=== PATIENT | female | born 1935 | race Caucasian/White ===

== ENCOUNTER 2018-12-02 13:21 | Emergency (ER) | payer MEDICARE ==
[2018-12-02] MEDS ORDERED: MECL1CHW2 PO (13:34)
--- NOTE | 2018-12-02 14:04 | REP ---
CT brain without contrast: History: Head injury. Findings: Preliminary parts driver images are unremarkable. Bone window settings demonstrate an intact bony calvarium. No skull fractures seen. There is left posterior parietal scalp hematoma and swelling. Vascular calcification is observed in the distal carotid arteries bilaterally. There is moderate diffuse cerebral atrophy. There is no evidence of intracranial hemorrhage. No extra-axial fluid collection, infarct, hemorrhage or mass lesion is seen. No midline shift is seen. Impression: Diffuse atrophy and vascular calcification. Left posterior parietal scalp hematoma and swelling. No skull fracture or intracranial injury. Electronically Signed by Isaias Viveros MD 12/02/2018 01:56 P
[2018-12-02 14:14] LABS: BASO % 0.1 % (0.0-1.0); EOS # 0.1 10^3/uL (0.0-0.50); EOS % 0.3 % (0.0-3.0); HEMATOCRIT 33.8 % (36.0-47.0); HEMOGLOBIN 10.4 g/dl (12.0-15.5); LYMPH # 0.9 10^3/uL (1.5-4.5); MEAN CORPUSCULAR HEMOGLOBIN 28.8 pg (27.0-33.0); MEAN CORPUSCULAR HGB CONC 30.8 g/dl (32.0-36.5); MEAN CORPUSCULAR VOLUME 93.6 fl (80.0-96.0); MONO % 16.9 % (0.0-5.0); NEUTROPHILS # 13.3 10^3/uL (1.8-7.7); NEUTROPHILS % 76.8 % (36.0-66.0); PLATELET COUNT, AUTOMATED 238 10^3/uL (150-450); RED BLOOD COUNT 3.61 10^6/uL (4.00-5.40); WHITE BLOOD COUNT 17.4 10^3/uL (4.0-10.0)
[2018-12-02] MEDS ORDERED: ADENOSINE 6MG/2ML INJECTION (J0153) As Ordered ONE (14:21)
[2018-12-02] MEDS ORDERED: ADENOSINE 6MG/2ML INJECTION (J0153) IV STA (14:23)
[2018-12-02] MEDS ORDERED: NS 500 ML IV ONE (14:30)
[2018-12-02 14:51] LABS: ALBUMIN 3.7 GM/DL (3.2-5.2); BILIRUBIN,TOTAL 1.1 MG/DL (0.2-1.0); CALCIUM LEVEL 7.8 MG/DL (8.8-10.2); CREATININE FOR GFR 1.09 MG/DL (0.55-1.30); FREE THYROXINE INDEX 1.9 % (1.3-4.8); GLOMERULAR FILTRATION RATE 50.8 (>32); THYROXINE (T4) 5.8 UG/DL (4.5-12.0); TOTAL PROTEIN 6.6 GM/DL (6.4-8.2); TROPONIN I 0.96 NG/ML (< 0.10)
--- NOTE | 2018-12-02 14:59 | REP ---
CT study of the cervical spine without contrast: History: Technique: Helical scanning is acquired and overlapping 2 mm high resolution axial images were generated and reviewed at bone and soft tissue window settings. Coronal and sagittal multiplanar re-formations images are generated. CT findings: There is a coronal plane complex C2-C3 fracture. This extends through both pedicles at C2 and across the posterior aspect of the body of C2 in the coronal plane. The C2 component of the fracture is somewhat diastatic. The fracture plane continues through the mid and anterior body of C3. The superior endplate of C3 is partially collapsed. The anterior body is displaced forward somewhat. There is no evidence of retropulsion. No loss of posterior vertebral body height is seen. There is discogenic spurring on the left posteriorly at C2-3 disc margin and this along with the fracture has produced of neural foraminal narrowing. The posterior elements at the C3 appear intact. There is osteoarthritic facet disease bilaterally but the facets are normally aligned. The left-sided C3-4 facet is ankylosed as is the left-sided C4-5 facet. There are degenerative disc changes at C4-5 and C5-6 and C6-7. At C5-6, there is significant posterior disc spurring producing severe central canal stenosis. Impression: Coronal plane bilateral pedicle and posterior body C2 fractures, slightly diastatic. This is associated with an anterior wedge compression fracture through the body of C3. Unstable injury. Degenerative spondylosis changes are noted with severe central canal stenosis at the C5-6 level. Ankylosed left-sided C3-4 and C4-5 facet joints are noted incidentally. Findings were telephoned at the time of the study to Dr. Medina in the emergency department. Electronically Signed by Isaias Viveros MD 12/02/2018 03:53 P
[2018-12-02 15:06] LABS: MONO # 2.9 10^3/uL (0.0-0.8)
[2018-12-02 15:14] LABS: MAGNESIUM LEVEL 1.7 MG/DL (1.8-2.4); MB/CK RELATIVE INDEX 1.36 (< OR =4); POTASSIUM SERUM 3.4 MEQ/L (3.5-5.1); THYROID STIMULATING HORMONE 2.97 uIU/ML (0.358-3.740)
[2018-12-02] MEDS ORDERED: NS 1,000 ML IV ONE (16:00)
[2018-12-02] MEDS ORDERED: METOPROLOL TART 25 MG TABLET PO ONE (16:15)
[2018-12-02 16:59] LABS: APPEARANCE, URINE CLEAR (CLEAR); BACTERIA, URINE AUTO NEGATIVE (NEGATIVE); BILIRUBIN, URINE AUTO NEGATIVE (NEGATIVE); BLOOD, URINE BLOOD 2+ (NEGATIVE); COLOR, URINE YELLOW (YELLOW); GLUCOSE, URINE (UA) AUTO NEGATIVE (NEGATIVE); KETONE, URINE AUTO 1+ mg/dL (NEGATIVE); LEUKOCYTE ESTERASE, URINE AUTO NEGATIVE (NEGATIVE); NITRITE, URINE AUTO NEGATIVE (NEGATIVE); PROTEIN, URINE AUTO 1+ mg/dL (NEGATIVE); RBC, URINE AUTO 24 /HPF (0-3); SPECIFIC GRAVITY URINE AUTO 1.016 (1.002-1.035); SQUAMOUS EPITHELIAL CELL UR AU 0 /HPF (0-6); UROBILINOGEN, URINE AUTO 0.2 mg/dL (0.0-2.0); WBC, URINE AUTO 1 /HPF (0-3)
[2018-12-02 17:18] VITALS: BP 143/66
--- NOTE | 2018-12-02 17:39 | ECGEPIP ---
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
--- NOTE | 2018-12-02 17:40 | ECGEPIP ---
Stationary ECG Study 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
== END 2018-12-02 17:21 | disposition short-term general hospital (02) ==
LOC: M ED 13:21 → EDBD 13:21 → M ED 17:21
DX: S12.190A Other displaced fracture of second cervical vertebra, initial encounter for closed fracture (principal); S12.290A Other displaced fracture of third cervical vertebra, initial encounter for closed fracture; W19.XXXA Unspecified fall, initial encounter; Y92.018 Other place in single-family (private) house as the place of occurrence of the external cause

== ENCOUNTER 2018-12-12 11:53 | Inpatient (IN) | payer MEDICARE ==
[~2018-12-12] VITALS: Ht 167.6 cm; Wt 67.1 kg
[~2018-12-12 11:53] MED LIST: MECL1CHW2 PO
[2018-12-14 15:20] VITALS: BP 147/70
[2018-12-14] MEDS ORDERED: ACET1TAB55 PO (15:45)
[2018-12-14] MEDS ORDERED: LEVO500T3 PO (15:45)
[2018-12-14] MEDS ORDERED: MOM 30ML SUSPENSION UDC PO PRN (17:15)
--- NOTE | 2018-12-14 18:11 | REP ---
Clinical: Chest pain. Pleural effusion. Comparison: 12/03/2009. Findings: Mediastinum and cardiac silhouette are within normal limits and stable. Lung burgos demonstrate diffuse chronic interstitial changes. No acute consolidation, effusion, or pneumothorax. Skeletal structures demonstrate osteopenia and degenerative change. Impression: Chronic stable changes. No acute cardiopulmonary process. Electronically Signed by Kermit Krishnamurthy MD 12/14/2018 06:03 P
[2018-12-14 18:43] LABS: APPEARANCE, URINE CLEAR (CLEAR); BACTERIA, URINE AUTO NEGATIVE (NEGATIVE); BILIRUBIN, URINE AUTO NEGATIVE (NEGATIVE); BLOOD, URINE BLOOD NEGATIVE (NEGATIVE); COLOR, URINE YELLOW (YELLOW); GLUCOSE, URINE (UA) AUTO NEGATIVE (NEGATIVE); KETONE, URINE AUTO NEGATIVE (NEGATIVE); LEUKOCYTE ESTERASE, URINE AUTO NEGATIVE (NEGATIVE); NITRITE, URINE AUTO NEGATIVE (NEGATIVE); PROTEIN, URINE AUTO NEGATIVE (NEGATIVE); RBC, URINE AUTO 1 /HPF (0-3); SPECIFIC GRAVITY URINE AUTO 1.038 (1.002-1.035); SQUAMOUS EPITHELIAL CELL UR AU 0 /HPF (0-6); UROBILINOGEN, URINE AUTO 0.2 mg/dL (0.0-2.0); WBC, URINE AUTO 1 /HPF (0-3)
[2018-12-14] MEDS: BOUDREAUX'S BUTT PASTE 4OZ TOP SCH (20:42)
[2018-12-14] MEDS: ACETAMINOPHEN TAB 650MG DOSE (2X325MG) PO PRN (20:42)
[2018-12-14] MEDS: LACTOBACILLUS ACIDOPHILUS CAP (BACID) PO SCH (20:42)
[2018-12-14 22:00] VITALS: BP 160/81
[2018-12-15 06:00] VITALS: BP 150/72
[2018-12-15] MEDS ORDERED: LevoFLOXacin 250 MG TABLET PO SCH (06:00)
[2018-12-15 07:48] LABS: HEMATOCRIT 25.4 % (36.0-47.0); HEMOGLOBIN 7.9 g/dl (12.0-15.5); MEAN CORPUSCULAR HEMOGLOBIN 28.8 pg (27.0-33.0); MEAN CORPUSCULAR HGB CONC 31.1 g/dl (32.0-36.5); MEAN CORPUSCULAR VOLUME 92.7 fl (80.0-96.0); PLATELET COUNT, AUTOMATED 357 10^3/uL (150-450); RED BLOOD COUNT 2.74 10^6/uL (4.00-5.40)
[2018-12-15 08:07] LABS: ALBUMIN 2.9 GM/DL (3.2-5.2); ALT/SGPT 14 U/L (12-78); BILIRUBIN,TOTAL 0.5 MG/DL (0.2-1.0); BLOOD UREA NITROGEN 17 MG/DL (7-18); CALCIUM LEVEL 8.1 MG/DL (8.8-10.2); CARBON DIOXIDE LEVEL 32 MEQ/L (21-32); CHLORIDE LEVEL 101 MEQ/L (98-107); CREATININE FOR GFR 0.65 MG/DL (0.55-1.30); GLOMERULAR FILTRATION RATE > 60.0 (>32); GLUCOSE, FASTING 94 MG/DL (70-100); SODIUM LEVEL 138 MEQ/L (136-145); TOTAL PROTEIN 6.1 GM/DL (6.4-8.2)
--- NOTE | 2018-12-15 08:21 | REP ---
Clinical: Immobilization with lower extremity pain . Technique: Escobar scale and color Doppler evaluation using linear high frequency transducer. Findings: Ultrasound examination of the right and left lower extremity deep venous structures from the common femoral vein to the popliteal vein demonstrates normal compressibility flow and wave patterns in response to respiration and augmentation. There is no evidence for deep venous thrombosis. Impression: No evidence for deep venous thrombosis bilateral lower extremities. Electronically Signed by Kermit Krishnamurthy MD 12/15/2018 08:12 A
[2018-12-15 08:32] LABS: ATYPICAL LYMPH 2 % (0-5); LYMPHOCYTES 24 % (16-52); MONOCYTES 22 % (0-8); MYELOCYTES 1 % (0-0); NEUTROPHILS 49 % (35-75)
[2018-12-15 08:33] LABS: ANISOCYTOSIS 1+; PLATELET ESTIMATE NORMAL (NORMAL)
[2018-12-15] MEDS: BOUDREAUX'S BUTT PASTE 4OZ TOP SCH ×3 (09:00→20:10)
[2018-12-15] MEDS: SANTYL OINT 30GM TOP SCH (09:03)
[2018-12-15] MEDS: PANTOPRAZOLE 40MG TAB (PROTONIX) PO SCH (09:04)
[2018-12-15] MEDS: LACTOBACILLUS ACIDOPHILUS CAP (BACID) PO SCH ×3 (09:04→20:10)
[2018-12-15] MEDS: ENOXAPARIN 40 MG/0.4 ML SYRINGE (J1650) SC SCH (09:04)
[2018-12-15] MEDS: ACETAMINOPHEN TAB 650MG DOSE (2X325MG) PO PRN ×2 (10:00→20:47)
[2018-12-15 14:00] VITALS: BP 137/76
--- NOTE | 2018-12-15 14:45 | HPEPDOC ---
Tester/Lift Trucker Note DATE OF ADMISSION: Dec 14, 2018 at 15:20 SOURCE OF ADMISSION INFORMATION: [facility] and [facility] records, patient CHIEF COMPLAINT: cervical neck fracture HISTORY OF PRESENT ILLNESS: 83F no pmh who presented to [facility] ED on 12-02-18 following a fall out of bed and found to have a cervical fracture. CT neck at the time revealed, "Coronal plane bilateral pedicle and posterior body C2 fractures, slightly diastatic...anterior wedge compression fracture through the body of C3. Unstable injury." She was transferred to [facility] for further evaluation where she was not deemed a surgical candidate and placed in a cervical collar to be worn at all times. She did have an elevated CK and troponins, but cardiac work-up was otherwise normal and she was treated with IVF. 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 Coli and so she was treated with IV antibiotics and transitioned to oral. On there was concern for PE as patient became tachycardic, however CTA showed "no pulmonary embolism...bilateral pleural effusions...opacities in bilateral lower lobes may represent atelectasis or pneumonia". She developed a left clavicle wound due to her C collar, found to have deficits in gait and ADLs, placed on a dysphagia diet, had mejia inserted for urinary retention, and deemed medically appropriate for discharge to ARU on 12-14-18. REVIEW OF SYSTEMS: The following is a completed review of systems and has been reviewed. Review of systems otherwise unremarkable. PAIN: Patient self reports no pain EYES: Negative for recent vision changes EARS, NOSE, & THROAT: +dysphagia, cervical collar CARDIOVASCULAR: no chest pain or palpitations PULMONARY: Negative. Denies shortness of breath GASTROINTESTINAL: Negative for diarrhea or constipation GENITOURINARY: +mejia, +retention MUSCULOSKELETAL: C2, C3 vertebral fracture NEUROLOGICAL: C2, C3 vertebral fracture, no focal deficit SKIN: left clavicle stage ulcer with slough, lower truncal abrasions, onychomycosis PSYCHIATRIC: confused All other review of systems found to be negative. PAST MEDICAL HISTORY: falls PAST SURGICAL HISTORY: unknown ALLERGIES: Please see below. MEDICATIONS: Please see below. FAMILY HISTORY: unknown SOCIAL HISTORY: , lives alone, no ETOH or smoking DIET: puree with nectar PHYSICAL EXAMINATION: VITAL SIGNS: Please see below. GENERAL: Pleasant and cooperative. No acute distress. HEENT: PERRL. Extraocular movements intact. Clear conjunctiva, C-collar in place CARDIOVASCULAR: Regular rate and rhythm. No murmurs, rubs, or gallops. LUNGS: Clear to auscultation bilaterally. No wheezes. No rhonchi ABDOMEN: Soft, nontender, nondistended. Positive bowel sounds. Normal active bow el sounds NEUROLOGICAL: Alert and oriented to self, not place or time Cranial nerves II through XII grossly intact. Sensation grossly intact all 4 extremities, no paresthesias EXTREMITIES: 5\\5 strength bilateral upper extremities. 5-\\5 strength right lower extremity. 5-/5 strength in left lower extremity. SKIN: left clavicle stage ulcer with slough, multiple ower truncal abrasions, toe onychomycosis, stage one sacral ulcer : +mejia IMAGING: Imaging documentation personally reviewed by record FUNCTIONAL STATUS: Premorbid: Independent with all activities of daily life as well as mobility On Admission: Total assist for ambulation, Mod-Max assist with grooming, dressing, bed mobility. GOALS: Modified Independent with ambulation using RW, Mod-I for dressing, toileting, Superivison for bathing, medical optimization, assess for DME needs, family training, Home evaluation, remove mejia. ASSESSMENT:83-year-old F with past medical history of falls who presents status postfall with C2-C3 vertebral fracture. PLAN: 1. rehab: PT, OT, [employer], assess for DME 2. Neuro: recent unstable C2-C3 fracture, monitor for motor weakness or paresthesias, at this time stable- -will check Tyroid function and B12 for organic casues of dementia and consider SSRI for possible pseudodementia 3. Ortho: s/p C2-C3 fracture, C-collar at all times, needs outpatient follow-up 4. Cardio: stable 5. Resp: recent CTA to rule out PE showed effusions and infiltrates, will order CXR and monitor for any signs of pneumonia, Incentive spirometry- will add Duonebs 6. : continue short course of Levaquin for E. coli UTI, will d/c if repeat Ucx negative, start trial voiding in a few days, continue mejia care at this time 7. DVT ppx: Lovenox and obtain admisison Dopplers 8. GI ppx : protonix 9. Pain: Tylenol prn 10. Skin: unstageable left clavicle ulcer- SAntyl daily and cover with mepilex, and stage one sacral ulcer Butt Paste, and truncal abrasions continue Mepilex 11. Dispo: TBD POST ADMISSION PHYSICIAN EVALUATION: Medical and functional status: Description of medical status, medical assessment: As above. Rehabilitation diagnosis and current and prior cold morbid medical conditions as above. Risk of complications and plans to mitigate them as above. Description of functional status current status is as above. Prior status as above. Status compared to preadmission: There are no clinically significant differences between the patient's current status and the information described on the preadmission screening document. Treatment plan anticipated: Treatment plan is as described above. Required disciplines including physical therapy, occupational therapy, others as noted above. Intensity of services: 3 hours a day, 6 days a week. Special considerations: There are no specific special or safety considerations that would likely preclude immediate implementation of an intensive rehabilitation program or subsequently influence the plan of care. ATTESTATION: Considering all the information above, it is my best judgment that this patient requires intensive rehabilitation therapy as described above and an inpatient hospital environment due to the complexity of nursing, medical, and rehabilitation needs required by the patient. Furthermore, this patient can reasonably be expected to participate in an benefit from an inpatient rehabilitation stay with an interdisciplinary team approach to the delivery of rehabilitation care under the direction and supervision of rehabilitation physician PROGNOSIS: Good. ESTIMATED LENGTH OF STAY:14-18 days. PROJECTED DISCHARGE DESTINATION: Home with family support and any durable medical equipment required to increase functional safety and mobility TIME SPENT COUNSELING AND COORDINATING INITIAL CARE: Greater than 70 minutes. Vital Signs Vital Sign - Last 24 Hours 12/14/18 12/14/18 12/15/18 15:20 22:00 06:00 Temp 98.1 97.7 97.2 Pulse 102 109 91 Resp 19 16 17 B/P (MAP) 147/70 (95) 160/81 (107) 150/72 (98) Pulse Ox 97 98 99 O2 Delivery Room Air Room Air Room Air Laboratory Data CBC/BMP Laboratory Tests 12/15/18 07:22 Red Blood Count 2.74 L, Mean Corpuscular Volume 92.7, Mean Corpuscular Hemoglobin 28.8, Mean Corpuscular Hemoglobin Concent 31.1 L, Red Cell Distribution Width 19.6 H, Monocytes # (Auto) , Calcium Level 8.1 L, Aspartate Amino Transf (AST/SGOT) 21, Alanine Aminotransferase (ALT/SGPT) 14, Alkaline Phosphatase 91, Total Bilirubin 0.5, Total Protein 6.1 L, Albumin 2.9 L Labs 24H Laboratory Tests 2 12/14/18 18:30: Urine Appearance CLEAR, Urine Color YELLOW, Urine pH 8.0, Urine Specific [place] 1.038, Urine Protein NEGATIVE, Urine Glucose (UA) NEGATIVE, Urine Ketones NEGATIVE, Urine Urobilinogen 0.2, Urine Bilirubin NEGATIVE, Urine Leukocyte Esterase NEGATIVE, Urine Blood NEGATIVE, Urine Nitrite NEGATIVE, Urine WBC (Auto) 1, Urine RBC (Auto) 1, Urine Hyaline Casts (Auto) 0, Urine Bacteria (Auto) NEGATIVE, Urine Squamous Epithelial Cells 0, Urine Sperm (Auto) 12/15/18 07:22: White Blood Count 9.0, Red Blood Count 2.74L, Hemoglobin 7.9L, Hematocrit 25.4L, Mean Corpuscular Volume 92.7, Mean Corpuscular Hemoglobin 28.8, Mean Corpuscular Hemoglobin Concent 31.1L, Red Cell Distribution Width 19.6H, Platelet Count 357, Monocytes # (Auto) , Nucleated Red Blood Cells % (auto) 0.0, Neutrophils 49, Band Neutrophils 2, Lymphocytes (Manual) 24, Monocytes (Manual) 22H, Myelocytes 1H, Atypical Lymphocytes 2, Platelet Estimate NORMAL, Anisocytosis 1+, Anion Gap 5L, Glomerular Filtration Rate > 60.0, Blood Urea Nitrogen 17, Creatinine 0.65, Sodium Level 138, Potassium Level 4.0, Chloride Level 101, Carbon Dioxide Level 32, Calcium Level 8.1L, Aspartate Amino Transf (AST/SGOT) 21, Alanine Aminotransferase (ALT/SGPT) 14, Alkaline Phosphatase 91, Total Bilirubin 0.5, Total Protein 6.1L, Albumin 2.9L, Albumin/Globulin Ratio 0.91L Microbiology Microbiology 12/14/18 Urine Culture - Final, Complete Home Medications Scheduled Levofloxacin Hemihydrate (Levofloxacin) 500 Mg Tab, 500 MG PO DAILY, (Reported) Scheduled PRN Acetaminophen (Acetaminophen) 325 Mg Tab, 325 MG PO Q4H PRN for PAIN, (Reported) Allergies Coded Allergies: No Known Allergies (Unverified , 12/02/18) ARTHUR ARROYO MD Dec 15, 2018 14:45
--- NOTE | 2018-12-15 14:59 | CR ---
DATE OF CONSULTATION: 12/14/2018 ATTENDING PHYSICIAN: Dr. Ibarra REASON FOR CONSULTATION: Medical management. HISTORY OF PRESENT ILLNESS: The patient is an 83-year-old white female without significant medical history admitted here for rehabilitation. History is provided by herself as well as by reviewing the chart. Per medical record, patient presents to the ER here back to December 02, 2018 due to fall at home. In the ER, she had extensive workups done which demonstrated she had a C2-C3 fracture. So she was transferred to [facility] in [place]. Since then, she had extensive workup done over there and she was also found to have urinary retention and E. coli urinary tract infection (UTI) which was treated with IV Zosyn. It seems like she did not go for any surgical treatment, instead she had a neck collar placed. She was discharged from [place] today and is admitted here for rehabilitation. Medicine service called for admission. REVIEW OF SYSTEMS: Denies fever, no chills, no headache, blurry vision. No shortness of breath. No chest pain. No nausea, no vomiting. No abdominal pain. No tingling, numbness, weakness in arms or lower extremities. All other systems reviewed but negative. PAST MEDICAL HISTORY: None. PAST SURGICAL HISTORY: None. ALLERGIES: No known drug allergies. MEDICATIONS: No routine medications. ALLERGIES: No known drug allergies. FAMILY HISTORY: Noncontributory. PHYSICAL EXAMINATION: VITAL SIGNS: Temperature 98.1, heart rate is 102, respiratory rate 19, blood pressure 140/70, oxygen saturation 97% on room air. GENERAL: She is awake, alert, oriented times three. She is not in acute distress. HEENT: Atraumatic. Pupils equal, round and reactive to light. No jaundice. Extraocular muscles intact. Ears, nose, throat: Normal. Mouth: Mucous not dry. Neck: No JVD. No bruits. She had a collar on her neck. LUNGS: Clear. No wheezing, no crackles. HEART: S1, S2, regular. No murmur. ABDOMEN: Soft, bowel sounds positive. Nontender. LOWER EXTREMITIES: No edema in bilateral lower extremities. NEUROLOGICAL: Nonfocal. SKIN: No rash. PSYCHOLOGICAL: No acute psychosis. LABS AND IMAGING STUDIES: Reviewed. IMPRESSION: 1. C2-C3 fracture due to a mechanical fall. 2. UTI caused by E. coli which was treated recently. 3. Urinary retention, on Melendrez catheter. RECOMMENDATION: Currently patient is medically stable and her UTI was treated with IV Zosyn. I recommend to discontinue Cipro. Will continue Melendrez catheter. Dr. Payton from medicine service will followup with you. Edited 12/15/2018 @ 1457 [facility] CenterRichelle
[2018-12-15] MEDS: IPRATROPIUM 0.02% SOLN 0.5MG/2.5 ML NEB INH SCH (20:00)
[2018-12-15 22:00] VITALS: BP 149/74
[2018-12-16 06:00] VITALS: BP 149/71
[2018-12-16 06:47] LABS: HEMATOCRIT 25.3 % (36.0-47.0); HEMOGLOBIN 7.9 g/dl (12.0-15.5); MEAN CORPUSCULAR HEMOGLOBIN 28.7 pg (27.0-33.0); MEAN CORPUSCULAR HGB CONC 31.2 g/dl (32.0-36.5); PLATELET COUNT, AUTOMATED 378 10^3/uL (150-450); RED BLOOD COUNT 2.75 10^6/uL (4.00-5.40); WHITE BLOOD COUNT 10.4 10^3/uL (4.0-10.0)
[2018-12-16 07:07] LABS: PERCENT SATURATION 19.5 % (13.2-45.0)
[2018-12-16 07:13] LABS: FREE T4 0.7 NG/DL (0.76-1.46); THYROID STIMULATING HORMONE 19.9 uIU/ML (0.358-3.740)
[2018-12-16 07:59] LABS: ANISOCYTOSIS 1+; ATYPICAL LYMPH 2 % (0-5); EOSINOPHILS 1 % (0-5); LYMPHOCYTES 14 % (16-52); MONOCYTES 23 % (0-8); MYELOCYTES 2 % (0-0); NEUTROPHILS 58 % (35-75); PLATELET ESTIMATE NORMAL (NORMAL)
[2018-12-16 08:00] LABS: HYPOCHROMASIA 1+
[2018-12-16] MEDS: IPRATROPIUM 0.02% SOLN 0.5MG/2.5 ML NEB INH SCH ×2 (08:10→20:00)
[2018-12-16] MEDS: ACETAMINOPHEN TAB 650MG DOSE (2X325MG) PO PRN ×3 (08:42→20:01)
[2018-12-16] MEDS: LACTOBACILLUS ACIDOPHILUS CAP (BACID) PO SCH ×3 (08:42→20:00)
[2018-12-16] MEDS: ENOXAPARIN 40 MG/0.4 ML SYRINGE (J1650) SC SCH (08:42)
[2018-12-16] MEDS: PANTOPRAZOLE 40MG TAB (PROTONIX) PO SCH (08:42)
[2018-12-16] MEDS: SANTYL OINT 30GM TOP SCH (08:42)
[2018-12-16] MEDS: BOUDREAUX'S BUTT PASTE 4OZ TOP SCH ×3 (08:43→20:00)
--- NOTE | 2018-12-16 13:02 | IPNPDOC ---
Subjective Date Seen The patient was seen on 12/16/18. Subjective Chief Complaint/HPI Patient seen and examined at the bedside. She is noted to be tearful/anxious at times when working with physical therapy this morning. When asked, the patient states that she is not in any pain. She relays that she, "does not know why I am crying/screaming." She is otherwise pleasant and does not endorse any other acute complaints. Objective Physical Examination General Exam: Positive: Cooperative, Mild Distress (2/2 anxiety, but is quickly calmed down when talked to) ENT Exam: Positive: Mucous membr. moist/pink Neck Exam: Positive: Other (collar noted to be stabilizing cervical spine) Chest Exam: Positive: Clear to auscultation, Normal air movement Heart Exam: Positive: Rate Normal, Normal S1, Normal S2 Abdomen Exam: Positive: Soft; Negative: Tenderness Extremity Exam: Negative: Tenderness, Swelling Neuro Exam: Positive: Normal Speech, Strength at 5/5 X4 ext, Sensation Intact Psych Exam: Positive: Other (Anxious appearing) Assessment /Plan Plan/VTE VTE Prophylaxis Ordered?: Yes Plan C2-C3 Fracture 2/2 Mechanical Fall The patient did not require surgical intervention Further mgmt and functional optimization as per Rehab/Physiatry Normocytic Anemia Hgb stable at 7.9 Iron studies notable for low serum iron, and low/normal transferrin saturation We will start the patient on iron supplementation No indication for transfusion at this time as the patient is asymptomatic We will cont to monitor H&H Leukocytosis likely 2/2 #1 s/p treatment for underlying UTI Patient with no other infectious signs or symptoms at this time We will cont to monitor WBC Urinary Retention s/p Melendrez Catheterization We may consider a voiding trial here in the next few days Abnormal TFTs Patient noted to have normal TFTs just 2 weeks ago Likely 2/2 underlying acute injury/stressor Repeat TFT's in 6-8 weeks Dementia Can consider Donepezil, Memantine GI Prophylaxis Cont PPI DVT Prophylaxis Lovenox SC VS, I&O, 24H, Fishbone Vital Signs/I&O Vital Signs Date Time Temp Pulse Resp B/P (MAP) Pulse Ox O2 Delivery O2 Flow Rate FiO2 12/16/18 06:00 97.4 97 18 149/71 (97) 99 Room Air I&O- Last 24 Hours up to 6 AM 12/16/18 06:00 Intake Total 230 ml Output Total 1500 ml Balance -1270 ml Laboratory Data 24H LABS Laboratory Tests 2 12/16/18 06:14: White Blood Count 10.4H, Red Blood Count 2.75L, Hemoglobin 7.9L, Hematocrit 25.3L, Mean Corpuscular Volume 92.0, Mean Corpuscular Hemoglobin 28.7, Mean Corpuscular Hemoglobin Concent 31.2L, Red Cell Distribution Width 19.6H, Platelet Count 378, Monocytes # (Auto) , Nucleated Red Blood Cells % (auto) 0.0, Neutrophils 58, Lymphocytes (Manual) 14L, Monocytes (Manual) 23H, Eosinophils (Manual) 1, Myelocytes 2H, Atypical Lymphocytes 2, Platelet Estimate NORMAL, Hypochromasia 1+, Anisocytosis 1+, Iron Level 39L, Total Iron Binding Capacity 200L, Transferrin % Saturation 19.5, Ferritin 313H, Thyroid Stimulating Hormone (TSH) 19.900H, Free Thyroxine 0.70L CBC/BMP Laboratory Tests 12/16/18 06:14 Red Blood Count 2.75 L, Mean Corpuscular Volume 92.0, Mean Corpuscular Hemoglobin 28.7, Mean Corpuscular Hemoglobin Concent 31.2 L, Red Cell Distribution Width 19.6 H, Monocytes # (Auto) Microbiology Microbiology 12/14/18 Urine Culture - Final, Complete NUBIA BOB MD Dec 16, 2018 13:02
[2018-12-16 14:00] VITALS: BP 130/69
[2018-12-16] MEDS: FERROUS SULFATE 300MG/5ML UDC LIQUID PO SCH (14:27)
[2018-12-16 20:00] VITALS: BP 136/70
[2018-12-17] MEDS: ACETAMINOPHEN TAB 650MG DOSE (2X325MG) PO PRN ×3 (05:22→20:22)
[2018-12-17 05:49] VITALS: BP 147/78
[2018-12-17] MEDS ORDERED: LEVOTHYROXINE 75MCG TABLET (0.075MG) PO SCH (06:00)
[2018-12-17] MEDS: PANTOPRAZOLE 40MG TAB (PROTONIX) PO SCH (08:22)
[2018-12-17] MEDS: ENOXAPARIN 40 MG/0.4 ML SYRINGE (J1650) SC SCH (08:22)
[2018-12-17] MEDS: LACTOBACILLUS ACIDOPHILUS CAP (BACID) PO SCH ×3 (08:22→20:21)
[2018-12-17] MEDS: SANTYL OINT 30GM TOP SCH (08:23)
[2018-12-17] MEDS: BOUDREAUX'S BUTT PASTE 4OZ TOP SCH ×3 (08:23→21:00)
[2018-12-17] MEDS: FERROUS SULFATE 300MG/5ML UDC LIQUID PO SCH ×2 (08:23→20:21)
[2018-12-17] MEDS: IPRATROPIUM 0.02% SOLN 0.5MG/2.5 ML NEB INH SCH ×2 (11:11→20:00)
[2018-12-17 14:00] VITALS: BP 133/70
--- NOTE | 2018-12-17 14:31 | IPNPDOC ---
Date Seen The patient was seen on 12/17/18. Progress Note HPI: The patient is an 83-year-old white female who presented to [facility] ED December 02, 2018 due to fall at home. In the ER, she had extensive workups done which demonstrated she had a C2-C3 fracture. She was transferred to [facility] in [place] with further workup indicating urinary retention and E. coli urinary tract infection (UTI) which was treated with IV Zosyn.No surgical intervention recommended, instead she had a neck collar placed. She was transferred to the care of ARU, Dr Ibarra 12/14/18 No acute medical complaints today. States she feels "fine". Cervical collar in place. Denies any fevers, chills, Headache, Chest Pain, Shortness of breath, cough, palpitations, abdominal pain, N/V/D or changes in bowel or bladder habits. PMHx: none known PSHX: none known PE: GEN: 83yoF, appears stated age. Thin appearing. Alert and oriented, becomes anxious/agitated with questions. HEENT: Normocephalic, atraumatic. Sclera are nonicteric. Conjunctiva without injection. No facial asymmetry. Moist mucous membranes. Cervical collar in place. CHEST: Regular rate and rhythm, +S1, +S2 LUNGS: Clear to auscultation bilaterally. No wheezes, rales, or rhonchi. ABD: Round, soft, non-tender, non-distended. +Bowel sounds throughout. No rebound or guarding. EXT: No lower extremity edema appreciated. SKIN: [place], dry, warm. No rashes. Neuro. Nml speech. Moving UE/LEs. Nml sensation UE/LEs. A&P:The patient is an 83-year-old white female who presented to [facility] ED December 02, 2018 due to fall at home. In the ER, she had extensive workups done which demonstrated she had a C2-C3 fracture. She was transferred to [facility] in [place] with further workup indicating urinary retention and E. coli urinary tract infection (UTI) which was treated with IV Zosyn.No surgical intervention recommended, instead she had a neck collar placed. She was transferred to the care of ARUDr Ibarra 12/14/18 C2-C3 Fracture 2/2 Mechanical Fall The patient did not require surgical intervention Mgmt as per ARU PT/OT/ST as per ARU Pain control as per ARU Bowel care as per ARU DVT px. Lovenox as per ARU Normocytic Anemia Hgb stable at 7.9 Iron studies notable for low serum iron, and low/normal transferrin saturation Cont iron supplementation No indication for transfusion at this time as the patient is asymptomatic We will cont to monitor H&H Leukocytosis likely 2/2 #1 s/p treatment for underlying UTI Patient with no other infectious signs or symptoms at this time cont to monitor WBC Urinary Retention s/p Melendrez Catheterization Voiding trial ordered Abnormal TFTs Patient noted to have normal TFTs just 2 weeks ago Likely 2/2 underlying acute injury/stressor Repeat TFT's in 6-8 weeks Dementia Consider Donepezil, Memantine GI Prophylaxis Cont PPI Cont Bacid. VS, I&O, 24H, Fishbone Vital Signs/I&O Vital Signs Date Time Temp Pulse Resp B/P (MAP) Pulse Ox O2 Delivery O2 Flow Rate FiO2 12/17/18 05:49 97.2 92 19 147/78 (101) 100 Room Air I&O- Last 24 Hours up to 6 AM 12/17/18 06:00 Intake Total 960 ml Output Total 1225 ml Balance -265 ml Laboratory Data Microbiology Microbiology 12/16/18 Stool Occult Blood ([facility]) - Final, Complete 12/14/18 Urine Culture - Final, Complete Madelaine Mei Dec 17, 2018 14:31
[2018-12-17] MEDS: DONEPEZIL 5 MG TAB PO SCH (14:32)
[2018-12-17] MEDS: DOCUSATE SODIUM 100 MG CAP PO SCH ×2 (14:33→21:00)
--- NOTE | 2018-12-17 16:03 | IPNPDOC ---
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 She would like to keep the mejia in for another day. REVIEW OF SYSTEMS: The following is a completed review of systems and has been reviewed. Review of systems otherwise unremarkable. PAIN: Patient self reports no pain EYES: Negative for recent vision changes EARS, NOSE, & THROAT: +dysphagia, cervical collar CARDIOVASCULAR: no chest pain or palpitations PULMONARY: Negative. Denies shortness of breath GASTROINTESTINAL: Negative for diarrhea or constipation GENITOURINARY: +mejia, +retention MUSCULOSKELETAL: C2, C3 vertebral fracture NEUROLOGICAL: C2, C3 vertebral fracture, no focal deficit SKIN: left clavicle stage ulcer with slough, lower truncal abrasions, juan chomycosis PSYCHIATRIC: confused All other review of systems found to be negative. PHYSICAL EXAMINATION: VITAL SIGNS: Please see below. GENERAL: Pleasant and cooperative. No acute distress. HEENT: PERRL. Extraocular movements intact. Clear conjunctiva, C-collar in place CARDIOVASCULAR: Regular rate and rhythm. No murmurs, rubs, or gallops. LUNGS: Clear to auscultation bilaterally. No wheezes. No rhonchi ABDOMEN: Soft, nontender, nondistended. Positive bowel sounds. Normal active bowel sounds NEUROLOGICAL: Alert and oriented to self, not place or time Cranial nerves II through XII grossly intact. Sensation grossly intact all 4 e xtremities, no paresthesias EXTREMITIES: 5\5 strength bilateral upper extremities. 5-\5 strength right lower extremity. 5-/5 strength in left lower extremity. SKIN: left clavicle stage ulcer with slough, multiple ower truncal abrasions, toe onychomycosis, stage one sacral ulcer : +mejia ASSESSMENT:83-year-old F with past medical history of falls who presents status postfall with C2-C3 vertebral fracture. PLAN: 1. 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 Ortho: s/p C2-C3 fracture, C-collar at all times, needs outpatient follow-up 4. Cardio: stable 5. Resp: recent CTA to rule out PE showed effusions and infiltrates, CXR 12/14/18 showed chronic changes, monitor for any signs of pneumonia, Incentive spirometry- continue Duonebs 6. : s/p treatment E. coli UTI, admission Ucx negatve, will defer trial voiding until tomorrow per patient's request - continue mejia care at this time 7. DVT ppx: Lovenox, admisison Dopplers negative 8. GI ppx : protonix 9. Pain: Tylenol prn 10. Anemia: FOBT negative for occult blood, loss, iron studies show iron deficiency anemia, will ad oral Iron supplements and consider Venofer or blood transfusion 10. Skin: unstageable left clavicle ulcer- SAntyl daily and cover with mepilex, and stage one sacral ulcer Butt Paste, and truncal abrasions continue Mepilex 11. Dispo: TBD Allergies Coded Allergies: No Known Allergies (Unverified , 12/02/18) Vital Signs Vital Signs Date Time Temp Pulse Resp B/P (MAP) Pulse Ox O2 Delivery O2 Flow Rate FiO2 12/17/18 05:49 97.2 92 19 147/78 (101) 100 Room Air Microbiology Microbiology 12/16/18 Stool Occult Blood ([facility]) - Final, Complete 12/14/18 Urine Culture - Final, Complete Current Medications Current Medications Current Medications Acetaminophen (Tylenol Tab) 650 mg Q4HP PRN PO fever/MILD PAIN (PS 1-4) Last administered on 12/17/18at 13:31; Start 12/14/18 at 17:15 Collagenase (Santyl) apply left clavical DAILY TOP Last administered on 12/17/18at 08:23; Start 12/15/18 at 09:00 Docusate Sodium (Colace) 100 mg BID PO Last administered on 12/17/18at 14:33; Start 12/17/18 at 09:00 Donepezil HCl (AriCEPT) 5 mg DAILY PO Last administered on 12/17/18at 14:32; Start 12/17/18 at 09:00 Enoxaparin Sodium (Lovenox) 40 mg DAILY SC Last administered on 12/17/18at 08:22; Start 12/15/18 at 09:00 Ferrous Sulfate (Ferrous Sulfate) 300 mg BID PO ; Start 12/17/18 at 21:00 Ferrous Sulfate (Ferrous Sulfate) 300 mg DAILY PO Last administered on 12/17/18at 08:23; Start 12/16/18 at 09:00; Stop 12/17/18 at 13:57; Status DC Fluoxetine HCl (PROzac) 20 mg QHS PO ; Start 12/17/18 at 21:00 Home Med (Med Rec Complete!) ASDIRECTED XX ; Start 12/14/18 at 16:00; Stop 12/14/18 at 16:00; Status DC Ipratropium [place] (Atrovent 0.02%) 0.25 mg RBID INH Last administered on 12/17/18at 11:11; Start 12/15/18 at 20:00 Lactobacillus Acidophilus (Bacid) 1 ea TID PO Last administered on 12/17/18at 14:32; Start 12/14/18 at 21:00 Levofloxacin (Levaquin) 250 mg DAILY@06 PO Last administered on 12/15/18at 05: 03; Start 12/15/18 at 06:00; Stop 12/15/18 at 14:47; Status DC Levothyroxine Sodium (Synthroid) 75 mcg DAILY@06 PO ; Start 12/17/18 at 06:00; Stop 12/17/18 at 14:23; Status DC Levothyroxine Sodium (Synthroid) 75 mcg DAILY@06 PO ; Start 12/18/18 at 06:00 Magnesium Hydroxide (Milk Of Magnesia) 30 ml DAILYPRN PRN PO CONSTIPATION; Start 12/14/18 at 17:15 Pantoprazole Sodium (Protonix) 40 mg DAILY PO Last administered on 12/17/18at 08:22; Start 12/15/18 at 09:00 Zinc Oxide (Boudreauxs Butt Paste) sacrum TID TOP Last administered on 12/17/18at 08:23; Start 12/14/18 at 21:00 ARTHUR ARROYO MD Dec 17, 2018 16:03
[2018-12-17 20:00] VITALS: BP 149/69
[2018-12-17] MEDS: FLUoxetine 20 MG CAP PO SCH (20:22)
[2018-12-18] MEDS: ACETAMINOPHEN TAB 650MG DOSE (2X325MG) PO PRN ×3 (04:20→15:32)
[2018-12-18 06:00] VITALS: BP 170/82
[2018-12-18] MEDS: LEVOTHYROXINE 75MCG TABLET (0.075MG) PO SCH (06:21)
[2018-12-18 06:25] LABS: BASO % 0.1 % (0.0-1.0); EOS # 0.1 10^3/uL (0.0-0.50); EOS % 0.6 % (0.0-3.0); HEMATOCRIT 25.9 % (36.0-47.0); HEMOGLOBIN 7.9 g/dl (12.0-15.5); LYMPH # 1.7 10^3/uL (1.5-4.5); LYMPH % 17.1 % (24.0-44.0); MEAN CORPUSCULAR HEMOGLOBIN 28.6 pg (27.0-33.0); MEAN CORPUSCULAR HGB CONC 30.5 g/dl (32.0-36.5); MEAN CORPUSCULAR VOLUME 93.8 fl (80.0-96.0); MONO % 33.5 % (0.0-5.0); NEUTROPHILS # 4.8 10^3/uL (1.8-7.7); NEUTROPHILS % 47.2 % (36.0-66.0); PLATELET COUNT, AUTOMATED 338 10^3/uL (150-450); RED BLOOD COUNT 2.76 10^6/uL (4.00-5.40); WHITE BLOOD COUNT 10.1 10^3/uL (4.0-10.0)
[2018-12-18 06:30] LABS: MONO # 3.4 10^3/uL (0.0-0.8)
[2018-12-18 06:47] LABS: BLOOD UREA NITROGEN 16 MG/DL (7-18); CALCIUM LEVEL 8.1 MG/DL (8.8-10.2); CARBON DIOXIDE LEVEL 30 MEQ/L (21-32); CHLORIDE LEVEL 102 MEQ/L (98-107); CREATININE FOR GFR 0.81 MG/DL (0.55-1.30); GLOMERULAR FILTRATION RATE > 60.0 (>32); GLUCOSE, FASTING 96 MG/DL (70-100); SODIUM LEVEL 138 MEQ/L (136-145)
[2018-12-18] MEDS: IPRATROPIUM 0.02% SOLN 0.5MG/2.5 ML NEB INH SCH ×2 (08:45→23:22)
[2018-12-18] MEDS: ENOXAPARIN 40 MG/0.4 ML SYRINGE (J1650) SC SCH (09:20)
[2018-12-18] MEDS: FERROUS SULFATE 300MG/5ML UDC LIQUID PO SCH ×2 (09:20→20:30)
[2018-12-18] MEDS: PANTOPRAZOLE 40MG TAB (PROTONIX) PO SCH (09:20)
[2018-12-18] MEDS: SANTYL OINT 30GM TOP SCH (09:21)
[2018-12-18] MEDS: DONEPEZIL 5 MG TAB PO SCH (09:21)
[2018-12-18] MEDS: BOUDREAUX'S BUTT PASTE 4OZ TOP SCH ×3 (09:21→20:31)
[2018-12-18] MEDS: LACTOBACILLUS ACIDOPHILUS CAP (BACID) PO SCH ×3 (09:21→23:25)
[2018-12-18] MEDS: DOCUSATE SODIUM 100 MG CAP PO SCH ×2 (09:21→20:30)
--- NOTE | 2018-12-18 13:59 | IPNPDOC ---
Date Seen The patient was seen on 12/18/18. Progress Note HPI: The patient is an 83-year-old white female who presented to [facility] ED December 02, 2018 due to fall at home. In the ER, she had extensive workups done which demonstrated she had a C2-C3 fracture. She was transferred to [facility] in [place] with further workup indicating urinary retention and E. coli urinary tract infection (UTI) which was treated with IV Zosyn.No surgical intervention recommended, instead she had a neck collar placed. She was transferred to the care of ARU, Dr Ibarra 12/14/18 No acute medical complaints today. States she feels "fine". Cervical collar in place. Denies any fevers, chills, Headache, Chest Pain, Shortness of breath, cough, palpitations, abdominal pain, N/V/D or changes in bowel or bladder habits. PMHx: none known PSHX: none known PE: GEN: 83yoF, appears stated age. Thin appearing. Alert and oriented, becomes anxious/agitated with questions. HEENT: Normocephalic, atraumatic. Sclera are nonicteric. Conjunctiva without injection. No facial asymmetry. Moist mucous membranes. Cervical collar in place. CHEST: Regular rate and rhythm, +S1, +S2 LUNGS: Clear to auscultation bilaterally. No wheezes, rales, or rhonchi. ABD: Round, soft, non-tender, non-distended. +Bowel sounds throughout. No rebound or guarding. EXT: No lower extremity edema appreciated. SKIN: [place], dry, warm. No rashes. Neuro. Nml speech. Moving UE/LEs. Nml sensation UE/LEs. A&P:The patient is an 83-year-old white female who presented to [facility] ED December 02, 2018 due to fall at home. In the ER, she had extensive workups done which demonstrated she had a C2-C3 fracture. She was transferred to [facility] in [place] with further workup indicating urinary retention and E. coli urinary tract infection (UTI) which was treated with IV Zosyn.No surgical intervention recommended, instead she had a neck collar placed. She was t ransferred to the care of Dr Fred GONZALEZ 12/14/18 C2-C3 Fracture 2/2 Mechanical Fall The patient did not require surgical intervention Mgmt as per ARU PT/OT/ST as per ARU Pain control as per ARU Bowel care as per ARU DVT px. Lovenox as per ARU Normocytic Anemia Hgb stable at 7.9 Iron studies notable for low serum iron, and low/normal transferrin saturation Cont iron supplementation Monitor need for transfusion We will cont to monitor H&H Leukocytosis likely 2/2 #1 s/p treatment for underlying UTI Patient with no other infectious signs or symptoms at this time Afebrile. WBC 10.1. cont to monitor WBC Urinary Retention s/p Melendrez Catheterization Voiding trial ordered Abnormal TFTs Patient noted to have normal TFTs just 2 weeks ago Possibly 2/2 underlying acute injury/stressor Repeat TFT's in 6-8 weeks Dementia Continue Donepezil GI Prophylaxis Cont PPI Cont Bacid. VS, I&O, 24H, Fishbone Vital Signs/I&O Vital Signs Date Time Temp Pulse Resp B/P (MAP) Pulse Ox O2 Delivery O2 Flow Rate FiO2 12/18/18 06:00 97.2 88 18 170/82 (111) 99 Room Air I&O- Last 24 Hours up to 6 AM 12/18/18 06:00 Intake Total 720 ml Output Total 1200 ml Balance -480 ml Laboratory Data 24H LABS Laboratory Tests 2 12/18/18 06:05: Immature Granulocyte % (Auto) 1.5, White Blood Count 10.1H, Red Blood Count 2.76L, Hemoglobin 7.9L, Hematocrit 25.9L, Mean Corpuscular Volume 93.8, Mean Corpuscular Hemoglobin 28.6, Mean Corpuscular Hemoglobin Concent 30.5L, Red Cell Distribution Width 19.4H, Platelet Count 338, Neutrophils (%) (Auto) 47.2, Lymphocytes (%) (Auto) 17.1L, Monocytes (%) (Auto) 33.5H, Eosinophils (%) (Auto) 0.6, Basophils (%) (Auto) 0.1, Neutrophils # (Auto) 4.8, Lymphocytes # (Auto) 1.7, Monocytes # (Auto) 3.4H, Eosinophils # (Auto) 0.1, Basophils # (Auto) 0.0, Nucleated Red Blood Cells % (auto) 0.0, Anion Gap 6L, Glomerular Filtration Rate > 60.0, Blood Urea Nitrogen 16, Creatinine 0.81, Sodium Level 138, Potassium Level 5.0#, Chloride Level 102, Carbon Dioxide Level 30, Calcium Level 8.1L CBC/BMP Laboratory Tests 12/18/18 06:05 Red Blood Count 2.76 L, Mean Corpuscular Volume 93.8, Mean Corpuscular H emoglobin 28.6, Mean Corpuscular Hemoglobin Concent 30.5 L, Red Cell Distribution Width 19.4 H, Neutrophils (%) (Auto) 47.2, Lymphocytes (%) (Auto) 17.1 L, Monocytes (%) (Auto) 33.5 H, Eosinophils (%) (Auto) 0.6, Basophils (%) (Auto) 0.1, Neutrophils # (Auto) 4.8, Lymphocytes # (Auto) 1.7, Monocytes # (Auto) 3.4 H, Eosinophils # (Auto) 0.1, Basophils # (Auto) 0.0, Calcium Level 8.1 L Microbiology Microbiology 12/16/18 Stool Occult Blood ([facility]) - Final, Complete 12/14/18 Urine Culture - Final, Complete Madelaine Mei Dec 18, 2018 13:59
[2018-12-18 14:00] VITALS: BP 152/71
[2018-12-18] MEDS ORDERED: diphenhydrAMINE INJ 50MG/ML VIAL (J1200) IM ONE (18:00)
[2018-12-18] MEDS ORDERED: ACETAMINOPHEN TAB 650MG DOSE (2X325MG) PO ONE (18:00)
[2018-12-18 20:00] VITALS: BP 156/76
[2018-12-18] MEDS: FLUoxetine 20 MG CAP PO SCH (20:30)
[2018-12-19] MEDS: LEVOTHYROXINE 75MCG TABLET (0.075MG) PO SCH (05:46)
[2018-12-19] MEDS: ACETAMINOPHEN TAB 650MG DOSE (2X325MG) PO PRN ×3 (05:47→18:45)
[2018-12-19 06:00] VITALS: BP 156/74
[2018-12-19 06:55] LABS: HEMATOCRIT 30.2 % (36.0-47.0); HEMOGLOBIN 9.5 g/dl (12.0-15.5); MEAN CORPUSCULAR HEMOGLOBIN 28.4 pg (27.0-33.0); MEAN CORPUSCULAR HGB CONC 31.5 g/dl (32.0-36.5); MEAN CORPUSCULAR VOLUME 90.4 fl (80.0-96.0); PLATELET COUNT, AUTOMATED 300 10^3/uL (150-450); RED BLOOD COUNT 3.34 10^6/uL (4.00-5.40); WHITE BLOOD COUNT 9.3 10^3/uL (4.0-10.0)
[2018-12-19] MEDS: IPRATROPIUM 0.02% SOLN 0.5MG/2.5 ML NEB INH SCH ×2 (08:06→20:00)
[2018-12-19] MEDS: FERROUS SULFATE 300MG/5ML UDC LIQUID PO SCH ×2 (08:45→20:38)
[2018-12-19] MEDS: PANTOPRAZOLE 40MG TAB (PROTONIX) PO SCH (08:45)
[2018-12-19] MEDS: LACTOBACILLUS ACIDOPHILUS CAP (BACID) PO SCH ×3 (08:45→20:37)
[2018-12-19] MEDS: ENOXAPARIN 40 MG/0.4 ML SYRINGE (J1650) SC SCH (08:45)
[2018-12-19] MEDS: DONEPEZIL 5 MG TAB PO SCH (08:45)
[2018-12-19] MEDS: DOCUSATE SODIUM 100 MG CAP PO SCH ×2 (08:45→20:38)
[2018-12-19] MEDS: SANTYL OINT 30GM TOP SCH (08:46)
[2018-12-19] MEDS: BOUDREAUX'S BUTT PASTE 4OZ TOP SCH ×3 (08:46→20:38)
[2018-12-19] MEDS: LIDOCAINE 5% (LIDODERM) PATCH TD SCH (12:25)
--- NOTE | 2018-12-19 13:40 | NUR ---
Pt w/ mild oral phase dysphagia. Recommend pureed solids & thin liquids, straws OK. Dysphagia tx to assess tolerance of liquid upgrade & to continue trials of soft solids. Addendum: 12/19/18 at 1341 by DORON KANG [facility] Amended: Links added.
--- NOTE | 2018-12-19 13:47 | NUR ---
Pt w/ moderate cognitive impairment. Per son, this is a decline since hospitalization. Recommending cognitive tx targeting orientation, safety awareness, memory, and problem-solving. Addendum: 12/19/18 at 1348 by DORON KANG [facility] Amended: Links added.
[2018-12-19 14:00] VITALS: BP 136/70
--- NOTE | 2018-12-19 14:03 | IPNPDOC ---
Date Seen The patient was seen on 12/19/18. Progress Note HPI: The patient is an 83-year-old white female who presented to [facility] ED December 02, 2018 due to fall at home. In the ER, she had extensive workups done which demonstrated she had a C2-C3 fracture. She was transferred to [facility] in [place] with further workup indicating urinary retention and E. coli urinary tract infection (UTI) which was treated with IV Zosyn. No surgical intervention recommended, instead she had a neck collar placed. She was transferred to the care of Dr Fred GONZALEZ 12/14/18 No acute medical complaints today. Pt denies pain. States she feels "fine". Cervical collar in place. OOB to chair. Denies any fevers, chills, Headache, Chest Pain, Shortness of breath, cough, palpitations, abdominal pain, N/V/D or changes in bowel or bladder habits. PMHx: none known PSHX: none known PE: GEN: 83yoF, appears stated age. Thin appearing. Alert and oriented, becomes anxious/agitated with questions. States it is 2019 and she is in the hospital. HEENT: Normocephalic, atraumatic. Sclera are nonicteric. Conjunctiva without injection. No facial asymmetry. Moist mucous membranes. Cervical collar in place. CHEST: Regular rate and rhythm, +S1, +S2 LUNGS: Clear to auscultation bilaterally. No wheezes, rales, or rhonchi. ABD: Round, soft, non-tender, non-distended. +Bowel sounds throughout. No rebound or guarding. EXT: No lower extremity edema appreciated. SKIN: [place], dry, warm. No rashes. Neuro. Nml speech. Moving UE/LEs. Nml sensation UE/LEs. A&P:The patient is an 83-year-old white female who presented to [facility] ED December 02, 2018 due to fall at home. In the ER, she had extensive workups done which demonstrated she had a C2-C3 fracture. She was transferred to [facility] in [place] with further workup indicating urinary retention and E. coli urinary tract infection (UTI) which was treated with IV Zosyn.No surgical intervention recommended, instead she had a neck collar placed. She was transferred to the care of Dr Fred GONZALEZ 12/14/18 C2-C3 Fracture 2/2 Mechanical Fall The patient did not require surgical intervention Mgmt as per ARU PT/OT/ST as per ARU Pain control as per ARU Bowel care as per ARU DVT px. Lovenox as per ARU Disposition as per ARU. Normocytic Anemia Hgb improved, 9.5. Iron studies notable for low serum iron, and low/normal transferrin saturation Cont iron supplementation S/P PRBC x 1 U 12/18/18. Monitor H&H Leukocytosis likely 2/2 #1 s/p treatment for underlying UTI Patient with no other infectious signs or symptoms at this time Afebrile. WBC 9.3. UC neg 12/14/18. Monitor. Urinary Retention s/p Melendrez Catheterization Voiding trial ordered Abnormal TFTs Patient noted to have normal TFTs just 2 weeks ago Possibly 2/2 underlying acute injury/stressor Repeat TFT's in 6-8 weeks Dementia Continue Donepezil GI Prophylaxis Cont PPI Cont Bacid. VS, I&O, 24H, Fishbone Vital Signs/I&O Vital Signs Date Time Temp Pulse Resp B/P (MAP) Pulse Ox O2 Delivery O2 Flow Rate FiO2 12/19/18 06:00 97.0 98 17 156/74 (101) 98 Room Air I&O- Last 24 Hours up to 6 AM 12/19/18 06:00 Intake Total 765 ml Output Total 1900 ml Balance -1135 ml Laboratory Data 24H LABS Laboratory Tests 2 12/19/18 06:25: Nucleated Red Blood Cells % (auto) 0.0 CBC/BMP Laboratory Tests 12/19/18 06:25 Red Blood Count 3.34 L, Mean Corpuscular Volume 90.4, Mean Corpuscular Hemoglobin 28.4, Mean Corpuscular Hemoglobin Concent 31.5 L, Red Cell Distribution Width 19.1 H Microbiology Microbiology 12/16/18 Stool Occult Blood ([facility]) - Final, Complete 12/14/18 Urine Culture - Final, Complete Madelaine Mei Dec 19, 2018 14:03
[2018-12-19 20:00] VITALS: BP 148/71
[2018-12-19] MEDS: FLUoxetine 20 MG CAP PO SCH (20:38)
[2018-12-19] MEDS: **NOTE PATIENT COMMENT** MISC XX SCH (20:39)
--- NOTE | 2018-12-19 22:20 | IPNPDOC ---
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 REVIEW OF SYSTEMS: The following is a completed review of systems and has been reviewed. Review of systems otherwise unremarkable. PAIN: Patient self reports no pain EYES: Negative for recent vision changes EARS, NOSE, & THROAT: +dysphagia, cervical collar CARDIOVASCULAR: no chest pain or palpitations PULMONARY: Negative. Denies shortness of breath GASTROINTESTINAL: Negative for diarrhea or constipation GENITOURINARY: +mejia, +retention MUSCULOSKELETAL: C2, C3 vertebral fracture NEUROLOGICAL: C2, C3 vertebral fracture, no focal deficit SKIN: left clavicle stage ulcer with slough, lower truncal abrasions, onychomycosis PSYCHIATRIC: confused All other review of systems found to be negative. PHYSICAL EXAMINATION: VITAL SIGNS: Please see below. GENERAL: Pleasant and cooperative. No acute distress. HEENT: PERRL. Extraocular movements intact. Clear conjunctiva, C-collar in place CARDIOVASCULAR: Regular rate and rhythm. No murmurs, rubs, or gallops. LUNGS: Clear to auscultation bilaterally. No wheezes. No rhonchi ABDOMEN: Soft, nontender, nondistended. Positive bowel sounds. Normal active bowel sounds NEUROLOGICAL: Alert and oriented to self, not place or time Cranial nerves II through XII grossly intact. Sensation grossly intact all 4 extremities, no paresthesias EXTREMITIES: 5\5 strength bilateral upper extremities. 5-\5 strength right lower extremity. 5-/5 strength in left lower extremity. SKIN: left clavicle stage ulcer with slough, multiple ower truncal abrasions, toe onychomycosis, stage one sacral ulcer : +mejia ASSESSMENT:83-year-old F with past medical history of falls who presents status postfall with C2-C3 vertebral fracture. PLAN: 1. 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 Ortho: s/p C2-C3 fracture, C-collar at all times, needs outpatient follow-up 4. Cardio: stable 5. Resp: recent CTA to rule out PE showed effusions and infiltrates, CXR 12/14/18 showed chronic changes, monitor for any signs of pneumonia, Incentive spirometry- continue Duonebs 6. : s/p treatment E. coli UTI, admission Ucx negatve, monitor PVRs 7. DVT ppx: Lovenox, admisison Dopplers negative 8. GI ppx : protonix 9. Pain: Tylenol prn 10. Anemia: FOBT negative for occult blood, loss, iron studies show iron deficiency anemia, will ad oral Iron supplements, 1 unit prbcs ordered for today 10. Skin: unstageable left clavicle ulcer- SAntyl daily and cover with mepilex, and stage one sacral ulcer Butt Paste, and truncal abrasions continue Mepilex 11. Dispo: TBD Allergies Coded Allergies: No Known Allergies (Unverified , 12/02/18) Vital Signs Vital Signs Date Time Temp Pulse Resp B/P (MAP) Pulse Ox O2 Delivery O2 Flow Rate FiO2 12/19/18 14:00 97.9 100 19 136/70 (92) 98 12/19/18 06:00 Room Air Laboratory Data CBC/BMP Laboratory Tests 12/19/18 06:25 Red Blood Count 3.34 L, Mean Corpuscular Volume 90.4, Mean Corpuscular Hemoglobin 28.4, Mean Corpuscular Hemoglobin Concent 31.5 L, Red Cell Distribution Width 19.1 H Labs 24H Laboratory Tests 2 12/19/18 06:25: Nucleated Red Blood Cells % (auto) 0.0 Microbiology Microbiology 12/16/18 Stool Occult Blood ([facility]) - Final, Complete 12/14/18 Urine Culture - Final, Complete Current Medications Current Medications Current Medications Acetaminophen (Tylenol Tab) 650 mg Q4HP PRN PO fever/MILD PAIN (PS 1-4) Last administered on 12/19/18at 18:45; Start 12/14/18 at 17:15 Collagenase (Santyl) apply left clavical DAILY TOP Last administered on 12/19/18at 08:46; Start 12/15/18 at 09:00 Docusate Sodium (Colace) 100 mg BID PO Last administered on 12/19/18at 08:45; Start 12/17/18 at 09:00 Donepezil HCl (AriCEPT) 5 mg DAILY PO Last administered on 12/19/18 08:45; Start 12/17/18 at 09:00 Enoxaparin Sodium (Lovenox) 40 mg DAILY SC Last administered on 12/19/18 08:45; Start 12/15/18 at 09:00 Ferrous Sulfate (Ferrous Sulfate) 300 mg BID PO Last administered on 12/19/18at 20:38; Start 12/17/18 at 21:00 Ferrous Sulfate (Ferrous Sulfate) 300 mg DAILY PO Last administered on 12/17/18at 08:23; Start 12/16/18 at 09:00; Stop 12/17/18 at 13:57; Status DC Fluoxetine HCl (PROzac) 20 mg QHS PO Last administered on 12/19/18at 20:38; Start 12/17/18 at 21:00 Home Med (Med Rec Complete!) ASDIRECTED XX ; Start 12/14/18 at 16:00; Stop 12/14/18 at 16:00; Status DC Ipratropium [place] (Atrovent 0.02%) 0.25 mg RBID INH Last administered on 12/19/18at 08:06; Start 12/15/18 at 20:00 Lactobacillus Acidophilus (Bacid) 1 ea TID PO Last administered on 12/19/18at 20:37; Start 12/14/18 at 21:00 Levofloxacin (Levaquin) 250 mg DAILY@06 PO Last administered on 12/15/18at 05:03; Start 12/15/18 at 06:00; Stop 12/15/18 at 14:47; Status DC Levothyroxine Sodium (Synthroid) 75 mcg DAILY@06 PO ; Start 12/17/18 at 06:00; Stop 12/17/18 at 14:23; Status DC Levothyroxine Sodium (Synthroid) 75 mcg DAILY@06 PO Last administered on 12/19at 05:46; Start 12/18/18 at 06:00; Stop 12/19/18 at 22:17; Status DC Lidocaine (Lidoderm Patch) 1 patch DAILY TD Last administered on 12/19/18at 12:25; Start 12/19/18 at 09:00 Magnesium Hydroxide (Milk Of Magnesia) 30 ml DAILYPRN PRN PO CONSTIPATION; Start 12/14/18 at 17:15 Non-Formulary Medication ( See Comment Field Below ) REMOVE LIDODERM PATCH DAILY@21 XX Last administered on 12/19/18at 20:39; Start 12/19/18 at 21:00 Pantoprazole Sodium (Protonix) 40 mg DAILY PO Last administered on 12/19/18at 08:45; Start 12/15/18 at 09:00 Zinc Oxide (Boudreauxs Butt Paste) sacrum TID TOP Last administered on 12/19/18at 20:38; Start 12/14/18 at 21:00 ARTHUR ARROYO MD Dec 19, 2018 22:19
[2018-12-20] MEDS: ACETAMINOPHEN TAB 650MG DOSE (2X325MG) PO PRN ×4 (04:00→23:53)
[2018-12-20 05:57] VITALS: BP 148/64
[2018-12-20] MEDS ORDERED: LEVOTHYROXINE 75MCG TABLET (0.075MG) PO SCH (06:00)
[2018-12-20] MEDS: LEVOTHYROXINE 25MCG TABLET (0.025MG) PO SCH (06:09)
[2018-12-20] MEDS: IPRATROPIUM 0.02% SOLN 0.5MG/2.5 ML NEB INH SCH ×2 (08:00→19:41)
[2018-12-20] MEDS: PANTOPRAZOLE 40MG TAB (PROTONIX) PO SCH (08:53)
[2018-12-20] MEDS: FERROUS SULFATE 300MG/5ML UDC LIQUID PO SCH ×2 (08:53→21:22)
[2018-12-20] MEDS: LACTOBACILLUS ACIDOPHILUS CAP (BACID) PO SCH ×3 (08:53→21:22)
[2018-12-20] MEDS: LIDOCAINE 5% (LIDODERM) PATCH TD SCH (08:53)
[2018-12-20] MEDS: ENOXAPARIN 40 MG/0.4 ML SYRINGE (J1650) SC SCH (08:53)
[2018-12-20] MEDS: DONEPEZIL 5 MG TAB PO SCH (08:53)
[2018-12-20] MEDS: DOCUSATE SODIUM 100 MG CAP PO SCH ×2 (08:53→21:22)
[2018-12-20] MEDS: BOUDREAUX'S BUTT PASTE 4OZ TOP SCH ×3 (08:54→21:22)
[2018-12-20] MEDS: SANTYL OINT 30GM TOP SCH (08:54)
--- NOTE | 2018-12-20 12:56 | IPNPDOC ---
Date Seen The patient was seen on 12/20/18. Progress Note HPI: The patient is an 83-year-old white female who presented to [facility] ED December 02, 2018 due to fall at home. In the ER, she had extensive workups done which demonstrated she had a C2-C3 fracture. She was transferred to [facility] in [place] with further workup indicating urinary retention and E. coli urinary tract infection (UTI) which was treated with IV Zosyn. No surgical intervention recommended, instead she had a neck collar placed. She was transferred to the care of ARU, Dr Ibarra 12/14/18 Pt is OOB to chair and denies pain. Cervical collar in place. Denies any fevers, chills, Headache, Chest Pain, Shortness of breath, cough, p alpitations, abdominal pain, N/V/D or changes in bowel or bladder habits. PMHx: none known PSHX: none known PE: GEN: 83yoF, appears stated age. Thin appearing. Alert and oriented. HEENT: Normocephalic, atraumatic. Sclera are nonicteric. Conjunctiva without injection. No facial asymmetry. Moist mucous membranes. Cervical collar in place. CHEST: Regular rate and rhythm, +S1, +S2 LUNGS: Clear to auscultation bilaterally. No wheezes, rales, or rhonchi. ABD: Round, soft, non-tender, non-distended. +Bowel sounds throughout. No rebound or guarding. EXT: No lower extremity edema appreciated. SKIN: [place], dry, warm. No rashes. Neuro. Nml speech. Moving UE/LEs. Nml sensation UE/LEs. A&P:The patient is an 83-year-old white female who presented to [facility] ED December 02, 2018 due to fall at home. In the ER, she had extensive workups done which demonstrated she had a C2-C3 fracture. She was transferred to [facility] in [place] with further workup indicating urinary retention and E. coli urinary tract infection (UTI) which was treated with IV Zosyn.No surgical intervention recommended, instead she had a neck collar placed. She was transferred to the care of ARUDr Ibarra 12/14/18 C2-C3 Fracture 2/2 Mechanical Fall The patient did not require surgical intervention Mgmt as per ARU PT/OT/ST as per ARU Pain control as per ARU Bowel care as per ARU DVT px. Lovenox as per ARU Disposition as per ARU. Normocytic Anemia Hgb 9.5, stable. Iron studies notable for low serum iron, and low/normal transferrin saturation Cont iron supplementation S/P PRBC x 1 U 12/18/18. Monitor. Leukocytosis likely 2/2 #1 s/p treatment for underlying UTI Patient with no other infectious signs or symptoms at this time Afebrile. WBC 9.3. UC neg 12/14/18. Monitor. Abnormal TFTs Patient noted to have normal TFTs just 2 weeks ago Possibly 2/2 underlying acute injury/stressor Repeat TFT's in 6-8 weeks Dementia Continue Donepezil GI Prophylaxis Cont PPI Cont Bacid. VS, I&O, 24H, Fishbone Vital Signs/I&O Vital Signs Date Time Temp Pulse Resp B/P (MAP) Pulse Ox O2 Delivery O2 Flow Rate FiO2 12/20/18 05:57 97.9 87 18 148/64 (92) 99 12/19/18 06:00 Room Air I&O- Last 24 Hours up to 6 AM 12/20/18 06:00 Intake Total 830 ml Output Total 1250 ml Balance -420 ml Laboratory Data Microbiology Microbiology 12/16/18 Stool Occult Blood ([facility]) - Final, Complete 12/14/18 Urine Culture - Final, Complete Madelaine Mei Dec 20, 2018 12:56
[2018-12-20 20:45] VITALS: BP 151/71
[2018-12-20] MEDS: **NOTE PATIENT COMMENT** MISC XX SCH (21:22)
[2018-12-20] MEDS: FLUoxetine 20 MG CAP PO SCH (21:22)
[2018-12-21] MEDS: LEVOTHYROXINE 25MCG TABLET (0.025MG) PO SCH (06:01)
[2018-12-21 06:10] VITALS: BP 166/82
[2018-12-21 06:35] LABS: HEMATOCRIT 27.9 % (36.0-47.0); HEMOGLOBIN 8.7 g/dl (12.0-15.5); MEAN CORPUSCULAR HEMOGLOBIN 28.2 pg (27.0-33.0); MEAN CORPUSCULAR HGB CONC 31.2 g/dl (32.0-36.5); MEAN CORPUSCULAR VOLUME 90.6 fl (80.0-96.0); PLATELET COUNT, AUTOMATED 235 10^3/uL (150-450); RED BLOOD COUNT 3.08 10^6/uL (4.00-5.40); WHITE BLOOD COUNT 8.3 10^3/uL (4.0-10.0)
[2018-12-21 07:07] LABS: ALBUMIN 3.1 GM/DL (3.2-5.2); ALT/SGPT 14 U/L (12-78); BILIRUBIN,TOTAL 0.4 MG/DL (0.2-1.0); BLOOD UREA NITROGEN 16 MG/DL (7-18); CALCIUM LEVEL 7.8 MG/DL (8.8-10.2); CARBON DIOXIDE LEVEL 30 MEQ/L (21-32); CHLORIDE LEVEL 101 MEQ/L (98-107); CREATININE FOR GFR 0.67 MG/DL (0.55-1.30); GLOMERULAR FILTRATION RATE > 60.0 (>32); GLUCOSE, FASTING 91 MG/DL (70-100); POTASSIUM SERUM 3.9 MEQ/L (3.5-5.1); SODIUM LEVEL 139 MEQ/L (136-145); TOTAL PROTEIN 5.8 GM/DL (6.4-8.2)
[2018-12-21] MEDS: IPRATROPIUM 0.02% SOLN 0.5MG/2.5 ML NEB INH SCH ×2 (07:54→20:00)
[2018-12-21] MEDS: LIDOCAINE 5% (LIDODERM) PATCH TD SCH (09:00)
[2018-12-21] MEDS: DONEPEZIL 5 MG TAB PO SCH (10:09)
[2018-12-21] MEDS: LACTOBACILLUS ACIDOPHILUS CAP (BACID) PO SCH ×3 (10:09→21:17)
[2018-12-21] MEDS: PANTOPRAZOLE 40MG TAB (PROTONIX) PO SCH (10:09)
[2018-12-21] MEDS: ENOXAPARIN 40 MG/0.4 ML SYRINGE (J1650) SC SCH (10:09)
[2018-12-21] MEDS: DOCUSATE SODIUM 100 MG CAP PO SCH ×2 (10:09→19:09)
[2018-12-21] MEDS: FERROUS SULFATE 300MG/5ML UDC LIQUID PO SCH ×2 (10:09→21:17)
[2018-12-21] MEDS: SANTYL OINT 30GM TOP SCH (10:11)
[2018-12-21] MEDS: BOUDREAUX'S BUTT PASTE 4OZ TOP SCH ×3 (10:11→21:18)
[2018-12-21] MEDS: ACETAMINOPHEN TAB 650MG DOSE (2X325MG) PO PRN ×3 (10:12→21:19)
--- NOTE | 2018-12-21 12:28 | IPNPDOC ---
Date Seen The patient was seen on 12/21/18. Progress Note HPI: The patient is an 83-year-old white female who presented to [facility] ED December 02, 2018 due to fall at home. In the ER, she had extensive workups done which demonstrated she had a C2-C3 fracture. [facility] to [facility] [place] with further workup indicating urinary retention and E. coli urinary tract infection (UTI) which was treated with IV Zosyn. No surgical intervention recommended, instead she had a neck collar placed. She was transferred to the care of ARUDr Ibarra 12/14/18 Pt is OOB with PT and states she is feeling well, denies any pain. Cervical collar in place. Denies any fevers, chills, Headache, Chest Pain, Shortness of breath, cough, pal pitations, abdominal pain, N/V/D or changes in bowel or bladder habits. PMHx: none known PSHX: none known PE: GEN: 83yoF, appears stated age. Thin appearing. Alert and oriented. HEENT: Normocephalic, atraumatic. Sclera are nonicteric. Conjunctiva without injection. No facial asymmetry. Moist mucous membranes. Cervical collar in place. CHEST: Regular rate and rhythm, +S1, +S2 LUNGS: Clear to auscultation bilaterally. No wheezes, rales, or rhonchi. ABD: Round, soft, non-tender, non-distended. +Bowel sounds throughout. No rebound or guarding. EXT: No lower extremity edema appreciated. SKIN: [place], dry, warm. No rashes. Neuro. Nml speech. Moving UE/LEs. Nml sensation UE/LEs. A&P:The patient is an 83-year-old white female who presented to [facility] ED December 02, 2018 due to fall at home. In the ER, she had extensive workups done which demonstrated she had a C2-C3 fracture. She was transferred to [facility] in [place] with further workup indicating urinary retention and E. coli urinary tract infection (UTI) which was treated with IV Zosyn.No surgical intervention recommended, instead she had a neck collar placed. She was transferred to the care of ARDr Fred Howard 12/14/18 C2-C3 Fracture 2/2 Mechanical Fall The patient did not require surgical intervention Mgmt as per ARU PT/OT/ST as per ARU Pain control as per ARU Bowel care as per ARU DVT px. Lovenox as per ARU Disposition as per ARU. Normocytic Anemia/Fe def Hgb 8.7 Iron studies notable for low serum iron, and low/normal transferrin saturation, Cont iron supplementation. FOB negative. S/P PRBC x 1 U 12/18/18. Monitor. Leukocytosis likely 2/2 #1 s/p treatment for underlying UTI Patient with no other infectious signs or symptoms at this time Afebrile. WBC 8.3. UC neg 12/14/18. Monitor. Abnormal TFTs Patient noted to have normal TFTs just 2 weeks ago Possibly 2/2 underlying acute injury/stressor Repeat TFT's in 6-8 weeks Dementia Continue Donepezil GI Prophylaxis Cont PPI Cont Bacid. VS, I&O, 24H, Fishbone Vital Signs/I&O Vital Signs Date Time Temp Pulse Resp B/P (MAP) Pulse Ox O2 Delivery O2 Flow Rate FiO2 12/21/18 11:19 20 12/21/18 06:10 97.5 82 166/82 (110) 97 12/19/18 06:00 Room Air l I&O- Last 24 Hours up to 6 AM 12/21/18 06:00 Intake Total 360 ml Output Total 775 ml Balance -415 ml Laboratory Data 24H LABS Laboratory Tests 2 12/21/18 06:20: Nucleated Red Blood Cells % (auto) 0.0, Anion Gap 8, Glomerular Filtration Rate > 60.0, Blood Urea Nitrogen 16, Creatinine 0.67, Sodium Level 139, Potassium Level 3.9, Chloride Level 101, Carbon Dioxide Level 30, Calcium Level 7.8L, Aspartate Amino Transf (AST/SGOT) 19, Alanine Aminotransferase (ALT/SGPT) 14, Alkaline Phosphatase 93, Total Bilirubin 0.4, Total Protein 5.8L, Albumin 3.1L, Albumin/Globulin Ratio 1.15 CBC/BMP Laboratory Tests 12/21/18 06:20 Red Blood Count 3.08 L, Mean Corpuscular Volume 90.6, Mean Corpuscular Hemoglobin 28.2, Mean Corpuscular Hemoglobin Concent 31.2 L, Red Cell Distribution Width 18.9 H, Calcium Level 7.8 L, Aspartate Amino Transf (AST/SGOT) 19, Alanine Aminotransferase (ALT/SGPT) 14, Alkaline Phosphatase 93, Total Bilirubin 0.4, Total Protein 5.8 L, Albumin 3.1 L Microbiology Microbiology 12/16/18 Stool Occult Blood ([facility]) - Final, Complete 12/14/18 Urine Culture - Final, Complete Madelaine Mei Dec 21, 2018 12:28
[2018-12-21 14:00] VITALS: BP 152/76
--- NOTE | 2018-12-21 14:36 | IPNPDOC ---
PM&R Progress Note DATE OF SERVICE: Dec 21, 2018 Enologist Progress Note Subjective: Patient seen screaming in her chair, denied being in pain but wanted to go back to bed and says she feels like she is a baby. She was encouraged to only scream if she felt she was in danger or was in pain, but otherwise to use the call button. REVIEW OF SYSTEMS: The following is a completed review of systems and has been reviewed. Review of systems otherwise unremarkable. PAIN: Patient self reports no pain EYES: Negative for recent vision changes EARS, NOSE, & THROAT: +dysphagia, cervical collar CARDIOVASCULAR: no chest pain or palpitations PULMONARY: Negative. Denies shortness of breath GASTROINTESTINAL: Negative for diarrhea or constipation GENITOURINARY: +mejia, +retention MUSCULOSKELETAL: C2, C3 vertebral fracture NEUROLOGICAL: C2, C3 vertebral fracture, no focal deficit SKIN: left clavicle stage ulcer with slough, lower truncal abrasions, onychomycosis PSYCHIATRIC: confused All other review of systems found to be negative. PHYSICAL EXAMINATION: VITAL SIGNS: Please see below. GENERAL: Pleasant and cooperative. No acute distress. HEENT: PERRL. Extraocular movements intact. Clear conjunctiva, C-collar in place CARDIOVASCULAR: Regular rate and rhythm. No murmurs, rubs, or gallops. LUNGS: Clear to auscultation bilaterally. No wheezes. No rhonchi ABDOMEN: Soft, nontender, nondistended. Positive bowel sounds. Normal active bowel sounds NEUROLOGICAL: Alert and oriented to self, not place or time Cranial nerves II through XII grossly intact. Sensation grossly intact all 4 extremities, no paresthesias EXTREMITIES: 5\5 strength bilateral upper extremities. 5-\5 strength right lower extremity. 5-/5 strength in left lower extremity. SKIN: left clavicle stage ulcer with slough, multiple lower truncal abrasions, toe onychomycosis, stage one sacral ulcer : +mejia ASSESSMENT:83-year-old F with past medical history of falls who presents status postfall with C2-C3 vertebral fracture. PLAN: 1. rehab: PT, OT, [employer], assess for DME, able to tolerate thin liquids with straw 2. 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 Ortho: s/p C2-C3 fracture, C-collar at all times, needs outpatient follow-up 4. Cardio: stable 5. Resp: recent CTA to rule out PE showed effusions and infiltrates, CXR 12/14/18 showed chronic changes, monitor for any signs of pneumonia, Incentive spirometry- continue Duonebs 6. : s/p treatment E. coli UTI, admission Ucx negatve, monitor PVRs 7. DVT ppx: Lovenox, admisison Dopplers negative 8. GI ppx : protonix 9. Pain: Tylenol prn 10. Anemia: FOBT negative for occult blood, loss, iron studies show iron deficiency anemia, will ad oral Iron supplements, 1 unit prbcs ordered for today 10. Skin: unstageable left clavicle ulcer- SAntyl daily and cover with mepilex- healing well, and stage one sacral ulcer Butt Paste, and truncal abrasions co ntinue Mepilex 11. Dispo: Submitting paper work for [employer] as patient lives alone and per family has been very confused since her fall and at this time is cognitively unable to care for herself. Allergies Coded Allergies: No Known Allergies (Unverified , 12/02/18) Vital Signs Vital Signs Date Time Temp Pulse Resp B/P (MAP) Pulse Ox O2 Delivery O2 Flow Rate FiO2 12/21/18 11:19 20 12/21/18 06:10 97.5 82 166/82 (110) 97 12/19/18 06:00 Room Air Laboratory Data CBC/BMP Laboratory Tests 12/21/18 06:20 Red Blood Count 3.08 L, Mean Corpuscular Volume 90.6, Mean Corpuscular Hemoglobin 28.2, Mean Corpuscular Hemoglobin Concent 31.2 L, Red Cell Distribution Width 18.9 H, Calcium Level 7.8 L, Aspartate Amino Transf (AST/SGOT) 19, Alanine Aminotransferase (ALT/SGPT) 14, Alkaline Phosphatase 93, Total Bilirubin 0.4, Total Protein 5.8 L, Albumin 3.1 L Labs 24H Laboratory Tests 2 12/21/18 06:20: Nucleated Red Blood Cells % (auto) 0.0, Anion Gap 8, Glomerular Filtration Rate > 60.0, Blood Urea Nitrogen 16, Creatinine 0.67, Sodium Level 139, Potassium Level 3.9, Chloride Level 101, Carbon Dioxide Level 30, Calcium Level 7.8L, Aspartate Amino Transf (AST/SGOT) 19, Alanine Aminotransferase (ALT/SGPT) 14, Alkaline Phosphatase 93, Total Bilirubin 0.4, Total Protein 5.8L, Albumin 3.1L, Albumin/Globulin Ratio 1.15 Microbiology Microbiology 12/16/18 Stool Occult Blood ([facility]) - Final, Complete 12/14/18 Urine Culture - Final, Complete Current Medications Current Medications Current Medications Acetaminophen (Tylenol Tab) 650 mg Q4HP PRN PO fever/MILD PAIN (PS 1-4) Last administered on 12/21/18 10:12; Start 12/14/18 at 17:15 Collagenase (Santyl) apply left clavical DAILY TOP Last administered on 12/21/18 10:11; Start 12/15/18 at 09:00 Docusate Sodium (Colace) 100 mg BID PO Last administered on 12/21/18 10:09; Start 12/17/18 at 09:00 Donepezil HCl (AriCEPT) 5 mg DAILY PO Last administered on 12/21/18 10:09; Start 12/17/18 at 09:00 Enoxaparin Sodium (Lovenox) 40 mg DAILY SC Last administered on 12/21/18 10:09; Start 12/15/18 at 09:00 Ferrous Sulfate (Ferrous Sulfate) 300 mg BID PO Last administered on 12/21/18 10:09; Start 12/17/18 at 21:00 Ferrous Sulfate (Ferrous Sulfate) 300 mg DAILY PO Last administered on 12/17/18at 08:23; Start 12/16/18 at 09:00; Stop 12/17/18 at 13:57; Status DC Fluoxetine HCl (PROzac) 20 mg QHS PO Last administered on 12/20/18 21:22; Start 12/17/18 at 21:00 Home Med (Med Rec Complete!) ASDIRECTED XX ; Start 12/14/18 at 16:00; Stop 12/14/18 at 16:00; Status DC Ipratropium [place] (Atrovent 0.02%) 0.25 mg RBID INH Last administered on 12/19/18at 08:06; Start 12/15/18 at 20:00 Lactobacillus Acidophilus (Bacid) 1 ea TID PO Last administered on 12/21/18at 10:09; Start 12/14/18 at 21:00 Levofloxacin (Levaquin) 250 mg DAILY@06 PO Last administered on 12/15/18at 05:0 3; Start 12/15/18 at 06:00; Stop 12/15/18 at 14:47; Status DC Levothyroxine Sodium (Synthroid) 25 mcg DAILY@06 PO ; Start 12/20/18 at 06:00; Stop 12/20/18 at 06:00; Status DC Levothyroxine Sodium (Synthroid) 25 mcg DAILY@06 PO Last administered on 12/21/18at 06:01; Start 12/20/18 at 06:00 Levothyroxine Sodium (Synthroid) 75 mcg DAILY@06 PO ; Start 12/17/18 at 06:00; Stop 12/17/18 at 14:23; Status DC Levothyroxine Sodium (Synthroid) 75 mcg DAILY@06 PO Last administered on 12/19/18at 05:46; Start 12/18/18 at 06:00; Stop 12/19/18 at 22:17; Status DC Lidocaine (Lidoderm Patch) 1 patch DAILY TD Last administered on 12/20/18at 08:53; Start 12/19/18 at 09:00 Magnesium Hydroxide (Milk Of Magnesia) 30 ml DAILYPRN PRN PO CONSTIPATION; Start 12/14/18 at 17:15 Miscellaneous (Unresolved Clarification Entry) SEE LABEL COMMENTS DAILY XX ; Start 12/21/18 at 09:00; Stop 12/21/18 at 10:42; Status DC Non-Formulary Medication ( See Comment Field Below ) REMOVE LIDODERM PATCH DAILY@21 XX Last administered on 12/20/18at 21:22; Start 12/19/18 at 21:00 Pantoprazole Sodium (Protonix) 40 mg DAILY PO Last administered on 12/21/18at 10:09; Start 12/15/18 at 09:00 Zinc Oxide (Boudreauxs Butt Paste) sacrum TID TOP Last administered on 12/21/18at 10:11; Start 12/14/18 at 21:00 ARTHUR ARROYO MD Dec 21, 2018 14:36
[2018-12-21 20:00] VITALS: BP 142/75
[2018-12-21] MEDS: **NOTE PATIENT COMMENT** MISC XX SCH (21:18)
[2018-12-21] MEDS: FLUoxetine 20 MG CAP PO SCH (21:18)
[2018-12-22] MEDS: ACETAMINOPHEN TAB 650MG DOSE (2X325MG) PO PRN ×4 (06:01→20:26)
[2018-12-22] MEDS: LEVOTHYROXINE 25MCG TABLET (0.025MG) PO SCH (06:01)
[2018-12-22 06:02] VITALS: BP 156/64
--- NOTE | 2018-12-22 06:51 | IPNPDOC ---
Date Seen The patient was seen on 12/22/18. Progress Note SUBJECTIVE: Patient is an 83-year-old female who was seen and examined this morning. ST was in the room helping the patient he her breakfast.She is tolerating well. Her orientation is better this morning, she knows where she is but does have a baseline dementia. She has a sad affect this morning and is complaining of just fatigue. Denies fevers chills headache chest pain shortness of breath cough palpitation abdominal pain nausea vomiting diarrhea. She denies any pain and she currently has a cervical collar in place. She will work with OT and PT later this morning as scheduled. No changes will be made today with her medications and follow plan detailed by ARU. OBJECTIVE PHYSICAL EXAMINATION: VITAL SIGNS: Please see below. GENERAL: Pleasant 83-year-old female, who appears frail HEENT: Normocephalic, atraumatic. Sclera nonicteric. Moist mucous membrane cervical collar in place. CARDIOVASCULAR: Regular rate and rhythm normal S1-S2 sounds no audible murmurs gallops RESPIRATORY: Clear to auscultate bilaterally. No wheezing rales or rhonchi ABDOMINAL: Positive bowel sounds in all 4 quadrants of round soft nontender nondistended. EXTREMITIES: No lower extremity edema or tenderness appreciated in the calves NEUROLOGICAL: Alert and oriented 3 normal speech no focal deficits noted PSYCHIATRIC: Sad Affect LABORATORY DATA, IMAGING STUDIES, MICROBIOLOGY: Please see below. DVT prophylaxis ordered?: Yes Lovenox ASSESSMENT AND PLAN: The patient is an 83-year-old white female who presented to [facility] ED December 02, 2018 due to fall at home. PROBLEMS: C2-C3 Fracture 2/2 Mechanical Fall -Management per ARU Iron deficiency Normocytic anemia -Hemoglobin 8.6 -Iron studies :low serum iron, low/normal transferrin saturation -Continue with iron supplementation -Fecal occult blood negative -Status post PRBC 1 unit (12/18/2018_ -Continue to monitor Abnormal thyroid function test -12/02/2018 TSH within normal limits at 2.970 -12/16/2018 TSH elevated at 19.9 -Unsure if this is secondary to problem 1 -Continue Synthroid 25 g -Recheck in 6-8 weeks from 12/20/2018 Dementia -Continue with donepezil GERD -Continue with PPI DVT prophylaxis -Lovenox VS, I&O, 24H, Fishbone Vital Signs/I&O Vital Signs Date Time Temp Pulse Resp B/P (MAP) Pulse Ox O2 Delivery O2 Flow Rate FiO2 12/22/18 06:02 97.3 82 18 156/64 (94) 98 12/19/18 06:00 Room Air I&O- Last 24 Hours up to 6 AM 12/22/18 05:59 Intake Total 800 ml Output Total 500 ml Balance 300 ml Laboratory Data Microbiology Microbiology 12/16/18 Stool Occult Blood ([facility]) - Final, Complete 12/14/18 Urine Culture - Final, Complete GME ATTESTATION GME ATTESTATION My faculty preceptor for this patient encounter was physically present during the encounter and was fully available. All aspects of the patient interview, examination, medical decision making process, and medical care plan development were reviewed and approved by the faculty preceptor. The faculty preceptor is aware and concurs with the plan as stated in the body of this note and will attest to such by his/her cosignature. ATTENDING NOTE I have both independently examined this patient as well as reviewed the note I have discussed in detail the findings and plan of treatment as documented in the note. I will continue to follow the patient and offer further guidance to the patients care as necessary during this hospital stay. CLARA Echevarria MD, DO Dec 22, 2018 06:51 SHAREE HUA MD Dec 22, 2018 11:01
[2018-12-22 07:07] LABS: HEMATOCRIT 30.2 % (36.0-47.0); HEMOGLOBIN 9.4 g/dl (12.0-15.5); MEAN CORPUSCULAR HEMOGLOBIN 28.7 pg (27.0-33.0); MEAN CORPUSCULAR HGB CONC 31.1 g/dl (32.0-36.5); MEAN CORPUSCULAR VOLUME 92.4 fl (80.0-96.0); PLATELET COUNT, AUTOMATED 206 10^3/uL (150-450); RED BLOOD COUNT 3.27 10^6/uL (4.00-5.40); WHITE BLOOD COUNT 9.1 10^3/uL (4.0-10.0)
[2018-12-22 07:36] LABS: BLOOD UREA NITROGEN 15 MG/DL (7-18); CALCIUM LEVEL 8.1 MG/DL (8.8-10.2); CARBON DIOXIDE LEVEL 30 MEQ/L (21-32); CHLORIDE LEVEL 100 MEQ/L (98-107); CREATININE FOR GFR 0.73 MG/DL (0.55-1.30); GLOMERULAR FILTRATION RATE > 60.0 (>32); GLUCOSE, FASTING 98 MG/DL (70-100); MAGNESIUM LEVEL 1.8 MG/DL (1.8-2.4); SODIUM LEVEL 138 MEQ/L (136-145)
[2018-12-22] MEDS: IPRATROPIUM 0.02% SOLN 0.5MG/2.5 ML NEB INH SCH ×2 (08:00→21:29)
--- NOTE | 2018-12-22 08:51 | NUR ---
Yary was able to recall number sequences up to 4 digits, she was able to recall sentences with up to 6 words (after this point she used unintelligible speech), she was able to recall and deduct (which # is larger, which item is most expensive, which item is largest) with numbers, significant decline in skills with words (25% accuracy, required field of 3-4 reduced to 2). Addendum: 12/22/18 at 0853 by DORON DUNN Amended: Links added.
[2018-12-22] MEDS: DONEPEZIL 5 MG TAB PO SCH (09:24)
[2018-12-22] MEDS: FERROUS SULFATE 300MG/5ML UDC LIQUID PO SCH ×2 (09:24→20:26)
[2018-12-22] MEDS: LACTOBACILLUS ACIDOPHILUS CAP (BACID) PO SCH ×3 (09:24→20:25)
[2018-12-22] MEDS: PANTOPRAZOLE 40MG TAB (PROTONIX) PO SCH (09:24)
[2018-12-22] MEDS: LIDOCAINE 5% (LIDODERM) PATCH TD SCH (09:24)
[2018-12-22] MEDS: DOCUSATE SODIUM 100 MG CAP PO SCH ×2 (09:24→20:26)
[2018-12-22] MEDS: SANTYL OINT 30GM TOP SCH (09:25)
[2018-12-22] MEDS: ENOXAPARIN 40 MG/0.4 ML SYRINGE (J1650) SC SCH (09:25)
[2018-12-22] MEDS: BOUDREAUX'S BUTT PASTE 4OZ TOP SCH ×3 (09:25→20:27)
[2018-12-22 14:00] VITALS: BP 129/70
[2018-12-22] MEDS: FLUoxetine 20 MG CAP PO SCH (20:26)
[2018-12-22] MEDS: **NOTE PATIENT COMMENT** MISC XX SCH (20:27)
[2018-12-22 20:34] VITALS: BP 133/67
[2018-12-23 06:00] VITALS: BP 162/70
[2018-12-23] MEDS: LEVOTHYROXINE 25MCG TABLET (0.025MG) PO SCH (06:17)
[2018-12-23] MEDS: IPRATROPIUM 0.02% SOLN 0.5MG/2.5 ML NEB INH SCH ×2 (08:00→20:00)
[2018-12-23] MEDS: DONEPEZIL 5 MG TAB PO SCH (08:54)
[2018-12-23] MEDS: LACTOBACILLUS ACIDOPHILUS CAP (BACID) PO SCH ×3 (08:55→22:27)
[2018-12-23] MEDS: PANTOPRAZOLE 40MG TAB (PROTONIX) PO SCH (08:55)
[2018-12-23] MEDS: DOCUSATE SODIUM 100 MG CAP PO SCH ×2 (08:55→22:27)
[2018-12-23] MEDS: FERROUS SULFATE 300MG/5ML UDC LIQUID PO SCH ×2 (08:55→22:27)
[2018-12-23] MEDS: LIDOCAINE 5% (LIDODERM) PATCH TD SCH (08:55)
[2018-12-23] MEDS: ENOXAPARIN 40 MG/0.4 ML SYRINGE (J1650) SC SCH (08:55)
[2018-12-23] MEDS: BOUDREAUX'S BUTT PASTE 4OZ TOP SCH ×3 (08:56→22:29)
[2018-12-23] MEDS: SANTYL OINT 30GM TOP SCH (08:56)
[2018-12-23 14:00] VITALS: BP 145/77
--- NOTE | 2018-12-23 17:37 | IPN ---
DATE: 12/23/2018 Patient seen and examined. No acute events overnight. Cervical (C) collar in place. Denies any chest pain, pressure, discomfort. Denies any fevers or chills. VITAL SIGNS: Temperature 97, pulse 98, respirations 18, blood pressure 133/67, pulse oximetry 97% on room air. LABORATORY: WBC 9.1, hemoglobin and hematocrit (H and H) 9.4 and 30.2, platelets 206. Chemistry: Sodium 138, potassium 4, chloride 100, bicarbonate 30, BUN 15, creatinine 0.73. PHYSICAL EXAMINATION: GENERAL: Patient alert, comfortable, pleasant, in no acute distress. HEENT: Normocephalic, atraumatic. C-collar in place. CARDIAC: Regular. S1, S2. RESPIRATIONS: Bilateral clear. ABDOMEN: Soft, nontender. Positive bowel sounds. EXTREMITIES: No clubbing, cyanosis or edema. ASSESSMENT AND PLAN: This is an 83-year-old female who presented to [facility] emergency room on 12/02/2018 due to fall at home. Extensive workup was done showing C3-C4 fracture. Patient was transferred to [facility] for further workup, was also found to have urinary retention and Escherichia (E) coli urinary tract infection (UTI), which was treated. No surgical intervention was recommended at [facility] and patient was placed on C-collar, transferred back to [facility] acute rehabilitation on 12/14/2018 for further treatment. PROBLEMS: 1. C2-C3 fracture secondary to mechanical fall. Management as per acute rehabilitation provider. Pain control as per acute rehabilitation provider and bowel regimen as per acute rehabilitation provider. Deep venous thrombosis (DVT) prophylaxis. Patient on Lovenox as per acute rehabilitation provider. 2. Dementia. Continue current medication. Supportive care. 3. Normocytic anemia. Monitor hemoglobin and hematocrit (H and H). Transfuse packed red blood cells during the hospital course, O negative. Continue to monitor. 4. Leukocytosis. Possibly reactive due to underlying fracture. Status post treatment for urinary tract infection (UTI). Will continue to monitor. 5. Abnormal thyroid function test. Likely hypothyroidism. Currently, patient on Synthroid. Will need to recheck the amount. 6. Gastroesophageal reflux disease (GERD). Continue proton pump inhibitor (PPI). 7. Depression. Continue current medication. 8. Deep venous thrombosis (DVT) prophylaxis. Patient on Xarelto as per acute rehabilitation provider. DISPOSITION: As per acute rehabilitation provider.
[2018-12-23] MEDS: ACETAMINOPHEN TAB 650MG DOSE (2X325MG) PO PRN (18:36)
[2018-12-23 20:00] VITALS: BP 148/70
[2018-12-23] MEDS: **NOTE PATIENT COMMENT** MISC XX SCH (21:00)
[2018-12-23] MEDS: FLUoxetine 20 MG CAP PO SCH (22:27)
[2018-12-24] MEDS: ACETAMINOPHEN TAB 650MG DOSE (2X325MG) PO PRN ×4 (03:01→20:12)
[2018-12-24] MEDS: LEVOTHYROXINE 25MCG TABLET (0.025MG) PO SCH (05:58)
[2018-12-24 06:00] VITALS: BP 157/76
[2018-12-24] MEDS: IPRATROPIUM 0.02% SOLN 0.5MG/2.5 ML NEB INH SCH ×2 (08:00→20:00)
[2018-12-24] MEDS: DOCUSATE SODIUM 100 MG CAP PO SCH ×2 (08:41→20:12)
[2018-12-24] MEDS: PANTOPRAZOLE 40MG TAB (PROTONIX) PO SCH (08:41)
[2018-12-24] MEDS: LACTOBACILLUS ACIDOPHILUS CAP (BACID) PO SCH ×3 (08:41→20:12)
[2018-12-24] MEDS: FERROUS SULFATE 300MG/5ML UDC LIQUID PO SCH ×2 (08:41→20:11)
[2018-12-24] MEDS: ENOXAPARIN 40 MG/0.4 ML SYRINGE (J1650) SC SCH (08:41)
[2018-12-24] MEDS: DONEPEZIL 5 MG TAB PO SCH (08:41)
[2018-12-24] MEDS: LIDOCAINE 5% (LIDODERM) PATCH TD SCH (08:41)
[2018-12-24] MEDS: SANTYL OINT 30GM TOP SCH (08:42)
[2018-12-24] MEDS: BOUDREAUX'S BUTT PASTE 4OZ TOP SCH ×3 (08:42→20:13)
--- NOTE | 2018-12-24 11:55 | IPNPDOC ---
Date Seen The patient was seen on 12/24/18. Progress Note HPI: The patient is an 83-year-old white female who presented to [facility] ED December 02, 2018 due to fall at home. In the ER, she had extensive workups done which demonstrated she had a C2-C3 fracture. She was transferred to [facility] in [place] with further workup indicating urinary retention and E. coli urinary tract infection (UTI) which was treated with IV Zosyn. No surgical intervention recommended, instead she had a neck collar placed. She was transferred to the care of ARU, Dr Ibarra 12/14/18 Pt currently denies any pain. No verbalized complaints. Cervical collar in place. Denies any fevers, chills, Headache, Chest Pain, Shortness of breath, cough, palpitations, abdominal pain, N/V/D or changes in bowel or bladder habits. PMHx: none known PSHX: none known PE: GEN: 83yoF, appears stated age. Thin appearing. Alert and oriented. HEENT: Normocephalic, atraumatic. Sclera are nonicteric. No facial asymmetry. Moist mucous membranes. Cervical collar in place. CHEST: Regular rate and rhythm, +S1, +S2 LUNGS: Clear to auscultation bilaterally. No wheezes, rales, or rhonchi. ABD: Round, soft, non-tender, non-distended. +Bowel sounds throughout. No rebound or guarding. EXT: No lower extremity edema appreciated. SKIN: [place], dry, warm. No rashes. Neuro. Nml speech. Moving UE/LEs. Nml sensation UE/LEs. A&P:The patient is an 83-year-old white female who presented to [facility] ED December 02, 2018 due to fall at home. In the ER, she had extensive workups done which demonstrated she had a C2-C3 fracture. She was transferred to [facility] in [place] with further workup indicating urinary retention and E. coli urinary tract infection (UTI) which was treated with IV Zosyn.No surgical intervention recommended, instead she had a neck collar placed. She was transferred to the care of ARU, Dr Ibarra 12/14/18 C2-C3 Fracture 2/2 Mechanical Fall The patient did not require surgical intervention Mgmt as per ARU PT/OT/ST as per ARU Pain control as per ARU Bowel care as per ARU DVT px. Lovenox as per ARU Disposition as per ARU. Normocytic Anemia/Fe def Hgb 9.4 Iron studies notable for low serum iron, and low/normal transferrin saturation, Cont iron supplementation. FOB negative. S/P PRBC x 1 U 12/18/18. Monitor. Leukocytosis likely 2/2 #1 s/p treatment for underlying UTI Patient with no other infectious signs or symptoms at this time Afebrile. UC neg 12/14/18. Monitor. Abnormal TFTs Patient noted to have normal TFTs just 2 weeks ago Possibly 2/2 underlying acute injury/stressor Repeat TFT's in 6-8 weeks Dementia Continue Donepezil GI Prophylaxis Cont PPI Cont Bacid. VS, I&O, 24H, Fishbone Vital Signs/I&O Vital Signs Date Time Temp Pulse Resp B/P (MAP) Pulse Ox O2 Delivery O2 Flow Rate FiO2 12/24/18 06:00 98.2 85 18 157/76 (103) 97 12/19/18 06:00 Room Air I&O- Last 24 Hours up to 6 AM 12/24/18 06:00 Intake Total 480 ml Output Total 450 ml Balance 30 ml Laboratory Data Microbiology Microbiology 12/16/18 Stool Occult Blood ([facility]) - Final, Complete 12/14/18 Urine Culture - Final, Complete Madelaine Mei Dec 24, 2018 11:55
[2018-12-24 14:00] VITALS: BP 114/58
--- NOTE | 2018-12-24 17:19 | NUR ---
Yary was much happier while eating as compared to cognitive exercises. Yary refused to get OOB but sat with HOB at 50deg. She was observed to use straw with TL with no overt s/s. She trialed level 2 solids, moderate assist to cut but was able to use fork to cut on her own initially. Throat clear observed 3x with level 2 trial, required teaching/verbal reminders to alternate solids/liquids as needed. No residue noted, no loss of bolus. Recommend continue trials with level 2. Addendum: 12/24/18 at 1722 by DORON THORNE SP Amended: Links added.
--- NOTE | 2018-12-24 18:43 | IPNPDOC ---
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 REVIEW OF SYSTEMS: The following is a completed review of systems and has been reviewed. Review of systems otherwise unremarkable. PAIN: Patient self reports no pain EYES: Negative for recent vision changes EARS, NOSE, & THROAT: +dysphagia, cervical collar CARDIOVASCULAR: no chest pain or palpitations PULMONARY: Negative. Denies shortness of breath GASTROINTESTINAL: Negative for diarrhea or constipation GENITOURINARY: +mejia, +retention MUSCULOSKELETAL: C2, C3 vertebral fracture NEUROLOGICAL: C2, C3 vertebral fracture, no focal deficit SKIN: left clavicle stage ulcer with slough, lower truncal abrasions, onychomycosis PSYCHIATRIC: confused All other review of systems found to be negative. PHYSICAL EXAMINATION: VITAL SIGNS: Please see below. GENERAL: Pleasant and cooperative. No acute distress. HEENT: PERRL. Extraocular movements intact. Clear conjunctiva, C-collar in place CARDIOVASCULAR: Regular rate and rhythm. No murmurs, rubs, or gallops. LUNGS: Clear to auscultation bilaterally. No wheezes. No rhonchi ABDOMEN: Soft, nontender, nondistended. Positive bowel sounds. Normal active bowel sounds NEUROLOGICAL: Alert and oriented to self, not place or time Cranial nerves II through XII grossly intact. Sensation grossly intact all 4 extremities, no paresthesias EXTREMITIES: 5\5 strength bilateral upper extremities. 5-\5 strength right lower extremity. 5-/5 strength in left lower extremity. SKIN: left clavicle stage ulcer with slough, multiple lower truncal abrasions, toe onychomycosis, stage one sacral ulcer : +mejia ASSESSMENT:83-year-old F with past medical history of falls who presents status postfall with C2-C3 vertebral fracture. PLAN: 1. 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 Ortho: s/p C2-C3 fracture, C-collar at all times, needs outpatient follow-up 4. Cardio: stable 5. Resp: recent CTA to rule out PE showed effusions and infiltrates, CXR 12/14/18 showed chronic changes, monitor for any signs of pneumonia, Incentive spirometry- continue Duonebs 6. : s/p treatment E. coli UTI, admission Ucx negatve, monitor PVRs 7. DVT ppx: Lovenox, admisison Dopplers negative 8. GI ppx : protonix 9. Pain: Tylenol prn 10. Anemia: FOBT negative for occult blood, loss, iron studies show iron deficiency anemia, will ad oral Iron supplements, 1 unit prbcs ordered for today 10. Skin: unstageable left clavicle ulcer- SAntyl daily and cover with mepilex- healing well, and stage one sacral ulcer Butt Paste, and truncal abrasions continue Mepilex 11. Dispo: Submitting paper work for [employer] as patient lives alone and per family has been very confused since her fall and at this time is cognitively unable to care for herself. Allergies Coded Allergies: No Known Allergies (Unverified , 12/02/18) Vital Signs Vital Signs Date Time Temp Pulse Resp B/P (MAP) Pulse Ox O2 Delivery O2 Flow Rate FiO2 12/24/18 14:00 97.9 86 20 114/58 (76) 97 12/19/18 06:00 Room Air Microbiology Microbiology 12/16/18 Stool Occult Blood ([facility]) - Final, Complete 12/14/18 Urine Culture - Final, Complete Current Medications Current Medications Current Medications Acetaminophen (Tylenol Tab) 650 mg Q4HP PRN PO fever/MILD PAIN (PS 1-4) Last administered on 12/24/18at 14:37; Start 12/14/18 at 17:15 Collagenase (Santyl) apply left clavical DAILY TOP Last administered on 12/24/18at 08:42; Start 12/15/18 at 09:00 Docusate Sodium (Colace) 100 mg BID PO Last administered on 12/24/18at 08:41; Start 12/17/18 at 09:00 Donepezil HCl (AriCEPT) 5 mg DAILY PO Last administered on 12/24/18 08:41; Start 12/17/18 at 09:00 Enoxaparin Sodium (Lovenox) 40 mg DAILY SC Last administered on 12/24/18 08:41; Start 12/15/18 at 09:00 Ferrous Sulfate (Ferrous Sulfate) 300 mg BID PO Last administered on 12/24/18 08:41; Start 12/17/18 at 21:00 Ferrous Sulfate (Ferrous Sulfate) 300 mg DAILY PO Last administered on 12/17/18at 08:23; Start 12/16/18 at 09:00; Stop 12/17/18 at 13:57; Status DC Fluoxetine HCl (PROzac) 20 mg QHS PO Last administered on 12/23/18 22:27; Start 12/17/18 at 21:00 Home Med (Med Rec Complete!) ASDIRECTED XX ; Start 12/14/18 at 16:00; Stop 12/14/18 at 16:00; Status DC Ipratropium [place] (Atrovent 0.02%) 0.25 mg RBID INH Last administered on 12/19/18at 08:06; Start 12/15/18 at 20:00 Lactobacillus Acidophilus (Bacid) 1 ea TID PO Last administered on 12/24/18at 15:09; Start 12/14/18 at 21:00 Levofloxacin (Levaquin) 250 mg DAILY@06 PO Last administered on 12/15/18at 05:03; Start 12/15/18 at 06:00; Stop 12/15/18 at 14:47; Status DC Levothyroxine Sodium (Synthroid) 25 mcg DAILY@06 PO ; Start 12/20/18 at 06:00; Stop 12/20/18 at 06:00; Status DC Levothyroxine Sodium (Synthroid) 25 mcg DAILY@06 PO Last administered on 12/24/18at 05:58; Start 12/20/18 at 06:00 Levothyroxine Sodium (Synthroid) 75 mcg DAILY@06 PO ; Start 12/17/18 at 06:00; Stop 12/17/18 at 14:23; Status DC Levothyroxine Sodium (Synthroid) 75 mcg DAILY@06 PO Last administered on 12/19/18at 05:46; Start 12/18/18 at 06:00; Stop 12/19/18 at 22:17; Status DC Lidocaine (Lidoderm Patch) 1 patch DAILY TD Last administered on 12/24/18at 08:41; Start 12/19/18 at 09:00 Magnesium Hydroxide (Milk Of Magnesia) 30 ml DAILYPRN PRN PO CONSTIPATION; Start 12/14/18 at 17:15 Miscellaneous (Unresolved Clarification Entry) SEE LABEL COMMENTS DAILY XX ; Start 12/21/18 at 09:00; Stop 12/21/18 at 10:42; Status DC Non-Formulary Medication ( See Comment Field Below ) REMOVE LIDODERM PATCH DAILY@21 XX Last administered on 12/23/18at 21:00; Start 12/19/18 at 21:00 Pantoprazole Sodium (Protonix) 40 mg DAILY PO Last administered on 12/24/18at 08:41; Start 12/15/18 at 09:00 Zinc Oxide (Boudreauxs Butt Paste) sacrum TID TOP Last administered on 12/24/18at 15:09; Start 12/14/18 at 21:00 ARTHUR ARROYO MD Dec 24, 2018 18:43
--- NOTE | 2018-12-24 19:47 | REPVR ---
EXAM: CT Head Without Contrast EXAM DATE/TIME: 12/24/2018 6:58 PM CLINICAL HISTORY: 83 years old, female; Injury or trauma; Fall; Additional info: Recent fall, confusion, rule out subdural hematoma TECHNIQUE: Axial computed tomography images of the head/brain without contrast. All CT scans at this facility use at least one of these dose optimization techniques: automated exposure control; mA and/or kV adjustment per patient size (includes targeted exams where dose is matched to clinical indication); or iterative reconstruction. COMPARISON: CT Head without contrast 12/02/2018 1:36 PM FINDINGS: Brain: There is mild to moderate parenchymal volume loss. White matter changes are demonstrated in the subcortical, centrum semiovale and periventricular white matter consistent with small vessel white matter angiopathic gliosis. Ventricles: Normal. No ventriculomegaly. Bones/joints: There is hyperostosis frontalis interna. Sinuses: Visualized sinuses are unremarkable. No acute sinusitis. Mastoid air cells: Visualized mastoid air cells are unremarkable. No mastoid effusion. Soft tissues: Soft tissue swelling left posterior parietal region. Otherwise unremarkable. IMPRESSION: There is mild to moderate parenchymal volume loss. White matter changes are demonstrated in the subcortical, centrum semiovale and periventricular white matter consistent with small vessel white matter angiopathic gliosis. Probable scalp contusion/hematoma left posterior parietal region. Correlation clinically is suggested. Electronically signed by: Dillon Pantoja On 12/24/2018 19:47:23 PM
[2018-12-24] MEDS: **NOTE PATIENT COMMENT** MISC XX SCH (20:12)
[2018-12-24] MEDS: FLUoxetine 20 MG CAP PO SCH (20:12)
[2018-12-24 21:30] VITALS: BP 155/89
[2018-12-25] MEDS: LEVOTHYROXINE 25MCG TABLET (0.025MG) PO SCH (05:41)
[2018-12-25 06:00] VITALS: BP 157/88
[2018-12-25 07:02] LABS: HEMATOCRIT 25.3 % (36.0-47.0); HEMOGLOBIN 7.8 g/dl (12.0-15.5); MEAN CORPUSCULAR HEMOGLOBIN 28.6 pg (27.0-33.0); MEAN CORPUSCULAR HGB CONC 30.8 g/dl (32.0-36.5); MEAN CORPUSCULAR VOLUME 92.7 fl (80.0-96.0); PLATELET COUNT, AUTOMATED 174 10^3/uL (150-450); RED BLOOD COUNT 2.73 10^6/uL (4.00-5.40); WHITE BLOOD COUNT 8.1 10^3/uL (4.0-10.0)
[2018-12-25 07:30] LABS: BLOOD UREA NITROGEN 17 MG/DL (7-18); CALCIUM LEVEL 8.4 MG/DL (8.8-10.2); CARBON DIOXIDE LEVEL 31 MEQ/L (21-32); CHLORIDE LEVEL 100 MEQ/L (98-107); CREATININE FOR GFR 0.66 MG/DL (0.55-1.30); GLOMERULAR FILTRATION RATE > 60.0 (>32); GLUCOSE, FASTING 109 MG/DL (70-100); POTASSIUM SERUM 3.7 MEQ/L (3.5-5.1); SODIUM LEVEL 137 MEQ/L (136-145)
[2018-12-25] MEDS: IPRATROPIUM 0.02% SOLN 0.5MG/2.5 ML NEB INH SCH ×2 (07:56→20:00)
[2018-12-25] MEDS: DONEPEZIL 5 MG TAB PO SCH (08:31)
[2018-12-25] MEDS: LACTOBACILLUS ACIDOPHILUS CAP (BACID) PO SCH ×3 (08:31→20:34)
[2018-12-25] MEDS: DOCUSATE SODIUM 100 MG CAP PO SCH ×2 (08:31→20:34)
[2018-12-25] MEDS: PANTOPRAZOLE 40MG TAB (PROTONIX) PO SCH (08:31)
[2018-12-25] MEDS: FERROUS SULFATE 300MG/5ML UDC LIQUID PO SCH ×2 (08:31→20:34)
[2018-12-25] MEDS: LIDOCAINE 5% (LIDODERM) PATCH TD SCH (08:31)
[2018-12-25] MEDS: ENOXAPARIN 40 MG/0.4 ML SYRINGE (J1650) SC SCH (08:32)
[2018-12-25] MEDS: ACETAMINOPHEN TAB 650MG DOSE (2X325MG) PO PRN ×2 (08:32→19:39)
[2018-12-25] MEDS: SANTYL OINT 30GM TOP SCH (08:32)
[2018-12-25] MEDS: BOUDREAUX'S BUTT PASTE 4OZ TOP SCH ×3 (08:32→20:34)
[2018-12-25 14:00] VITALS: BP 158/72
[2018-12-25] MEDS ORDERED: IRON SUCROSE 100MG 5ML VIAL (J1756 PER 1MG) IV SCH (14:00)
--- NOTE | 2018-12-25 14:28 | IPNPDOC ---
Date Seen The patient was seen on 12/25/18. Progress Note HPI: The patient is an 83-year-old white female who presented to [facility] ED December 02, 2018 due to fall at home. In the ER, she had extensive workups done which demonstrated she had a C2-C3 fracture. She was transferred to [facility] in [place] with further workup indicating urinary retention and E. coli urinary tract infection (UTI) which was treated with IV Zosyn. No surgical intervention recommended, instead she had a neck collar placed. She was transferred to the care of ARU, Dr Ibarra 12/14/18 Pt currently denies any pain. No verbalized complaints. Cervical collar in place. Has been OOB with PT this AM. Denies any fevers, chills, Headache, Chest Pain, Shortness of breath, cough, palpitations, abdominal pain, N/V/D or changes in bowel or bladder habits. PMHx: none known PSHX: none known PE: GEN: 83yoF, appears stated age. Thin appearing. Alert and oriented. HEENT: Normocephalic, atraumatic. Sclera are nonicteric. No facial asymmetry. Moist mucous membranes. Cervical collar in place. CHEST: Regular rate and rhythm, +S1, +S2 LUNGS: Clear to auscultation bilaterally. No wheezes, rales, or rhonchi. ABD: Round, soft, non-tender, non-distended. +Bowel sounds throughout. No rebound or guarding. EXT: No lower extremity edema appreciated. SKIN: [place], dry, warm. No rashes. Neuro. Nml speech. Moving UE/LEs. Nml sensation UE/LEs. A&P:The patient is an 83-year-old white female who presented to [facility] ED December 02, 2018 due to fall at home. In the ER, she had extensive workups done which demonstrated she had a C2-C3 fracture. She was transferred to [facility] in [place] with further workup indicating urinary retention and E. coli urinary tract infection (UTI) which was treated with IV Zosyn.No surgical intervention recommended, instead she had a neck collar placed. She was transferred to the care of ARUDr Ibarra 12/14/18 C2-C3 Fracture 2/2 Mechanical Fall The patient did not require surgical intervention Mgmt as per ARU PT/OT/ST as per ARU Pain control as per ARU Bowel care as per ARU DVT px. Lovenox as per ARU Disposition as per ARU. Normocytic Anemia/Fe def Hgb 7.8 this AM Iron studies notable for low serum iron, and low/normal transferrin saturation, Cont iron supplementation. FOB negative. S/P PRBC x 1 U 12/18/18. IV Venofer ordered this AM as per Dr Ibarra. Monitor. Leukocytosis, resolved. s/p treatment for underlying UTI Patient with no other infectious signs or symptoms at this time Afebrile. UC neg 12/14/18. Monitor. Abnormal TFTs Patient noted to have normal TFTs just 2 weeks ago Possibly 2/2 underlying acute injury/stressor Repeat TFT's in 6-8 weeks Dementia Continue Donepezil GI Prophylaxis Cont PPI Cont Bacid. VS, I&O, 24H, Fishbone Vital Signs/I&O Vital Signs Date Time Temp Pulse Resp B/P (MAP) Pulse Ox O2 Delivery O2 Flow Rate FiO2 12/25/18 06:00 97.6 91 18 157/88 (111) 99 12/19/18 06:00 Room Air I&O- Last 24 Hours up to 6 AM 12/25/18 06:00 Intake Total 580 ml Output Total 725 ml Balance -145 ml Laboratory Data 24H LABS Laboratory Tests 2 12/25/18 06:48: Nucleated Red Blood Cells % (auto) 0.0, Anion Gap 6L, Glomerular Filtration Rate > 60.0, Blood Urea Nitrogen 17, Creatinine 0.66, Sodium Level 137, Potassium Level 3.7, Chloride Level 100, Carbon Dioxide Level 31, Calcium Level 8.4L CBC/BMP Laboratory Tests 12/25/18 06:48 Red Blood Count 2.73 L, Mean Corpuscular Volume 92.7, Mean Corpuscular Hemoglobin 28.6, Mean Corpuscular Hemoglobin Concent 30.8 L, Red Cell Distribu tion Width 18.3 H, Calcium Level 8.4 L Microbiology Microbiology 12/16/18 Stool Occult Blood ([facility]) - Final, Complete Madelaine Mei Dec 25, 2018 14:28
[2018-12-25] MEDS: FLUoxetine 20 MG CAP PO SCH (20:34)
[2018-12-25] MEDS: **NOTE PATIENT COMMENT** MISC XX SCH (20:34)
[2018-12-25] MEDS: IRON SUCROSE 200 MG in NS 100 ML OVER 1 HR IV SCH (20:34)
[2018-12-25 22:55] VITALS: BP 157/75
[2018-12-26 05:10] VITALS: BP 138/82
[2018-12-26] MEDS: LEVOTHYROXINE 25MCG TABLET (0.025MG) PO SCH (05:47)
[2018-12-26] MEDS: ACETAMINOPHEN TAB 650MG DOSE (2X325MG) PO PRN ×2 (05:48→20:33)
[2018-12-26] MEDS: IPRATROPIUM 0.02% SOLN 0.5MG/2.5 ML NEB INH SCH ×2 (08:00→20:00)
[2018-12-26] MEDS: LIDOCAINE 5% (LIDODERM) PATCH TD SCH (09:09)
[2018-12-26] MEDS: LACTOBACILLUS ACIDOPHILUS CAP (BACID) PO SCH ×3 (09:10→20:33)
[2018-12-26] MEDS: ENOXAPARIN 40 MG/0.4 ML SYRINGE (J1650) SC SCH (09:10)
[2018-12-26] MEDS: FERROUS SULFATE 300MG/5ML UDC LIQUID PO SCH ×2 (09:10→20:32)
[2018-12-26] MEDS: DOCUSATE SODIUM 100 MG CAP PO SCH ×2 (09:10→20:32)
[2018-12-26] MEDS: DONEPEZIL 5 MG TAB PO SCH (09:10)
[2018-12-26] MEDS: PANTOPRAZOLE 40MG TAB (PROTONIX) PO SCH (09:10)
[2018-12-26] MEDS: BOUDREAUX'S BUTT PASTE 4OZ TOP SCH ×3 (09:11→20:33)
[2018-12-26] MEDS: SANTYL OINT 30GM TOP SCH (09:11)
--- NOTE | 2018-12-26 10:27 | IPNPDOC ---
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 REVIEW OF SYSTEMS: The following is a completed review of systems and has been reviewed. Review of systems otherwise unremarkable. PAIN: Patient self reports no pain EYES: Negative for recent vision changes EARS, NOSE, & THROAT: +dysphagia, cervical collar CARDIOVASCULAR: no chest pain or palpitations PULMONARY: Negative. Denies shortness of breath GASTROINTESTINAL: Negative for diarrhea or constipation GENITOURINARY: +mejia, +retention MUSCULOSKELETAL: C2, C3 vertebral fracture NEUROLOGICAL: C2, C3 vertebral fracture, no focal deficit SKIN: left clavicle stage ulcer with slough, lower truncal abrasions, onychomycosis PSYCHIATRIC: confused All other review of systems found to be negative. PHYSICAL EXAMINATION: VITAL SIGNS: Please see below. GENERAL: Pleasant and cooperative. No acute distress. HEENT: PERRL. Extraocular movements intact. Clear conjunctiva, C-collar in place CARDIOVASCULAR: Regular rate and rhythm. No murmurs, rubs, or gallops. LUNGS: Clear to auscultation bilaterally. No wheezes. No rhonchi ABDOMEN: Soft, nontender, nondistended. Positive bowel sounds. Normal active bowel sounds NEUROLOGICAL: Alert and oriented to self, not place or time Cranial nerves II through XII grossly intact. Sensation grossly intact all 4 extremities, no paresthesias EXTREMITIES: 5\5 strength bilateral upper extremities. 5-\5 strength right lower extremity. 5-/5 strength in left lower extremity. SKIN: left clavicle stage ulcer with slough, multiple lower truncal abrasions, toe onychomycosis, stage one sacral ulcer : +mejia ASSESSMENT:83-year-old F with past medical history of falls who presents status postfall with C2-C3 vertebral fracture. PLAN: 1. 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 Ortho: s/p C2-C3 fracture, C-collar at all times, needs outpatient follow-up 4. Cardio: stable 5. Resp: recent CTA to rule out PE showed effusions and infiltrates, CXR 12/14/18 showed chronic changes, monitor for any signs of pneumonia, Incentive spirometry- continue Duonebs 6. : s/p treatment E. coli UTI, admission Ucx negatve, monitor PVRs 7. DVT ppx: Lovenox, admission Dopplers negative 8. GI ppx : protonix 9. Pain: Tylenol prn 10. Anemia: FOBT negative for occult blood, loss, iron studies show iron deficiency anemia, will add oral Iron supplements, s/p 1 unit prbcs ordered- however Hgb dropped from 9 to 7.8, will start Venofer x 5 doses 10. Skin: unstageable left clavicle ulcer- Santyl daily and cover with mepilex- healing well, and stage one sacral ulcer Butt Paste, and truncal abrasions continue Mepilex 11. Dispo: Difficult to say at this point if patient can go home alone given confusion which is possibly due to delirium, slowly progressing towards goal Allergies Coded Allergies: No Known Allergies (Unverified , 12/02/18) Vital Signs Vital Signs Date Time Temp Pulse Resp B/P (MAP) Pulse Ox O2 Delivery O2 Flow Rate FiO2 12/26/18 05:10 97.1 81 18 138/82 (100) 100 Microbiology Microbiology 12/16/18 Stool Occult Blood ([facility]) - Final, Complete Current Medications Current Medications Current Medications Acetaminophen (Tylenol Tab) 650 mg Q4HP PRN PO fever/MILD PAIN (PS 1-4) Last administered on 12/26/18at 05:48; Start 12/14/18 at 17:15 Collagenase (Santyl) apply left clavical DAILY TOP Last administered on 12/26/18at 09:11; Start 12/15/18 at 09:00 Docusate Sodium (Colace) 100 mg BID PO Last administered on 12/26/18at 09:10; Start 12/17/18 at 09:00 Donepezil HCl (AriCEPT) 5 mg DAILY PO Last administered on 12/26/18at 09:10; Start 12/17/18 at 09:00 Enoxaparin Sodium (Lovenox) 40 mg DAILY SC Last administered on 12/26/18 09:10; Start 12/15/18 at 09:00 Ferrous Sulfate (Ferrous Sulfate) 300 mg BID PO Last administered on 12/26/18at 09:10; Start 12/17/18 at 21:00 Ferrous Sulfate (Ferrous Sulfate) 300 mg DAILY PO Last administered on 12/17/18at 08:23; Start 12/16/18 at 09:00; Stop 12/17/18 at 13:57; Status DC Fluoxetine HCl (PROzac) 20 mg QHS PO Last administered on 12/25/18at 20:34; Start 12/17/18 at 21:00 Home Med (Med Rec Complete!) ASDIRECTED XX ; Start 12/14/18 at 16:00; Stop 12/14/18 at 16:00; Status DC Ipratropium [place] (Atrovent 0.02%) 0.25 mg RBID INH Last administered on 12/19/18at 08:06; Start 12/15/18 at 20:00 Iron (Venofer) 200 mg ASDIRECTED IV ; Start 12/25/18 at 14:00; Stop 12/25/18 at 14:09; Status DC Iron 200 mg/ Sodium Chloride 110 ml @ 110 mls/hr Q48H IV Last administered on 12/25/18at 20:34; Start 12/25/18 at 16:00; Stop 12/31/18 at 16:59 Lactobacillus Acidophilus (Bacid) 1 ea TID PO Last administered on 12/26/18at 09:10; Start 12/14/18 at 21:00 Levofloxacin (Levaquin) 250 mg DAILY@06 PO Last administered on 12/15/18at 05:03; Start 12/15/18 at 06:00; Stop 12/15/18 at 14:47; Status DC Levothyroxine Sodium (Synthroid) 25 mcg DAILY@06 PO ; Start 12/20/18 at 06:00; Stop 12/20/18 at 06:00; Status DC Levothyroxine Sodium (Synthroid) 25 mcg DAILY@06 PO Last administered on 12/26/18at 05:47; Start 12/20/18 at 06:00 Levothyroxine Sodium (Synthroid) 75 mcg DAILY@06 PO ; Start 12/17/18 at 06:00; Stop 12/17/18 at 14:23; Status DC Levothyroxine Sodium (Synthroid) 75 mcg DAILY@06 PO Last administered on 12/19/18at 05:46; Start 12/18/18 at 06:00; Stop 12/19/18 at 22:17; Status DC Lidocaine (Lidoderm Patch) 1 patch DAILY TD Last administered on 12/26/18at 09:09; Start 12/19/18 at 09:00 Magnesium Hydroxide (Milk Of Magnesia) 30 ml DAILYPRN PRN PO CONSTIPATION; Start 12/14/18 at 17:15 Miscellaneous (Unresolved Clarification Entry) SEE LABEL COMMENTS DAILY XX ; Start 12/21/18 at 09:00; Stop 12/21/18 at 10:42; Status DC Non-Formulary Medication ( See Comment Field Below ) REMOVE LIDODERM PATCH DAILY@21 XX Last administered on 12/25/18at 20:34; Start 12/19/18 at 21:00 Pantoprazole Sodium (Protonix) 40 mg DAILY PO Last administered on 12/26/18at 09:10; Start 12/15/18 at 09:00 Zinc Oxide (Boudreauxs Butt Paste) sacrum TID TOP Last administered on 12/26/18at 09:11; Start 12/14/18 at 21:00 ARTHUR ARROYO MD Dec 26, 2018 10:27
--- NOTE | 2018-12-26 10:28 | IPNPDOC ---
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 REVIEW OF SYSTEMS: The following is a completed review of systems and has been reviewed. Review of systems otherwise unremarkable. PAIN: Patient self reports no pain EYES: Negative for recent vision changes EARS, NOSE, & THROAT: +dysphagia, cervical collar CARDIOVASCULAR: no chest pain or palpitations PULMONARY: Negative. Denies shortness of breath GASTROINTESTINAL: Negative for diarrhea or constipation GENITOURINARY: +mejia, +retention MUSCULOSKELETAL: C2, C3 vertebral fracture NEUROLOGICAL: C2, C3 vertebral fracture, no focal deficit SKIN: left clavicle stage ulcer with slough, lower truncal abrasions, onychomycosis PSYCHIATRIC: confused All other review of systems found to be negative. PHYSICAL EXAMINATION: VITAL SIGNS: Please see below. GENERAL: Pleasant and cooperative. No acute distress. HEENT: PERRL. Extraocular movements intact. Clear conjunctiva, C-collar in place CARDIOVASCULAR: Regular rate and rhythm. No murmurs, rubs, or gallops. LUNGS: Clear to auscultation bilaterally. No wheezes. No rhonchi ABDOMEN: Soft, nontender, nondistended. Positive bowel sounds. Normal active bowel sounds NEUROLOGICAL: Alert and oriented to self, not place or time Cranial nerves II through XII grossly intact. Sensation grossly intact all 4 extremities, no paresthesias EXTREMITIES: 5\5 strength bilateral upper extremities. 5-\5 strength right lower extremity. 5-/5 strength in left lower extremity. SKIN: left clavicle stage ulcer with slough, multiple lower truncal abrasions, toe onychomycosis, stage one sacral ulcer : +mejia ASSESSMENT:83-year-old F with past medical history of falls who presents status postfall with C2-C3 vertebral fracture. PLAN: 1. rehab: PT, OT, BACTERIOLOGIST FOOD, assess for DME, able to tolerate thin liquids with straw, ambulating well, participation in therapy inconsistent 2. 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 Ortho: s/p C2-C3 fracture, C-collar at all times, needs outpatient follow-up 4. Cardio: stable 5. Resp: recent CTA to rule out PE showed effusions and infiltrates, CXR 12/14/18 showed chronic changes, monitor for any signs of pneumonia, Incentive spirometry- continue Duonebs 6. : s/p treatment E. coli UTI, admission Ucx negatve, monitor PVRs 7. DVT ppx: Lovenox, admission Dopplers negative 8. GI ppx : protonix 9. Pain: Tylenol prn 10. Anemia: FOBT negative for occult blood, loss, iron studies show iron defic iency anemia, will add oral Iron supplements, s/p 1 unit prbcs ordered- however Hgb dropped from 9 to 7.8, will start Venofer x 5 doses, 1st dose given 12/25/18 10. Skin: unstageable left clavicle ulcer- Santyl daily and cover with mepilex- healing well, and stage one sacral ulcer Butt Paste, and truncal abrasions continue Mepilex 11. Dispo: Difficult to say at this point if patient can go home alone given confusion which is possibly due to delirium, slowly progressing towards goal Allergies Coded Allergies: No Known Allergies (Unverified , 12/02/18) Vital Signs Vital Signs Date Time Temp Pulse Resp B/P (MAP) Pulse Ox O2 Delivery O2 Flow Rate FiO2 12/26/18 05:10 97.1 81 18 138/82 (100) 100 Microbiology Microbiology 12/16/18 Stool Occult Blood ([facility]) - Final, Complete Current Medications Current Medications Current Medications Acetaminophen (Tylenol Tab) 650 mg Q4HP PRN PO fever/MILD PAIN (PS 1-4) Last administered on 12/26/18at 05:48; Start 12/14/18 at 17:15 Collagenase (Santyl) apply left clavical DAILY TOP Last administered on 12/26/18at 09:11; Start 12/15/18 at 09:00 Docusate Sodium (Colace) 100 mg BID PO Last administered on 12/26/18at 09:10; Start 12/17/18 at 09:00 Donepezil HCl (AriCEPT) 5 mg DAILY PO Last administered on 12/26/18at 09:10; Start 12/17/18 at 09:00 Enoxaparin Sodium (Lovenox) 40 mg DAILY SC Last administered on 12/26/18 09:10; Start 12/15/18 at 09:00 Ferrous Sulfate (Ferrous Sulfate) 300 mg BID PO Last administered on 12/26/18 09:10; Start 12/17/18 at 21:00 Ferrous Sulfate (Ferrous Sulfate) 300 mg DAILY PO Last administered on 12/17/18at 08:23; Start 12/16/18 at 09:00; Stop 12/17/18 at 13:57; Status DC Fluoxetine HCl (PROzac) 20 mg QHS PO Last administered on 12/25/18 20:34; Start 12/17/18 at 21:00 Home Med (Med Rec Complete!) ASDIRECTED XX ; Start 12/14/18 at 16:00; Stop 12/14/18 at 16:00; Status DC Ipratropium [place] (Atrovent 0.02%) 0.25 mg RBID INH Last administered on 12/19/18at 08:06; Start 12/15/18 at 20:00 Iron (Venofer) 200 mg ASDIRECTED IV ; Start 12/25/18 at 14:00; Stop 12/25/18 at 14:09; Status DC Iron 200 mg/ Sodium Chloride 110 ml @ 110 mls/hr Q48H IV Last administered on 12/25/18 20:34; Start 12/25/18 at 16:00; Stop 12/31/18 at 16:59 Lactobacillus Acidophilus (Bacid) 1 ea TID PO Last administered on 12/26/18at 09:10; Start 12/14/18 at 21:00 Levofloxacin (Levaquin) 250 mg DAILY@06 PO Last administered on 12/15/18at 05:03; Start 12/15/18 at 06:00; Stop 12/15/18 at 14:47; Status DC Levothyroxine Sodium (Synthroid) 25 mcg DAILY@06 PO ; Start 12/20/18 at 06:00; Stop 12/20/18 at 06:00; Status DC Levothyroxine Sodium (Synthroid) 25 mcg DAILY@06 PO Last administered on 12/26/18at 05:47; Start 12/20/18 at 06:00 Levothyroxine Sodium (Synthroid) 75 mcg DAILY@06 PO ; Start 12/17/18 at 06:00; Stop 12/17/18 at 14:23; Status DC Levothyroxine Sodium (Synthroid) 75 mcg DAILY@06 PO Last administered on 12/19/18at 05:46; Start 12/18/18 at 06:00; Stop 12/19/18 at 22:17; Status DC Lidocaine (Lidoderm Patch) 1 patch DAILY TD Last administered on 12/26/18at 09:09; Start 12/19/18 at 09:00 Magnesium Hydroxide (Milk Of Magnesia) 30 ml DAILYPRN PRN PO CONSTIPATION; Start 12/14/18 at 17:15 Miscellaneous (Unresolved Clarification Entry) SEE LABEL COMMENTS DAILY XX ; Start 12/21/18 at 09:00; Stop 12/21/18 at 10:42; Status DC Non-Formulary Medication ( See Comment Field Below ) REMOVE LIDODERM PATCH DAILY@21 XX Last administered on 12/25/18at 20:34; Start 12/19/18 at 21:00 Pantoprazole Sodium (Protonix) 40 mg DAILY PO Last administered on 12/26/18at 0 9:10; Start 12/15/18 at 09:00 Zinc Oxide (Boudreauxs Butt Paste) sacrum TID TOP Last administered on 12/26/18at 09:11; Start 12/14/18 at 21:00 ARTHUR ARROYO MD Dec 26, 2018 10:28
--- NOTE | 2018-12-26 13:56 | IPNPDOC ---
Date Seen The patient was seen on 12/26/18. Progress Note HPI: The patient is an 83-year-old white female who presented to [facility] ED December 02, 2018 due to fall at home. In the ER, she had extensive workups done which demonstrated she had a C2-C3 fracture. She was transferred to [facility] in [place] with further workup indicating urinary retention and E. coli urinary tract infection (UTI) which was treated with IV Zosyn. No surgical intervention recommended, instead she had a neck collar placed. She was transferred to the care of ARUDr Ibarra 12/14/18 Pt currently denies any pain. No verbalized complaints. Cervical collar in place. Has been OOB with PT this AM. States she feels tired and requests to go back to bed. Denies any fevers, chills, Headache, Chest Pain, Shortness of breath, cough, palpitations, abdominal pain, N/V/D or changes in bowel or bladder habits. PMHx: none known PSHX: none known PE: GEN: 83yoF, appears stated age. Thin appearing. Alert and oriented. HEENT: Normocephalic, atraumatic. Sclera are nonicteric. No facial asymmetry. Moist mucous membranes. Cervical collar in place. CHEST: Regular rate and rhythm, +S1, +S2 LUNGS: Clear to auscultation bilaterally. No wheezes, rales, or rhonchi. ABD: Round, soft, non-tender, non-distended. +Bowel sounds throughout. No rebound or guarding. EXT: No lower extremity edema appreciated. SKIN: [place], dry, warm. No rashes. Neuro. Nml speech. Moving UE/LEs. Nml sensation UE/LEs. A&P:The patient is an 83-year-old white female who presented to [facility] ED December 02, 2018 due to fall at home. In the ER, she had extensive workups done which demonstrated she had a C2-C3 fracture. She was transferred to [facility] in [place] with further workup indicating urinary retention and E. coli urinary tract infection (UTI) which was treated with IV Zosyn.No surgical intervention recommended, instead she had a neck collar placed. She was transferred to the care of ARUDr Ibarra 12/14/18 C2-C3 Fracture 2/2 Mechanical Fall The patient did not require surgical intervention Mgmt as per ARU PT/OT/ST as per ARU Pain control as per ARU Bowel care as per ARU DVT px. Lovenox as per ARU Disposition as per ARU. Normocytic Anemia/Fe def Hgb 7.8 12/25/18. Cont iron supplementation. FOB negative. S/P PRBC x 1 U 12/18/18. IV Venofer ordered 12/25/[address] Ibarra. CBC in Am. Leukocytosis, resolved. s/p treatment for underlying UTI Patient with no other infectious signs or symptoms at this time Afebrile. UC neg 12/14/18. CBC in Am. Abnormal TFTs Patient noted to have normal TFTs just 2 weeks ago Possibly 2/2 underlying acute injury/stressor. Pt was started on Synthroid 25 mcg. Repeat TFT's in 4-6 weeks Dementia Continue Donepezil GI Prophylaxis Cont PPI Cont Bacid. VS, I&O, 24H, Fishbone Vital Signs/I&O Vital Signs Date Time Temp Pulse Resp B/P (MAP) Pulse Ox O2 Delivery O2 Flow Rate FiO2 12/26/18 05:10 97.1 81 18 138/82 (100) 100 I&O- Last 24 Hours up to 6 AM 12/26/18 06:00 Intake Total 800 ml Output Total 800 ml Balance 0 ml Laboratory Data Microbiology Microbiology 12/16/18 Stool Occult Blood ([facility]) - Final, Complete Madelaine Mei Dec 26, 2018 13:56
[2018-12-26 14:00] VITALS: BP 129/69
[2018-12-26 20:00] VITALS: BP 130/61
[2018-12-26] MEDS: FLUoxetine 20 MG CAP PO SCH (20:33)
[2018-12-26] MEDS: **NOTE PATIENT COMMENT** MISC XX SCH (20:33)
[2018-12-27 06:00] VITALS: BP 170/78
[2018-12-27] MEDS: LEVOTHYROXINE 25MCG TABLET (0.025MG) PO SCH (06:12)
[2018-12-27] MEDS: ACETAMINOPHEN TAB 650MG DOSE (2X325MG) PO PRN ×3 (06:12→20:12)
[2018-12-27 06:43] LABS: HEMATOCRIT 26.2 % (36.0-47.0); HEMOGLOBIN 8.2 g/dl (12.0-15.5); MEAN CORPUSCULAR HEMOGLOBIN 29.5 pg (27.0-33.0); MEAN CORPUSCULAR HGB CONC 31.3 g/dl (32.0-36.5); MEAN CORPUSCULAR VOLUME 94.2 fl (80.0-96.0); PLATELET COUNT, AUTOMATED 170 10^3/uL (150-450); RED BLOOD COUNT 2.78 10^6/uL (4.00-5.40); WHITE BLOOD COUNT 7.6 10^3/uL (4.0-10.0)
[2018-12-27 07:09] LABS: BLOOD UREA NITROGEN 17 MG/DL (7-18); CALCIUM LEVEL 8.4 MG/DL (8.8-10.2); CARBON DIOXIDE LEVEL 29 MEQ/L (21-32); CHLORIDE LEVEL 100 MEQ/L (98-107); CREATININE FOR GFR 0.68 MG/DL (0.55-1.30); GLOMERULAR FILTRATION RATE > 60.0 (>32); GLUCOSE, FASTING 93 MG/DL (70-100); POTASSIUM SERUM 3.6 MEQ/L (3.5-5.1); SODIUM LEVEL 135 MEQ/L (136-145)
[2018-12-27] MEDS: IPRATROPIUM 0.02% SOLN 0.5MG/2.5 ML NEB INH SCH ×2 (08:00→19:53)
[2018-12-27] MEDS: LIDOCAINE 5% (LIDODERM) PATCH TD SCH (09:14)
[2018-12-27] MEDS: LACTOBACILLUS ACIDOPHILUS CAP (BACID) PO SCH ×3 (09:14→20:12)
[2018-12-27] MEDS: DONEPEZIL 5 MG TAB PO SCH (09:14)
[2018-12-27] MEDS: ENOXAPARIN 40 MG/0.4 ML SYRINGE (J1650) SC SCH (09:14)
[2018-12-27] MEDS: DOCUSATE SODIUM 100 MG CAP PO SCH ×2 (09:14→20:12)
[2018-12-27] MEDS: FERROUS SULFATE 300MG/5ML UDC LIQUID PO SCH ×2 (09:14→20:11)
[2018-12-27] MEDS: SANTYL OINT 30GM TOP SCH (09:15)
[2018-12-27] MEDS: BOUDREAUX'S BUTT PASTE 4OZ TOP SCH ×3 (09:15→20:12)
[2018-12-27] MEDS: PANTOPRAZOLE 40MG TAB (PROTONIX) PO SCH (09:15)
[2018-12-27] MEDS: LISINOPRIL 5 MG TAB PO SCH (12:12)
--- NOTE | 2018-12-27 13:23 | IPNPDOC ---
Date Seen The patient was seen on 12/27/18. Progress Note HPI: The patient is an 83-year-old white female who presented to [facility] ED December 02, 2018 due to fall at home. In the ER, she had extensive workups done which demonstrated she had a C2-C3 fracture. She was transferred to [facility] in [place] with further workup indicating urinary retention and E. coli urinary tract infection (UTI) which was treated with IV Zosyn. No surgical intervention recommended, instead she had a neck collar placed. She was transferred to the care of ARU, Dr Ibarra 12/14/18 Pt currently denies any pain. No verbalized complaints. Cervical collar in place. Pt states she does not want to get OOB. States she is tired. Denies any fevers, chills, Headache, Chest Pain, Shortness of breath, cough, palpitations, abdominal pain, N/V/D or changes in bowel or bladder habits. PMHx: none known PSHX: none known PE: GEN: 83yoF, appears stated age. Thin appearing. Alert and oriented. HEENT: Normocephalic, atraumatic. Sclera are nonicteric. No facial asymmetry. Moist mucous membranes. Cervical collar in place. CHEST: Regular rate and rhythm, +S1, +S2 LUNGS: Clear to auscultation bilaterally. No wheezes, rales, or rhonchi. ABD: Round, soft, non-tender, non-distended. +Bowel sounds throughout. No rebound or guarding. EXT: No lower extremity edema appreciated. SKIN: [place], dry, warm. No rashes. Neuro. Nml speech. Moving UE/LEs. Nml sensation UE/LEs. A&P:The patient is an 83-year-old white female who presented to [facility] ED December 02, 2018 due to fall at home. In the ER, she had extensive workups done which demonstrated she had a C2-C3 fracture. She was transferred to [facility] in [place] with further workup indicating urinary retention and E. coli urinary tract infection (UTI) which was treated with IV Zosyn.No surgical intervention recommended, instead she had a neck collar placed. She was transferred to the care of ARUDr Ibarra 12/14/18 C2-C3 Fracture 2/2 Mechanical Fall The patient did not require surgical intervention Mgmt as per ARU PT/OT/ST as per ARU Pain control as per ARU Bowel care as per ARU DVT px. Lovenox as per ARU Disposition as per ARU. Normocytic Anemia/Fe def Hgb 8.2 12/27/18 Cont iron supplementation. FOB negative. S/P PRBC x 1 U 12/18/18. IV Venofer ordered 12/25/[address] Ibarra. Monitor Leukocytosis, resolved. s/p treatment for underlying UTI Patient with no other infectious signs or symptoms at this time Afebrile. UC neg 12/14/18. Abnormal TFTs Patient noted to have normal TFTs just 2 weeks ago Possibly 2/2 underlying acute injury/stressor. Pt was started on Synthroid 25 mcg. Repeat TFT's in 4-6 weeks Dementia Continue Donepezil GI Prophylaxis Cont PPI Cont Bacid. VS, I&O, 24H, Fishbone Vital Signs/I&O Vital Signs Date Time Temp Pulse Resp B/P (MAP) Pulse Ox O2 Delivery O2 Flow Rate FiO2 12/27/18 12:12 140/63 12/27/18 06:00 96.9 80 18 100 I&O- Last 24 Hours up to 6 AM 12/27/18 06:00 Intake Total 390 ml Output Total 1000 ml Balance -610 ml Laboratory Data 24H LABS Laboratory Tests 2 12/27/18 06:29: Nucleated Red Blood Cells % (auto) 0.0, Anion Gap 6L, Glomerular Filtration Rate > 60.0, Blood Urea Nitrogen 17, Creatinine 0.68, Sodium Level 135L, Potassium Level 3.6, Chloride Level 100, Carbon Dioxide Level 29, Calcium Level 8.4L CBC/BMP Laboratory Tests 12/27/18 06:29 Red Blood Count 2.78 L, Mean Corpuscular Volume 94.2, Mean Corpuscular Hemoglobin 29.5, Mean Corpuscular Hemoglobin Concent 31.3 L, Red Cell Distribution Width 18.4 H, Calcium Level 8.4 L Madelaine Mei Dec 27, 2018 13:23
[2018-12-27 14:00] VITALS: BP 132/63
--- NOTE | 2018-12-27 14:12 | IPNPDOC ---
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 REVIEW OF SYSTEMS: The following is a completed review of systems and has been reviewed. Review of systems otherwise unremarkable. PAIN: Patient self reports no pain EYES: Negative for recent vision changes EARS, NOSE, & THROAT: +dysphagia, cervical collar CARDIOVASCULAR: no chest pain or palpitations PULMONARY: Negative. Denies shortness of breath GASTROINTESTINAL: Negative for diarrhea or constipation GENITOURINARY: +mejia, +retention MUSCULOSKELETAL: C2, C3 vertebral fracture NEUROLOGICAL: C2, C3 vertebral fracture, no focal deficit SKIN: left clavicle stage ulcer with slough, lower truncal abrasions, onychomycosis PSYCHIATRIC: confused All other review of systems found to be negative. PHYSICAL EXAMINATION: VITAL SIGNS: Please see below. GENERAL: Pleasant and cooperative. No acute distress. HEENT: PERRL. Extraocular movements intact. Clear conjunctiva, C-collar in place CARDIOVASCULAR: Regular rate and rhythm. No murmurs, rubs, or gallops. LUNGS: Clear to auscultation bilaterally. No wheezes. No rhonchi ABDOMEN: Soft, nontender, nondistended. Positive bowel sounds. Normal active bowel sounds NEUROLOGICAL: Alert and oriented to self, not place or time Cranial nerves II through XII grossly intact. Sensation grossly intact all 4 extremities, no paresthesias EXTREMITIES: 5\5 strength bilateral upper extremities. 5-\5 strength right lower extremity. 5-/5 strength in left lower extremity. SKIN: left clavicle stage ulcer with slough, multiple lower truncal abrasions, toe onychomycosis, stage one sacral ulcer : +mejia ASSESSMENT:83-year-old F with past medical history of falls who presents status postfall with C2-C3 vertebral fracture. PLAN: 1. 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 Ortho: s/p C2-C3 fracture, C-collar at all times, needs outpatient follow-up 4. Cardio: stable 5. Resp: recent CTA to rule out PE showed effusions and infiltrates, CXR 12/14/18 showed chronic changes, monitor for any signs of pneumonia, Incentive spirometry- continue Duonebs 6. : s/p treatment E. coli UTI, admission Ucx negatve, monitor PVRs 7. DVT ppx: Lovenox, admission Dopplers negative 8. GI ppx : protonix 9. Pain: Tylenol prn 10. Anemia: FOBT negative for occult blood, loss, iron studies show iron deficiency anemia, will add oral Iron supplements, s/p 1 unit prbcs ordered- however Hgb dropped from 9 to 7.8, continue Venofer x 5 doses, 1st dose given 12/25/18, 2nd today 10. Skin: unstageable left clavicle ulcer- Santyl daily and cover with mepilex- healing well, and stage one sacral ulcer Butt Paste, and truncal abrasions continue Mepilex 11. Dispo: Difficult to say at this point if patient can go home alone given confusion which is possibly due to delirium-working on DUY option given plateaued progress Allergies Coded Allergies: No Known Allergies (Unverified , 12/02/18) Vital Signs Vital Signs Date Time Temp Pulse Resp B/P (MAP) Pulse Ox O2 Delivery O2 Flow Rate FiO2 12/27/18 12:12 140/63 12/27/18 06:00 96.9 80 18 100 Laboratory Data CBC/BMP Laboratory Tests 12/27/18 06:29 Red Blood Count 2.78 L, Mean Corpuscular Volume 94.2, Mean Corpuscular Hemoglobin 29.5, Mean Corpuscular Hemoglobin Concent 31.3 L, Red Cell Distribution Width 18.4 H, Calcium Level 8.4 L Labs 24H Laboratory Tests 2 12/27/18 06:29: Nucleated Red Blood Cells % (auto) 0.0, Anion Gap 6L, Glomerular Filtration Rate > 60.0, Blood Urea Nitrogen 17, Creatinine 0.68, Sodium Level 135L, Potassium Level 3.6, Chloride Level 100, Carbon Dioxide Level 29, Calcium Level 8.4L Current Medications Current Medications Current Medications Acetaminophen (Tylenol Tab) 650 mg Q4HP PRN PO fever/MILD PAIN (PS 1-4) Last administered on 12/27/18 10:18; Start 12/14/18 at 17:15 Collagenase (Santyl) apply left clavical DAILY TOP Last administered on 12/27/18 09:15; Start 12/15/18 at 09:00 Docusate Sodium (Colace) 100 mg BID PO Last administered on 12/27/18 09:14; Start 12/17/18 at 09:00 Donepezil HCl (AriCEPT) 5 mg DAILY PO Last administered on 12/27/18 09:14; Start 12/17/18 at 09:00 Enoxaparin Sodium (Lovenox) 40 mg DAILY SC Last administered on 12/27/18 09:14; Start 12/15/18 at 09:00 Ferrous Sulfate (Ferrous Sulfate) 300 mg BID PO Last administered on 12/27/18 0 9:14; Start 12/17/18 at 21:00 Ferrous Sulfate (Ferrous Sulfate) 300 mg DAILY PO Last administered on 12/17/18 08:23; Start 12/16/18 at 09:00; Stop 12/17/18 at 13:57; Status DC Fluoxetine HCl (PROzac) 20 mg QHS PO Last administered on 12/26/18at 20:33; Start 12/17/18 at 21:00; Stop 12/27/18 at 11:04; Status DC Fluoxetine HCl (PROzac) 30 mg QHS PO ; Start 12/27/18 at 21:00 Home Med (Med Rec Complete!) ASDIRECTED XX ; Start 12/14/18 at 16:00; Stop 12/14/18 at 16:00; Status DC Ipratropium [place] (Atrovent 0.02%) 0.25 mg RBID INH Last administered on 12/19/18 08:06; Start 12/15/18 at 20:00 Iron (Venofer) 200 mg ASDIRECTED IV ; Start 12/25/18 at 14:00; Stop 12/25/18 at 14:09; Status DC Iron 200 mg/ Sodium Chloride 110 ml @ 110 mls/hr Q48H IV Last administered on 12/25/18at 20:34; Start 12/25/18 at 16:00; Stop 12/31/18 at 16:59 Lactobacillus Acidophilus (Bacid) 1 ea TID PO Last administered on 12/27/18at 09:14; Start 12/14/18 at 21:00 Levofloxacin (Levaquin) 250 mg DAILY@06 PO Last administered on 12/15/18at 05:03; Start 12/15/18 at 06:00; Stop 12/15/18 at 14:47; Status DC Levothyroxine Sodium (Synthroid) 25 mcg DAILY@06 PO ; Start 12/20/18 at 06:00; Stop 12/20/18 at 06:00; Status DC Levothyroxine Sodium (Synthroid) 25 mcg DAILY@06 PO Last administered on 12/27/18at 06:12; Start 12/20/18 at 06:00 Levothyroxine Sodium (Synthroid) 75 mcg DAILY@06 PO ; Start 12/17/18 at 06:00; Stop 12/17/18 at 14:23; Status DC Levothyroxine Sodium (Synthroid) 75 mcg DAILY@06 PO Last administered on 12/19/18at 05:46; Start 12/18/18 at 06:00; Stop 12/19/18 at 22:17; Status DC Lidocaine (Lidoderm Patch) 1 patch DAILY TD Last administered on 12/27/18at 09:14; Start 12/19/18 at 09:00 Lisinopril (Prinivil) 5 mg DAILY PO Last administered on 12/27/18at 12:12; Start 12/27/18 at 11:15 Magnesium Hydroxide (Milk Of Magnesia) 30 ml DAILYPRN PRN PO CONSTIPATION; Start 12/14/18 at 17:15 Miscellaneous (Unresolved Clarification Entry) SEE LABEL COMMENTS DAILY XX ; Start 12/21/18 at 09:00; Stop 12/21/18 at 10:42; Status DC Non-Formulary Medication ( See Comment Field Below ) REMOVE LIDODERM PATCH DAILY@21 XX Last administered on 12/26/18at 20:33; Start 12/19/18 at 21:00 Pantoprazole Sodium (Protonix) 40 mg DAILY PO Last administered on 12/27/18at 09:15; Start 12/15/18 at 09:00 Zinc Oxide (Boudreauxs Butt Paste) sacrum TID TOP Last administered on 12/27/18at 09:15; Start 12/14/18 at 21:00 ARTHUR ARROYO MD Dec 27, 2018 14:12
[2018-12-27] MEDS: IRON SUCROSE 200 MG in NS 100 ML OVER 1 HR IV SCH (15:35)
[2018-12-27] MEDS: FLUoxetine 10 MG CAP PO SCH (20:12)
[2018-12-27] MEDS: **NOTE PATIENT COMMENT** MISC XX SCH (20:12)
[2018-12-27 20:22] VITALS: BP 134/63
[2018-12-28] MEDS: LEVOTHYROXINE 25MCG TABLET (0.025MG) PO SCH (05:18)
[2018-12-28] MEDS: ACETAMINOPHEN TAB 650MG DOSE (2X325MG) PO PRN (05:19)
[2018-12-28 06:00] VITALS: BP 122/54
[2018-12-28] MEDS: DOCUSATE SODIUM 100 MG CAP PO SCH ×2 (07:43→20:48)
[2018-12-28] MEDS: IPRATROPIUM 0.02% SOLN 0.5MG/2.5 ML NEB INH SCH (08:00)
[2018-12-28] MEDS: DONEPEZIL 5 MG TAB PO SCH (08:55)
[2018-12-28] MEDS: ENOXAPARIN 40 MG/0.4 ML SYRINGE (J1650) SC SCH (08:55)
[2018-12-28] MEDS: FERROUS SULFATE 300MG/5ML UDC LIQUID PO SCH ×2 (08:55→20:48)
[2018-12-28] MEDS: LISINOPRIL 5 MG TAB PO SCH (08:55)
[2018-12-28] MEDS: LACTOBACILLUS ACIDOPHILUS CAP (BACID) PO SCH ×3 (08:55→20:48)
[2018-12-28] MEDS: PANTOPRAZOLE 40MG TAB (PROTONIX) PO SCH (08:55)
[2018-12-28] MEDS: LIDOCAINE 5% (LIDODERM) PATCH TD SCH (08:56)
[2018-12-28] MEDS: BOUDREAUX'S BUTT PASTE 4OZ TOP SCH ×3 (08:56→20:49)
[2018-12-28] MEDS: SANTYL OINT 30GM TOP SCH (08:57)
[2018-12-28 14:00] VITALS: BP 151/68
[2018-12-28 20:00] VITALS: BP 127/62
[2018-12-28] MEDS: FLUoxetine 10 MG CAP PO SCH (20:48)
[2018-12-28] MEDS: **NOTE PATIENT COMMENT** MISC XX SCH (20:55)
[2018-12-29] MEDS: LEVOTHYROXINE 25MCG TABLET (0.025MG) PO SCH (05:39)
[2018-12-29 06:00] VITALS: BP 147/69
[2018-12-29] MEDS: LISINOPRIL 5 MG TAB PO SCH (08:52)
[2018-12-29] MEDS: DOCUSATE SODIUM 100 MG CAP PO SCH ×2 (08:52→20:51)
[2018-12-29] MEDS: PANTOPRAZOLE 40MG TAB (PROTONIX) PO SCH (08:52)
[2018-12-29] MEDS: DONEPEZIL 5 MG TAB PO SCH (08:52)
[2018-12-29] MEDS: FERROUS SULFATE 300MG/5ML UDC LIQUID PO SCH ×2 (08:52→20:51)
[2018-12-29] MEDS: LACTOBACILLUS ACIDOPHILUS CAP (BACID) PO SCH ×3 (08:52→20:51)
[2018-12-29] MEDS: ENOXAPARIN 40 MG/0.4 ML SYRINGE (J1650) SC SCH (08:53)
[2018-12-29] MEDS: BOUDREAUX'S BUTT PASTE 4OZ TOP SCH ×3 (08:53→20:52)
[2018-12-29] MEDS: LIDOCAINE 5% (LIDODERM) PATCH TD SCH (08:53)
[2018-12-29] MEDS: SANTYL OINT 30GM TOP SCH (08:53)
[2018-12-29 14:00] VITALS: BP 138/69
[2018-12-29] MEDS: IRON SUCROSE 200 MG in NS 100 ML OVER 1 HR IV SCH (16:34)
[2018-12-29 16:45] VITALS: BP 154/70
[2018-12-29 20:00] VITALS: BP 143/75
[2018-12-29] MEDS: FLUoxetine 10 MG CAP PO SCH (20:51)
[2018-12-29] MEDS: **NOTE PATIENT COMMENT** MISC XX SCH (20:53)
[2018-12-30] MEDS: LEVOTHYROXINE 25MCG TABLET (0.025MG) PO SCH (05:25)
[2018-12-30 06:00] VITALS: BP 166/76
[2018-12-30] MEDS: LISINOPRIL 5 MG TAB PO SCH (09:00)
[2018-12-30] MEDS: BOUDREAUX'S BUTT PASTE 4OZ TOP SCH ×3 (09:00→20:33)
[2018-12-30] MEDS: FERROUS SULFATE 300MG/5ML UDC LIQUID PO SCH ×2 (09:00→20:33)
[2018-12-30] MEDS: LIDOCAINE 5% (LIDODERM) PATCH TD SCH (09:01)
[2018-12-30] MEDS: SANTYL OINT 30GM TOP SCH (09:01)
[2018-12-30] MEDS: DONEPEZIL 5 MG TAB PO SCH (09:01)
[2018-12-30] MEDS: DOCUSATE SODIUM 100 MG CAP PO SCH ×2 (09:01→20:33)
[2018-12-30] MEDS: LACTOBACILLUS ACIDOPHILUS CAP (BACID) PO SCH ×3 (09:01→20:33)
[2018-12-30] MEDS: PANTOPRAZOLE 40MG TAB (PROTONIX) PO SCH (09:01)
[2018-12-30] MEDS: ENOXAPARIN 40 MG/0.4 ML SYRINGE (J1650) SC SCH (09:01)
[2018-12-30 10:10] LABS: HEMATOCRIT 24.9 % (36.0-47.0); HEMOGLOBIN 7.7 g/dl (12.0-15.5); MEAN CORPUSCULAR HEMOGLOBIN 28.9 pg (27.0-33.0); MEAN CORPUSCULAR HGB CONC 30.9 g/dl (32.0-36.5); MEAN CORPUSCULAR VOLUME 93.6 fl (80.0-96.0); PLATELET COUNT, AUTOMATED 231 10^3/uL (150-450); RED BLOOD COUNT 2.66 10^6/uL (4.00-5.40); WHITE BLOOD COUNT 10.6 10^3/uL (4.0-10.0)
[2018-12-30 14:00] VITALS: BP 132/62
[2018-12-30 20:00] VITALS: BP 127/66
[2018-12-30] MEDS: FLUoxetine 10 MG CAP PO SCH (20:33)
[2018-12-30] MEDS: **NOTE PATIENT COMMENT** MISC XX SCH (20:34)
[2018-12-30] MEDS: ACETAMINOPHEN TAB 650MG DOSE (2X325MG) PO PRN (21:22)
[2018-12-31] MEDS: LEVOTHYROXINE 25MCG TABLET (0.025MG) PO SCH (05:13)
[2018-12-31 06:00] VITALS: BP 142/69
[2018-12-31] MEDS: FERROUS SULFATE 300MG/5ML UDC LIQUID PO SCH ×2 (09:37→20:50)
[2018-12-31] MEDS: DONEPEZIL 5 MG TAB PO SCH (09:37)
[2018-12-31] MEDS: PANTOPRAZOLE 40MG TAB (PROTONIX) PO SCH (09:37)
[2018-12-31] MEDS: DOCUSATE SODIUM 100 MG CAP PO SCH ×2 (09:37→20:50)
[2018-12-31] MEDS: LIDOCAINE 5% (LIDODERM) PATCH TD SCH (09:37)
[2018-12-31] MEDS: LACTOBACILLUS ACIDOPHILUS CAP (BACID) PO SCH ×3 (09:37→20:50)
[2018-12-31] MEDS: LISINOPRIL 5 MG TAB PO SCH (09:37)
[2018-12-31] MEDS: SANTYL OINT 30GM TOP SCH (09:38)
[2018-12-31] MEDS: BOUDREAUX'S BUTT PASTE 4OZ TOP SCH ×3 (09:38→20:51)
[2018-12-31] MEDS: ENOXAPARIN 40 MG/0.4 ML SYRINGE (J1650) SC SCH (09:38)
--- NOTE | 2018-12-31 12:15 | IPNPDOC ---
Date Seen The patient was seen on 12/31/18. Progress Note HPI: The patient is an 83-year-old white female who presented to [facility] ED December 02, 2018 due to fall at home. In the ER, she had extensive workups done which demonstrated she had a C2-C3 fracture. She was transferred to [facility] in [place] with further workup indicating urinary retention and E. coli urinary tract infection (UTI) which was treated with IV Zosyn. No surgical intervention recommended, instead she had a neck collar placed. She was transferred to the care of ARUDr Ibarra 12/14/18 Pt currently denies any pain. Cervical collar in place. Pt states she does not want to get OOB today. Denies any fevers, chills, Headache, Chest Pain, Shortness of breath, cough, palpitations, abdominal pain, N/V/D or changes in bowel or bladder habits. PMHx: none known PSHX: none known PE: GEN: 83yoF, appears stated age. Thin appearing. Alert and oriented. HEENT: Normocephalic, atraumatic. Sclera are nonicteric. No facial asymmetry. Moist mucous membranes. Cervical collar in place. CHEST: Regular rate and rhythm, +S1, +S2 LUNGS: Clear to auscultation bilaterally. No wheezes, rales, or rhonchi. ABD: Round, soft, non-tender, non-distended. +Bowel sounds throughout. No rebound or guarding. Melendrez in place. EXT: No lower extremity edema appreciated. SKIN: [place], dry, warm. No rashes. Neuro. Nml speech. Moving UE/LEs. Nml sensation UE/LEs. A&P:The patient is an 83-year-old white female who presented to [facility] ED December 02, 2018 due to fall at home. In the ER, she had extensive workups done which demonstrated she had a C2-C3 fracture. She was transferred to [facility] in [place] with further workup indicating urinary retention and E. coli urinary tract infection (UTI) which was treated with IV Zosyn.No surgical intervention recommended, instead she had a neck collar placed. She was transferred to the care of Dr Fred GONZALEZ 12/14/18 C2-C3 Fracture 2/2 Mechanical Fall The patient did not require surgical intervention Mgmt as per ARU PT/OT/ST as per ARU Pain control as per ARU Bowel care as per ARU DVT px. Lovenox as per ARU Disposition as per ARU. Normocytic Anemia/Fe def Hgb 8.2 12/27/18 Cont iron supplementation. FOB negative. S/P PRBC x 1 U 12/18/18. IV Venofer ordered 12/25/[address] Ibarra. Monitor, CBC in Am. Leukocytosis. s/p treatment for underlying UTI Afebrile. UC neg 12/14/18. 12/31/18 UA abn, UC pending. MRI A/P pending at this time. RUE swelling. U/S UEs pending. Urinary retention. Mgmt as per ARU. Melendrez in place. Abnormal TFTs Patient noted to have normal TFTs just 2 weeks ago Possibly 2/2 underlying acute injury/stressor. Pt was started on Synthroid 25 mcg. Repeat TFT's in 4-6 weeks Dementia Continue Donepezil GI Prophylaxis Cont PPI Cont Bacid. VS, I&O, 24H, Fishbone Vital Signs/I&O Vital Signs Date Time Temp Pulse Resp B/P (MAP) Pulse Ox O2 Delivery O2 Flow Rate FiO2 12/31/18 09:37 142/69 12/31/18 06:00 97.7 52 16 99 I&O- Last 24 Hours up to 6 AM 12/31/18 06:00 Intake Total 660 ml Output Total 650 ml Balance 10 ml Laboratory Data Microbiology Microbiology 12/30/18 Urine Culture, Received Pending Madelaine Mei Dec 31, 2018 12:15
--- NOTE | 2018-12-31 13:49 | IPNPDOC ---
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 REVIEW OF SYSTEMS: The following is a completed review of systems and has been reviewed. Review of systems otherwise unremarkable. PAIN: Patient self reports no pain EYES: Negative for recent vision changes EARS, NOSE, & THROAT: +dysphagia, cervical collar CARDIOVASCULAR: no chest pain or palpitations PULMONARY: Negative. Denies shortness of breath GASTROINTESTINAL: Negative for diarrhea or constipation GENITOURINARY: +mejia, +retention MUSCULOSKELETAL: C2, C3 vertebral fracture NEUROLOGICAL: C2, C3 vertebral fracture, no focal deficit SKIN: left clavicle stage ulcer with slough, lower truncal abrasions, onychomycosis PSYCHIATRIC: confused All other review of systems found to be negative. PHYSICAL EXAMINATION: VITAL SIGNS: Please see below. GENERAL: Pleasant and cooperative. No acute distress. HEENT: PERRL. Extraocular movements intact. Clear conjunctiva, C-collar in place CARDIOVASCULAR: Regular rate and rhythm. No murmurs, rubs, or gallops. LUNGS: Clear to auscultation bilaterally. No wheezes. No rhonchi ABDOMEN: Soft, nontender, nondistended. Positive bowel sounds. Normal active bowel sounds NEUROLOGICAL: Alert and oriented to self, not place or time Cranial nerves II through XII grossly intact. Sensation grossly intact all 4 extremities, no paresthesias EXTREMITIES: 5\5 strength bilateral upper extremities. 5-\5 strength right lower extremity. 5-/5 strength in left lower extremity. SKIN: left clavicle stage ulcer with slough, multiple lower truncal abrasions, toe onychomycosis, stage one sacral ulcer : +mejia ASSESSMENT:83-year-old F with past medical history of falls who presents status postfall with C2-C3 vertebral fracture. PLAN: 1. 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 Ortho: s/p C2-C3 fracture, C-collar at all times, needs outpatient follow-up 4. Cardio: stable 5. Resp: recent CTA to rule out PE showed effusions and infiltrates, CXR 12/14/18 showed chronic changes, monitor for any signs of pneumonia, Incentive spirometry- continue Duonebs 6. : s/p treatment E. coli UTI, admission Ucx negatve, monitor PVRs- will repeat UA 7. DVT ppx: Lovenox, admission Dopplers negative 8. GI ppx : protonix 9. Pain: Tylenol prn 10. Anemia: FOBT negative for occult blood, loss, iron studies show iron deficiency anemia, will add oral Iron supplements, s/p 1 unit prbcs ordered- however Hgb dropped from 9 to 7.8, continue Venofer x 5 doses, 1st dose given 12/25/18, 2nd today 10. Skin: unstageable left clavicle ulcer- Santyl daily and cover with mepilex- healing well, and stage one sacral ulcer Butt Paste, and truncal abrasions continue Mepilex 11. Dispo: Difficult to say at this point if patient can go home alone given confusion which is possibly due to delirium-working on DUY option given plateaue d progress Allergies Coded Allergies: No Known Allergies (Unverified , 12/02/18) Vital Signs Vital Signs Date Time Temp Pulse Resp B/P (MAP) Pulse Ox O2 Delivery O2 Flow Rate FiO2 12/31/18 09:37 142/69 12/31/18 06:00 97.7 52 16 99 Microbiology Microbiology 12/30/18 Urine Culture, Received Pending Current Medications Current Medications Current Medications Acetaminophen (Tylenol Tab) 650 mg Q4HP PRN PO fever/MILD PAIN (PS 1-4) Last administered on 12/30/18at 21:22; Start 12/14/18 at 17:15 Collagenase (Santyl) apply left clavical DAILY TOP Last administered on 12/31/18at 09:38; Start 12/15/18 at 09:00 Docusate Sodium (Colace) 100 mg BID PO Last administered on 12/31/18at 09:37; Start 12/17/18 at 09:00 Donepezil HCl (AriCEPT) 5 mg DAILY PO Last administered on 12/31/18 09:37; Start 12/17/18 at 09:00 Enoxaparin Sodium (Lovenox) 40 mg DAILY SC Last administered on 12/31/18 09:38; Start 12/15/18 at 09:00 Ferrous Sulfate (Ferrous Sulfate) 300 mg BID PO Last administered on 12/31/18 09:37; Start 12/17/18 at 21:00 Ferrous Sulfate (Ferrous Sulfate) 300 mg DAILY PO Last administered on 12/17/18 08:23; Start 12/16/18 at 09:00; Stop 12/17/18 at 13:57; Status DC Fluoxetine HCl (PROzac) 20 mg QHS PO Last administered on 12/26/18 20:33; Start 12/17/18 at 21:00; Stop 12/27/18 at 11:04; Status DC Fluoxetine HCl (PROzac) 30 mg QHS PO Last administered on 12/30/18 20:33; Start 12/27/18 at 21:00 Home Med (Med Rec Complete!) ASDIRECTED XX ; Start 12/14/18 at 16:00; Stop 12/14/18 at 16:00; Status DC Ipratropium [place] (Atrovent 0.02%) 0.25 mg RBID INH Last administered on 12/19/18 08:06; Start 12/15/18 at 20:00; Stop 12/28/18 at 08:18; Status DC Iron (Venofer) 200 mg ASDIRECTED IV ; Start 12/25/18 at 14:00; Stop 12/25/18 at 14:09; Status DC Iron 200 mg/ Sodium Chloride 110 ml @ 110 mls/hr Q48H IV Last administered on 12/29/18 16:34; Start 12/25/18 at 16:00; Stop 12/31/18 at 16:59 Lactobacillus Acidophilus (Bacid) 1 ea TID PO Last administered on 12/31/18 09:37; Start 12/14/18 at 21:00 Levofloxacin (Levaquin) 250 mg DAILY@06 PO Last administered on 12/15/18at 05:0 3; Start 12/15/18 at 06:00; Stop 12/15/18 at 14:47; Status DC Levothyroxine Sodium (Synthroid) 25 mcg DAILY@06 PO ; Start 12/20/18 at 06:00; Stop 12/20/18 at 06:00; Status DC Levothyroxine Sodium (Synthroid) 25 mcg DAILY@06 PO Last administered on at 05:13; Start 12/20/18 at 06:00 Levothyroxine Sodium (Synthroid) 75 mcg DAILY@06 PO ; Start 12/17/18 at 06:00; Stop 12/17/18 at 14:23; Status DC Levothyroxine Sodium (Synthroid) 75 mcg DAILY@06 PO Last administered on 12/19/18at 05:46; Start 12/18/18 at 06:00; Stop 12/19/18 at 22:17; Status DC Lidocaine (Lidoderm Patch) 1 patch DAILY TD Last administered on 12/31/18at 09:37; Start 12/19/18 at 09:00 Lisinopril (Prinivil) 5 mg DAILY PO Last administered on 12/31/18at 09:37; Start 12/27/18 at 11:15 Magnesium Hydroxide (Milk Of Magnesia) 30 ml DAILYPRN PRN PO CONSTIPATION; Start 12/14/18 at 17:15 Miscellaneous (Unresolved Clarification Entry) SEE LABEL COMMENTS DAILY XX ; Start 12/21/18 at 09:00; Stop 12/21/18 at 10:42; Status DC Non-Formulary Medication ( See Comment Field Below ) REMOVE LIDODERM PATCH DAILY@21 XX Last administered on 12/30/18at 20:34; Start 12/19/18 at 21:00 Pantoprazole Sodium (Protonix) 40 mg DAILY PO Last administered on 12/31/18at 09:37; Start 12/15/18 at 09:00 Zinc Oxide (Boudreauxs Butt Paste) sacrum TID TOP Last administered on 12/31/18 09:38; Start 12/14/18 at 21:00 ARTHUR ARROYO MD Dec 31, 2018 13:49
[2018-12-31 14:00] VITALS: BP 152/69
[2018-12-31] MEDS: IRON SUCROSE 200 MG in NS 100 ML OVER 1 HR IV SCH (16:27)
--- NOTE | 2018-12-31 19:54 | REP ---
Right arm extremity deep vein duplex ultrasound for right upper extremity swelling: Intraluminal thrombus is identified in the forearm in the mid basilic vein at the bandage site. This is a superficial vein. These evaluate is difficult to visualize because of small size. The jugular vein could not be visualized because of a neck brace. Otherwise, the deep veins demonstrate normal compression, normal Doppler color flow and normal Doppler waveforms. No other intraluminal thrombus is identified. Impression: No deep vein thrombus is identified. Thrombus is identified in the forearm in a mid basilic vein. This is a superficial vein. The jugular vein cannot be visualized because of the neck brace. The cephalic vein could not be visualized because of its small size. Electronically Signed by Saurabh Nova MD 12/31/2018 07:45 P
[2018-12-31 20:00] VITALS: BP 105/56
[2018-12-31] MEDS: FLUoxetine 10 MG CAP PO SCH (20:50)
[2018-12-31] MEDS: **NOTE PATIENT COMMENT** MISC XX SCH (20:51)
[2019-01-01] MEDS: LEVOTHYROXINE 25MCG TABLET (0.025MG) PO SCH (05:54)
[2019-01-01 06:00] VITALS: BP 134/62
[2019-01-01 07:05] LABS: HEMATOCRIT 22.5 % (36.0-47.0); MEAN CORPUSCULAR HEMOGLOBIN 29.2 pg (27.0-33.0); MEAN CORPUSCULAR HGB CONC 30.7 g/dl (32.0-36.5); MEAN CORPUSCULAR VOLUME 95.3 fl (80.0-96.0); PLATELET COUNT, AUTOMATED 242 10^3/uL (150-450); RED BLOOD COUNT 2.36 10^6/uL (4.00-5.40); WHITE BLOOD COUNT 16.5 10^3/uL (4.0-10.0)
[2019-01-01 07:33] LABS: ALBUMIN 2.8 GM/DL (3.2-5.2); ALT/SGPT 11 U/L (12-78); BILIRUBIN,TOTAL 0.6 MG/DL (0.2-1.0); BLOOD UREA NITROGEN 17 MG/DL (7-18); CALCIUM LEVEL 8.3 MG/DL (8.8-10.2); CARBON DIOXIDE LEVEL 31 MEQ/L (21-32); CHLORIDE LEVEL 100 MEQ/L (98-107); CREATININE FOR GFR 0.69 MG/DL (0.55-1.30); GLOMERULAR FILTRATION RATE > 60.0 (>32); GLUCOSE, FASTING 106 MG/DL (70-100); POTASSIUM SERUM 3.7 MEQ/L (3.5-5.1); SODIUM LEVEL 136 MEQ/L (136-145); TOTAL PROTEIN 6.3 GM/DL (6.4-8.2)
[2019-01-01 07:57] LABS: HEMOGLOBIN 6.9 g/dl (12.0-15.5)
[2019-01-01] MEDS: FERROUS SULFATE 300MG/5ML UDC LIQUID PO SCH ×2 (09:23→20:31)
[2019-01-01] MEDS: LACTOBACILLUS ACIDOPHILUS CAP (BACID) PO SCH ×3 (09:23→20:31)
[2019-01-01] MEDS: LISINOPRIL 5 MG TAB PO SCH (09:24)
[2019-01-01] MEDS: DONEPEZIL 5 MG TAB PO SCH (09:24)
[2019-01-01] MEDS: LIDOCAINE 5% (LIDODERM) PATCH TD SCH (09:24)
[2019-01-01] MEDS: ENOXAPARIN 40 MG/0.4 ML SYRINGE (J1650) SC SCH (09:24)
[2019-01-01] MEDS: PANTOPRAZOLE 40MG TAB (PROTONIX) PO SCH (09:24)
[2019-01-01] MEDS: BOUDREAUX'S BUTT PASTE 4OZ TOP SCH ×3 (09:25→20:32)
[2019-01-01] MEDS: SANTYL OINT 30GM TOP SCH (09:25)
[2019-01-01] MEDS: DOCUSATE SODIUM 100 MG CAP PO SCH (09:25)
[2019-01-01] MEDS ORDERED: diphenhydrAMINE 25 MG CAP PO ONE (10:00)
--- NOTE | 2019-01-01 11:48 | IPNPDOC ---
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 Patient denies any fevers or chills and continues to refuse therapy. REVIEW OF SYSTEMS: The following is a completed review of systems and has been reviewed. Review of systems otherwise unremarkable. PAIN: Patient self reports no pain EYES: Negative for recent vision changes EARS, NOSE, & THROAT: +dysphagia, cervical collar CARDIOVASCULAR: no chest pain or palpitations PULMONARY: Negative. Denies shortness of breath GASTROINTESTINAL: Negative for diarrhea or constipation GENITOURINARY: +mejia, +retention MUSCULOSKELETAL: C2, C3 vertebral fracture NEUROLOGICAL: C2, C3 vertebral fracture, no focal deficit SKIN: left clavicle stage ulcer with slough, lower truncal abrasions, onychomycosis PSYCHIATRIC: confused All other review of systems found to be negative. PHYSICAL EXAMINATION: VITAL SIGNS: Please see below. GENERAL: Pleasant and cooperative. No acute distress. HEENT: PERRL. Extraocular movements intact. Clear conjunctiva, C-collar in place CARDIOVASCULAR: Regular rate and rhythm. No murmurs, rubs, or gallops. LUNGS: Clear to auscultation bilaterally. No wheezes. No rhonchi ABDOMEN: Soft, nontender, nondistended. Positive bowel sounds. Normal active bowel sounds NEUROLOGICAL: Alert and oriented to self, not place or time Cranial nerves II through XII grossly intact. Sensation grossly intact all 4 extremities, no paresthesias EXTREMITIES: 5\5 strength bilateral upper extremities. 5-\5 strength right lower extremity. 5-/5 strength in left lower extremity. SKIN: left clavicle stage ulcer with slough, multiple lower truncal abrasions, toe onychomycosis, stage one sacral ulcer RUE ecchymosis and edema : +mejia ASSESSMENT:83-year-old F with past medical history of falls who presents status postfall with C2-C3 vertebral fracture. PLAN: 1. rehab: PT, OT, [employer], assess for DME, able to tolerate thin liquids with straw, ambulating well, participation in therapy inconsistent often refusing therapy 2. 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 Ortho: s/p C2-C3 fracture, C-collar at all times, needs outpatient follow-up 4. Cardio: stable 5. Resp: recent CTA to rule out PE showed effusions and infiltrates, CXR 12/14/18 showed chronic changes, monitor for any signs of pneumonia, Incentive spirometry- continue Duonebs 6. : s/p treatment E. 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 DVT ppx: Lovenox, admission Dopplers negative 8. GI ppx : protonix 9. Pain: Tylenol prn 10. Anemia: FOBT negative for occult blood, loss, iron studies show iron deficiency anemia, continue oral Iron supplements, s/p 1 unit prbcs ordered- however Hgb dropped from 9 to 7.8, s/p Venofer, f/u HH tomorrow 10. Skin: unstageable left clavicle ulcer- Santyl daily and cover with mepilex- healing well, and stage one sacral ulcer Butt Paste, and truncal abrasions nishi nue Mepilex -RUE extremity swelling with ecchymosis, Doppler ordered to r/o DVT 11. Dispo: Difficult to say at this point if patient can go home alone given confusion which is possibly due to delirium-working on DUY option given plateaued progress Allergies Coded Allergies: No Known Allergies (Unverified , 12/02/18) Vital Signs Vital Signs Date Time Temp Pulse Resp B/P (MAP) Pulse Ox O2 Delivery O2 Flow Rate FiO2 01/01/19 09:24 134/62 01/01/19 06:00 98.2 89 18 98 Laboratory Data CBC/BMP Laboratory Tests 01/01/19 06:40 Red Blood Count 2.36 L, Mean Corpuscular Volume 95.3, Mean Corpuscular Hemoglobin 29.2, Mean Corpuscular Hemoglobin Concent 30.7 L, Red Cell Distribution Width 18.5 H, Calcium Level 8.3 L, Aspartate Amino Transf (AST/SGOT) 19, Alanine Aminotransferase (ALT/SGPT) 11 L, Alkaline Phosphatase 91, Total Bilirubin 0.6, Total Protein 6.3 L, Albumin 2.8 L Labs 24H Laboratory Tests 2 01/01/19 06:40: Nucleated Red Blood Cells % (auto) 0.0, Anion Gap 5L, Glomerular Filtration Rate > 60.0, Blood Urea Nitrogen 17, Creatinine 0.69, Sodium Level 136, Potassium Level 3.7, Chloride Level 100, Carbon Dioxide Level 31, Calcium Level 8.3L, Aspartate Amino Transf (AST/SGOT) 19, Alanine Aminotransferase (ALT/SGPT) 11L, Alkaline Phosphatase 91, Total Bilirubin 0.6, Total Protein 6.3L, Albumin 2.8L, Albumin/Globulin Ratio 0.80L Microbiology Microbiology 01/01/19 Blood Culture, Received Pending 01/01/19 Blood Culture, Received Pending 12/30/18 Urine Culture - Final, Complete Enterococcus Avium Current Medications Current Medications Current Medications Acetaminophen (Tylenol Tab) 650 mg Q4HP PRN PO fever/MILD PAIN (PS 1-4) Last administered on 12/30/18at 21:22; Start 12/14/18 at 17:15 Amoxicillin (Amoxicillin) 875 mg BID PO ; Start 01/01/19 at 10:00; Stop 01/06/19 at 00:00 Collagenase (Santyl) apply left clavical DAILY TOP Last administered on 01/01/19at 09:25; Start 12/15/18 at 09:00 Docusate Sodium (Colace) 100 mg BID PO Last administered on 12/31/18at 20:50; Start 12/17/18 at 09:00 Donepezil HCl (AriCEPT) 5 mg DAILY PO Last administered on 01/01/19at 09:24; Start 12/17/18 at 09:00 Enoxaparin Sodium (Lovenox) 40 mg DAILY SC Last administered on 01/01/19 09:24; Start 12/15/18 at 09:00 Ferrous Sulfate (Ferrous Sulfate) 300 mg BID PO Last administered on 01/01/19at 09:23; Start 12/17/18 at 21:00 Ferrous Sulfate (Ferrous Sulfate) 300 mg DAILY PO Last administered on 12/17/18at 08:23; Start 12/16/18 at 09:00; Stop 12/17/18 at 13:57; Status DC Fluoxetine HCl (PROzac) 20 mg QHS PO Last administered on 12/26/18at 20:33; Start 12/17/18 at 21:00; Stop 12/27/18 at 11:04; Status DC Fluoxetine HCl (PROzac) 30 mg QHS PO Last administered on 12/31/18at 20:50; Start 12/27/18 at 21:00 Home Med (Med Rec Complete!) ASDIRECTED XX ; Start 12/14/18 at 16:00; Stop 12/14/18 at 16:00; Status DC Ipratropium [place] (Atrovent 0.02%) 0.25 mg RBID INH Last administered on 12/19at 08:06; Start 12/15/18 at 20:00; Stop 12/28/18 at 08:18; Status DC Iron (Venofer) 200 mg ASDIRECTED IV ; Start 12/25/18 at 14:00; Stop 12/25/18 at 14:09; Status DC Iron 200 mg/ Sodium Chloride 110 ml @ 110 mls/hr Q48H IV Last administered on 12/31/18at 16:27; Start 12/25/18 at 16:00; Stop 12/31/18 at 16:41; Status DC Lactobacillus Acidophilus (Bacid) 1 ea TID PO Last administered on 01/01/19at 09:23; Start 12/14/18 at 21:00 Levofloxacin (Levaquin) 250 mg DAILY@06 PO Last administered on 12/15/18at 05:03; Start 12/15/18 at 06:00; Stop 12/15/18 at 14:47; Status DC Levothyroxine Sodium (Synthroid) 25 mcg DAILY@06 PO ; Start 12/20/18 at 06:00; Stop 12/20/18 at 06:00; Status DC Levothyroxine Sodium (Synthroid) 25 mcg DAILY@06 PO Last administered on 01/01/19at 05:54; Start 12/20/18 at 06:00 Levothyroxine Sodium (Synthroid) 75 mcg DAILY@06 PO ; Start 12/17/18 at 06:00; Stop 12/17/18 at 14:23; Status DC Levothyroxine Sodium (Synthroid) 75 mcg DAILY@06 PO Last administered on 12/19/18at 05:46; Start 12/18/18 at 06:00; Stop 12/19/18 at 22:17; Status DC Lidocaine (Lidoderm Patch) 1 patch DAILY TD Last administered on 01/01/19at 09:24; Start 12/19/18 at 09:00 Lisinopril (Prinivil) 5 mg DAILY PO Last administered on 01/01/19 09:24; Start 12/27/18 at 11:15 Magnesium Hydroxide (Milk Of Magnesia) 30 ml DAILYPRN PRN PO CONSTIPATION; Start 12/14/18 at 17:15 Miscellaneous (Unresolved Clarification Entry) SEE LABEL COMMENTS DAILY XX ; Start 12/21/18 at 09:00; Stop 12/21/18 at 10:42; Status DC Non-Formulary Medication ( See Comment Field Below ) REMOVE LIDODERM PATCH DAILY@21 XX Last administered on 12/31/18at 20:51; Start 12/19/18 at 21:00 Pantoprazole Sodium (Protonix) 40 mg DAILY PO Last administered on 01/01/19at 09:24; Start 12/15/18 at 09:00 Zinc Oxide (Boudreauxs Butt Paste) sacrum TID TOP Last administered on 01/01/19 09:25; Start 12/14/18 at 21:00 ARTHUR ARROYO MD Jan 01, 2019 11:48
--- NOTE | 2019-01-01 11:55 | IPNPDOC ---
PM&R Progress Note DATE OF SERVICE: Jan 01, 2019 Case Sealer Progress Note Subjective: Patient reports she knows when she is incontinent, but does not seem to be able to alert the nurses. She is agreeable to getting imaging of her pelvis. She denies any suprapubic pain, fever, or chills. REVIEW OF SYSTEMS: The following is a completed review of systems and has been reviewed. Review of systems otherwise unremarkable. PAIN: Patient self reports no pain EYES: Negative for recent vision changes EARS, NOSE, & THROAT: +dysphagia, cervical collar CARDIOVASCULAR: no chest pain or palpitations PULMONARY: Negative. Denies shortness of breath GASTROINTESTINAL: Negative for diarrhea or constipation GENITOURINARY: +mejia, +retention MUSCULOSKELETAL: C2, C3 vertebral fracture NEUROLOGICAL: C2, C3 vertebral fracture, no focal deficit HENE: anemia SKIN: left clavicle stage ulcer with slough, lower truncal abrasions, onychomycosis PSYCHIATRIC: confused All other review of systems found to be negative. PHYSICAL EXAMINATION: VITAL SIGNS: Please see below. GENERAL: Pleasant and cooperative. No acute distress. HEENT: PERRL. Extraocular movements intact. Clear conjunctiva, C-collar in place CARDIOVASCULAR: Regular rate and rhythm. No murmurs, rubs, or gallops. LUNGS: Clear to auscultation bilaterally. No wheezes. No rhonchi ABDOMEN: Soft, nontender, nondistended. Positive bowel sounds. Normal active bowel sounds NEUROLOGICAL: Alert and oriented to self, not place or time Cranial nerves II through XII grossly intact. Sensation grossly intact all 4 extremities, no paresthesias EXTREMITIES: 5\5 strength bilateral upper extremities. 5-\5 strength right lower extremity. 5-/5 strength in left lower extremity. SKIN: left clavicle stage ulcer with slough, multiple lower truncal abrasions, toe onychomycosis, stage one sacral ulcer RUE ecchymosis and edema : +mejia ASSESSMENT:83-year-old F with past medical history of falls who presents status postfall with C2-C3 vertebral fracture. PLAN: 1. rehab: PT, OT, [employer], assess for DME, able to tolerate thin liquids with straw, ambulating well, participation in therapy inconsistent often refusing therapy 2. 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 Ortho: s/p C2-C3 fracture, C-collar at all times, needs outpatient follow-up 4. Cardio: stable 5. Resp: recent CTA to rule out PE showed effusions and infiltrates, CXR 12/14/18 showed chronic changes, monitor for any signs of pneumonia, Incentive spirometry- continue Duonebs 6. : s/p treatment E. 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 DVT ppx: Lovenox, admission Dopplers negative, RUE positive for superficial basilic thrombus, continue Lovenox and monitor 8. GI ppx : protonix, patient with incontinence will add bulking agents 9. Pain: Tylenol prn 10. Anemia: FOBT negative for occult blood, loss, iron studies show iron deficie ncy anemia, continue oral Iron supplements, s/p 1 unit prbcs ordered- however Hgb dropped from 9 to 7.8, s/p Venofer,however hgb 6.9 today, will give 2 units rbcs 10. Skin: unstageable left clavicle ulcer- Santyl daily and cover with mepilex- healing well, and stage one sacral ulcer Butt Paste, and truncal abrasions continue Mepilex -RUE extremity swelling with ecchymosis, +superficial basilic vein DVT, continue Lovenox 11. Dispo: Ongoing work-up for delirium-working on discharge to [facility], refusing therapy Allergies Coded Allergies: No Known Allergies (Unverified , 12/02/18) Vital Signs Vital Signs Date Time Temp Pulse Resp B/P (MAP) Pulse Ox O2 Delivery O2 Flow Rate FiO2 01/01/19 09:24 134/62 01/01/19 06:00 98.2 89 18 98 Laboratory Data CBC/BMP Laboratory Tests 01/01/19 06:40 Red Blood Count 2.36 L, Mean Corpuscular Volume 95.3, Mean Corpuscular Hemoglob in 29.2, Mean Corpuscular Hemoglobin Concent 30.7 L, Red Cell Distribution Width 18.5 H, Calcium Level 8.3 L, Aspartate Amino Transf (AST/SGOT) 19, Alanine Aminotransferase (ALT/SGPT) 11 L, Alkaline Phosphatase 91, Total Bilirubin 0.6, Total Protein 6.3 L, Albumin 2.8 L Labs 24H Laboratory Tests 2 01/01/19 06:40: Nucleated Red Blood Cells % (auto) 0.0, Anion Gap 5L, Glomerular Filtration Rate > 60.0, Blood Urea Nitrogen 17, Creatinine 0.69, Sodium Level 136, Potassium Level 3.7, Chloride Level 100, Carbon Dioxide Level 31, Calcium Level 8.3L, Aspartate Amino Transf (AST/SGOT) 19, Alanine Aminotransferase (ALT/SGPT) 11L, Alkaline Phosphatase 91, Total Bilirubin 0.6, Total Protein 6.3L, Albumin 2.8L, Albumin/Globulin Ratio 0.80L Microbiology Microbiology 01/01/19 Blood Culture, Received Pending 01/01/19 Blood Culture, Received Pending 12/30/18 Urine Culture - Final, Complete Enterococcus Avium Current Medications Current Medications Current Medications Acetaminophen (Tylenol Tab) 650 mg Q4HP PRN PO fever/MILD PAIN (PS 1-4) Last administered on 12/30/18at 21:22; Start 12/14/18 at 17:15 Amoxicillin (Amoxicillin) 875 mg BID PO ; Start 01/01/19 at 10:00; Stop 01/06/19 at 00:00 Collagenase (Santyl) apply left clavical DAILY TOP Last administered on 01/01/19at 09:25; Start 12/15/18 at 09:00 Docusate Sodium (Colace) 100 mg BID PO Last administered on 12/31/18at 20:50; Start 12/17/18 at 09:00 Donepezil HCl (AriCEPT) 5 mg DAILY PO Last administered on 01/01/19at 09:24; Start 12/17/18 at 09:00 Enoxaparin Sodium (Lovenox) 40 mg DAILY SC Last administered on 01/01/19at 09:24; Start 12/15/18 at 09:00 Ferrous Sulfate (Ferrous Sulfate) 300 mg BID PO Last administered on 01/01/19 09:23; Start 12/17/18 at 21:00 Ferrous Sulfate (Ferrous Sulfate) 300 mg DAILY PO Last administered on 12/17/18at 08:23; Start 12/16/18 at 09:00; Stop 12/17/18 at 13:57; Status DC Fluoxetine HCl (PROzac) 20 mg QHS PO Last administered on 12/26/18at 20:33; Start 12/17/18 at 21:00; Stop 12/27/18 at 11:04; Status DC Fluoxetine HCl (PROzac) 30 mg QHS PO Last administered on 12/31/18at 20:50; Start 12/27/18 at 21:00 Home Med (Med Rec Complete!) ASDIRECTED XX ; Start 12/14/18 at 16:00; Stop 12/14/18 at 16:00; Status DC Ipratropium [place] (Atrovent 0.02%) 0.25 mg RBID INH Last administered on 12/19/18at 08:06; Start 12/15/18 at 20:00; Stop 12/28/18 at 08:18; Status DC Iron (Venofer) 200 mg ASDIRECTED IV ; Start 12/25/18 at 14:00; Stop 12/25/18 at 14:09; Status DC Iron 200 mg/ Sodium Chloride 110 ml @ 110 mls/hr Q48H IV Last administered on 12/31/18at 16:27; Start 12/25/18 at 16:00; Stop 12/31/18 at 16:41; Status DC Lactobacillus Acidophilus (Bacid) 1 ea TID PO Last administered on 01/01/19at 09:23; Start 12/14/18 at 21:00 Levofloxacin (Levaquin) 250 mg DAILY@06 PO Last administered on 12/15/18at 05:03; Start 12/15/18 at 06:00; Stop 12/15/18 at 14:47; Status DC Levothyroxine Sodium (Synthroid) 25 mcg DAILY@06 PO ; Start 12/20/18 at 06:00; Stop 12/20/18 at 06:00; Status DC Levothyroxine Sodium (Synthroid) 25 mcg DAILY@06 PO Last administered on 01/01/19at 05:54; Start 12/20/18 at 06:00 Levothyroxine Sodium (Synthroid) 75 mcg DAILY@06 PO ; Start 12/17/18 at 06:00; Stop 12/17/18 at 14:23; Status DC Levothyroxine Sodium (Synthroid) 75 mcg DAILY@06 PO Last administered on 12/19/18at 05:46; Start 12/18/18 at 06:00; Stop 12/19/18 at 22:17; Status DC Lidocaine (Lidoderm Patch) 1 patch DAILY TD Last administered on 01/01/19at 09:24; Start 12/19/18 at 09:00 Lisinopril (Prinivil) 5 mg DAILY PO Last administered on 01/01/19 09:24; Start 12/27/18 at 11:15 Magnesium Hydroxide (Milk Of Magnesia) 30 ml DAILYPRN PRN PO CONSTIPATION; Start 12/14/18 at 17:15 Miscellaneous (Unresolved Clarification Entry) SEE LABEL COMMENTS DAILY XX ; Start 12/21/18 at 09:00; Stop 12/21/18 at 10:42; Status DC Non-Formulary Medication ( See Comment Field Below ) REMOVE LIDODERM PATCH DAILY@21 XX Last administered on 12/31/18at 20:51; Start 12/19/18 at 21:00 Pantoprazole Sodium (Protonix) 40 mg DAILY PO Last administered on 01/01/19 09:24; Start 12/15/18 at 09:00 Zinc Oxide (Boudreauxs Butt Paste) sacrum TID TOP Last administered on 01/01/19at 09:25; Start 12/14/18 at 21:00 ARTHUR ARROYO MD Jan 01, 2019 11:55
[2019-01-01] MEDS: AMOXICILLIN 875 MG TAB PO SCH ×2 (12:44→20:31)
[2019-01-01] MEDS: METAMUCIL (PSYLLIUM) PACKET PO SCH (12:44)
[2019-01-01] MEDS ORDERED: CYSTO-CONRAY II 17.2% 250ML VIAL (Q9958) As Ordered ONE (13:21)
[2019-01-01 14:00] VITALS: BP 129/63
[2019-01-01] MEDS ORDERED: ISOVUE-370 76% 100ML VIAL (Q9967) As Ordered ONE (14:05)
--- NOTE | 2019-01-01 14:34 | IPNPDOC ---
Date Seen The patient was seen on 01/01/19. Progress Note HPI: The patient is an 83-year-old white female who presented to [facility] ED December 02, 2018 due to fall at home. In the ER, she had extensive workups done which demonstrated she had a C2-C3 fracture. She was transferred to [facility] in [place] with further workup indicating urinary retention and E. coli urinary tract infection (UTI) which was treated with IV Zosyn. No surgical intervention recommended, instead she had a neck collar placed. She was transferred to the care of ARDr Fred Howard 12/14/18 Pt currently denies any pain. Cervical collar in place. Pt noted to have UTI, mejia removed. Purple discoloration of mejia bad noted and fecal material in Mejia per nursing. Denies any fevers, chills, Headache, Chest Pain, Shortness of breath, cough, palpitations, abdominal pain, N/V/D or changes in bowel or bladder habits. PMHx: none known PSHX: none known PE: GEN: 83yoF, appears stated age. Thin appearing. Alert and oriented. HEENT: Normocephalic, atraumatic. Sclera are nonicteric. No facial asymmetry. Moist mucous membranes. Cervical collar in place. CHEST: Regular rate and rhythm, +S1, +S2 LUNGS: Clear to auscultation bilaterally. No wheezes, rales, or rhonchi. ABD: Round, soft, non-tender, non-distended. +Bowel sounds throughout. No rebou nd or guarding. Mejia in place. EXT: No lower extremity edema appreciated. Pt is noted to have ecchymosis of RUE with swelling noted. SKIN: [place], dry, warm. No rashes. Neuro. Nml speech. Moving UE/LEs. A&P:The patient is an 83-year-old white female who presented to [facility] ED December 02, 2018 due to fall at home. In the ER, she had extensive workups done which demonstrated she had a C2-C3 fracture. She was transferred to [facility] in [place] with further workup indicating urinary retention and E. coli urinary tract infection (UTI) which was treated with IV Zosyn.No surgical intervention recommended, instead she had a neck collar placed. She was transferred to the care of ARUDr Ibarra 12/14/18 C2-C3 Fracture 2/2 Mechanical Fall The patient did not require surgical intervention Mgmt as per ARU PT/OT/ST as per ARU Pain control as per ARU Bowel care as per ARU DVT px. Lovenox as per ARU Disposition as per ARU. Normocytic Anemia/Fe def Hgb 6.9 this AM Cont iron supplementation. FOB negative. S/P PRBC x 1 U 12/18/18. IV Venofer ordered 12/25/18 x [address] Ibarra. Transfusion x 2 u today. RUE swelling. No deep vein thrombus is identified. Thrombus is identified in the forearm in a mid basilic vein. This is a superficial vein. The jugular vein cannot be visualized because of the neck brace. The cephalic vein could not be visualized because of its small size. Electronically Signed by Saurabh Nova MD 12/31/2018 07:45 P Pt remains on Lovenox 40 mg SQ. UTI. Patient is afebrile. WBC 16.5 Urine culture 12/30/18 enterococcus avium Blood culture 2 pending. Mejia was removed 01/01/19 CT abdomen/pelvis pending Cystogram pending. Consider Urology pending results. Abnormal TFTs Patient noted to have normal TFTs just 2 weeks ago Possibly 2/2 underlying acute injury/stressor. Pt was started on Synthroid 25 mcg. Repeat TFT's in 4-6 weeks Dementia Continue Donepezil GI Prophylaxis Cont PPI Cont Bacid. VS, I&O, 24H, Fishbone Vital Signs/I&O Vital Signs Date Time Temp Pulse Resp B/P (MAP) Pulse Ox O2 Delivery O2 Flow Rate FiO2 01/01/19 09:24 134/62 01/01/19 06:00 98.2 89 18 98 I&O- Last 24 Hours up to 6 AM 01/01/19 06:00 Intake Total 560 ml Output Total 1150 ml Balance -590 ml Laboratory Data 24H LABS Laboratory Tests 2 01/01/19 06:40: Nucleated Red Blood Cells % (auto) 0.0, Anion Gap 5L, Glomerular Filtration Rate > 60.0, Blood Urea Nitrogen 17, Creatinine 0.69, Sodium Level 136, Potassium Level 3.7, Chloride Level 100, Carbon Dioxide Level 31, Calcium Level 8.3L, Aspartate Amino Transf (AST/SGOT) 19, Alanine Aminotransferase (ALT/SGPT) 11L, Alkaline Phosphatase 91, Total Bilirubin 0.6, Total Protein 6.3L, Albumin 2.8L, Albumin/Globulin Ratio 0.80L CBC/BMP Laboratory Tests 01/01/19 06:40 Red Blood Count 2.36 L, Mean Corpuscular Volume 95.3, Mean Corpuscular Hemoglobin 29.2, Mean Corpuscular Hemoglobin Concent 30.7 L, Red Cell Distr ibution Width 18.5 H, Calcium Level 8.3 L, Aspartate Amino Transf (AST/SGOT) 19, Alanine Aminotransferase (ALT/SGPT) 11 L, Alkaline Phosphatase 91, Total Bilirubin 0.6, Total Protein 6.3 L, Albumin 2.8 L Microbiology Microbiology 01/01/19 Blood Culture, Received Pending 01/01/19 Blood Culture, Received Pending 12/30/18 Urine Culture - Final, Complete Enterococcus Avium Madelaine Mei Jan 01, 2019 14:34
[2019-01-01] MEDS: ACETAMINOPHEN TAB 650MG DOSE (2X325MG) PO PRN ×2 (14:43→20:32)
--- NOTE | 2019-01-01 14:44 | REP ---
CT PELVIS WITH IV CONTRAST: CT pelvis was performed in the axial plane following the intravenous administration of 100 mL Isovue-370. Sagittal and coronal reconstruction images are performed. There is a Melendrez catheter in the urinary bladder which is moderately distended with contrast. No fistula is seen involving the bladder. There is no adenopathy seen in the pelvis. There is mild edema and fluid in the presacral region which is nonspecific. Incidental note is made of small gallstones in the gallbladder. No free air is seen. Severe degenerative changes are seen at the right hip joint. There is a fracture of the greater trochanter of the proximal left femur. Electronically Signed by Saurabh Escobar MD 01/01/2019 05:30 P
[2019-01-01] MEDS ORDERED: FUROSEMIDE 40 MG TAB PO ONE (17:00)
--- NOTE | 2019-01-01 19:24 | REP ---
Bilateral hips AP pelvis six views History: Left greater trochanter fracture. A Melendrez catheter and a small amount of contrast are present in the urinary bladder. Right hip: There is no acute fracture or dislocation. There is marked narrowing of the joint space with associated sclerosis and osteophyte formation. There is irregularity of the femoral head and acetabulum. The bony structure is osteopenic. Impression: Degenerative change as described above. Left hip: There is a nondisplaced fracture of the the left greater trochanter. There is no dislocation. There is mild narrowing of the joint space with associated sclerosis. The bony structure is osteopenic. Degenerative change as described above. Electronically Signed by Temo Vargas MD 01/01/2019 07:15 P
[2019-01-01 19:40] VITALS: BP 148/67
[2019-01-01] MEDS: FLUoxetine 10 MG CAP PO SCH (20:31)
[2019-01-01] MEDS: **NOTE PATIENT COMMENT** MISC XX SCH (20:32)
[2019-01-02] MEDS: LEVOTHYROXINE 25MCG TABLET (0.025MG) PO SCH (05:21)
[2019-01-02 06:00] VITALS: BP 148/72
[2019-01-02] MEDS: METAMUCIL (PSYLLIUM) PACKET PO SCH (08:08)
[2019-01-02] MEDS: LACTOBACILLUS ACIDOPHILUS CAP (BACID) PO SCH ×3 (08:56→20:08)
[2019-01-02] MEDS: PANTOPRAZOLE 40MG TAB (PROTONIX) PO SCH (08:56)
[2019-01-02] MEDS: AMOXICILLIN 875 MG TAB PO SCH ×2 (08:56→20:08)
[2019-01-02] MEDS: DONEPEZIL 5 MG TAB PO SCH (08:56)
[2019-01-02] MEDS: FERROUS SULFATE 300MG/5ML UDC LIQUID PO SCH ×2 (08:56→20:08)
[2019-01-02] MEDS: ENOXAPARIN 40 MG/0.4 ML SYRINGE (J1650) SC SCH (08:56)
[2019-01-02] MEDS: LISINOPRIL 5 MG TAB PO SCH (08:57)
[2019-01-02] MEDS: BOUDREAUX'S BUTT PASTE 4OZ TOP SCH ×3 (08:57→20:09)
[2019-01-02] MEDS: SANTYL OINT 30GM TOP SCH (08:57)
[2019-01-02] MEDS: LIDOCAINE 5% (LIDODERM) PATCH TD SCH (08:57)
[2019-01-02 10:40] LABS: HEMATOCRIT 32.2 % (36.0-47.0); HEMOGLOBIN 10.3 g/dl (12.0-15.5); MEAN CORPUSCULAR HEMOGLOBIN 29.3 pg (27.0-33.0); MEAN CORPUSCULAR VOLUME 91.5 fl (80.0-96.0); PLATELET COUNT, AUTOMATED 260 10^3/uL (150-450); RED BLOOD COUNT 3.52 10^6/uL (4.00-5.40); WHITE BLOOD COUNT 10.7 10^3/uL (4.0-10.0)
--- NOTE | 2019-01-02 10:41 | REP ---
CYSTOGRAM The procedure was performed under the direct supervision of Dr. escobar. The images were reviewed with Dr. escobar. The patient arrived in the department with an existing indwelling Melendrez catheter. 250 ml of Cysto-Conray II was instilled into the bladder in a retrograde flow. Images demonstrate the bladder to be normal in position and contour. There is no evidence of extravasation fistula or ureteral reflux. Approximately 100 ml of contrast was removed and and approximately 100 ml of sterile saline was instilled into the bladder. The patient was then taken to CT scan for postprocedural imaging. Impression: There is no evidence of extravasation or fistula or ureteral reflux. 0.1 minutes of fluoroscopy time was utilized for this procedure. Reviewed by ROBSON Nichols 01/01/2019 04:46 P Electronically Signed by Saurabh Escobar MD 01/02/2019 10:32 A
[2019-01-02 11:13] LABS: ALBUMIN 2.8 GM/DL (3.2-5.2); ALT/SGPT 17 U/L (12-78); BILIRUBIN,TOTAL 0.6 MG/DL (0.2-1.0); BLOOD UREA NITROGEN 17 MG/DL (7-18); CALCIUM LEVEL 8.1 MG/DL (8.8-10.2); CARBON DIOXIDE LEVEL 29 MEQ/L (21-32); CHLORIDE LEVEL 97 MEQ/L (98-107); CREATININE FOR GFR 0.59 MG/DL (0.55-1.30); GLOMERULAR FILTRATION RATE > 60.0 (>32); GLUCOSE, FASTING 129 MG/DL (70-100); POTASSIUM SERUM 3.6 MEQ/L (3.5-5.1); SODIUM LEVEL 135 MEQ/L (136-145); TOTAL PROTEIN 6.1 GM/DL (6.4-8.2)
[2019-01-02 14:00] VITALS: BP 122/66
[2019-01-02 19:32] LABS: CLOSTRIDIUM DIFFICILE PCR NEGATIVE (NEGATIVE)
[2019-01-02 20:00] VITALS: BP 136/71
[2019-01-02] MEDS: ACETAMINOPHEN TAB 650MG DOSE (2X325MG) PO PRN (20:07)
[2019-01-02] MEDS: FLUoxetine 10 MG CAP PO SCH (20:08)
[2019-01-02] MEDS: **NOTE PATIENT COMMENT** MISC XX SCH (20:09)
--- NOTE | 2019-01-02 21:49 | IPNPDOC ---
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 She is incontinent of stool and cannot say if she knows when she is going. REVIEW OF SYSTEMS: The following is a completed review of systems and has been reviewed. Review of systems otherwise unremarkable. PAIN: Patient self reports no pain EYES: Negative for recent vision changes EARS, NOSE, & THROAT: +dysphagia, cervical collar CARDIOVASCULAR: no chest pain or palpitations PULMONARY: Negative. Denies shortness of breath GASTROINTESTINAL: Negative for diarrhea or constipation GENITOURINARY: +retention MUSCULOSKELETAL: C2, C3 vertebral fracture NEUROLOGICAL: C2, C3 vertebral fracture, no focal deficit HENE: anemia SKIN: left clavicle stage ulcer with slough, lower truncal abrasions, onychomycosis PSYCHIATRIC: confused All other review of systems found to be negative. PHYSICAL EXAMINATION: VITAL SIGNS: Please see below. GENERAL: Pleasant and cooperative. No acute distress. HEENT: PERRL. Extraocular movements intact. Clear conjunctiva, C-collar in place CARDIOVASCULAR: Regular rate and rhythm. No murmurs, rubs, or gallops. LUNGS: Clear to auscultation bilaterally. No wheezes. No rhonchi ABDOMEN: Soft, nontender, nondistended. Positive bowel sounds. Normal active bowel sounds NEUROLOGICAL: Alert and oriented to self, not place or time Cranial nerves II through XII grossly intact. Sensation grossly intact all 4 extremities, no paresthesias EXTREMITIES: 5\5 strength bilateral upper extremities. 5-\5 strength right lower extremity. 5-/5 strength in left lower extremity. SKIN: left clavicle stage ulcer with slough, multiple lower truncal abrasions, toe onychomycosis, stage one sacral ulcer RUE ecchymosis and edema ASSESSMENT:83-year-old F with past medical history of falls who presents status postfall with C2-C3 vertebral fracture. PLAN: 1. 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 Ortho: s/p C2-C3 fracture, C-collar at all times, needs outpatient follow-up 4. Cardio: stable 5. Resp: recent CTA to rule out PE showed effusions and infiltrates, CXR 12/14/18 showed chronic changes, monitor for any signs of pneumonia, Incentive spirometry- continue Duonebs 6. : s/p treatment E. 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 DVT ppx: Lovenox, admission Dopplers negative, RUE positive for superficial basilic thrombus, continue Lovenox and monitor 8. GI ppx : protonix, patient with incontinence will add bulking agents, C diff ordered for diarrhea 9. Pain: Tylenol prn 10. Anemia: FOBT negative for occult blood, loss, iron studies show iron deficiency anemia, continue oral Iron supplements, s/p 1 unit prbcs ordered- however Hgb dropped from 9 to 7.8, s/p Venofer,however hgb 6.9 01/01/19, s/p 2 units rbcs and 10.3 today 10. Skin: unstageable left clavicle ulcer- Santyl daily and cover with mepilex- healing well, and stage one sacral ulcer Butt Paste, and truncal abrasions continue Mepilex -RUE extremity swelling with ecchymosis, +superficial basilic vein DVT, continue Lovenox 11. Dispo: Ongoing work-up for delirium-working on discharge to [facility] continues to refuse therapy, denies being in pain and does not give a reason for not wanting to participate except that she doesn't feel like it. Allergies Coded Allergies: No Known Allergies (Unverified , 12/02/18) Vital Signs Vital Signs Date Time Temp Pulse Resp B/P (MAP) Pulse Ox O2 Delivery O2 Flow Rate FiO2 01/02/19 14:00 97.6 87 18 122/66 (84) 97 Laboratory Data CBC/BMP Laboratory Tests 01/02/19 10:30 Red Blood Count 3.52 L, Mean Corpuscular Volume 91.5, Mean Corpuscular Hemoglobin 29.3, Mean Corpuscular Hemoglobin Concent 32.0, Red Cell Distribution Width 17.5 H, Calcium Level 8.1 L, Aspartate Amino Transf (AST/SGOT) 25, Alanine Aminotransferase (ALT/SGPT) 17, Alkaline Phosphatase 107, Total Bilirubin 0.6, Total Protein 6.1 L, Albumin 2.8 L Labs 24H Laboratory Tests 2 01/02/19 10:30: Nucleated Red Blood Cells % (auto) 0.0, Anion Gap 9, Glomerular Filtration Rate > 60.0, Blood Urea Nitrogen 17, Creatinine 0.59, Sodium Level 135L, Potassium Level 3.6, Chloride Level 97L, Carbon Dioxide Level 29, Calcium Level 8.1L, Asp artate Amino Transf (AST/SGOT) 25, Alanine Aminotransferase (ALT/SGPT) 17, Alkaline Phosphatase 107, Total Bilirubin 0.6, Total Protein 6.1L, Albumin 2.8L, Albumin/Globulin Ratio 0.85L 01/02/19 16:45: Stool Clostridium difficile Result NEGATIVE, Clostridium difficile (PCR)(LAB) NEGATIVE Microbiology Microbiology 01/01/19 Blood Culture - Preliminary, Resulted No growth after 24 hours . All specim... 01/01/19 Blood Culture - Preliminary, Resulted No growth after 24 hours . All specim... 12/30/18 Urine Culture - Final, Complete Enterococcus Avium Current Medications Current Medications Current Medications Acetaminophen (Tylenol Tab) 650 mg Q4HP PRN PO fever/MILD PAIN (PS 1-4) Last administered on 01/02/19at 20:07; Start 12/14/18 at 17:15 Amoxicillin (Amoxicillin) 875 mg BID PO Last administered on 01/02/19at 20:08; Start 01/01/19 at 10:00; Stop 01/06/19 at 00:00 Collagenase (Santyl) apply left clavical DAILY TOP Last administered on 01/02/19at 08:57; Start 12/15/18 at 09:00 Docusate Sodium (Colace) 100 mg BID PO Last administered on 12/31/18at 20:50; Start 12/17/18 at 09:00; Stop 01/01/19 at 11:54; Status DC Donepezil HCl (AriCEPT) 5 mg DAILY PO Last administered on 01/02/19 08:56; Start 12/17/18 at 09:00 Enoxaparin Sodium (Lovenox) 40 mg DAILY SC Last administered on 01/02/19 08:56; Start 12/15/18 at 09:00 Ferrous Sulfate (Ferrous Sulfate) 300 mg BID PO Last administered on 01/02/19 20:08; Start 12/17/18 at 21:00 Ferrous Sulfate (Ferrous Sulfate) 300 mg DAILY PO Last administered on 12/17/18 08:23; Start 12/16/18 at 09:00; Stop 12/17/18 at 13:57; Status DC Fluoxetine HCl (PROzac) 20 mg QHS PO Last administered on 12/26/18 20:33; Start 12/17/18 at 21:00; Stop 12/27/18 at 11:04; Status DC Fluoxetine HCl (PROzac) 30 mg QHS PO Last administered on 01/02/19 20:08; Start 12/27/18 at 21:00 Home Med (Med Rec Complete!) ASDIRECTED XX ; Start 12/14/18 at 16:00; Stop 12/14/18 at 16:00; Status DC Ipratropium [place] (Atrovent 0.02%) 0.25 mg RBID INH Last administered on 12/19/18 08:06; Start 12/15/18 at 20:00; Stop 12/28/18 at 08:18; Status DC Iron (Venofer) 200 mg ASDIRECTED IV ; Start 12/25/18 at 14:00; Stop 12/25/18 at 14:09; Status DC Iron 200 mg/ Sodium Chloride 110 ml @ 110 mls/hr Q48H IV Last administered on 12/31/18 16:27; Start 12/25/18 at 16:00; Stop 12/31/18 at 16:41; Status DC Lactobacillus Acidophilus (Bacid) 1 ea TID PO Last administered on 01/02/19 20:08; Start 12/14/18 at 21:00 Levofloxacin (Levaquin) 250 mg DAILY@06 PO Last administered on 12/15/18at 05:03; Start 12/15/18 at 06:00; Stop 12/15/18 at 14:47; Status DC Levothyroxine Sodium (Synthroid) 25 mcg DAILY@06 PO ; Start 12/20/18 at 06:00; Stop 12/20/18 at 06:00; Status DC Levothyroxine Sodium (Synthroid) 25 mcg DAILY@06 PO Last administered on 01/02/19at 05:21; Start 12/20/18 at 06:00 Levothyroxine Sodium (Synthroid) 75 mcg DAILY@06 PO ; Start 12/17/18 at 06:00; Stop 12/17/18 at 14:23; Status DC Levothyroxine Sodium (Synthroid) 75 mcg DAILY@06 PO Last administered on 12/19/18at 05:46; Start 12/18/18 at 06:00; Stop 12/19/18 at 22:17; Status DC Lidocaine (Lidoderm Patch) 1 patch DAILY TD Last administered on 01/02/19at 08:57; Start 12/19/18 at 09:00 Lisinopril (Prinivil) 5 mg DAILY PO Last administered on 01/02/19 08:57; Start 12/27/18 at 11:15 Magnesium Hydroxide (Milk Of Magnesia) 30 ml DAILYPRN PRN PO CONSTIPATION; Start 12/14/18 at 17:15 Miscellaneous (Unresolved Clarification Entry) SEE LABEL COMMENTS DAILY XX ; Start 12/21/18 at 09:00; Stop 12/21/18 at 10:42; Status DC Non-Formulary Medication ( See Comment Field Below ) REMOVE LIDODERM PATCH DAILY@21 XX Last administered on 01/02/19at 20:09; Start 12/19/18 at 21:00 Pantoprazole Sodium (Protonix) 40 mg DAILY PO Last administered on 01/02/19 08 :56; Start 12/15/18 at 09:00 Psyllium Hydrophilic Mucilloid (Metamucil) 1 pkt DAILY PO Last administered on 01/01/19at 12:44; Start 01/01/19 at 09:00 Zinc Oxide (Boudreauxs Butt Paste) sacrum TID TOP Last administered on 01/02/19at 20:09; Start 12/14/18 at 21:00 ARTHUR ARROYO MD Jan 02, 2019 21:49
[2019-01-03 05:20] VITALS: BP 149/72
[2019-01-03] MEDS: LEVOTHYROXINE 25MCG TABLET (0.025MG) PO SCH (05:40)
[2019-01-03 09:00] VITALS: BP 133/66
[2019-01-03] MEDS: FERROUS SULFATE 300MG/5ML UDC LIQUID PO SCH ×2 (09:00→09:06)
[2019-01-03] MEDS: DONEPEZIL 5 MG TAB PO SCH (09:05)
[2019-01-03] MEDS: LACTOBACILLUS ACIDOPHILUS CAP (BACID) PO SCH ×3 (09:05→20:41)
[2019-01-03] MEDS: PANTOPRAZOLE 40MG TAB (PROTONIX) PO SCH (09:05)
[2019-01-03] MEDS: LISINOPRIL 5 MG TAB PO SCH (09:05)
[2019-01-03] MEDS: METAMUCIL (PSYLLIUM) PACKET PO SCH (09:06)
[2019-01-03] MEDS: AMOXICILLIN 875 MG TAB PO SCH ×2 (09:06→20:41)
[2019-01-03] MEDS: ENOXAPARIN 40 MG/0.4 ML SYRINGE (J1650) SC SCH (09:06)
[2019-01-03] MEDS: LIDOCAINE 5% (LIDODERM) PATCH TD SCH (09:06)
[2019-01-03] MEDS: BOUDREAUX'S BUTT PASTE 4OZ TOP SCH ×3 (09:07→20:43)
[2019-01-03] MEDS: SANTYL OINT 30GM TOP SCH (09:07)
[2019-01-03 14:00] VITALS: BP 126/65
--- NOTE | 2019-01-03 14:14 | IPNPDOC ---
Date Seen The patient was seen on 01/03/19. Progress Note HPI: The patient is an 83-year-old white female who presented to [facility] ED December 02, 2018 due to fall at home. In the ER, she had extensive workups done which demonstrated she had a C2-C3 fracture. She was transferred to [facility] in [place] with further workup indicating urinary retention and E. coli urinary tract infection (UTI) which was treated with IV Zosyn. No surgical intervention recommended, instead she had a neck collar placed. She was transferred to the care of ARU, Dr Ibarra 12/14/18 Pt currently denies any pain. Cervical collar in place. Denies any fevers, chills, Headache, Chest Pain, Shortness of breath, cough, palpitations, abdominal pain, N/V/D or changes in bowel or bladder habits. PMHx: none known PSHX: none known PE: GEN: 83yoF, appears stated age. Thin appearing. Alert and oriented. HEENT: Normocephalic, atraumatic. Sclera are nonicteric. Moist mucous membranes. Cervical collar in place. CHEST: Regular rate and rhythm, +S1, +S2 LUNGS: Clear to auscultation bilaterally. No wheezes, rales, or rhonchi. ABD: Round, soft, non-tender, non-distended. +Bowel sounds throughout. No rebound or guarding. EXT: No lower extremity edema appreciated. Pt is noted to have ecchymosis of RUE with swelling improved. SKIN: [place], dry, warm. No rashes. Neuro. Nml speech. Moving UE/LEs. A&P:The patient is an 83-year-old white female who presented to [facility] ED December 02, 2018 due to fall at home. In the ER, she had extensive workups done which demonstrated she had a C2-C3 fracture. She was transferred to [facility] in [place] with further workup indicating urinary retention and E. coli urinary tract infection (UTI) which was treated with IV Zosyn.No surgical intervention recommended, instead she had a neck collar placed. She was transferred to the care of ARU, Dr Ibarra 12/14/18 C2-C3 Fracture 2/2 Mechanical Fall The patient did not require surgical intervention Mgmt as per ARU PT/OT/ST as per ARU Pain control as per ARU Bowel care as per ARU DVT px. Lovenox as per ARU Disposition as per ARU. Left femur fracture noted on CT abdomen/pelvis 01/01/19. Orthopedics consulted. Normocytic Anemia/Fe def Hgb 10.3 this AM Cont iron supplementation. FOB negative. S/P PRBC x 3 U IV Venofer ordered 12/25/18 x [address] Ibarra. RUE swelling. No deep vein thrombus is identified. Thrombus is identified in the forearm in a mid basilic vein. This is a superficial vein. The jugular vein cannot be visualized because of the neck brace. The cephalic vein could not be visualized because of its small size. Electronically Signed by Saurabh Nova MD 12/31/2018 07:45 P Pt remains on Lovenox 40 mg SQ. UTI. Patient is afebrile. WBC 10.7 01/02/19. Urine culture 12/30/18 enterococcus avium Blood culture 2 neg. Melendrez was removed 01/02/19 CT abdomen/pelvis /Cystogram unremarkable. Pt to finish po Amoxicillin. Abnormal TFTs Patient noted to have normal TFTs just 2 weeks ago Possibly 2/2 underlying acute injury/stressor. Pt was started on Synthroid 25 mcg. Repeat TFT's in 4-6 weeks Dementia Continue Donepezil GI Prophylaxis Cont PPI Cont Bacid. VS, I&O, 24H, Fishbone Vital Signs/I&O Vital Signs Date Time Temp Pulse Resp B/P (MAP) Pulse Ox O2 Delivery O2 Flow Rate FiO2 01/03/19 09:05 133/66 01/03/19 09:00 98.0 88 18 97 I&O- Last 24 Hours up to 6 AM 01/03/19 06:00 Intake Total 220 ml Output Total 850 ml Balance -630 ml Laboratory Data 24H LABS Laboratory Tests 2 01/02/19 16:45: Stool Clostridium difficile Result NEGATIVE, Clostridium difficile (PCR)(LAB) NEGATIVE Microbiology Microbiology 01/01/19 Blood Culture - Preliminary, Resulted No Growth after 48 hours. All Specime... 01/01/19 Blood Culture - Preliminary, Resulted No Growth after 48 hours. All Specime... 12/30/18 Urine Culture - Final, Complete Enterococcus Avium Madelaine Mei Jan 03, 2019 14:14
--- NOTE | 2019-01-03 14:54 | IPNPDOC ---
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 She is unable to tell when she is having a bowel movement and continue to either retain urine or have incontinence. REVIEW OF SYSTEMS: The following is a completed review of systems and has been reviewed. Review of systems otherwise unremarkable. PAIN: Patient self reports no pain EYES: Negative for recent vision changes EARS, NOSE, & THROAT: +dysphagia, cervical collar CARDIOVASCULAR: no chest pain or palpitations PULMONARY: Negative. Denies shortness of breath GASTROINTESTINAL: Negative for diarrhea or constipation GENITOURINARY: +retention MUSCULOSKELETAL: C2, C3 vertebral fracture NEUROLOGICAL: C2, C3 vertebral fracture, no focal deficit HENE: anemia SKIN: left clavicle stage ulcer with slough, lower truncal abrasions, onychomycosis PSYCHIATRIC: confused All other review of systems found to be negative. PHYSICAL EXAMINATION: VITAL SIGNS: Please see below. GENERAL: Pleasant and cooperative. No acute distress. HEENT: PERRL. Extraocular movements intact. Clear conjunctiva, C-collar in place CARDIOVASCULAR: Regular rate and rhythm. No murmurs, rubs, or gallops. LUNGS: Clear to auscultation bilaterally. No wheezes. No rhonchi ABDOMEN: Soft, nontender, nondistended. Positive bowel sounds. Normal active bowel sounds NEUROLOGICAL: Alert and oriented to self, not place or time Cranial nerves II through XII grossly intact. Sensation grossly intact all 4 extremities, no paresthesias EXTREMITIES: 5\5 strength bilateral upper extremities. 5-\5 strength right lower extremity. 5-/5 strength in left lower extremity. SKIN: left clavicle stage ulcer with slough, multiple lower truncal abrasions, toe onychomycosis, stage one sacral ulcer RUE ecchymosis and edema ASSESSMENT:83-year-old F with past medical history of falls who presents status postfall with C2-C3 vertebral fracture. PLAN: 1. 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 Ortho: s/p C2-C3 fracture, C-collar at all times, needs outpatient follow-up - incidental non-displaced left greater trochanter fracture noted on pelvic i maging, patient denies having pain, case discussed with Dr. Lockett who recommended continue WBAT and no surgical intervention 4. Cardio: stable 5. Resp: recent CTA to rule out PE showed effusions and infiltrates, CXR 12/14/18 showed chronic changes, monitor for any signs of pneumonia, Incentive spirometry- continue Duonebs 6. : s/p treatment E. 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 DVT ppx: Lovenox, admission Dopplers negative, RUE positive for superficial basilic thrombus, continue Lovenox and monitor 8. GI ppx : protonix, patient with incontinence will add bulking agents, C diff ordered for diarrhea-->negative 9. Pain: Tylenol prn 10. Anemia: FOBT negative for occult blood, loss, iron studies show iron deficiency anemia, continue oral Iron supplements, s/p 1 unit prbcs ordered- however Hgb dropped from 9 to 7.8, s/p Venofer,however hgb 6.9 01/01/19, s/p 2 units rbcs and 10.3 10. Skin: unstageable left clavicle ulcer- Santyl daily and cover with mepilex- healing well, and stage one sacral ulcer Butt Paste, and truncal abrasions continue Mepilex -RUE extremity swelling with ecchymosis, +superficial basilic vein DVT, continue Lovenox 11. Dispo: Ongoing work-up for delirium-working on discharge to [facility], continues to refuse therapy, denies being in pain and does not give a reason for not wanting to participate except that she doesn't feel like it. Allergies Coded Allergies: No Known Allergies (Unverified , 12/02/18) Vital Signs Vital Signs Date Time Temp Pulse Resp B/P (MAP) Pulse Ox O2 Delivery O2 Flow Rate FiO2 01/03/19 09:05 133/66 01/03/19 09:00 98.0 88 18 97 Laboratory Data Labs 24H Laboratory Tests 2 01/02/19 16:45: Stool Clostridium difficile Result NEGATIVE, Clostridium difficile (PCR)(LAB) NEGATIVE Microbiology Microbiology 01/01/19 Blood Culture - Preliminary, Resulted No Growth after 48 hours. All Specime... 01/01/19 Blood Culture - Preliminary, Resulted No Growth after 48 hours. All Specime... 12/30/18 Urine Culture - Final, Complete Enterococcus Avium Current Medications Current Medications Current Medications Acetaminophen (Tylenol Tab) 650 mg Q4HP PRN PO fever/MILD PAIN (PS 1-4) Last administered on 01/02/19 20:07; Start 12/14/18 at 17:15 Amoxicillin (Amoxicillin) 875 mg BID PO Last administered on 01/03/19 09:06; Start 01/01/19 at 10:00; Stop 01/06/19 at 00:00 Collagenase (Santyl) apply left clavical DAILY TOP Last administered on 01/03/19 09:07; Start 12/15/18 at 09:00 Docusate Sodium (Colace) 100 mg BID PO Last administered on 12/31/18at 20:50; Start 12/17/18 at 09:00; Stop 01/01/19 at 11:54; Status DC Donepezil HCl (AriCEPT) 5 mg DAILY PO Last administered on 01/03/19 09:05; Start 12/17/18 at 09:00 Enoxaparin Sodium (Lovenox) 40 mg DAILY SC Last administered on 01/03/19 09:06; Start 12/15/18 at 09:00 Ferrous Sulfate (Ferrous Sulfate) 300 mg BID PO Last administered on 01/02/19 20:08; Start 12/17/18 at 21:00 Ferrous Sulfate (Ferrous Sulfate) 300 mg DAILY PO Last administered on 12/17/18at 08:23; Start 12/16/18 at 09:00; Stop 12/17/18 at 13:57; Status DC Fluoxetine HCl (PROzac) 20 mg QHS PO Last administered on 12/26/18at 20:33; Start 12/17/18 at 21:00; Stop 12/27/18 at 11:04; Status DC Fluoxetine HCl (PROzac) 30 mg QHS PO Last administered on 01/02/19at 20:08; Start 12/27/18 at 21:00 Home Med (Med Rec Complete!) ASDIRECTED XX ; Start 12/14/18 at 16:00; Stop 12/14/18 at 16:00; Status DC Ipratropium [place] (Atrovent 0.02%) 0.25 mg RBID INH Last administered on 12/19/18at 08:06; Start 12/15/18 at 20:00; Stop 12/28/18 at 08:18; Status DC Iron (Venofer) 200 mg ASDIRECTED IV ; Start 12/25/18 at 14:00; Stop 12/25/18 at 14:09; Status DC Iron 200 mg/ Sodium Chloride 110 ml @ 110 mls/hr Q48H IV Last administered on 12/31/18at 16:27; Start 12/25/18 at 16:00; Stop 12/31/18 at 16:41; Status DC Lactobacillus Acidophilus (Bacid) 1 ea TID PO Last administered on 01/03/19at 09:05; Start 12/14/18 at 21:00 Levofloxacin (Levaquin) 250 mg DAILY@06 PO Last administered on 12/15/18at 05:03; Start 12/15/18 at 06:00; Stop 12/15/18 at 14:47; Status DC Levothyroxine Sodium (Synthroid) 25 mcg DAILY@06 PO ; Start 12/20/18 at 06:00; Stop 12/20/18 at 06:00; Status DC Levothyroxine Sodium (Synthroid) 25 mcg DAILY@06 PO Last administered on 01/03/19at 05:40; Start 12/20/18 at 06:00 Levothyroxine Sodium (Synthroid) 75 mcg DAILY@06 PO ; Start 12/17/18 at 06:00; Stop 12/17/18 at 14:23; Status DC Levothyroxine Sodium (Synthroid) 75 mcg DAILY@06 PO Last administered on 12/19/18at 05:46; Start 12/18/18 at 06:00; Stop 12/19/18 at 22:17; Status DC Lidocaine (Lidoderm Patch) 1 patch DAILY TD Last administered on 01/03/19at 09:06; Start 12/19/18 at 09:00 Lisinopril (Prinivil) 5 mg DAILY PO Last administered on 01/03/19at 09:05; Start 12/27/18 at 11:15 Magnesium Hydroxide (Milk Of Magnesia) 30 ml DAILYPRN PRN PO CONSTIPATION; Start 12/14/18 at 17:15 Miscellaneous (Unresolved Clarification Entry) SEE LABEL COMMENTS DAILY XX ; Start 12/21/18 at 09:00; Stop 12/21/18 at 10:42; Status DC Non-Formulary Medication ( See Comment Field Below ) REMOVE LIDODERM PATCH DAILY@21 XX Last administered on 01/02/19at 20:09; Start 12/19/18 at 21:00 Pantoprazole Sodium (Protonix) 40 mg DAILY PO Last administered on 01/03/19at 09:05; Start 12/15/18 at 09:00 Psyllium Hydrophilic Mucilloid (Metamucil) 1 pkt DAILY PO Last administered on 01/03/19at 09:06; Start 01/01/19 at 09:00 Zinc Oxide (Boudreauxs Butt Paste) sacrum TID TOP Last administered on 01/03/19at 09:07; Start 12/14/18 at 21:00 ARTHUR ARROYO MD Jan 03, 2019 14:54
[2019-01-03 20:00] VITALS: BP 142/67
[2019-01-03] MEDS: FLUoxetine 10 MG CAP PO SCH (20:41)
[2019-01-03] MEDS: ACETAMINOPHEN TAB 650MG DOSE (2X325MG) PO PRN (20:42)
[2019-01-03] MEDS: **NOTE PATIENT COMMENT** MISC XX SCH (20:43)
[2019-01-04 05:08] VITALS: BP 148/80
[2019-01-04] MEDS: LEVOTHYROXINE 25MCG TABLET (0.025MG) PO SCH (05:30)
[2019-01-04 06:20] LABS: BASO % 0.2 % (0.0-1.0); EOS # 0.1 10^3/uL (0.0-0.50); EOS % 1.2 % (0.0-3.0); HEMOGLOBIN 9.5 g/dl (12.0-15.5); LYMPH # 1.3 10^3/uL (1.5-4.5); LYMPH % 22.4 % (24.0-44.0); MEAN CORPUSCULAR HGB CONC 31.7 g/dl (32.0-36.5); MEAN CORPUSCULAR VOLUME 91.5 fl (80.0-96.0); MONO # 1.6 10^3/uL (0.0-0.8); MONO % 27.6 % (0.0-5.0); NEUTROPHILS # 2.7 10^3/uL (1.8-7.7); NEUTROPHILS % 48.2 % (36.0-66.0); PLATELET COUNT, AUTOMATED 319 10^3/uL (150-450); RED BLOOD COUNT 3.28 10^6/uL (4.00-5.40); WHITE BLOOD COUNT 5.7 10^3/uL (4.0-10.0)
[2019-01-04 06:49] LABS: BLOOD UREA NITROGEN 18 MG/DL (7-18); CALCIUM LEVEL 8.3 MG/DL (8.8-10.2); CARBON DIOXIDE LEVEL 30 MEQ/L (21-32); CHLORIDE LEVEL 99 MEQ/L (98-107); CREATININE FOR GFR 0.66 MG/DL (0.55-1.30); GLOMERULAR FILTRATION RATE > 60.0 (>32); GLUCOSE, FASTING 93 MG/DL (70-100); POTASSIUM SERUM 3.7 MEQ/L (3.5-5.1); SODIUM LEVEL 135 MEQ/L (136-145)
[2019-01-04] MEDS: LIDOCAINE 5% (LIDODERM) PATCH TD SCH (09:09)
[2019-01-04] MEDS: METAMUCIL (PSYLLIUM) PACKET PO SCH (09:09)
[2019-01-04] MEDS: DONEPEZIL 5 MG TAB PO SCH (09:09)
[2019-01-04] MEDS: FERROUS SULFATE 300MG/5ML UDC LIQUID PO SCH ×2 (09:09→20:26)
[2019-01-04] MEDS: ENOXAPARIN 40 MG/0.4 ML SYRINGE (J1650) SC SCH (09:10)
[2019-01-04] MEDS: LISINOPRIL 5 MG TAB PO SCH (09:10)
[2019-01-04] MEDS: AMOXICILLIN 875 MG TAB PO SCH ×2 (09:10→20:26)
[2019-01-04] MEDS: LACTOBACILLUS ACIDOPHILUS CAP (BACID) PO SCH ×3 (09:10→20:26)
[2019-01-04] MEDS: BOUDREAUX'S BUTT PASTE 4OZ TOP SCH ×3 (09:10→20:27)
[2019-01-04] MEDS: PANTOPRAZOLE 40MG TAB (PROTONIX) PO SCH (09:10)
[2019-01-04] MEDS: SANTYL OINT 30GM TOP SCH (09:11)
[2019-01-04 14:00] VITALS: BP 141/75
--- NOTE | 2019-01-04 15:05 | NUR ---
Trials level 2 solids (cheerios soaked in milk). Pt sitting upright in chair for this meal. Fair but prolonged mastication noted with soft solids likely due to limited dentition. Verbal cues to use tongue sweep and liquid wash to clear any remaining material. No overt s/s of aspiration/penetration throughout trials. Education provided on benefits of chair with PO intake and encouragement to use chair with future meals. Refused offer of additional soft solid trials later in the day. Addendum: 01/04/19 at 1508 by RERE DUNN SSV SP Amended: Links added.
--- NOTE | 2019-01-04 15:50 | IPNPDOC ---
PM&R Progress Note DATE OF SERVICE: Jan 04, 2019 [employer] Progress Note Subjective: Patient participated in some therapy today and reports she h asa mild headache. REVIEW OF SYSTEMS: The following is a completed review of systems and has been reviewed. Review of systems otherwise unremarkable. PAIN: Patient self reports no pain EYES: Negative for recent vision changes EARS, NOSE, & THROAT: +dysphagia, cervical collar CARDIOVASCULAR: no chest pain or palpitations PULMONARY: Negative. Denies shortness of breath GASTROINTESTINAL: Negative for diarrhea or constipation GENITOURINARY: +retention MUSCULOSKELETAL: C2, C3 vertebral fracture NEUROLOGICAL: C2, C3 vertebral fracture, no focal deficit HENE: anemia SKIN: left clavicle stage ulcer with slough, lower truncal abrasions, onychomycosis PSYCHIATRIC: confused All other review of systems found to be negative. PHYSICAL EXAMINATION: VITAL SIGNS: Please see below. GENERAL: Pleasant and cooperative. No acute distress. HEENT: PERRL. Extraocular movements intact. Clear conjunctiva, C-collar in place CARDIOVASCULAR: Regular rate and rhythm. No murmurs, rubs, or gallops. LUNGS: Clear to auscultation bilaterally. No wheezes. No rhonchi ABDOMEN: Soft, nontender, nondistended. Positive bowel sounds. Normal active bowel sounds NEUROLOGICAL: Alert and oriented to self, not place or time Cranial nerves II through XII grossly intact. Sensation grossly intact all 4 extremities, no paresthesias EXTREMITIES: 5\5 strength bilateral upper extremities. 5-\5 strength right lower extremity. 5-/5 strength in left lower extremity. SKIN: left clavicle stage ulcer with slough, multiple lower truncal abrasions, toe onychomycosis, stage one sacral ulcer RUE ecchymosis and edema ASSESSMENT:83-year-old F with past medical history of falls who presents status postfall with C2-C3 vertebral fracture. PLAN: 1. rehab: PT, OT, JOB BOSS, assess for DME, able to tolerate thin liquids with straw, ambulating well, participation in therapy inconsistent often refusing therapy 2. 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 Ortho: s/p C2-C3 fracture, C-collar at all times, needs outpatient follow-up - incidental non-displaced left greater trochanter fracture noted on pelvic imaging, patient denies having pain, case discussed with Dr. Lockett who recommended continue WBAT and no surgical intervention 4. Cardio: stable 5. Resp: recent CTA to rule out PE showed effusions and infiltrates, CXR 12/14/18 showed chronic changes, monitor for any signs of pneumonia, Incentive spirometry- continue Duonebs 6. : s/p treatment E. 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 DVT ppx: Lovenox, admission Dopplers negative, RUE positive for superficial basilic thrombus, continue Lovenox and monitor 8. GI ppx : protonix, patient with incontinence will add bulking agents, C diff ordered for diarrhea-->negative 9. Pain: Tylenol prn 10. Anemia: FOBT negative for occult blood, loss, iron studies show iron deficiency anemia, continue oral Iron supplements, s/p 1 unit prbcs ordered- however Hgb dropped from 9 to 7.8, s/p Venofer,however hgb 6.9 01/01/19, s/p 2 units rbcs and 10.3 10. Skin: unstageable left clavicle ulcer- Santyl daily and cover with mepilex- healing well, and stage one sacral ulcer Butt Paste, and truncal abrasions co ntinue Mepilex -RUE extremity swelling with ecchymosis, +superficial basilic vein DVT, continue Lovenox 11. Ortho: incidental left greater trochanteric fracture ntoed on pelvic CT, discussed with Dr. Lockett, no surgical intervention, WBAT. 11. Dispo: Ongoing work-up for delirium-working on discharge to [facility], continues to refuse therapy, denies being in pain and does not give a reason for not wa nting to participate except that she doesn't feel like it Allergies Coded Allergies: No Known Allergies (Unverified , 12/02/18) Vital Signs Vital Signs Date Time Temp Pulse Resp B/P (MAP) Pulse Ox O2 Delivery O2 Flow Rate FiO2 01/04/19 14:00 97.5 97 20 141/75 (97) 100 Laboratory Data CBC/BMP Laboratory Tests 01/04/19 06:07 Red Blood Count 3.28 L, Mean Corpuscular Volume 91.5, Mean Corpuscular Hemoglobin 29.0, Mean Corpuscular Hemoglobin Concent 31.7 L, Red Cell Distrib ution Width 16.7 H, Neutrophils (%) (Auto) 48.2, Lymphocytes (%) (Auto) 22.4 L, Monocytes (%) (Auto) 27.6 H, Eosinophils (%) (Auto) 1.2, Basophils (%) (Auto) 0.2, Neutrophils # (Auto) 2.7, Lymphocytes # (Auto) 1.3 L, Monocytes # (Auto) 1.6 H, Eosinophils # (Auto) 0.1, Basophils # (Auto) 0.0, Calcium Level 8.3 L Labs 24H Laboratory Tests 2 01/04/19 06:07: Immature Granulocyte % (Auto) 0.4, White Blood Count 5.7, Red Blood Count 3.28L, Hemoglobin 9.5L, Hematocrit 30.0L, Mean Corpuscular Volume 91.5, Mean Corpuscular Hemoglobin 29.0, Mean Corpuscular Hemoglobin Concent 31.7L, Red Cell Distribution Width 16.7H, Platelet Count 319, Neutrophils (%) (Auto) 48.2, Lymphocytes (%) (Auto) 22.4L, Monocytes (%) (Auto) 27.6H, Eosinophils (%) (Auto) 1.2, Basophils (%) (Auto) 0.2, Neutrophils # (Auto) 2.7, Lymphocytes # (Auto) 1.3L, Monocytes # (Auto) 1.6H, Eosinophils # (Auto) 0.1, Basophils # (Auto) 0.0, Nucleated Red Blood Cells % (auto) 0.0, Anion Gap 6L, Glomerular Filtration Rate > 60.0, Blood Urea Nitrogen 18, Creatinine 0.66, Sodium Level 135L, Potassium Level 3.7, Chloride Level 99, Carbon Dioxide Level 30, Calcium Level 8.3L Microbiology Microbiology 01/01/19 Blood Culture - Preliminary, Resulted No Growth after 72 hours. All specime... 01/01/19 Blood Culture - Preliminary, Resulted No Growth after 72 hours. All specime... 12/30/18 Urine Culture - Final, Complete Enterococcus Avium Current Medications Current Medications Current Medications Acetaminophen (Tylenol Tab) 650 mg Q4HP PRN PO fever/MILD PAIN (PS 1-4) Last administered on 01/03/19 20:42; Start 12/14/18 at 17:15 Amoxicillin (Amoxicillin) 875 mg BID PO Last administered on 01/04/19 09:10; Start 01/01/19 at 10:00; Stop 01/06/19 at 00:00 Collagenase (Santyl) apply left clavical DAILY TOP Last administered on 01/04/19 09:11; Start 12/15/18 at 09:00 Docusate Sodium (Colace) 100 mg BID PO Last administered on 12/31/18 20:50; Start 12/17/18 at 09:00; Stop 01/01/19 at 11:54; Status DC Donepezil HCl (AriCEPT) 5 mg DAILY PO Last administered on 01/04/19 09:09; Start 12/17/18 at 09:00 Enoxaparin Sodium (Lovenox) 40 mg DAILY SC Last administered on 01/04/19 09:10; Start 12/15/18 at 09:00 Ferrous Sulfate (Ferrous Sulfate) 300 mg BID PO Last administered on 01/04/19 09:09; Start 12/17/18 at 21:00 Ferrous Sulfate (Ferrous Sulfate) 300 mg DAILY PO Last administered on 12/17/18 08:23; Start 12/16/18 at 09:00; Stop 12/17/18 at 13:57; Status DC Fluoxetine HCl (PROzac) 20 mg QHS PO Last administered on 12/26/18 20:33; Start 12/17/18 at 21:00; Stop 12/27/18 at 11:04; Status DC Fluoxetine HCl (PROzac) 30 mg QHS PO Last administered on 01/03/19 20:41; Start 12/27/18 at 21:00 Home Med (Med Rec Complete!) ASDIRECTED XX ; Start 12/14/18 at 16:00; Stop 12/14/18 at 16:00; Status DC Ipratropium [place] (Atrovent 0.02%) 0.25 mg RBID INH Last administered on 12/19/18at 08:06; Start 12/15/18 at 20:00; Stop 12/28/18 at 08:18; Status DC Iron (Venofer) 200 mg ASDIRECTED IV ; Start 12/25/18 at 14:00; Stop 12/25/18 at 14:09; Status DC Iron 200 mg/ Sodium Chloride 110 ml @ 110 mls/hr Q48H IV Last administered on 12/31/18at 16:27; Start 12/25/18 at 16:00; Stop 12/31/18 at 16:41; Status DC Lactobacillus Acidophilus (Bacid) 1 ea TID PO Last administered on 01/04/19at 09:10; Start 12/14/18 at 21:00 Levofloxacin (Levaquin) 250 mg DAILY@06 PO Last administered on 12/15/18at 05:03; Start 12/15/18 at 06:00; Stop 12/15/18 at 14:47; Status DC Levothyroxine Sodium (Synthroid) 25 mcg DAILY@06 PO ; Start 12/20/18 at 06:00; Stop 12/20/18 at 06:00; Status DC Levothyroxine Sodium (Synthroid) 25 mcg DAILY@06 PO Last administered on 01/04/19at 05:30; Start 12/20/18 at 06:00 Levothyroxine Sodium (Synthroid) 75 mcg DAILY@06 PO ; Start 12/17/18 at 06:00; Stop 12/17/18 at 14:23; Status DC Levothyroxine Sodium (Synthroid) 75 mcg DAILY@06 PO Last administered on 12/19/18at 05:46; Start 12/18/18 at 06:00; Stop 12/19/18 at 22:17; Status DC Lidocaine (Lidoderm Patch) 1 patch DAILY TD Last administered on 01/04/19at 09:09; Start 12/19/18 at 09:00 Lisinopril (Prinivil) 5 mg DAILY PO Last administered on 01/04/19at 09:10; Start 12/27/18 at 11:15 Magnesium Hydroxide (Milk Of Magnesia) 30 ml DAILYPRN PRN PO CONSTIPATION; Start 12/14/18 at 17:15 Miscellaneous (Unresolved Clarification Entry) SEE LABEL COMMENTS DAILY XX ; Start 12/21/18 at 09:00; Stop 12/21/18 at 10:42; Status DC Non-Formulary Medication ( See Comment Field Below ) REMOVE LIDODERM PATCH DAILY@21 XX Last administered on 01/03/19at 20:43; Start 12/19/18 at 21:00 Pantoprazole Sodium (Protonix) 40 mg DAILY PO Last administered on 01/04/19at 09:10; Start 12/15/18 at 09:00 Psyllium Hydrophilic Mucilloid (Metamucil) 1 pkt DAILY PO Last administered on 01/04/19at 09:09; Start 01/01/19 at 09:00 Zinc Oxide (B[place]reauxs Butt Paste) sacrum TID TOP Last administered on 01/04/19 t 09:10; Start 12/14/18 at 21:00 ARTHUR ARROYO MD Jan 04, 2019 15:50
--- NOTE | 2019-01-04 17:29 | CR ---
DATE OF CONSULTATION: 01/02/2019 REASON FOR CONSULTATION: Greater trochanteric fracture left hip. HISTORY OF PRESENT ILLNESS: 83-year-old female who had been admitted to acute rehabilitation unit December 14 after a fall on December 02 where she ended up with a C2 and C3 fracture, which was felt to be unstable and was transferred to [facility] for evaluation, and elected to be treated without surgical intervention with a cervical collar. She was stabilized there for several days and then transferred to the rehabilitation unit here at [facility] where she has been treated with a collar and has been weightbearing as tolerated with a walker. She has some dementia and so has been unclear why she has been describing some difficulty during ambulation. She has had a urinary tract infection while in the rehabilitation unit, but otherwise fairly stable, but just failure to cooperate with therapy which prompted some anemia noted. There was also some blood in her stool and thus this prompted further workup and they elected to do a CT scan of her pelvis which revealed severe arthritis of the right hip, but also a fracture of the greater trochanter on the left hip and I was called because of that finding. She had developed an ulcer over the clavicle from the cervical collar. PAST MEDICAL AND SURGICAL HISTORY: Otherwise, her past medical history is fairly unremarkable, as her surgical history is unclear because of her dementia. The history is basically from the chart and the patient was unable to give me a good history otherwise. ALLERGIES: No known drug allergies. HOME MEDICATIONS: - levofloxacin on admission PHYSICAL EXAMINATION: I examined her today. She is an elderly female with her collar lying in bed. Not complaining of any pain, but obviously quite demented, unable to really give good answers, but she could elevate her arms up over her head. There was quite a bit of ecchymosis noted in the right arm, but there is no loss of function of her rotator cuffs. She can bend and straighten her elbow, flex and extend her fingers. The cervical collar is in place. Lower extremity exam revealed no real pain with general log rolling or internal and external rotation of either leg. She could actually elevate her right and left legs up off the bed. She has good strong pulses distally. She could dorsiflex and plantar flex her ankles. She really did not complain of any palpable pain when I palpated around the lateral aspect of the left hip. There was no obvious bruising noted there. Her x-rays and CT scan revealed a nondisplaced greater trochanter fracture on the left hip and severe arthritis of the right hip. She was somewhat anemic today in her labs with hematocrit of 22.5, white count 16.5, platelet of 242. Electrolytes were unremarkable. Glucose 106, calcium 8.3. IMPRESSION: Nondisplaced greater trochanter fracture left hip with severe arthritis of the right hip. It probably happened at the time of the initial injury. It has been a month. She has been weightbearing as tolerated. I do not think we should change her physical therapy regimen at this pint. It is best to mobilize her for obvious morbidity from prolonged bed rest problems that could develop. Therefore I would continue with weightbearing as the pain allows with a walker; just encourage mobilization, general conditioning exercises. I recommend a followup x-ray of the left hip in 2 to 3 weeks.
[2019-01-04 20:00] VITALS: BP 142/64
[2019-01-04] MEDS: ACETAMINOPHEN TAB 650MG DOSE (2X325MG) PO PRN (20:26)
[2019-01-04] MEDS: FLUoxetine 10 MG CAP PO SCH (20:26)
[2019-01-04] MEDS: **NOTE PATIENT COMMENT** MISC XX SCH (20:27)
[2019-01-05] MEDS: LEVOTHYROXINE 25MCG TABLET (0.025MG) PO SCH (05:50)
[2019-01-05] MEDS: ACETAMINOPHEN TAB 650MG DOSE (2X325MG) PO PRN ×3 (05:50→20:27)
[2019-01-05 06:00] VITALS: BP 142/79
[2019-01-05 06:44] LABS: HEMATOCRIT 33.8 % (36.0-47.0); HEMOGLOBIN 10.5 g/dl (12.0-15.5); MEAN CORPUSCULAR HEMOGLOBIN 29.3 pg (27.0-33.0); MEAN CORPUSCULAR HGB CONC 31.1 g/dl (32.0-36.5); MEAN CORPUSCULAR VOLUME 94.4 fl (80.0-96.0); PLATELET COUNT, AUTOMATED 365 10^3/uL (150-450); RED BLOOD COUNT 3.58 10^6/uL (4.00-5.40); WHITE BLOOD COUNT 4.2 10^3/uL (4.0-10.0)
[2019-01-05 07:16] LABS: BLOOD UREA NITROGEN 17 MG/DL (7-18); CALCIUM LEVEL 8.5 MG/DL (8.8-10.2); CARBON DIOXIDE LEVEL 30 MEQ/L (21-32); CHLORIDE LEVEL 99 MEQ/L (98-107); CREATININE FOR GFR 0.59 MG/DL (0.55-1.30); GLOMERULAR FILTRATION RATE > 60.0 (>32); GLUCOSE, FASTING 96 MG/DL (70-100); MAGNESIUM LEVEL 1.6 MG/DL (1.8-2.4); POTASSIUM SERUM 4.1 MEQ/L (3.5-5.1); SODIUM LEVEL 135 MEQ/L (136-145)
[2019-01-05] MEDS: SANTYL OINT 30GM TOP SCH (09:00)
[2019-01-05] MEDS: BOUDREAUX'S BUTT PASTE 4OZ TOP SCH ×3 (09:00→20:27)
[2019-01-05] MEDS: DONEPEZIL 5 MG TAB PO SCH (10:01)
[2019-01-05] MEDS: PANTOPRAZOLE 40MG TAB (PROTONIX) PO SCH (10:01)
[2019-01-05] MEDS: FERROUS SULFATE 300MG/5ML UDC LIQUID PO SCH ×2 (10:01→20:26)
[2019-01-05] MEDS: LISINOPRIL 5 MG TAB PO SCH (10:01)
[2019-01-05] MEDS: AMOXICILLIN 875 MG TAB PO SCH ×2 (10:01→20:26)
[2019-01-05] MEDS: LACTOBACILLUS ACIDOPHILUS CAP (BACID) PO SCH ×3 (10:01→20:26)
[2019-01-05] MEDS: METAMUCIL (PSYLLIUM) PACKET PO SCH (10:02)
[2019-01-05] MEDS: LIDOCAINE 5% (LIDODERM) PATCH TD SCH (10:02)
--- NOTE | 2019-01-05 11:41 | NUR ---
Mechanical soft trials facilitated during meal. Extensive encouragement necessary for involvement and intake with trials. No overt s/s of aspiration/penetration noted with trials. Occasional throat clear noted with pureed solids. Verbal and visual cue provided for use of liquid wash to help clear any oropharyngeal residue. Encouraged meal OOB in chair, but pt refused. Addendum: 01/05/19 at 1144 by RERE CALLE SP Amended: Links added.
--- NOTE | 2019-01-05 11:45 | NUR ---
Training in use of visual regarding orientation to situation. Fair response to this training. Cues necessary for use throughout session. Addendum: 01/05/19 at 1146 by RERE CALLE SP Amended: Links added.
[2019-01-05 14:00] VITALS: BP 155/80
[2019-01-05] MEDS: ENOXAPARIN 40 MG/0.4 ML SYRINGE (J1650) SC SCH (14:00)
[2019-01-05] MEDS: MAGNESIUM OXIDE 400 MG TAB (MAG-OX) PO SCH ×2 (14:01→20:27)
[2019-01-05 20:00] VITALS: BP 125/69
[2019-01-05] MEDS: FLUoxetine 10 MG CAP PO SCH (20:26)
[2019-01-05] MEDS: **NOTE PATIENT COMMENT** MISC XX SCH (20:27)
[2019-01-06] MEDS: LEVOTHYROXINE 25MCG TABLET (0.025MG) PO SCH (05:24)
[2019-01-06 06:00] VITALS: BP 162/74
[2019-01-06] MEDS: BOUDREAUX'S BUTT PASTE 4OZ TOP SCH ×3 (09:00→20:16)
[2019-01-06] MEDS: SANTYL OINT 30GM TOP SCH (09:00)
[2019-01-06] MEDS: LIDOCAINE 5% (LIDODERM) PATCH TD SCH (09:43)
[2019-01-06] MEDS: METAMUCIL (PSYLLIUM) PACKET PO SCH (09:43)
[2019-01-06] MEDS: LISINOPRIL 5 MG TAB PO SCH (09:43)
[2019-01-06] MEDS: PANTOPRAZOLE 40MG TAB (PROTONIX) PO SCH (09:43)
[2019-01-06] MEDS: LACTOBACILLUS ACIDOPHILUS CAP (BACID) PO SCH ×3 (09:43→20:16)
[2019-01-06] MEDS: DONEPEZIL 5 MG TAB PO SCH (09:43)
[2019-01-06] MEDS: ENOXAPARIN 40 MG/0.4 ML SYRINGE (J1650) SC SCH (09:44)
[2019-01-06] MEDS: MAGNESIUM OXIDE 400 MG TAB (MAG-OX) PO SCH ×2 (09:44→20:15)
[2019-01-06] MEDS: FERROUS SULFATE 300MG/5ML UDC LIQUID PO SCH ×2 (09:45→20:15)
[2019-01-06 14:00] VITALS: BP 148/68
[2019-01-06] MEDS: **NOTE PATIENT COMMENT** MISC XX SCH (15:47)
--- NOTE | 2019-01-06 17:09 | IPN ---
DATE: 01/06/2019 Patient seen and examined, comfortable, in no acute distress. Cervical (C) collar in place. Denies any chest pain, pressure, or discomfort. Denies any fevers or chills. VITAL SIGNS: Temperature 97.3, pulse 86, respirations 16, blood pressure 148/68, pulse oximetry 97% on room air. LABORATORY DATA: WBC 4.2, hemoglobin and hematocrit 10.5/33.8, platelets 365. Chemistry: Sodium 135, potassium 4.5, chloride 99, bicarbonate 30, BUN 17, creatinine 0.59. PHYSICAL EXAMINATION: GENERAL: Patient alert, comfortable, in no acute distress. HEENT: Normocephalic, atraumatic. Cervical (C) collar in place. Moist mucous membranes. CARDIAC: Regular S1, S2. PULMONARY: Bilateral clear. ABDOMEN: Soft, nontender. EXTREMITIES: No clubbing, cyanosis, or edema. Right upper extremity ecchymosis. ASSESSMENT AND PLAN: This is an 83-year-old female who presented to [facility] on 12/02/2018 due to a fall at home, extensive workup was done showing C3-C4 fracture, patient was transferred to [facility] for further workup, was also found to have urinary retention, Escherichia (E) coli urinary tract infection (UTI) which was treated. No surgical intervention was recommended for cervical fracture by [facility]. Cervical (C) collar was placed. Patient was transferred back to acute rehabilitation at [facility] on 12/14/2018 for further treatment. 1. C2-C3 fracture secondary to mechanical fall. Management as per acute rehabilitation providers. Physical therapy/occupational therapy (PT/OT), pain regimen, bowel care, deep venous thrombosis (DVT) prophylaxis as per acute rehabilitation provider. Lovenox subcutaneous for deep venous thrombosis (DVT) prophylaxis. 2. Left femur fracture noted on CT on 01/01/2019. Orthopaedics consulted. Further management as per orthopaedics and acute rehabilitation provider. 3. Normocytic anemia with iron deficiency. Monitor hemoglobin and hematocrit. Iron supplementation. Fecal occult negative. Transfused 3 units packed red blood cells (PRBCs). 4. Right upper extremity swelling. No deep venous thrombosis (DVT) identified. Will monitor closely. 5. Urinary tract infection (UTI). Patient afebrile, was treated. 6. Abnormal thyroid function test. Patient currently on Synthroid. Need followup repeat thyroid function test in 4-6 weeks. 7. Dementia. Continue current medication. 8. Gastroesophageal reflux disease (GERD). Continue current medication. 9. Deep venous thrombosis (DVT) prophylaxis. Patient on Lovenox as per acute rehabilitation provider. DISPOSITION: As per acute rehabilitation provider.
[2019-01-06 20:00] VITALS: BP 121/66
[2019-01-06] MEDS: FLUoxetine 10 MG CAP PO SCH (20:15)
[2019-01-06] MEDS: ACETAMINOPHEN TAB 650MG DOSE (2X325MG) PO PRN (20:16)
[2019-01-07] MEDS: LEVOTHYROXINE 25MCG TABLET (0.025MG) PO SCH (05:23)
[2019-01-07 06:00] VITALS: BP 140/70
[2019-01-07] MEDS: FERROUS SULFATE 300MG/5ML UDC LIQUID PO SCH ×2 (08:14→20:38)
[2019-01-07] MEDS: METAMUCIL (PSYLLIUM) PACKET PO SCH (08:14)
[2019-01-07] MEDS: LISINOPRIL 5 MG TAB PO SCH (08:14)
[2019-01-07] MEDS: MAGNESIUM OXIDE 400 MG TAB (MAG-OX) PO SCH ×2 (08:15→20:37)
[2019-01-07] MEDS: LACTOBACILLUS ACIDOPHILUS CAP (BACID) PO SCH ×3 (08:15→20:37)
[2019-01-07] MEDS: ACETAMINOPHEN TAB 650MG DOSE (2X325MG) PO PRN ×2 (08:15→20:41)
[2019-01-07] MEDS: DONEPEZIL 5 MG TAB PO SCH (08:15)
[2019-01-07] MEDS: PANTOPRAZOLE 40MG TAB (PROTONIX) PO SCH (08:15)
[2019-01-07] MEDS: LIDOCAINE 5% (LIDODERM) PATCH TD SCH (08:15)
[2019-01-07] MEDS: ENOXAPARIN 40 MG/0.4 ML SYRINGE (J1650) SC SCH (08:16)
[2019-01-07] MEDS: BOUDREAUX'S BUTT PASTE 4OZ TOP SCH ×3 (08:17→20:39)
[2019-01-07] MEDS: SANTYL OINT 30GM TOP SCH (08:17)
[2019-01-07 14:00] VITALS: BP 125/60
--- NOTE | 2019-01-07 17:15 | IPNPDOC ---
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 REVIEW OF SYSTEMS: The following is a completed review of systems and has been reviewed. Review of systems otherwise unremarkable. PAIN: Patient self reports no pain EYES: Negative for recent vision changes EARS, NOSE, & THROAT: +dysphagia, cervical collar CARDIOVASCULAR: no chest pain or palpitations PULMONARY: Negative. Denies shortness of breath GASTROINTESTINAL: Negative for diarrhea or constipation GENITOURINARY: +retention MUSCULOSKELETAL: C2, C3 vertebral fracture NEUROLOGICAL: C2, C3 vertebral fracture, no focal deficit HENE: anemia SKIN: left clavicle stage ulcer with slough, lower truncal abrasions, onychomycosis PSYCHIATRIC: confused All other review of systems found to be negative. PHYSICAL EXAMINATION: VITAL SIGNS: Please see below. GENERAL: Pleasant and cooperative. No acute distress. HEENT: PERRL. Extraocular movements intact. Clear conjunctiva, C-collar in place CARDIOVASCULAR: Regular rate and rhythm. No murmurs, rubs, or gallops. LUNGS: Clear to auscultation bilaterally. No wheezes. No rhonchi ABDOMEN: Soft, nontender, nondistended. Positive bowel sounds. Normal active bowel sounds NEUROLOGICAL: Alert and oriented to self, not place or time Cranial nerves II through XII grossly intact. Sensation grossly intact all 4 extremities, no paresthesias EXTREMITIES: 5\5 strength bilateral upper extremities. 5-\5 strength right lower extremity. 5-/5 strength in left lower extremity. SKIN: left clavicle stage ulcer-healed, multiple lower truncal abrasions, toe onychomycosis, stage one sacral ulcer RUE ecchymosis and edema ASSESSMENT:83-year-old F with past medical history of falls who presents status postfall with C2-C3 vertebral fracture. 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 Ortho: s/p C2-C3 fracture, C-collar at all times, needs outpatient follow-up - incidental non-displaced left greater trochanter fracture noted on pelvic imaging, patient denies having pain, case discussed with Dr. Lockett who recommended continue WBAT and no surgical intervention 4. Cardio: stable 5. Resp: recent CTA to rule out PE showed effusions and infiltrates, CXR 12/14/18 showed chronic changes, monitor for any signs of pneumonia, Incentive spirometry- continue Duonebs 6. : s/p treatment E. coli UTI, admission Ucx negatve, monitor PVRs- repeat Ucx positive for Enterococcus Avium with leukocytosis, blood cultures ordered, on Amoxicllin 875BID x 5 days, leukocytosis improving, continue without mejia -cystogram and CT pelvis on 01/01/19 negative for fistula, feculent urine resolving since mejia removal 7. DVT ppx: Lovenox, admission Dopplers negative, RUE positive for superficial basilic thrombus, continue Lovenox and monitor 8. GI ppx : protonix, patient with incontinence will add bulking agents, C diff ordered for diarrhea-->negative 9. Pain: Tylenol prn 10. Anemia: FOBT negative for occult blood, loss, iron studies show iron deficiency anemia, continue oral Iron supplements, s/p 1 unit prbcs ordered- however Hgb dropped from 9 to 7.8, s/p Venofer,however hgb 6.9 01/01/19, s/p 2 units rbcs and 10.3 10. Skin: unstageable left clavicle ulcer- Santyl daily and cover with mepilex-healed- and stage one sacral ulcer Butt Paste, and truncal abrasions continue Mepilex -RUE extremity swelling with ecchymosis which is improving, +superficial basili c vein DVT, continue Lovenox 11. Ortho: incidental left greater trochanteric fracture ntoed on pelvic CT, discussed with Dr. Lockett, no surgical intervention, WBAT. 11. Dispo: Ongoing work-up for delirium-working on discharge to [facility], beginning to participate better in therapy Allergies Coded Allergies: No Known Allergies (Unverified , 12/02/18) Vital Signs Vital Signs Date Time Temp Pulse Resp B/P (MAP) Pulse Ox O2 Delivery O2 Flow Rate FiO2 01/07/19 14:00 97.1 79 18 125/60 (81) 99 Laboratory Data Labs 24H Laboratory Tests 2 01/07/19 11:31: Bedside Glucose (Misc Panel) 103 Microbiology Microbiology 01/01/19 Blood Culture - Final, Complete NO GROWTH AFTER 5 DAYS 01/01/19 Blood Culture - Final, Complete NO GROWTH AFTER 5 DAYS 12/30/18 Urine Culture - Final, Complete Enterococcus Avium Current Medications Current Medications Current Medications Acetaminophen (Tylenol Tab) 650 mg Q4HP PRN PO fever/MILD PAIN (PS 1-4) Last administered on 01/07/19 08:15; Start 12/14/18 at 17:15 Amoxicillin (Amoxicillin) 875 mg BID PO Last administered on 01/05/19 20:26; Start 01/01/19 at 10:00; Stop 01/06/19 at 00:00; Status DC Collagenase (Santyl) apply left clavical DAILY TOP Last administered on 01/07/19 08:17; Start 12/15/18 at 09:00 Docusate Sodium (Colace) 100 mg BID PO Last administered on 12/31/18 20:50; Start 12/17/18 at 09:00; Stop 01/01/19 at 11:54; Status DC Donepezil HCl (AriCEPT) 5 mg DAILY PO Last administered on 01/07/19 08:15; Start 12/17/18 at 09:00 Enoxaparin Sodium (Lovenox) 40 mg DAILY SC Last administered on 01/07/19 08:16; Start 12/15/18 at 09:00 Ferrous Sulfate (Ferrous Sulfate) 300 mg BID PO Last administered on 01/07/19 08:14; Start 12/17/18 at 21:00 Ferrous Sulfate (Ferrous Sulfate) 300 mg DAILY PO Last administered on at 08:23; Start 12/16/18 at 09:00; Stop 12/17/18 at 13:57; Status DC Fluoxetine HCl (PROzac) 20 mg QHS PO Last administered on 12/26/18at 20:33; Start 12/17/18 at 21:00; Stop 12/27/18 at 11:04; Status DC Fluoxetine HCl (PROzac) 30 mg QHS PO Last administered on 01/06/19at 20:15; Start 12/27/18 at 21:00 Home Med (Med Rec Complete!) ASDIRECTED XX ; Start 12/14/18 at 16:00; Stop 12/14/18 at 16:00; Status DC Ipratropium [place] (Atrovent 0.02%) 0.25 mg RBID INH Last administered on 12/19/18at 08:06; Start 12/15/18 at 20:00; Stop 12/28/18 at 08:18; Status DC Iron (Venofer) 200 mg ASDIRECTED IV ; Start 12/25/18 at 14:00; Stop 12/25/18 at 14:09; Status DC Iron 200 mg/ Sodium Chloride 110 ml @ 110 mls/hr Q48H IV Last administered on 12/31/18at 16:27; Start 12/25/18 at 16:00; Stop 12/31/18 at 16:41; Status DC Lactobacillus Acidophilus (Bacid) 1 ea TID PO Last administered on 01/07/19at 08:15; Start 12/14/18 at 21:00 Levofloxacin (Levaquin) 250 mg DAILY@06 PO Last administered on 12/15/18at 05:03; Start 12/15/18 at 06:00; Stop 12/15/18 at 14:47; Status DC Levothyroxine Sodium (Synthroid) 25 mcg DAILY@06 PO ; Start 12/20/18 at 06:00; Stop 12/20/18 at 06:00; Status DC Levothyroxine Sodium (Synthroid) 25 mcg DAILY@06 PO Last administered on 01/07/19at 05:23; Start 12/20/18 at 06:00 Levothyroxine Sodium (Synthroid) 75 mcg DAILY@06 PO ; Start 12/17/18 at 06:00; Stop 12/17/18 at 14:23; Status DC Levothyroxine Sodium (Synthroid) 75 mcg DAILY@06 PO Last administered on 12/19/18at 05:46; Start 12/18/18 at 06:00; Stop 12/19/18 at 22:17; Status DC Lidocaine (Lidoderm Patch) 1 patch DAILY TD Last administered on 01/07/19at 08:15; Start 12/19/18 at 09:00 Lisinopril (Prinivil) 5 mg DAILY PO Last administered on 01/07/19at 08:14; Start 12/27/18 at 11:15 Magnesium Hydroxide (Milk Of Magnesia) 30 ml DAILYPRN PRN PO CONSTIPATION; Start 12/14/18 at 17:15 Magnesium Oxide (Mag-Ox) 400 mg BID PO Last administered on 01/07/19at 08:15; Start 01/05/19 at 14:00; Stop 01/08/19 at 13:59 Miscellaneous (Unresolved Clarification Entry) SEE LABEL COMMENTS DAILY XX ; Start 12/21/18 at 09:00; Stop 12/21/18 at 10:42; Status DC Miscellaneous (Unresolved Clarification Entry) SEE LABEL COMMENTS DAILY XX ; Start 01/07/19 at 09:00; Stop 01/07/19 at 14:11; Status DC Non-Formulary Medication ( See Comment Field Below ) REMOVE LIDODERM PATCH DAILY@21 XX Last administered on 01/06/19at 15:47; Start 12/19/18 at 21:00 Pantoprazole Sodium (Protonix) 40 mg DAILY PO Last administered on 01/07/19at 08:15; Start 12/15/18 at 09:00 Psyllium Hydrophilic Mucilloid (Metamucil) 1 pkt DAILY PO Last administered on 01/07/19at 08:14; Start 01/01/19 at 09:00 Zinc Oxide (Boudreauxs Butt Paste) sacrum TID TOP Last administered on 01/07/19 08:17; Start 12/14/18 at 21:00 ARTHUR ARROYO MD Jan 07, 2019 17:15
[2019-01-07 20:00] VITALS: BP 125/67
[2019-01-07 20:17] VITALS: BP 125/67
[2019-01-07] MEDS: FLUoxetine 10 MG CAP PO SCH (20:37)
[2019-01-07] MEDS: **NOTE PATIENT COMMENT** MISC XX SCH (20:39)
[2019-01-08] MEDS: LEVOTHYROXINE 25MCG TABLET (0.025MG) PO SCH (05:17)
[2019-01-08 06:00] VITALS: BP 145/70
[2019-01-08 07:30] LABS: EOS # 0.1 10^3/uL (0.0-0.50); HEMATOCRIT 31.3 % (36.0-47.0); HEMOGLOBIN 9.8 g/dl (12.0-15.5); LYMPH # 1.2 10^3/uL (1.5-4.5); LYMPH % 38.2 % (24.0-44.0); MEAN CORPUSCULAR HEMOGLOBIN 29.3 pg (27.0-33.0); MEAN CORPUSCULAR HGB CONC 31.3 g/dl (32.0-36.5); MEAN CORPUSCULAR VOLUME 93.7 fl (80.0-96.0); MONO # 0.8 10^3/uL (0.0-0.8); MONO % 26.6 % (0.0-5.0); NEUTROPHILS % 32.9 % (36.0-66.0); PLATELET COUNT, AUTOMATED 353 10^3/uL (150-450); RED BLOOD COUNT 3.34 10^6/uL (4.00-5.40)
[2019-01-08 08:04] LABS: BLOOD UREA NITROGEN 18 MG/DL (7-18); CALCIUM LEVEL 8.2 MG/DL (8.8-10.2); CARBON DIOXIDE LEVEL 30 MEQ/L (21-32); CHLORIDE LEVEL 101 MEQ/L (98-107); CREATININE FOR GFR 0.61 MG/DL (0.55-1.30); FREE T4 0.77 NG/DL (0.76-1.46); GLOMERULAR FILTRATION RATE > 60.0 (>32); GLUCOSE, FASTING 95 MG/DL (70-100); POTASSIUM SERUM 4.2 MEQ/L (3.5-5.1); SODIUM LEVEL 137 MEQ/L (136-145)
[2019-01-08] MEDS: METAMUCIL (PSYLLIUM) PACKET PO SCH (08:29)
[2019-01-08] MEDS: FERROUS SULFATE 300MG/5ML UDC LIQUID PO SCH ×2 (08:29→20:46)
[2019-01-08] MEDS: MAGNESIUM OXIDE 400 MG TAB (MAG-OX) PO SCH (08:30)
[2019-01-08] MEDS: LACTOBACILLUS ACIDOPHILUS CAP (BACID) PO SCH ×3 (08:30→20:46)
[2019-01-08] MEDS: DONEPEZIL 5 MG TAB PO SCH (08:30)
[2019-01-08] MEDS: PANTOPRAZOLE 40MG TAB (PROTONIX) PO SCH (08:30)
[2019-01-08] MEDS: LIDOCAINE 5% (LIDODERM) PATCH TD SCH (08:31)
[2019-01-08] MEDS: ENOXAPARIN 40 MG/0.4 ML SYRINGE (J1650) SC SCH (08:31)
[2019-01-08] MEDS: BOUDREAUX'S BUTT PASTE 4OZ TOP SCH ×3 (08:31→20:47)
[2019-01-08] MEDS: SANTYL OINT 30GM TOP SCH (08:31)
[2019-01-08] MEDS: LISINOPRIL 5 MG TAB PO SCH (08:33)
--- NOTE | 2019-01-08 13:31 | IPNPDOC ---
Date Seen The patient was seen on 01/08/19. Progress Note HPI: The patient is an 83-year-old white female who presented to [facility] ED December 02, 2018 due to fall at home. In the ER, she had extensive workups done which demonstrated she had a C2-C3 fracture. She was transferred to [facility] in [place] with further workup indicating urinary retention and E. coli urinary tract infection (UTI) which was treated with IV Zosyn. No surgical intervention recommended, instead she had a neck collar placed. She was transferred to the care of ARU, Dr Ibarra 12/14/18 Pt currently denies any pain. Cervical collar in place. OOB to chair for lunch today. Denies any fevers, chills, Headache, Chest Pain, Shortness of breath, cough, palpitations, abdominal pain, N/V/D or changes in bowel or bladder habits. PMHx: none known PSHX: none known PE: GEN: 83yoF, appears stated age. Thin appearing. Alert and oriented. HEENT: Normocephalic, atraumatic. Sclera are nonicteric. Moist mucous membranes. Cervical collar in place. CHEST: Regular rate and rhythm, +S1, +S2 LUNGS: Clear to auscultation bilaterally. No wheezes, rales, or rhonchi. ABD: Round, soft, non-tender, non-distended. +Bowel sounds throughout. No rebound or guarding. EXT: No lower extremity edema appreciated. SKIN: [place], dry, warm. No rashes. Neuro. Nml speech. Moving UE/LEs. A&P:The patient is an 83-year-old white female who presented to [facility] ED December 02, 2018 due to fall at home. In the ER, she had extensive workups done which demonstrated she had a C2-C3 fracture. She was transferred to [facility] in [place] with further workup indicating urinary retention and E. coli urinary tract infection (UTI) which was treated with IV Zosyn.No surgical intervention recommended, instead she had a neck collar placed. She was transferred to the care of ARU, Dr Ibarra 12/14/18 C2-C3 Fracture 2/2 Mechanical Fall The patient did not require surgical intervention Mgmt as per ARU PT/OT/ST as per ARU Pain control as per ARU Bowel care as per ARU DVT px. Lovenox as per ARU Disposition as per ARU. Left femur fracture noted on CT abdomen/pelvis 01/01/19. Orthopedics consulted 01/02, no surgical intervention. F/U 2-3 weeks for XR. Normocytic Anemia/Fe def Hgb 9.8 this AM Cont iron supplementation. FOB negative. S/P PRBC x 3 U IV Venofer ordered 12/25/18 x [address] Ibarra. RUE swelling. No deep vein thrombus is identified. Thrombus is identified in the forearm in a mid basilic vein. This is a superficial vein. The jugular vein cannot be visualized because of the neck brace. The cephalic vein could not be visualized because of its small size. Electronically Signed by Saurabh Nova MD 12/31/2018 07:45 P Pt remains on Lovenox 40 mg SQ. UTI. Patient is afebrile. WBC 10.7 01/02/19. Urine culture 12/30/18 enterococcus avium Blood culture 2 neg. Melendrez was removed 01/02/19 CT abdomen/pelvis /Cystogram unremarkable. Pt completed po Amoxicillin 01/06. Hypothyroid Synthroid increased to 37.5 mcg. Repeat TFT's in 4-6 weeks Dementia Continue Donepezil GI Prophylaxis Cont PPI Cont Bacid. VS, I&O, 24H, Fishbone Vital Signs/I&O Vital Signs Date Time Temp Pulse Resp B/P (MAP) Pulse Ox O2 Delivery O2 Flow Rate FiO2 01/08/19 08:33 136/74 01/08/19 06:00 97.0 75 18 98 I&O- Last 24 Hours up to 6 AM 01/08/19 06:00 Intake Total 915 ml Output Total 675 ml Balance 240 ml Laboratory Data 24H LABS Laboratory Tests 2 01/08/19 07:00: Immature Granulocyte % (Auto) 0.3, White Blood Count 3.0L, Red Blood Count 3.34L, Hemoglobin 9.8L, Hematocrit 31.3L, Mean Corpuscular Volume 93.7, Mean Corpuscular Hemoglobin 29.3, Mean Corpuscular Hemoglobin Concent 31.3L, Red Cell Distribution Width 15.9H, Platelet Count 353, Neutrophils (%) (Auto) 32.9L, Lymphocytes (%) (Auto) 38.2, Monocytes (%) (Auto) 26.6H, Eosinophils (%) (Auto) 2.0, Basophils (%) (Auto) 0.0, Neutrophils # (Auto) 1.0L, Lymphocytes # (Auto) 1.2L, Monocytes # (Auto) 0.8, Eosinophils # (Auto) 0.1, Basophils # (Auto) 0.0, Nucleated Red Blood Cells % (auto) 0.0, Anion Gap 6L, Glomerular Filtration Rate > 60.0, Blood Urea Nitrogen 18, Creatinine 0.61, Sodium Level 137, Potassium Level 4.2, Chloride Level 101, Carbon Dioxide Level 30, Calcium Level 8.2L, Thyroid Stimulating Hormone (TSH) 34.400H, Free Thyroxine 0.77 CBC/BMP Laboratory Tests 01/08/19 07:00 Red Blood Count 3.34 L, Mean Corpuscular Volume 93.7, Mean Corpuscular Hemoglobin 29.3, Mean Corpuscular Hemoglobin Concent 31.3 L, Red Cell Distribution Width 15.9 H, Neutrophils (%) (Auto) 32.9 L, Lymphocytes (%) (Auto) 38.2, Monocytes (%) (Auto) 26.6 H, Eosinophils (%) (Auto) 2.0, Basophils (%) (Auto) 0.0, Neutrophils # (Auto) 1.0 L, Lymphocytes # (Auto) 1.2 L, Monocytes # (Auto) 0.8, Eosinophils # (Auto) 0.1, Basophils # (Auto) 0.0, Calcium Level 8.2 L Microbiology Microbiology 01/01/19 Blood Culture - Final, Complete NO GROWTH AFTER 5 DAYS 01/01/19 Blood Culture - Final, Complete NO GROWTH AFTER 5 DAYS 12/30/18 Urine Culture - Final, Complete Enterococcus Kaliaum Madelaine Mei Jan 08, 2019 13:30
[2019-01-08 14:00] VITALS: BP 118/68
[2019-01-08] MEDS: ACETAMINOPHEN TAB 650MG DOSE (2X325MG) PO PRN ×2 (16:35→20:47)
[2019-01-08 20:00] VITALS: BP 110/60
[2019-01-08] MEDS: FLUoxetine 10 MG CAP PO SCH (20:46)
[2019-01-08] MEDS: **NOTE PATIENT COMMENT** MISC XX SCH (20:47)
[2019-01-09] MEDS: LEVOTHYROXINE 25MCG TABLET (0.025MG) PO SCH (05:41)
[2019-01-09 06:00] VITALS: BP 140/65
[2019-01-09] MEDS: SANTYL OINT 30GM TOP SCH (09:00)
[2019-01-09] MEDS: BOUDREAUX'S BUTT PASTE 4OZ TOP SCH ×3 (09:00→20:33)
[2019-01-09] MEDS: LACTOBACILLUS ACIDOPHILUS CAP (BACID) PO SCH ×3 (09:04→20:27)
[2019-01-09] MEDS: PANTOPRAZOLE 40MG TAB (PROTONIX) PO SCH (09:04)
[2019-01-09] MEDS: LISINOPRIL 5 MG TAB PO SCH (09:04)
[2019-01-09] MEDS: DONEPEZIL 5 MG TAB PO SCH (09:04)
[2019-01-09] MEDS: FERROUS SULFATE 300MG/5ML UDC LIQUID PO SCH ×2 (09:04→20:27)
[2019-01-09] MEDS: ENOXAPARIN 40 MG/0.4 ML SYRINGE (J1650) SC SCH (09:04)
[2019-01-09] MEDS: METAMUCIL (PSYLLIUM) PACKET PO SCH (09:05)
[2019-01-09] MEDS: LIDOCAINE 5% (LIDODERM) PATCH TD SCH (09:05)
--- NOTE | 2019-01-09 12:21 | IPNPDOC ---
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 REVIEW OF SYSTEMS: The following is a completed review of systems and has been reviewed. Review of systems otherwise unremarkable. PAIN: Patient self reports no pain EYES: Negative for recent vision changes EARS, NOSE, & THROAT: +dysphagia, cervical collar CARDIOVASCULAR: no chest pain or palpitations PULMONARY: Negative. Denies shortness of breath GASTROINTESTINAL: Negative for diarrhea or constipation GENITOURINARY: +retention MUSCULOSKELETAL: C2, C3 vertebral fracture NEUROLOGICAL: C2, C3 vertebral fracture, no focal deficit HENE: anemia SKIN: left clavicle stage ulcer with slough, lower truncal abrasions, onychomycosis PSYCHIATRIC: confused All other review of systems found to be negative. PHYSICAL EXAMINATION: VITAL SIGNS: Please see below. GENERAL: Pleasant and cooperative. No acute distress. HEENT: PERRL. Extraocular movements intact. Clear conjunctiva, C-collar in place CARDIOVASCULAR: Regular rate and rhythm. No murmurs, rubs, or gallops. LUNGS: Clear to auscultation bilaterally. No wheezes. No rhonchi ABDOMEN: Soft, nontender, nondistended. Positive bowel sounds. Normal active bowel sounds NEUROLOGICAL: Alert and oriented to self, not place or time Cranial nerves II through XII grossly intact. Sensation grossly intact all 4 extremities, no paresthesias EXTREMITIES: 5\5 strength bilateral upper extremities. 5-\5 strength right lower extremity. 5-/5 strength in left lower extremity. SKIN: left clavicle stage ulcer-healed, multiple lower truncal abrasions, toe onychomycosis, stage one sacral ulcer RUE ecchymosis and edema ASSESSMENT:83-year-old F with past medical history of falls who presents status postfall with C2-C3 vertebral fracture. 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 Ortho: s/p C2-C3 fracture, C-collar at all times, needs outpatient follow-up - incidental non-displaced left greater trochanter fracture noted on pelvic imaging, patient denies having pain, case discussed with Dr. Lockett who recommended continue WBAT and no surgical intervention 4. Cardio: stable 5. Resp: recent CTA to rule out PE showed effusions and infiltrates, CXR 12/14/18 showed chronic changes, monitor for any signs of pneumonia, Incentive spirometry- continue Duonebs 6. : s/p treatment E. coli UTI, admission Ucx negatve, monitor PVRs- repeat Ucx positive for Enterococcus Avium with leukocytosis, blood cultures ordered, on Amoxicllin 875BID x 5 days, leukocytosis improving, continue without mejia -cystogram and CT pelvis on 01/01/19 negative for fistula, feculent urine resolving since mejia removal 7. DVT ppx: Lovenox, admission Dopplers negative, RUE positive for superficial basilic thrombus, continue Lovenox and monitor 8. GI ppx : protonix, patient with incontinence will add bulking agents, C diff ordered for diarrhea-->negative 9. Pain: Tylenol prn 10. Anemia: FOBT negative for occult blood, loss, iron studies show iron deficiency anemia, continue oral Iron supplements, s/p 1 unit prbcs ordered- however Hgb dropped from 9 to 7.8, s/p Venofer,however hgb 6.9 01/01/19, s/p 2 units rbcs-stable 10. Skin: unstageable left clavicle ulcer- d/c Santyl healed- and stage one sacral ulcer Butt Paste, and truncal abrasions continue Mepilex -RUE extremity swelling with ecchymosis which is improving, +superficial basilic vein DVT, continue Lovenox 11. Ortho: incidental left greater trochanteric fracture ntoed on pelvic CT, discussed with Dr. Lockett, no surgical intervention, WBAT. 11. Dispo: Ongoing work-up for delirium-working on discharge to [facility], beginning to participate better in therapy Allergies Coded Allergies: No Known Allergies (Unverified , 12/02/18) Vital Signs Vital Signs Date Time Temp Pulse Resp B/P (MAP) Pulse Ox O2 Delivery O2 Flow Rate FiO2 01/09/19 09:04 140/65 01/09/19 06:00 97.0 76 17 96 Microbiology Microbiology 01/01/19 Blood Culture - Final, Complete NO GROWTH AFTER 5 DAYS 01/01/19 Blood Culture - Final, Complete NO GROWTH AFTER 5 DAYS 12/30/18 Urine Culture - Final, Complete Enterococcus Avium Current Medications Current Medications Current Medications Acetaminophen (Tylenol Tab) 650 mg Q4HP PRN PO fever/MILD PAIN (PS 1-4) Last administered on 01/08/19at 20:47; Start 12/14/18 at 17:15 Amoxicillin (Amoxicillin) 875 mg BID PO Last administered on 01/05/19 20:26; Start 01/01/19 at 10:00; Stop 01/06/19 at 00:00; Status DC Collagenase (Santyl) apply left clavical DAILY TOP Last administered on 01/07/19 08:17; Start 12/15/18 at 09:00; Stop 01/09/19 at 09:08; Status DC Docusate Sodium (Colace) 100 mg BID PO Last administered on 12/31/18 20:50; Start 12/17/18 at 09:00; Stop 01/01/19 at 11:54; Status DC Donepezil HCl (AriCEPT) 5 mg DAILY PO Last administered on 01/09/19 09:04; Start 12/17/18 at 09:00 Enoxaparin Sodium (Lovenox) 40 mg DAILY SC Last administered on 01/09/19at 09:04; Start 12/15/18 at 09:00 Ferrous Sulfate (Ferrous Sulfate) 300 mg BID PO Last administered on 01/09/19 09:04; Start 12/17/18 at 21:00 Ferrous Sulfate (Ferrous Sulfate) 300 mg DAILY PO Last administered on 12/17/18 08:23; Start 12/16/18 at 09:00; Stop 12/17/18 at 13:57; Status DC Fluoxetine HCl (PROzac) 20 mg QHS PO Last administered on 12/26/18 20:33; Start 12/17/18 at 21:00; Stop 12/27/18 at 11:04; Status DC Fluoxetine HCl (PROzac) 30 mg QHS PO Last administered on 01/08/19at 20:46; Start 12/27/18 at 21:00 Home Med (Med Rec Complete!) ASDIRECTED XX ; Start 12/14/18 at 16:00; Stop 12/14/18 at 16:00; Status DC Ipratropium [place] (Atrovent 0.02%) 0.25 mg RBID INH Last administered on 12/19/18at 08:06; Start 12/15/18 at 20:00; Stop 12/28/18 at 08:18; Status DC Iron (Venofer) 200 mg ASDIRECTED IV ; Start 12/25/18 at 14:00; Stop 12/25/18 at 14:09; Status DC Iron 200 mg/ Sodium Chloride 110 ml @ 110 mls/hr Q48H IV Last administered on 12/31/18at 16:27; Start 12/25/18 at 16:00; Stop 12/31/18 at 16:41; Status DC Lactobacillus Acidophilus (Bacid) 1 ea TID PO Last administered on 01/09/19at 09:04; Start 12/14/18 at 21:00 Levofloxacin (Levaquin) 250 mg DAILY@06 PO Last administered on 12/15/18at 05:03; Start 12/15/18 at 06:00; Stop 12/15/18 at 14:47; Status DC Levothyroxine Sodium (Synthroid) 25 mcg DAILY@06 PO ; Start 12/20/18 at 06:00; Stop 12/20/18 at 06:00; Status DC Levothyroxine Sodium (Synthroid) 25 mcg DAILY@06 PO Last administered on 01/08/19at 05:17; Start 12/20/18 at 06:00; Stop 01/08/19 at 10:16; Status DC Levothyroxine Sodium (Synthroid) 37.5 mcg DAILY@06 PO Last administered on 01/09/19at 05:41; Start 01/09/19 at 06:00 Levothyroxine Sodium (Synthroid) 75 mcg DAILY@06 PO ; Start 12/17/18 at 06:00; Stop 12/17/18 at 14:23; Status DC Levothyroxine Sodium (Synthroid) 75 mcg DAILY@06 PO Last administered on 12/19/18at 05:46; Start 12/18/18 at 06:00; Stop 12/19/18 at 22:17; Status DC Lidocaine (Lidoderm Patch) 1 patch DAILY TD Last administered on 01/09/19at 09:05; Start 12/19/18 at 09:00 Lisinopril (Prinivil) 5 mg DAILY PO Last administered on 01/09/19at 09:04; Start 12/27/18 at 11:15 Magnesium Hydroxide (Milk Of Magnesia) 30 ml DAILYPRN PRN PO CONSTIPATION; Start 12/14/18 at 17:15 Magnesium Oxide (Mag-Ox) 400 mg BID PO Last administered on 01/08/19at 08:30; Start 01/05/19 at 14:00; Stop 01/08/19 at 13:59; Status DC Miscellaneous (Unresolved Clarification Entry) SEE LABEL COMMENTS DAILY XX ; Start 12/21/18 at 09:00; Stop 12/21/18 at 10:42; Status DC Miscellaneous (Unresolved Clarification Entry) SEE LABEL COMMENTS DAILY XX ; Start 01/07/19 at 09:00; Stop 01/07/19 at 14:11; Status DC Non-Formulary Medication ( See Comment Field Below ) REMOVE LIDODERM PATCH DAILY@21 XX Last administered on 01/08/19 20:47; Start 12/19/18 at 21:00 Pantoprazole Sodium (Protonix) 40 mg DAILY PO Last administered on 01/09/19at 09:04; Start 12/15/18 at 09:00 Psyllium Hydrophilic Mucilloid (Metamucil) 1 pkt DAILY PO Last administered on 01/09/19at 09:05; Start 01/01/19 at 09:00 Zinc Oxide (Boudreauxs Butt Paste) sacrum TID TOP Last administered on 01/09/19 09:00; Start 12/14/18 at 21:00 ARTHUR ARROYO MD Jan 09, 2019 12:21
--- NOTE | 2019-01-09 12:22 | IPNPDOC ---
PM&R Progress Note DATE OF SERVICE: Jan 09, 2019 Community Services Coordinator Progress Note Subjective: Patient participating better in therapy and able to propel her own wheelchair. REVIEW OF SYSTEMS: The following is a completed review of systems and has been reviewed. Review of systems otherwise unremarkable. PAIN: Patient self reports no pain EYES: Negative for recent vision changes EARS, NOSE, & THROAT: +dysphagia, cervical collar CARDIOVASCULAR: no chest pain or palpitations PULMONARY: Negative. Denies shortness of breath GASTROINTESTINAL: Negative for diarrhea or constipation GENITOURINARY: +retention MUSCULOSKELETAL: C2, C3 vertebral fracture NEUROLOGICAL: C2, C3 vertebral fracture, no focal deficit HENE: anemia SKIN: left clavicle stage ulcer with slough, lower truncal abrasions, onychomycosis PSYCHIATRIC: confused All other review of systems found to be negative. PHYSICAL EXAMINATION: VITAL SIGNS: Please see below. GENERAL: Pleasant and cooperative. No acute distress. HEENT: PERRL. Extraocular movements intact. Clear conjunctiva, C-collar in place CARDIOVASCULAR: Regular rate and rhythm. No murmurs, rubs, or gallops. LUNGS: Clear to auscultation bilaterally. No wheezes. No rhonchi ABDOMEN: Soft, nontender, nondistended. Positive bowel sounds. Normal active bowel sounds NEUROLOGICAL: Alert and oriented to self, not place or time Cranial nerves II through XII grossly intact. Sensation grossly intact all 4 extremities, no paresthesias EXTREMITIES: 5\5 strength bilateral upper extremities. 5-\5 strength right lower extremity. 5-/5 strength in left lower extremity. SKIN: left clavicle stage ulcer-healed, multiple lower truncal abrasions, toe onychomycosis, stage one sacral ulcer RUE ecchymosis and edema ASSESSMENT:83-year-old F with past medical history of falls who presents status postfall with C2-C3 vertebral fracture. PLAN: 1. rehab: PT, OT, [employer], assess for DME, able to tolerate thin liquids with straw, ambulating well, participation in therapy inconsistent often refusing therapy 2. 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 Ortho: s/p C2-C3 fracture, C-collar at all times, needs outpatient follow-up - incidental non-displaced left greater trochanter fracture noted on pelvic imaging, patient denies having pain, case discussed with Dr. Lockett who recommended continue WBAT and no surgical intervention 4. Cardio: stable 5. Resp: recent CTA to rule out PE showed effusions and infiltrates, CXR 12/14/18 showed chronic changes, monitor for any signs of pneumonia, Incentive spirometry- continue Duonebs 6. : s/p treatment E. coli UTI, admission Ucx negatve, monitor PVRs- repeat Ucx positive for Enterococcus Avium with leukocytosis, blood cultures ordered, on Amoxicllin 875BID x 5 days, leukocytosis improving, continue without mejia -cystogram and CT pelvis on 01/01/19 negative for fistula, feculent urine resolving since mejia removal 7. DVT ppx: Lovenox, admission Dopplers negative, RUE positive for superficial basilic thrombus, continue Lovenox and monitor 8. GI ppx : protonix, patient with incontinence will add bulking agents, C diff ordered for diarrhea-->negative 9. Pain: Tylenol prn 10. Anemia: FOBT negative for occult blood, loss, iron studies show iron deficiency anemia, continue oral Iron supplements, s/p 1 unit prbcs ordered- however Hgb dropped from 9 to 7.8, s/p Venofer,however hgb 6.9 01/01/19, s/p 2 units rbcs-stable 10. Skin: unstageable left clavicle ulcer- d/c Santyl healed- and stage one sacral ulcer Butt Paste, and truncal abrasions continue Mepilex -RUE extremity swelling with ecchymosis which is improving, +superficial basilic vein DVT, continue Lovenox 11. Ortho: incidental left greater trochanteric fracture ntoed on pelvic CT, discussed with Dr. Lockett, no surgical intervention, WBAT. 11. Dispo: Ongoing work-up for delirium-working on discharge to [facility] beginning to participate better in therapy Allergies Coded Allergies: No Known Allergies (Unverified , 12/02/18) Vital Signs Vital Signs Date Time Temp Pulse Resp B/P (MAP) Pulse Ox O2 Delivery O2 Flow Rate FiO2 01/09/19 09:04 140/65 01/09/19 06:00 97.0 76 17 96 Microbiology Microbiology 01/01/19 Blood Culture - Final, Complete NO GROWTH AFTER 5 DAYS 01/01/19 Blood Culture - Final, Complete NO GROWTH AFTER 5 DAYS 12/30/18 Urine Culture - Final, Complete Enterococcus Avium Current Medications Current Medications Current Medications Acetaminophen (Tylenol Tab) 650 mg Q4HP PRN PO fever/MILD PAIN (PS 1-4) Last administered on 01/08/19at 20:47; Start 12/14/18 at 17:15 Amoxicillin (Amoxicillin) 875 mg BID PO Last administered on 01/05/19 20:26; Start 01/01/19 at 10:00; Stop 01/06/19 at 00:00; Status DC Collagenase (Santyl) apply left clavical DAILY TOP Last administered on 01/07/19 08:17; Start 12/15/18 at 09:00; Stop 01/09/19 at 09:08; Status DC Docusate Sodium (Colace) 100 mg BID PO Last administered on 12/31/18at 20:50; Start 12/17/18 at 09:00; Stop 01/01/19 at 11:54; Status DC Donepezil HCl (AriCEPT) 5 mg DAILY PO Last administered on 01/09/19 09:04; Start 12/17/18 at 09:00 Enoxaparin Sodium (Lovenox) 40 mg DAILY SC Last administered on 01/09/19at 09:04; Start 12/15/18 at 09:00 Ferrous Sulfate (Ferrous Sulfate) 300 mg BID PO Last administered on 01/09/19at 09:04; Start 12/17/18 at 21:00 Ferrous Sulfate (Ferrous Sulfate) 300 mg DAILY PO Last administered on 12/17/18at 08:23; Start 12/16/18 at 09:00; Stop 12/17/18 at 13:57; Status DC Fluoxetine HCl (PROzac) 20 mg QHS PO Last administered on 12/26/18at 20:33; Start 12/17/18 at 21:00; Stop 12/27/18 at 11:04; Status DC Fluoxetine HCl (PROzac) 30 mg QHS PO Last administered on 01/08/19at 20:46; Start 12/27/18 at 21:00 Home Med (Med Rec Complete!) ASDIRECTED XX ; Start 12/14/18 at 16:00; Stop 12/14/18 at 16:00; Status DC Ipratropium [place] (Atrovent 0.02%) 0.25 mg RBID INH Last administered on 12/19/18at 08:06; Start 12/15/18 at 20:00; Stop 12/28/18 at 08:18; Status DC Iron (Venofer) 200 mg ASDIRECTED IV ; Start 12/25/18 at 14:00; Stop 12/25/18 at 14:09; Status DC Iron 200 mg/ Sodium Chloride 110 ml @ 110 mls/hr Q48H IV Last administered on 12/31/18at 16:27; Start 12/25/18 at 16:00; Stop 12/31/18 at 16:41; Status DC Lactobacillus Acidophilus (Bacid) 1 ea TID PO Last administered on 01/09/19at 09:04; Start 12/14/18 at 21:00 Levofloxacin (Levaquin) 250 mg DAILY@06 PO Last administered on 12/15/18at 05:03; Start 12/15/18 at 06:00; Stop 12/15/18 at 14:47; Status DC Levothyroxine Sodium (Synthroid) 25 mcg DAILY@06 PO ; Start 12/20/18 at 06:00; Stop 12/20/18 at 06:00; Status DC Levothyroxine Sodium (Synthroid) 25 mcg DAILY@06 PO Last administered on 01/08/19at 05:17; Start 12/20/18 at 06:00; Stop 01/08/19 at 10:16; Status DC Levothyroxine Sodium (Synthroid) 37.5 mcg DAILY@06 PO Last administered on 01/09/19at 05:41; Start 01/09/19 at 06:00 Levothyroxine Sodium (Synthroid) 75 mcg DAILY@06 PO ; Start 12/17/18 at 06:00; Stop 12/17/18 at 14:23; Status DC Levothyroxine Sodium (Synthroid) 75 mcg DAILY@06 PO Last administered on 12/19/18at 05:46; Start 12/18/18 at 06:00; Stop 12/19/18 at 22:17; Status DC Lidocaine (Lidoderm Patch) 1 patch DAILY TD Last administered on 01/09/19 09:05; Start 12/19/18 at 09:00 Lisinopril (Prinivil) 5 mg DAILY PO Last administered on 01/09/19 09:04; Start 12/27/18 at 11:15 Magnesium Hydroxide (Milk Of Magnesia) 30 ml DAILYPRN PRN PO CONSTIPATION; Start 12/14/18 at 17:15 Magnesium Oxide (Mag-Ox) 400 mg BID PO Last administered on 01/08/19 08:30; Start 01/05/19 at 14:00; Stop 01/08/19 at 13:59; Status DC Miscellaneous (Unresolved Clarification Entry) SEE LABEL COMMENTS DAILY XX ; Start 12/21/18 at 09:00; Stop 12/21/18 at 10:42; Status DC Miscellaneous (Unresolved Clarification Entry) SEE LABEL COMMENTS DAILY XX ; Start 01/07/19 at 09:00; Stop 01/07/19 at 14:11; Status DC Non-Formulary Medication ( See Comment Field Below ) REMOVE LIDODERM PATCH DAILY@21 XX Last administered on 01/08/19 20:47; Start 12/19/18 at 21:00 Pantoprazole Sodium (Protonix) 40 mg DAILY PO Last administered on 01/09/19at 09:04; Start 12/15/18 at 09:00 Psyllium Hydrophilic Mucilloid (Metamucil) 1 pkt DAILY PO Last administered on 01/09/19at 09:05; Start 01/01/19 at 09:00 Zinc Oxide (Boudreauxs Butt Paste) sacrum TID TOP Last administered on 01/09/19at 09:00; Start 12/14/18 at 21:00 ARTHUR ARROYO MD Jan 09, 2019 12:22
[2019-01-09 14:00] VITALS: BP 138/64
--- NOTE | 2019-01-09 14:20 | IPNPDOC ---
Date Seen The patient was seen on 01/09/19. Progress Note HPI: The patient is an 83-year-old white female who presented to [facility] ED December 02, 2018 due to fall at home. In the ER, she had extensive workups done which demonstrated she had a C2-C3 fracture. She was transferred to [facility] in [place] with further workup indicating urinary retention and E. coli urinary tract infection (UTI) which was treated with IV Zosyn. No surgical intervention recommended, instead she had a neck collar placed. She was transferred to the care of ARU, Dr Ibarra 12/14/18 Pt currently denies any pain. Cervical collar in place. OOB to chair for lunch today, requesting to go back to bed. Denies any fevers, chills, Headache, Chest Pain, Shortness of breath, cough, palpitations, abdominal pain, N/V/D or changes in bowel or bladder habits. PMHx: none known PSHX: none known PE: GEN: 83yoF, appears stated age. Thin appearing. Alert and oriented. HEENT: Normocephalic, atraumatic. Sclera are nonicteric. Moist mucous membranes. Cervical collar in place. CHEST: Regular rate and rhythm, +S1, +S2 LUNGS: Clear to auscultation bilaterally. No wheezes, rales, or rhonchi. ABD: Round, soft, non-tender, non-distended. +Bowel sounds throughout. No rebound or guarding. EXT: No lower extremity edema appreciated. SKIN: [place], dry, warm. No rashes. Neuro. Nml speech. Moving UE/LEs. A&P:The patient is an 83-year-old white female who presented to [facility] ED December 02, 2018 due to fall at home. In the ER, she had extensive workups done which demonstrated she had a C2-C3 fracture. She was transferred to [facility] in [place] with further workup indicating urinary retention and E. coli urinary tract infection (UTI) which was treated with IV Zosyn.No surgical intervention recommended, instead she had a neck collar placed. She was t ransferred to the care of ARU, Dr Ibarra 12/14/18 C2-C3 Fracture 2/2 Mechanical Fall The patient did not require surgical intervention Mgmt as per ARU PT/OT/ST as per ARU Pain control as per ARU Bowel care as per ARU DVT px. Lovenox as per ARU Disposition as per ARU. Left femur fracture noted on CT abdomen/pelvis 01/01/19. Orthopedics consulted 01/02, no surgical intervention. F/U 2-3 weeks for XR. Normocytic Anemia/Fe def Hgb 9.8 01/08 Cont iron supplementation. FOB negative. S/P PRBC x 3 U IV Venofer ordered 12/25/18 x [address] Ibarra. Monitor. RUE swelling. Improved. No deep vein thrombus is identified. Thrombus was identified in the forearm in a mid basilic vein. This is a superficial vein. Pt remains on Lovenox 40 mg SQ. H/O UTI. Patient is afebrile. leukocytosis resolved. Urine culture 12/30/18 enterococcus avium Blood culture 2 neg. Melendrez was removed 01/02/19 CT abdomen/pelvis /Cystogram unremarkable. Pt completed po Amoxicillin 01/06. Hypothyroid Synthroid increased to 37.5 mcg. Repeat TFT's in 4-6 weeks Dementia Continue Donepezil GI Prophylaxis Cont PPI Cont Bacid. VS, I&O, 24H, Fishbone Vital Signs/I&O Vital Signs Date Time Temp Pulse Resp B/P (MAP) Pulse Ox O2 Delivery O2 Flow Rate FiO2 01/09/19 09:04 140/65 01/09/19 06:00 97.0 76 17 96 I&O- Last 24 Hours up to 6 AM 01/09/19 06:00 Intake Total 1050 ml Output Total 500 ml Balance 550 ml Laboratory Data Microbiology Microbiology 01/01/19 Blood Culture - Final, Complete NO GROWTH AFTER 5 DAYS 01/01/19 Blood Culture - Final, Complete NO GROWTH AFTER 5 DAYS 12/30/18 Urine Culture - Final, Complete Enterococcus Avium Madelaine Mei Jan 09, 2019 14:20
[2019-01-09 20:00] VITALS: BP 131/73
[2019-01-09] MEDS: FLUoxetine 10 MG CAP PO SCH (20:27)
[2019-01-09] MEDS: **NOTE PATIENT COMMENT** MISC XX SCH (20:34)
[2019-01-10] MEDS: ACETAMINOPHEN TAB 650MG DOSE (2X325MG) PO PRN ×2 (03:50→20:12)
[2019-01-10] MEDS: LEVOTHYROXINE 25MCG TABLET (0.025MG) PO SCH (05:19)
[2019-01-10 09:00] VITALS: BP 131/63
[2019-01-10] MEDS: METAMUCIL (PSYLLIUM) PACKET PO SCH (09:00)
[2019-01-10] MEDS: FERROUS SULFATE 300MG/5ML UDC LIQUID PO SCH (09:00)
[2019-01-10] MEDS: DONEPEZIL 5 MG TAB PO SCH (09:01)
[2019-01-10] MEDS: PANTOPRAZOLE 40MG TAB (PROTONIX) PO SCH (09:01)
[2019-01-10] MEDS: LACTOBACILLUS ACIDOPHILUS CAP (BACID) PO SCH ×3 (09:01→20:11)
[2019-01-10] MEDS: LIDOCAINE 5% (LIDODERM) PATCH TD SCH (09:01)
[2019-01-10] MEDS: LISINOPRIL 5 MG TAB PO SCH (09:01)
[2019-01-10] MEDS: ENOXAPARIN 40 MG/0.4 ML SYRINGE (J1650) SC SCH (09:02)
[2019-01-10] MEDS: BOUDREAUX'S BUTT PASTE 4OZ TOP SCH ×3 (09:03→20:12)
[2019-01-10 14:00] VITALS: BP 143/67
--- NOTE | 2019-01-10 15:15 | REP ---
LIMITED NONVASCULAR RIGHT EXTREMITY ULTRASOUND: HISTORY: Right calf mass. A small cystic area is present in the right lateral calf. This measures 0.7 x 0.6 x 1.3 cm. A small amount of surrounding edema is present. This may represent a hematoma. IMPRESSION: There is a small cystic 1.3 cm area in the lateral right calf that may represent a hematoma. Electronically Signed by Temo Vargas MD 01/10/2019 03:18 P
[2019-01-10 20:00] VITALS: BP 136/63
[2019-01-10] MEDS: **NOTE PATIENT COMMENT** MISC XX SCH (20:12)
[2019-01-10] MEDS: FLUoxetine 10 MG CAP PO SCH (20:12)
[2019-01-11] MEDS: LEVOTHYROXINE 25MCG TABLET (0.025MG) PO SCH (05:37)
[2019-01-11 06:00] VITALS: BP 153/76
[2019-01-11] MEDS: LIDOCAINE 5% (LIDODERM) PATCH TD SCH (09:02)
[2019-01-11] MEDS: PANTOPRAZOLE 40MG TAB (PROTONIX) PO SCH (09:03)
[2019-01-11] MEDS: DONEPEZIL 5 MG TAB PO SCH (09:03)
[2019-01-11] MEDS: LISINOPRIL 5 MG TAB PO SCH (09:03)
[2019-01-11] MEDS: ENOXAPARIN 40 MG/0.4 ML SYRINGE (J1650) SC SCH (09:03)
[2019-01-11] MEDS: ACETAMINOPHEN TAB 650MG DOSE (2X325MG) PO PRN ×2 (09:03→20:35)
[2019-01-11] MEDS: LACTOBACILLUS ACIDOPHILUS CAP (BACID) PO SCH ×3 (09:03→20:29)
[2019-01-11] MEDS: BOUDREAUX'S BUTT PASTE 4OZ TOP SCH ×3 (09:04→20:30)
[2019-01-11 14:00] VITALS: BP 134/63
[2019-01-11 20:00] VITALS: BP 104/56
[2019-01-11] MEDS: **NOTE PATIENT COMMENT** MISC XX SCH (20:30)
[2019-01-11] MEDS: FLUoxetine 10 MG CAP PO SCH (20:30)
[2019-01-12] MEDS: LEVOTHYROXINE 25MCG TABLET (0.025MG) PO SCH (05:30)
[2019-01-12 06:00] VITALS: BP 138/67
[2019-01-12] MEDS: ENOXAPARIN 40 MG/0.4 ML SYRINGE (J1650) SC SCH (08:54)
[2019-01-12] MEDS: LACTOBACILLUS ACIDOPHILUS CAP (BACID) PO SCH ×3 (08:54→20:26)
[2019-01-12] MEDS: LIDOCAINE 5% (LIDODERM) PATCH TD SCH (08:54)
[2019-01-12] MEDS: DONEPEZIL 5 MG TAB PO SCH (08:54)
[2019-01-12] MEDS: PANTOPRAZOLE 40MG TAB (PROTONIX) PO SCH (08:54)
[2019-01-12] MEDS: LISINOPRIL 5 MG TAB PO SCH (08:55)
[2019-01-12] MEDS: BOUDREAUX'S BUTT PASTE 4OZ TOP SCH ×3 (08:55→20:26)
[2019-01-12 14:00] VITALS: BP 134/65
[2019-01-12 20:00] VITALS: BP 125/64
[2019-01-12] MEDS: ACETAMINOPHEN TAB 650MG DOSE (2X325MG) PO PRN (20:25)
[2019-01-12] MEDS: FLUoxetine 10 MG CAP PO SCH (20:26)
[2019-01-12] MEDS: **NOTE PATIENT COMMENT** MISC XX SCH (20:26)
--- NOTE | 2019-01-12 20:42 | IPNPDOC ---
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 REVIEW OF SYSTEMS: The following is a completed review of systems and has been reviewed. Review of systems otherwise unremarkable. PAIN: Patient self reports no pain EYES: Negative for recent vision changes EARS, NOSE, & THROAT: +dysphagia, cervical collar CARDIOVASCULAR: no chest pain or palpitations PULMONARY: Negative. Denies shortness of breath GASTROINTESTINAL: Negative for diarrhea or constipation GENITOURINARY: +incontinence MUSCULOSKELETAL: C2, C3 vertebral fracture NEUROLOGICAL: C2, C3 vertebral fracture, no focal deficit HENE: anemia SKIN: left clavicle stage ulcer with slough, lower truncal abrasions, onychomycosis PSYCHIATRIC: confused All other review of systems found to be negative. PHYSICAL EXAMINATION: VITAL SIGNS: Please see below. GENERAL: Pleasant and cooperative. No acute distress. HEENT: PERRL. Extraocular movements intact. Clear conjunctiva, C-collar in place CARDIOVASCULAR: Regular rate and rhythm. No murmurs, rubs, or gallops. LUNGS: Clear to auscultation bilaterally. No wheezes. No rhonchi ABDOMEN: Soft, nontender, nondistended. Positive bowel sounds. Normal active bowel sounds NEUROLOGICAL: Alert and oriented to self, not place or time Cranial nerves II through XII grossly intact. Sensation grossly intact all 4 extremities, no paresthesias EXTREMITIES: 5\5 strength bilateral upper extremities. 5-\5 strength right lower extremity. 5-/5 strength in left lower extremity. SKIN: left clavicle stage ulcer-healed, multiple lower truncal abrasions, toe onychomycosis, stage one sacral ulcer RUE ecchymosis and edema right lateral calf ecchymosis with mobile soft tissue density ASSESSMENT:83-year-old F with past medical history of falls who presents status postfall with C2-C3 vertebral fracture. PLAN: 1. rehab: PT, OT, [employer], assess for DME, able to tolerate thin liquids with straw, ambulating well, participation in therapy inconsistent often refusing therapy 2. 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 Ortho: s/p C2-C3 fracture, C-collar at all times, needs outpatient follow-up - incidental non-displaced left greater trochanter fracture noted on pelvic imaging, patient denies having pain, case discussed with Dr. Lockett who recommended continue WBAT and no surgical intervention 4. Cardio: stable 5. Resp: recent CTA to rule out PE showed effusions and infiltrates, CXR 12/14/18 showed chronic changes, monitor for any signs of pneumonia, Incentive spirometry- continue Duonebs 6. : s/p treatment E. coli UTI, admission Ucx negatve, monitor PVRs- repeat Ucx positive for Enterococcus Avium with leukocytosis, blood cultures ordered, s/p Amoxicllin 875BID x 5 days, leukocytosis improved, continue without mejia -cystogram and CT pelvis on 01/01/19 negative for fistula, feculent urine resolving since mejia removal 7. DVT ppx: Lovenox, admission Dopplers negative, RUE positive for superficial basilic thrombus, continue Lovenox and monitor 8. GI ppx : protonix, patient with incontinence will add bulking agents, C diff ordered for diarrhea-->negative 9. Pain: Tylenol prn 10. Anemia: FOBT negative for occult blood, loss, iron studies show iron deficiency anemia, continue oral Iron supplements, s/p 1 unit prbcs ordered- however Hgb dropped from 9 to 7.8, s/p Venofer,however hgb 6.9 01/01/19, s/p 2 units rbcs-stable 10. Skin: unstageable left clavicle ulcer- d/c Santyl healed- and stage one sacral ulcer Butt Paste, and truncal abrasions continue Mepilex -RUE extremity swelling with ecchymosis which is improving, +superficial basilic vein DVT, continue Lovenox 11. Ortho: incidental left greater trochanteric fracture ntoed on pelvic CT, discussed with Dr. Lockett, no surgical intervention, WBAT. 11. Dispo: planning discharge to [facility], continues to participate better in therapy with different providers Allergies Coded Allergies: No Known Allergies (Unverified , 12/02/18) Vital Signs Vital Signs Date Time Temp Pulse Resp B/P (MAP) Pulse Ox O2 Delivery O2 Flow Rate FiO2 01/12/19 14:00 97.7 82 20 134/65 (88) 97 Current Medications Current Medications Current Medications Acetaminophen (Tylenol Tab) 650 mg Q4HP PRN PO fever/MILD PAIN (PS 1-4) Last administered on 01/12/19 20:25; Start 12/14/18 at 17:15 Amoxicillin (Amoxicillin) 875 mg BID PO Last administered on 01/05/19 20:26; Start 01/01/19 at 10:00; Stop 01/06/19 at 00:00; Status DC Collagenase (Santyl) apply left clavical DAILY TOP Last administered on 01/07/19 08:17; Start 12/15/18 at 09:00; Stop 01/09/19 at 09:08; Status DC Docusate Sodium (Colace) 100 mg BID PO Last administered on 12/31/18at 20:50; Start 12/17/18 at 09:00; Stop 01/01/19 at 11:54; Status DC Donepezil HCl (AriCEPT) 5 mg DAILY PO Last administered on 01/12/19 08:54; Start 12/17/18 at 09:00 Enoxaparin Sodium (Lovenox) 40 mg DAILY SC Last administered on 01/12/19 08:54; Start 12/15/18 at 09:00 Ferrous Sulfate (Ferrous Sulfate) 300 mg BID PO Last administered on 01/09/19 20:27; Start 12/17/18 at 21:00; Stop 01/10/19 at 14:44; Status DC Ferrous Sulfate (Ferrous Sulfate) 300 mg DAILY PO Last administered on 12/17/18 08:23; Start 12/16/18 at 09:00; Stop 12/17/18 at 13:57; Status DC Fluoxetine HCl (PROzac) 20 mg QHS PO Last administered on 12/26/18 20:33; Start 12/17/18 at 21:00; Stop 12/27/18 at 11:04; Status DC Fluoxetine HCl (PROzac) 30 mg QHS PO Last administered on 01/12/19 20:26; Sta rt 12/27/18 at 21:00 Home Med (Med Rec Complete!) ASDIRECTED XX ; Start 12/14/18 at 16:00; Stop 12/14/18 at 16:00; Status DC Ipratropium [place] (Atrovent 0.02%) 0.25 mg RBID INH Last administered on 12/19/18at 08:06; Start 12/15/18 at 20:00; Stop 12/28/18 at 08:18; Status DC Iron (Venofer) 200 mg ASDIRECTED IV ; Start 12/25/18 at 14:00; Stop 12/25/18 at 14:09; Status DC Iron 200 mg/ Sodium Chloride 110 ml @ 110 mls/hr Q48H IV Last administered on 12/31/18at 16:27; Start 12/25/18 at 16:00; Stop 12/31/18 at 16:41; Status DC Lactobacillus Acidophilus (Bacid) 1 ea TID PO Last administered on 01/12/19at 20:26; Start 12/14/18 at 21:00 Levofloxacin (Levaquin) 250 mg DAILY@06 PO Last administered on 12/15/18at 05:03; Start 12/15/18 at 06:00; Stop 12/15/18 at 14:47; Status DC Levothyroxine Sodium (Synthroid) 25 mcg DAILY@06 PO ; Start 12/20/18 at 06:00; Stop 12/20/18 at 06:00; Status DC Levothyroxine Sodium (Synthroid) 25 mcg DAILY@06 PO Last administered on 01/08/19at 05:17; Start 12/20/18 at 06:00; Stop 01/08/19 at 10:16; Status DC Levothyroxine Sodium (Synthroid) 37.5 mcg DAILY@06 PO Last administered on 01/12/19at 05:30; Start 01/09/19 at 06:00 Levothyroxine Sodium (Synthroid) 75 mcg DAILY@06 PO ; Start 12/17/18 at 06:00; Stop 12/17/18 at 14:23; Status DC Levothyroxine Sodium (Synthroid) 75 mcg DAILY@06 PO Last administered on 12/19/18at 05:46; Start 12/18/18 at 06:00; Stop 12/19/18 at 22:17; Status DC Lidocaine (Lidoderm Patch) 1 patch DAILY TD Last administered on 01/12/19 08:54; Start 12/19/18 at 09:00 Lisinopril (Prinivil) 5 mg DAILY PO Last administered on 01/12/19 08:55; Start 12/27/18 at 11:15 Magnesium Hydroxide (Milk Of Magnesia) 30 ml DAILYPRN PRN PO CONSTIPATION; Start 12/14/18 at 17:15 Magnesium Oxide (Mag-Ox) 400 mg BID PO Last administered on 01/08/19 08:30; Start 01/05/19 at 14:00; Stop 01/08/19 at 13:59; Status DC Miscellaneous (Unresolved Clarification Entry) SEE LABEL COMMENTS DAILY XX ; Start 12/21/18 at 09:00; Stop 12/21/18 at 10:42; Status DC Miscellaneous (Unresolved Clarification Entry) SEE LABEL COMMENTS DAILY XX ; Start 01/07/19 at 09:00; Stop 01/07/19 at 14:11; Status DC Non-Formulary Medication ( See Comment Field Below ) REMOVE LIDODERM PATCH DAILY@21 XX Last administered on 01/12/19 20:26; Start 12/19/18 at 21:00 Pantoprazole Sodium (Protonix) 40 mg DAILY PO Last administered on 01/12/19 08:54; Start 12/15/18 at 09:00 Psyllium Hydrophilic Mucilloid (Metamucil) 1 pkt DAILY PO Last administered on 01/09/19 09:05; Start 01/01/19 at 09:00; Stop 01/10/19 at 14:44; Status DC Zinc Oxide (Boudreauxs Butt Paste) sacrum TID TOP Last administered on 01/12/19 20:26; Start 12/14/18 at 21:00 ARTHUR ARROYO MD Jan 12, 2019 20:42
[2019-01-13] MEDS: LEVOTHYROXINE 25MCG TABLET (0.025MG) PO SCH (05:41)
[2019-01-13] MEDS: ENOXAPARIN 40 MG/0.4 ML SYRINGE (J1650) SC SCH (09:00)
[2019-01-13] MEDS: PANTOPRAZOLE 40MG TAB (PROTONIX) PO SCH (09:32)
[2019-01-13] MEDS: LISINOPRIL 5 MG TAB PO SCH (09:33)
[2019-01-13] MEDS: LACTOBACILLUS ACIDOPHILUS CAP (BACID) PO SCH ×3 (09:33→20:09)
[2019-01-13] MEDS: DONEPEZIL 5 MG TAB PO SCH (09:33)
[2019-01-13] MEDS: ACETAMINOPHEN TAB 650MG DOSE (2X325MG) PO PRN ×3 (09:34→20:09)
[2019-01-13] MEDS: LIDOCAINE 5% (LIDODERM) PATCH TD SCH (09:35)
[2019-01-13] MEDS: BOUDREAUX'S BUTT PASTE 4OZ TOP SCH ×3 (09:36→20:10)
[2019-01-13 14:00] VITALS: BP 131/68
[2019-01-13 20:00] VITALS: BP 144/70
[2019-01-13] MEDS: **NOTE PATIENT COMMENT** MISC XX SCH (20:10)
[2019-01-13] MEDS: FLUoxetine 10 MG CAP PO SCH (20:10)
[2019-01-14] MEDS: LEVOTHYROXINE 25MCG TABLET (0.025MG) PO SCH (05:35)
[2019-01-14 06:00] VITALS: BP 155/73
[2019-01-14 06:29] LABS: BASO % 0.2 % (0.0-1.0); EOS % 0.5 % (0.0-3.0); HEMATOCRIT 32.5 % (36.0-47.0); HEMOGLOBIN 10.3 g/dl (12.0-15.5); LYMPH # 1.4 10^3/uL (1.5-4.5); LYMPH % 34.9 % (24.0-44.0); MEAN CORPUSCULAR HEMOGLOBIN 29.4 pg (27.0-33.0); MEAN CORPUSCULAR HGB CONC 31.7 g/dl (32.0-36.5); MEAN CORPUSCULAR VOLUME 92.9 fl (80.0-96.0); MONO # 1.4 10^3/uL (0.0-0.8); MONO % 35.6 % (0.0-5.0); NEUTROPHILS # 1.1 10^3/uL (1.8-7.7); NEUTROPHILS % 28.1 % (36.0-66.0); PLATELET COUNT, AUTOMATED 190 10^3/uL (150-450)
[2019-01-14 06:51] LABS: BLOOD UREA NITROGEN 15 MG/DL (7-18); CALCIUM LEVEL 8.2 MG/DL (8.8-10.2); CARBON DIOXIDE LEVEL 29 MEQ/L (21-32); CHLORIDE LEVEL 102 MEQ/L (98-107); CREATININE FOR GFR 0.67 MG/DL (0.55-1.30); GLOMERULAR FILTRATION RATE > 60.0 (>32); GLUCOSE, FASTING 89 MG/DL (70-100); POTASSIUM SERUM 3.7 MEQ/L (3.5-5.1); SODIUM LEVEL 138 MEQ/L (136-145)
[2019-01-14] MEDS: BOUDREAUX'S BUTT PASTE 4OZ TOP SCH ×3 (09:00→21:00)
[2019-01-14] MEDS: PANTOPRAZOLE 40MG TAB (PROTONIX) PO SCH (09:43)
[2019-01-14] MEDS: LACTOBACILLUS ACIDOPHILUS CAP (BACID) PO SCH ×3 (09:43→20:06)
[2019-01-14] MEDS: DONEPEZIL 5 MG TAB PO SCH (09:43)
[2019-01-14] MEDS: LISINOPRIL 5 MG TAB PO SCH (09:44)
[2019-01-14] MEDS: LIDOCAINE 5% (LIDODERM) PATCH TD SCH (09:44)
[2019-01-14] MEDS: ENOXAPARIN 40 MG/0.4 ML SYRINGE (J1650) SC SCH (09:44)
[2019-01-14] MEDS: ACETAMINOPHEN TAB 650MG DOSE (2X325MG) PO PRN ×2 (09:44→20:07)
--- NOTE | 2019-01-14 13:01 | IPNPDOC ---
Date Seen The patient was seen on 01/14/19. Progress Note HPI: The patient is an 83-year-old white female who presented to [facility] ED December 02, 2018 due to fall at home. In the ER, she had extensive workups done which demonstrated she had a C2-C3 fracture. She was transferred to [facility] in [place] with further workup indicating urinary retention and E. coli urinary tract infection (UTI) which was treated with IV Zosyn. No surgical intervention recommended, instead she had a neck collar placed. She was transferred to the care of ARU, Dr Ibarra 12/14/18 Pt currently denies any pain. Cervical collar in place. Denies any fevers, chills, Headache, Chest Pain, Shortness of breath, cough, palpitations, abdominal pain, N/V/D or changes in bowel or bladder habits. PMHx: none known PSHX: none known PE: GEN: 83yoF, appears stated age. Thin appearing. Alert and oriented. HEENT: Normocephalic, atraumatic. Sclera are nonicteric. Moist mucous membranes. Cervical collar in place. CHEST: Regular rate and rhythm, +S1, +S2 LUNGS: Clear to auscultation bilaterally. No wheezes, rales, or rhonchi. ABD: Round, soft, non-tender, non-distended. +Bowel sounds throughout. No rebound or guarding. EXT: No lower extremity edema appreciated. SKIN: [place], dry, warm. No rashes. Neuro. Nml speech. Moving UE/LEs. A&P:The patient is an 83-year-old white female who presented to [facility] ED December 02, 2018 due to fall at home. In the ER, she had extensive workups done which demonstrated she had a C2-C3 fracture. She was transferred to [facility] in [place] with further workup indicating urinary retention and E. coli urinary tract infection (UTI) which was treated with IV Zosyn. No surgical intervention recommended, instead she had a neck collar placed. She was transferred to the care of ARUDr Ibarra 12/14/18 C2-C3 Fracture 2/2 Mechanical Fall The patient did not require surgical intervention Mgmt as per ARU PT/OT/ST as per ARU Pain control as per ARU Bowel care as per ARU DVT px. Lovenox as per ARU Disposition as per ARU. Left femur fracture noted on CT abdomen/pelvis 01/01/19. Orthopedics consulted 01/02, no surgical intervention. F/U 2-3 weeks for XR. Normocytic Anemia/Fe def Hgb 10.3 01/14/19 Cont iron supplementation. FOB negative. S/P PRBC x 3 U IV Venofer ordered 12/25/18 x [address] Ibarra. Monitor. RUE swelling. Resolved. No deep vein thrombus is identified. Thrombus was identified in the forearm in a mid basilic vein. This is a superficial vein. Pt remains on Lovenox 40 mg SQ. H/O UTI. Patient is afebrile. leukocytosis resolved. Urine culture 12/30/18 enterococcus avium Blood culture 2 neg. Melendrez was removed 01/02/19, pt requiring straight cath based on bladder scans. CT abdomen/pelvis /Cystogram unremarkable. Pt completed po Amoxicillin 01/06. UA with reflex culture today is pending Hypothyroid Synthroid increased to 37.5 mcg. Repeat TFT's in 4-6 weeks Dementia Continue Donepezil GI Prophylaxis Cont PPI Cont Bacid. VS, I&O, 24H, Fishbone Vital Signs/I&O Vital Signs Date Time Temp Pulse Resp B/P (MAP) Pulse Ox O2 Delivery O2 Flow Rate FiO2 01/14/19 09:44 118/56 01/14/19 06:00 97.5 74 18 98 I&O- Last 24 Hours up to 6 AM 01/14/19 06:00 Intake Total 1440 ml Output Total 1550 ml Balance -110 ml Laboratory Data 24H LABS Laboratory Tests 2 01/14/19 06:07: Immature Granulocyte % (Auto) 0.7, White Blood Count 4.0, Red Blood Count 3.50L, Hemoglobin 10.3L, Hematocrit 32.5L, Mean Corpuscular Volume 92.9, Mean Corpuscular Hemoglobin 29.4, Mean Corpuscular Hemoglobin Concent 31.7L, Red Cell Distribution Width 16.2H, Platelet Count 190, Neutrophils (%) (Auto) 28.1L, Lymphocytes (%) (Auto) 34.9, Monocytes (%) (Auto) 35.6H, Eosinophils (%) (Auto) 0.5, Basophils (%) (Auto) 0.2, Neutrophils # (Auto) 1.1L, Lymphocytes # (Auto) 1.4L, Monocytes # (Auto) 1.4H, Eosinophils # (Auto) 0.0, Basophils # (Auto) 0.0, Nucleated Red Blood Cells % (auto) 0.0, Anion Gap 7L, Glomerular Filtration Rate > 60.0, Blood Urea Nitrogen 15, Creatinine 0.67, Sodium Level 138, Potassium Level 3.7, Chloride Level 102, Carbon Dioxide Level 29, Calcium Level 8.2L 01/14/19 10:30: Urine Color YELLOW, Urine Appearance CLOUDYH, Urine pH 6.0, Urine Specific [place] 1.011, Urine Protein NEGATIVE, Urine Glucose (UA) NEGATIVE, Urine Ketones NEGATIVE, Urine Blood NEGATIVE, Urine Nitrite NEGATIVE, Urine Bilirubin NEGATIVE, Urine Urobilinogen 0.2, Urine Leukocyte Esterase 2+H, Urine WBC (Auto) 40H, Urine RBC (Auto) 5H, Urine Hyaline Casts (Auto) 0, Urine Bacteria (Auto) 3+H, Urine Squamous Epithelial Cells 0, Urine Mucus (Auto) SMALL, Urine Sperm (Auto) CBC/BMP Laboratory Tests 01/14/19 06:07 Red Blood Count 3.50 L, Mean Corpuscular Volume 92.9, Mean Corpuscular Hemoglobin 29.4, Mean Corpuscular Hemoglobin Concent 31.7 L, Red Cell Distribution Width 16.2 H, Neutrophils (%) (Auto) 28.1 L, Lymphocytes (%) (Auto) 34.9, Monocytes (%) (Auto) 35.6 H, Eosinophils (%) (Auto) 0.5, Basophils (%) (Auto) 0.2, Neutrophils # (Auto) 1.1 L, Lymphocytes # (Auto) 1.4 L, Monocytes # (Auto) 1.4 H, Eosinophils # (Auto) 0.0, Basophils # (Auto) 0.0, Calcium Level 8.2 L Microbiology Microbiology 01/14/19 Urine Culture, Received Pending Madelaine Mei Jan 14, 2019 13:01
[2019-01-14 14:00] VITALS: BP 135/70
[2019-01-14 20:00] VITALS: BP 148/66
[2019-01-14] MEDS: FLUoxetine 10 MG CAP PO SCH (20:06)
[2019-01-14] MEDS: **NOTE PATIENT COMMENT** MISC XX SCH (21:00)
[2019-01-15] MEDS: LEVOTHYROXINE 25MCG TABLET (0.025MG) PO SCH (05:56)
[2019-01-15 06:00] VITALS: BP 152/74
[2019-01-15] MEDS: DONEPEZIL 5 MG TAB PO SCH (08:40)
[2019-01-15] MEDS: LACTOBACILLUS ACIDOPHILUS CAP (BACID) PO SCH ×3 (08:41→20:55)
[2019-01-15] MEDS: ENOXAPARIN 40 MG/0.4 ML SYRINGE (J1650) SC SCH (08:41)
[2019-01-15] MEDS: LISINOPRIL 5 MG TAB PO SCH (08:41)
[2019-01-15] MEDS: PANTOPRAZOLE 40MG TAB (PROTONIX) PO SCH (08:41)
[2019-01-15] MEDS: BOUDREAUX'S BUTT PASTE 4OZ TOP SCH ×3 (08:41→20:55)
[2019-01-15] MEDS: LIDOCAINE 5% (LIDODERM) PATCH TD SCH (09:00)
--- NOTE | 2019-01-15 13:23 | IPNPDOC ---
Date Seen The patient was seen on 01/15/19. Progress Note HPI: The patient is an 83-year-old white female who presented to [facility] ED December 02, 2018 due to fall at home. In the ER, she had extensive workups done which demonstrated she had a C2-C3 fracture. She was transferred to [facility] in [place] with further workup indicating urinary retention and E. coli urinary tract infection (UTI) which was treated with IV Zosyn. No surgical intervention recommended, instead she had a neck collar placed. She was transferred to the care of ARU, Dr Ibarra 12/14/18 Pt currently denies any pain. Cervical collar in place. Pt is OOB to chair. Denies any fevers, chills, Headache, Chest Pain, Shortness of breath, cough, palpitations, abdominal pain, N/V/D or changes in bowel or bladder habits. PMHx: none known PSHX: none known PE: GEN: 83yoF, appears stated age. Thin appearing.. HEENT: Normocephalic, atraumatic. Sclera are nonicteric. Moist mucous membranes. Cervical collar in place. CHEST: Regular rate and rhythm, +S1, +S2 LUNGS: Clear to auscultation bilaterally. No wheezes, rales, or rhonchi. ABD: Round, soft, non-tender, non-distended. +Bowel sounds throughout. No rebound or guarding. EXT: No lower extremity edema appreciated. SKIN: [place], dry, warm. No rashes. Neuro. Nml speech. Moving UE/LEs. A&P:The patient is an 83-year-old white female who presented to [facility] ED December 02, 2018 due to fall at home. In the ER, she had extensive workups done which demonstrated she had a C2-C3 fracture. She was transferred to [facility] in [place] with further workup indicating urinary retention and E. coli urinary tract infection (UTI) which was treated with IV Zosyn. No surgical intervention recommended, instead she had a neck collar placed. She was transferred to the care of ARUDr Ibarra 12/14/18 C2-C3 Fracture 2/2 Mechanical Fall The patient did not require surgical intervention Mgmt as per ARU PT/OT/ST as per ARU Pain control as per ARU Bowel care as per ARU DVT px. Lovenox as per ARU Disposition as per ARU. Left femur fracture noted on CT abdomen/pelvis 01/01/19. Orthopedics consulted 01/02, no surgical intervention. F/U 2-3 weeks for XR. Normocytic Anemia/Fe def Hgb 10.3 01/14/19 Cont iron supplementation. FOB negative. S/P PRBC x 3 U IV Venofer ordered 12/25/18 x [address] Ibarra. Monitor. RUE swelling. Resolved. No deep vein thrombus is identified. Thrombus was identified in the forearm in a mid basilic vein. This is a superficial vein. Pt remains on Lovenox 40 mg SQ. H/O UTI. Patient is afebrile. No leukocytosis. Urine culture 12/30/18 enterococcus avium Blood culture 2 neg. Melendrez was removed 01/02/19, pt requiring straight cath based on bladder scans. CT abdomen/pelvis /Cystogram unremarkable. Pt completed po Amoxicillin 01/06. UC 01/14/19 is pending. Hypothyroid Synthroid increased to 37.5 mcg. Repeat TFT's in 4-6 weeks Dementia Continue Donepezil GI Prophylaxis Cont PPI Cont Bacid. VS, I&O, 24H, Fishbone Vital Signs/I&O Vital Signs Date Time Temp Pulse Resp B/P (MAP) Pulse Ox O2 Delivery O2 Flow Rate FiO2 01/15/19 08:41 155/76 01/15/19 06:00 96.5 80 18 98 I&O- Last 24 Hours up to 6 AM 01/15/19 05:59 Intake Total 420 ml Output Total 1200 ml Balance -780 ml Laboratory Data Microbiology Microbiology 01/14/19 Urine Culture, Received Pending Madelaine Mei Jan 15, 2019 13:23
[2019-01-15 14:00] VITALS: BP 126/67
--- NOTE | 2019-01-15 16:52 | IPNPDOC ---
PM&R Progress Note DATE OF SERVICE: Jan 15, 2019 Intermediate Project Manager Progress Note Subjective: Patient asked to go to the bathroom today and was able to void without needing IC. REVIEW OF SYSTEMS: The following is a completed review of systems and has been reviewed. Review of systems otherwise unremarkable. PAIN: Patient self reports no pain EYES: Negative for recent vision changes EARS, NOSE, & THROAT: +dysphagia, cervical collar CARDIOVASCULAR: no chest pain or palpitations PULMONARY: Negative. Denies shortness of breath GASTROINTESTINAL: Negative for diarrhea or constipation GENITOURINARY: +incontinence MUSCULOSKELETAL: C2, C3 vertebral fracture NEUROLOGICAL: C2, C3 vertebral fracture, no focal deficit HENE: anemia SKIN: left clavicle stage ulcer with slough, lower truncal abrasions, onychomycosis PSYCHIATRIC: confused All other review of systems found to be negative. PHYSICAL EXAMINATION: VITAL SIGNS: Please see below. GENERAL: Pleasant and cooperative. No acute distress. HEENT: PERRL. Extraocular movements intact. Clear conjunctiva, C-collar in place CARDIOVASCULAR: Regular rate and rhythm. No murmurs, rubs, or gallops. LUNGS: Clear to auscultation bilaterally. No wheezes. No rhonchi ABDOMEN: Soft, nontender, nondistended. Positive bowel sounds. Normal active bowel sounds NEUROLOGICAL: Alert and oriented to self, not place or time Cranial nerves II through XII grossly intact. Sensation grossly intact all 4 extremities, no paresthesias EXTREMITIES: 5\5 strength bilateral upper extremities. 5-\5 strength right lower extremity. 5-/5 strength in left lower extremity. SKIN: left clavicle stage ulcer-healed, multiple lower truncal abrasions, toe onychomycosis, stage one sacral ulcer RUE ecchymosis and edema right lateral calf ecchymosis with mobile soft tissue density ASSESSMENT:83-year-old F with past medical history of falls who presents status postfall with C2-C3 vertebral fracture. PLAN: 1. rehab: PT, OT, [employer], assess for DME, able to tolerate thin liquids with straw, ambulating well, participation in therapy inconsistent often refusing therapy 2. 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 Ortho: s/p C2-C3 fracture, C-collar at all times, needs outpatient follow-up - incidental non-displaced left greater trochanter fracture noted on pelvic imaging, patient denies having pain, case discussed with Dr. Lockett who recommended continue WBAT and no surgical intervention 4. Cardio: stable 5. Resp: recent CTA to rule out PE showed effusions and infiltrates, CXR 12/14/18 showed chronic changes, monitor for any signs of pneumonia, Incentive spirometry- continue Duonebs 6. : s/p treatment E. coli UTI, admission Ucx negatve, monitor PVRs- repeat Ucx positive for Enterococcus Avium with leukocytosis, blood cultures ordered, s/p Amoxicllin 875BID x 5 days, leukocytosis improved, continue without mejia -cystogram and CT pelvis on 01/01/19 negative for fistula, feculent urine resolving since mejia removal 7. DVT ppx: Lovenox, admission Dopplers negative, RUE positive for superficial basilic thrombus, continue Lovenox and monitor 8. GI ppx : protonix, patient with incontinence will add bulking agents, C diff ordered for diarrhea-->negative 9. Pain: Tylenol prn 10. Anemia: FOBT negative for occult blood, loss, iron studies show iron deficiency anemia, continue oral Iron supplements, s/p 1 unit prbcs ordered- however Hgb dropped from 9 to 7.8, s/p Venofer,however hgb 6.9 01/01/19, s/p 2 units rbcs-stable 10. Skin: unstageable left clavicle ulcer- d/c Santyl healed- and stage one sacral ulcer Butt Paste, and truncal abrasions continue Mepilex -RUE extremity swelling with ecchymosis which is improving, +superficial basilic vein DVT, continue Lovenox 11. Ortho: incidental left greater trochanteric fracture noted on pelvic CT, discussed with Dr. Lockett, no surgical intervention, WBAT. 11. Dispo: planning discharge to [facility], continues to participate better in therapy with different providers Allergies Coded Allergies: No Known Allergies (Unverified , 12/02/18) Vital Signs Vital Signs Date Time Temp Pulse Resp B/P (MAP) Pulse Ox O2 Delivery O2 Flow Rate FiO2 01/15/19 14:00 96.4 86 21 126/67 (86) 100 Microbiology Microbiology 01/14/19 Urine Culture, Received Pending Current Medications Current Medications Current Medications Acetaminophen (Tylenol Tab) 650 mg Q4HP PRN PO fever/MILD PAIN (PS 1-4) Last administered on 01/14/19 20:07; Start 12/14/18 at 17:15 Amoxicillin (Amoxicillin) 875 mg BID PO Last administered on 01/05/19 20:26; Start 01/01/19 at 10:00; Stop 01/06/19 at 00:00; Status DC Collagenase (Santyl) apply left clavical DAILY TOP Last administered on 01/07/19 08:17; Start 12/15/18 at 09:00; Stop 01/09/19 at 09:08; Status DC Docusate Sodium (Colace) 100 mg BID PO Last administered on 12/31/18 20:50; Start 12/17/18 at 09:00; Stop 01/01/19 at 11:54; Status DC Donepezil HCl (AriCEPT) 5 mg DAILY PO Last administered on 01/15/19 08:40; Start 12/17/18 at 09:00 Enoxaparin Sodium (Lovenox) 40 mg DAILY SC Last administered on 01/15/19 08:41; Start 12/15/18 at 09:00 Ferrous Sulfate (Ferrous Sulfate) 300 mg BID PO Last administered on 01/09/19 20:27; Start 12/17/18 at 21:00; Stop 01/10/19 at 14:44; Status DC Ferrous Sulfate (Ferrous Sulfate) 300 mg DAILY PO Last administered on 12/17/18 08:23; Start 12/16/18 at 09:00; Stop 12/17/18 at 13:57; Status DC Fluoxetine HCl (PROzac) 20 mg QHS PO Last administered on 12/26/18 20:33; Start 12/17/18 at 21:00; Stop 12/27/18 at 11:04; Status DC Fluoxetine HCl (PROzac) 30 mg QHS PO Last administered on 2/25/19at 20:06; Start 12/27/18 at 21:00 Home Med (Med Rec Complete!) ASDIRECTED XX ; Start 12/14/18 at 16:00; Stop 12/14/18 at 16:00; Status DC Ipratropium [place] (Atrovent 0.02%) 0.25 mg RBID INH Last administered on 12/19/18at 08:06; Start 12/15/18 at 20:00; Stop 12/28/18 at 08:18; Status DC Iron (Venofer) 200 mg ASDIRECTED IV ; Start 12/25/18 at 14:00; Stop 12/25/18 at 14:09; Status DC Iron 200 mg/ Sodium Chloride 110 ml @ 110 mls/hr Q48H IV Last administered on 12/31/18at 16:27; Start 12/25/18 at 16:00; Stop 12/31/18 at 16:41; Status DC Lactobacillus Acidophilus (Bacid) 1 ea TID PO Last administered on 01/15/19at 08:41; Start 12/14/18 at 21:00 Levofloxacin (Levaquin) 250 mg DAILY@06 PO Last administered on 12/15/18at 05:03; Start 12/15/18 at 06:00; Stop 12/15/18 at 14:47; Status DC Levothyroxine Sodium (Synthroid) 25 mcg DAILY@06 PO ; Start 12/20/18 at 06:00; Stop 12/20/18 at 06:00; Status DC Levothyroxine Sodium (Synthroid) 25 mcg DAILY@06 PO Last administered on 01/08/19at 05:17; Start 12/20/18 at 06:00; Stop 01/08/19 at 10:16; Status DC Levothyroxine Sodium (Synthroid) 37.5 mcg DAILY@06 PO Last administered on 01/15/19at 05:56; Start 01/09/19 at 06:00 Levothyroxine Sodium (Synthroid) 75 mcg DAILY@06 PO ; Start 12/17/18 at 06:00; Stop 12/17/18 at 14:23; Status DC Levothyroxine Sodium (Synthroid) 75 mcg DAILY@06 PO Last administered on 12/19/18at 05:46; Start 12/18/18 at 06:00; Stop 12/19/18 at 22:17; Status DC Lidocaine (Lidoderm Patch) 1 patch DAILY TD Last administered on 01/15/19at 09:00; Start 12/19/18 at 09:00 Lisinopril (Prinivil) 5 mg DAILY PO Last administered on 01/15/19at 08:41; Start 12/27/18 at 11:15 Magnesium Hydroxide (Milk Of Magnesia) 30 ml DAILYPRN PRN PO CONSTIPATION; Start 12/14/18 at 17:15 Magnesium Oxide (Mag-Ox) 400 mg BID PO Last administered on 01/08/19at 08:30; Start 01/05/19 at 14:00; Stop 01/08/19 at 13:59; Status DC Miscellaneous (Unresolved Clarification Entry) SEE LABEL COMMENTS DAILY XX ; Start 12/21/18 at 09:00; Stop 12/21/18 at 10:42; Status DC Miscellaneous (Unresolved Clarification Entry) SEE LABEL COMMENTS DAILY XX ; Start 01/07/19 at 09:00; Stop 01/07/19 at 14:11; Status DC Miscellaneous (Unresolved Clarification Entry) SEE LABEL COMMENTS DAILY XX ; Start 01/13/19 at 09:00; Stop 01/13/19 at 12:25; Status DC Non-Formulary Medication ( See Comment Field Below ) REMOVE LIDODERM PATCH DAILY@21 XX Last administered on 01/14/19at 21:00; Start 12/19/18 at 21:00 Pantoprazole Sodium (Protonix) 40 mg DAILY PO Last administered on 01/15/19at 08:41; Start 12/15/18 at 09:00 Psyllium Hydrophilic Mucilloid (Metamucil) 1 pkt DAILY PO Last administered on 01/09/19at 09:05; Start 01/01/19 at 09:00; Stop 01/10/19 at 14:44; Status DC Zinc Oxide (Boudreauxs Butt Paste) sacrum TID TOP Last administered on 01/15/19at 16:00; Start 12/14/18 at 21:00 ARTHUR ARROYO MD Jan 15, 2019 16:52
--- NOTE | 2019-01-15 16:52 | IPNPDOC ---
PM&R Progress Note DATE OF SERVICE: Jan 14, 2019 Creative Director Progress Note Subjective: Patient seen walking in therapy, denies having pain. REVIEW OF SYSTEMS: The following is a completed review of systems and has been reviewed. Review of systems otherwise unremarkable. PAIN: Patient self reports no pain EYES: Negative for recent vision changes EARS, NOSE, & THROAT: +dysphagia, cervical collar CARDIOVASCULAR: no chest pain or palpitations PULMONARY: Negative. Denies shortness of breath GASTROINTESTINAL: Negative for diarrhea or constipation GENITOURINARY: +incontinence MUSCULOSKELETAL: C2, C3 vertebral fracture NEUROLOGICAL: C2, C3 vertebral fracture, no focal deficit HENE: anemia SKIN: left clavicle stage ulcer with slough, lower truncal abrasions, onychomycosis PSYCHIATRIC: confused All other review of systems found to be negative. PHYSICAL EXAMINATION: VITAL SIGNS: Please see below. GENERAL: Pleasant and cooperative. No acute distress. HEENT: PERRL. Extraocular movements intact. Clear conjunctiva, C-collar in place CARDIOVASCULAR: Regular rate and rhythm. No murmurs, rubs, or gallops. LUNGS: Clear to auscultation bilaterally. No wheezes. No rhonchi ABDOMEN: Soft, nontender, nondistended. Positive bowel sounds. Normal active bowel sounds NEUROLOGICAL: Alert and oriented to self, not place or time Cranial nerves II through XII grossly intact. Sensation grossly intact all 4 extremities, no paresthesias EXTREMITIES: 5\5 strength bilateral upper extremities. 5-\5 strength right lower extremity. 5-/5 strength in left lower extremity. SKIN: left clavicle stage ulcer-healed, multiple lower truncal abrasions, toe onychomycosis, stage one sacral ulcer RUE ecchymosis and edema right lateral calf ecchymosis with mobile soft tissue density ASSESSMENT:83-year-old F with past medical history of falls who presents status postfall with C2-C3 vertebral fracture. PLAN: 1. 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 Ortho: s/p C2-C3 fracture, C-collar at all times, needs outpatient follow-up - incidental non-displaced left greater trochanter fracture noted on pelvic imag ing, patient denies having pain, case discussed with Dr. Lockett who recommended continue WBAT and no surgical intervention 4. Cardio: stable 5. Resp: recent CTA to rule out PE showed effusions and infiltrates, CXR 12/14/18 showed chronic changes, monitor for any signs of pneumonia, Incentive spirometry- continue Duonebs 6. : s/p treatment E. coli UTI, admission Ucx negatve, monitor PVRs- repeat Ucx positive for Enterococcus Avium with leukocytosis, blood cultures ordered, s/p Amoxicllin 875BID x 5 days, leukocytosis improved, continue without mejia -cystogram and CT pelvis on 01/01/19 negative for fistula, feculent urine resolving since mejia removal 7. DVT ppx: Lovenox, admission Dopplers negative, RUE positive for superficial basilic thrombus, continue Lovenox and monitor 8. GI ppx : protonix, patient with incontinence will add bulking agents, C diff ordered for diarrhea-->negative 9. Pain: Tylenol prn 10. Anemia: FOBT negative for occult blood, loss, iron studies show iron deficiency anemia, continue oral Iron supplements, s/p 1 unit prbcs ordered- however Hgb dropped from 9 to 7.8, s/p Venofer,however hgb 6.9 01/01/19, s/p 2 units rbcs-stable 10. Skin: unstageable left clavicle ulcer- d/c Santyl healed- and stage one s acral ulcer Butt Paste, and truncal abrasions continue Mepilex -RUE extremity swelling with ecchymosis which is improving, +superficial basilic vein DVT, continue Lovenox 11. Ortho: incidental left greater trochanteric fracture noted on pelvic CT, discussed with Dr. Lockett, no surgical intervention, WBAT. 11. Dispo: planning discharge to [facility], continues to participate better in therapy with different providers Allergies Coded Allergies: No Known Allergies (Unverified , 12/02/18) Vital Signs Vital Signs Date Time Temp Pulse Resp B/P (MAP) Pulse Ox O2 Delivery O2 Flow Rate FiO2 01/15/19 14:00 96.4 86 21 126/67 (86) 100 Microbiology Microbiology 01/14/19 Urine Culture, Received Pending Current Medications Current Medications Current Medications Acetaminophen (Tylenol Tab) 650 mg Q4HP PRN PO fever/MILD PAIN (PS 1-4) Last administered on 01/14/19 20:07; Start 12/14/18 at 17:15 Amoxicillin (Amoxicillin) 875 mg BID PO Last administered on 01/05/19 20:26; Start 01/01/19 at 10:00; Stop 01/06/19 at 00:00; Status DC Collagenase (Santyl) apply left clavical DAILY TOP Last administered on 01/07/19 08:17; Start 12/15/18 at 09:00; Stop 01/09/19 at 09:08; Status DC Docusate Sodium (Colace) 100 mg BID PO Last administered on 12/31/18at 20:50; Start 12/17/18 at 09:00; Stop 01/01/19 at 11:54; Status DC Donepezil HCl (AriCEPT) 5 mg DAILY PO Last administered on 01/15/19 08:40; Start 12/17/18 at 09:00 Enoxaparin Sodium (Lovenox) 40 mg DAILY SC Last administered on 01/15/19 08:41; Start 12/15/18 at 09:00 Ferrous Sulfate (Ferrous Sulfate) 300 mg BID PO Last administered on 01/09/19 20:27; Start 12/17/18 at 21:00; Stop 01/10/19 at 14:44; Status DC Ferrous Sulfate (Ferrous Sulfate) 300 mg DAILY PO Last administered on 12/17/18 08:23; Start 12/16/18 at 09:00; Stop 12/17/18 at 13:57; Status DC Fluoxetine HCl (PROzac) 20 mg QHS PO Last administered on 12/26/18at 20:33; Start 12/17/18 at 21:00; Stop 12/27/18 at 11:04; Status DC Fluoxetine HCl (PROzac) 30 mg QHS PO Last administered on 01/14/19at 20:06; Start 12/27/18 at 21:00 Home Med (Med Rec Complete!) ASDIRECTED XX ; Start 12/14/18 at 16:00; Stop 12/14/18 at 16:00; Status DC Ipratropium [place] (Atrovent 0.02%) 0.25 mg RBID INH Last administered on 12/19/18at 08:06; Start 12/15/18 at 20:00; Stop 12/28/18 at 08:18; Status DC Iron (Venofer) 200 mg ASDIRECTED IV ; Start 12/25/18 at 14:00; Stop 12/25/18 at 14:09; Status DC Iron 200 mg/ Sodium Chloride 110 ml @ 110 mls/hr Q48H IV Last administered on 12/31/18at 16:27; Start 12/25/18 at 16:00; Stop 12/31/18 at 16:41; Status DC Lactobacillus Acidophilus (Bacid) 1 ea TID PO Last administered on 01/15/19at 08:41; Start 12/14/18 at 21:00 Levofloxacin (Levaquin) 250 mg DAILY@06 PO Last administered on 12/15/18at 05:03; Start 12/15/18 at 06:00; Stop 12/15/18 at 14:47; Status DC Levothyroxine Sodium (Synthroid) 25 mcg DAILY@06 PO ; Start 12/20/18 at 06:00; Stop 12/20/18 at 06:00; Status DC Levothyroxine Sodium (Synthroid) 25 mcg DAILY@06 PO Last administered on 01/08/19at 05:17; Start 12/20/18 at 06:00; Stop 01/08/19 at 10:16; Status DC Levothyroxine Sodium (Synthroid) 37.5 mcg DAILY@06 PO Last administered on 01/15/19at 05:56; Start 01/09/19 at 06:00 Levothyroxine Sodium (Synthroid) 75 mcg DAILY@06 PO ; Start 12/17/18 at 06:00; Stop 12/17/18 at 14:23; Status DC Levothyroxine Sodium (Synthroid) 75 mcg DAILY@06 PO Last administered on 12/19/18at 05:46; Start 12/18/18 at 06:00; Stop 12/19/18 at 22:17; Status DC Lidocaine (Lidoderm Patch) 1 patch DAILY TD Last administered on 01/15/19 09:00; Start 12/19/18 at 09:00 Lisinopril (Prinivil) 5 mg DAILY PO Last administered on 01/15/19at 08:41; Start 12/27/18 at 11:15 Magnesium Hydroxide (Milk Of Magnesia) 30 ml DAILYPRN PRN PO CONSTIPATION; Start 12/14/18 at 17:15 Magnesium Oxide (Mag-Ox) 400 mg BID PO Last administered on 01/08/19at 08:30; Start 01/05/19 at 14:00; Stop 01/08/19 at 13:59; Status DC Miscellaneous (Unresolved Clarification Entry) SEE LABEL COMMENTS DAILY XX ; Start 12/21/18 at 09:00; Stop 12/21/18 at 10:42; Status DC Miscellaneous (Unresolved Clarification Entry) SEE LABEL COMMENTS DAILY XX ; Start 01/07/19 at 09:00; Stop 01/07/19 at 14:11; Status DC Miscellaneous (Unresolved Clarification Entry) SEE LABEL COMMENTS DAILY XX ; Start 01/13/19 at 09:00; Stop 01/13/19 at 12:25; Status DC Non-Formulary Medication ( See Comment Field Below ) REMOVE LIDODERM PATCH DAILY@21 XX Last administered on 01/14/19at 21:00; Start 12/19/18 at 21:00 Pantoprazole Sodium (Protonix) 40 mg DAILY PO Last administered on 01/15/19at 08:41; Start 12/15/18 at 09:00 Psyllium Hydrophilic Mucilloid (Metamucil) 1 pkt DAILY PO Last administered on 01/09/19at 09:05; Start 01/01/19 at 09:00; Stop 01/10/19 at 14:44; Status DC Zinc Oxide (Boudreauxs Butt Paste) sacrum TID TOP Last administered on 01/15/19at 16:00; Start 12/14/18 at 21:00 ARTHUR ARROYO MD Jan 15, 2019 16:52
[2019-01-15 20:00] VITALS: BP 129/69
[2019-01-15] MEDS: FLUoxetine 10 MG CAP PO SCH (20:54)
[2019-01-15] MEDS: ACETAMINOPHEN TAB 650MG DOSE (2X325MG) PO PRN (20:55)
[2019-01-15] MEDS: **NOTE PATIENT COMMENT** MISC XX SCH (20:55)
[2019-01-16 06:00] VITALS: BP 153/76
[2019-01-16] MEDS: LEVOTHYROXINE 25MCG TABLET (0.025MG) PO SCH (06:25)
[2019-01-16] MEDS: PANTOPRAZOLE 40MG TAB (PROTONIX) PO SCH (08:33)
[2019-01-16 08:34] VITALS: BP 153/76
[2019-01-16] MEDS: ENOXAPARIN 40 MG/0.4 ML SYRINGE (J1650) SC SCH (08:34)
[2019-01-16] MEDS: DONEPEZIL 5 MG TAB PO SCH (08:34)
[2019-01-16] MEDS: LIDOCAINE 5% (LIDODERM) PATCH TD SCH (08:34)
[2019-01-16] MEDS: LACTOBACILLUS ACIDOPHILUS CAP (BACID) PO SCH (08:34)
[2019-01-16] MEDS: ACETAMINOPHEN TAB 650MG DOSE (2X325MG) PO PRN ×2 (08:34→13:01)
[2019-01-16] MEDS: LISINOPRIL 5 MG TAB PO SCH (08:34)
[2019-01-16] MEDS: BOUDREAUX'S BUTT PASTE 4OZ TOP SCH (08:35)
[2019-01-16] MEDS ORDERED: LISI-542 PO (11:35)
[2019-01-16] MEDS ORDERED: LEVO25TA5 PO (11:35)
[2019-01-16] MEDS ORDERED: PANT40TA3 PO (11:35)
[2019-01-16] MEDS ORDERED: RISATAB3 PO (11:35)
[2019-01-16] MEDS ORDERED: ARIC1TAB PO (11:35)
[2019-01-16] MEDS ORDERED: PROZ10CA7 PO (11:35)
[2019-01-16] MEDS ORDERED: BOUDPST TOP (11:35)
[2019-01-16] MEDS ORDERED: Acetaminophen Tab PO (11:35)
[2019-01-16] MEDS ORDERED: LOVE1INJ SC (11:35)
--- NOTE | 2019-02-07 20:48 | PMRDS ---
DATE OF ADMISSION: 12/14/2018 DATE OF DISCHARGE: 01/16/2019 CHIEF COMPLAINT/DISCHARGE DIAGNOSES: Cervical neck fracture. HISTORY OF PRESENT ILLNESS: This is an 83-year-old female with no past medical history presented to [facility] ED on 12/02/2018 following a fall out of bed and found to have a cervical fracture. CT neck at the time revealed "coronal plane bilateral pedicle and posterior body C2 fracture, slightly diastatic...anterior wedge compression fracture through the body of C3. Unstable injury". She was transferred to [facility] for further evaluation where she was not deemed a surgical candidate and placed in a cervical collar to be worn at all times. She did have an elevated CK and troponins but cardiac workup was otherwise normal and she was treated with IVF. 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 Later an addendum was added "At the site of the fracture of C2 level no distinct right vertebral artery dissection identified". She was found to have leukocytosis and urine culture was positive for Escherichia (E.) coli and so she was treated with IV antibiotics and transferred to [facility]. On 12/14/2018, there was concern for pulmonary embolism (PE) as patient became tachycardic, however, CTA showed "no pulmonary embolism....bilateral pleural effusions.....opacities in bilateral lower lobes may represent atelectasis or pneumonia. She developed a left clavicle wound due to her C-collar, found to have deficit in gait and activities of daily living (ADLs), placed on a dysphagia diet. Had Melendrez inserted for urinary retention. Deemed medically appropriate for discharge to ARU on 12/14/2018. PAST MEDICAL HISTORY: Falls. HOSPITAL COURSE: Patient was admitted and enrolled in comprehensive physical therapy (PT)/occupational therapy (OT) program. She received 24 hour nursing supervision and weekly team meetings were held to discuss her progress. For her C2-C3 fracture she was maintained in her cervical collar with no worsening in her strength or sensation. Patient was found to have elevated TSH and low free T4. 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 Patient was also started on donepezil for her dementia. Patient was treated for E. coli urinary tract infection and had significant urinary retention requiring Melendrez. Repeat urine culture was positive for Enterococcus avium for which she was started on amoxicillin and later Melendrez was removed which required intermittent catheterization for continued urinary retention. She had cystogram and CT of pelvis done on 01/01/2019 out of concern for a fistula, however, this was normal and an incidental left greater trochanteric fracture was noted on pelvic imaging for which Dr. Gupta was consulted, made patient weightbearing as tolerated with no surgical intervention recommended. Patient was given oral iron for her iron deficiency anemia and 1 unit of blood times one and later she received 2 units for a continued drop in hemoglobin. Fecal occult blood test was negative for occult blood. Overall, patient gradually improved with episodes of resistance to performing in therapy, however, she was able to complete her hospital rehabilitation course. She was deemed functionally and medically stable to be transferred to subacute rehabilitation. DISCHARGE MEDICATIONS: - Tylenol - Aricept - Lovenox - fluoxetine - Synthroid - lisinopril - Protonix - probiotics - zinc oxide FUNCTIONAL HISTORY UPON DISCHARGE: Patient was able to ambulate 25 feet, minimal-assist and with maximum-assist for functional transfers.
== END 2019-01-16 13:35 | DRG 560 ==
LOC: M PM&R 12-14 15:20
PROVIDERS: ADMIT Physical Medicine & Rehabilitation; ATTEND Physical Medicine & Rehabilitation
PROC: 30233N1 Transfusion of Nonautologous Red Blood Cells into Peripheral Vein, Percutaneous Approach (ICD-10-PCS; principal; 2018-12-18)
DX: S12.100D Unspecified displaced fracture of second cervical vertebra, subsequent encounter for fracture with routine healing (principal); N39.0 Urinary tract infection, site not specified; S12.200D Unspecified displaced fracture of third cervical vertebra, subsequent encounter for fracture with routine healing; R13.10 Dysphagia, unspecified; L89.151 Pressure ulcer of sacral region, stage 1; F03.90 Unspecified dementia, unspecified severity, without behavioral disturbance, psychotic disturbance, mood disturbance, and anxiety; D50.9 Iron deficiency anemia, unspecified; D72.829 Elevated white blood cell count, unspecified; R31.9 Hematuria, unspecified; E03.9 Hypothyroidism, unspecified; F32.9 Major depressive disorder, single episode, unspecified; K21.9 Gastro-esophageal reflux disease without esophagitis; B96.29 Other Escherichia coli [E. coli] as the cause of diseases classified elsewhere; S72.102D Unspecified trochanteric fracture of left femur, subsequent encounter for closed fracture with routine healing; W18.30XD Fall on same level, unspecified, subsequent encounter; Y92.009 Unspecified place in unspecified non-institutional (private) residence as the place of occurrence of the external cause

== ENCOUNTER → 2019-01-21 | Outpatient (REF) ==
[~2019-01-21] MED LIST changes: +ACET1TAB55 PO; +ARIC1TAB PO; +Acetaminophen Tab PO; +BOUDPST TOP; +LEVO25TA5 PO; +LEVO500T3 PO; +LISI-542 PO; +LOVE1INJ SC; +PANT40TA3 PO; +PROZ10CA7 PO; +RISATAB3 PO
[2019-01-21 09:02] LABS: HEMATOCRIT 35.4 % (36.0-47.0); HEMOGLOBIN 11.5 g/dl (12.0-15.5); MEAN CORPUSCULAR HEMOGLOBIN 29.3 pg (27.0-33.0); MEAN CORPUSCULAR HGB CONC 32.5 g/dl (32.0-36.5); MEAN CORPUSCULAR VOLUME 90.1 fl (80.0-96.0); PLATELET COUNT, AUTOMATED 155 10^3/uL (150-450); RED BLOOD COUNT 3.93 10^6/uL (4.00-5.40); WHITE BLOOD COUNT 4.5 10^3/uL (4.0-10.0)
[2019-01-21 09:31] LABS: ALBUMIN 3.6 GM/DL (3.2-5.2); ALT/SGPT 16 U/L (12-78); BILIRUBIN,TOTAL 0.5 MG/DL (0.2-1.0); BLOOD UREA NITROGEN 20 MG/DL (7-18); CALCIUM LEVEL 8.8 MG/DL (8.8-10.2); CARBON DIOXIDE LEVEL 30 MEQ/L (21-32); CHLORIDE LEVEL 101 MEQ/L (98-107); CREATININE FOR GFR 0.68 MG/DL (0.55-1.30); GLOMERULAR FILTRATION RATE > 60.0 (>32); GLUCOSE, FASTING 121 MG/DL (70-100); IRON (FE) 80 UG/DL (50-170); POTASSIUM SERUM 3.8 MEQ/L (3.5-5.1); SODIUM LEVEL 139 MEQ/L (136-145); TOTAL PROTEIN 6.9 GM/DL (6.4-8.2)
== END ==
LOC: SKLAB2 07:00
DX: D64.9 Anemia, unspecified (principal); F03.90 Unspecified dementia, unspecified severity, without behavioral disturbance, psychotic disturbance, mood disturbance, and anxiety

== ENCOUNTER → 2019-01-22 | Outpatient (REF) ==
--- NOTE | 2019-01-22 13:39 | REP ---
LIMITED CERVICAL SPINE SERIES: Three views. HISTORY: C2 plus C3 fracture. Comparison study of the cervical spine is from December 02, 2018. FINDINGS: The C3 fracture is noted with partial collapse and mild anterior displacement of the anterior portion of the C3 vertebral body. This is unchanged from sagittal re-formation images done as part of the CT study from December 02, 2018. The posterior cortical fracture at C2 is less than optimally seen on the radiographs but C2-C3 and C3-C4 alignment appear to be unchanged. There are degenerative disc changes at C3-4, C4-5 and C5-6. AP view does not show the upper cervical segments. The head is held to the left somewhat. IMPRESSION: Less than optimal visualization. Compression fracture deformity at C3 essentially unchanged from the prior CT study. Electronically Signed by Isaias Viveros MD 01/22/2019 02:47 P
== END ==
LOC: SKLAB2 07:30
DX: S12.100D Unspecified displaced fracture of second cervical vertebra, subsequent encounter for fracture with routine healing (principal); S12.200D Unspecified displaced fracture of third cervical vertebra, subsequent encounter for fracture with routine healing

== ENCOUNTER → 2019-02-04 | Outpatient (REF) ==
[2019-02-04 08:27] LABS: HEMATOCRIT 37.9 % (36.0-47.0); HEMOGLOBIN 11.9 g/dl (12.0-15.5); MEAN CORPUSCULAR HEMOGLOBIN 29.1 pg (27.0-33.0); MEAN CORPUSCULAR HGB CONC 31.4 g/dl (32.0-36.5); MEAN CORPUSCULAR VOLUME 92.7 fl (80.0-96.0); PLATELET COUNT, AUTOMATED 164 10^3/uL (150-450); RED BLOOD COUNT 4.09 10^6/uL (4.00-5.40); WHITE BLOOD COUNT 3.7 10^3/uL (4.0-10.0)
== END ==
LOC: SKLAB2 07:30
DX: D64.9 Anemia, unspecified (principal)

== ENCOUNTER → 2019-02-11 | Outpatient (REF) ==
[2019-02-11 09:33] LABS: HEMATOCRIT 35.3 % (36.0-47.0); HEMOGLOBIN 11.2 g/dl (12.0-15.5); MEAN CORPUSCULAR HEMOGLOBIN 28.6 pg (27.0-33.0); MEAN CORPUSCULAR HGB CONC 31.7 g/dl (32.0-36.5); MEAN CORPUSCULAR VOLUME 90.3 fl (80.0-96.0); PLATELET COUNT, AUTOMATED 154 10^3/uL (150-450); RED BLOOD COUNT 3.91 10^6/uL (4.00-5.40)
== END ==
LOC: SKLAB2 09:00
DX: D64.9 Anemia, unspecified (principal)

== ENCOUNTER → 2019-02-21 | Outpatient (REF) | LOC: SKLAB2 07:30 | DX: E03.9 Hypothyroidism, unspecified (principal) ==

== ENCOUNTER → 2019-02-25 | Outpatient (REF) ==
[~2019-02-25] MED LIST changes: +MECL1CHW PO; -MECL1CHW2 PO
== END ==
LOC: SKLAB2 10:45
DX: Z79.899 Other long term (current) drug therapy (principal); E03.9 Hypothyroidism, unspecified

== ENCOUNTER → 2019-02-28 | Outpatient (REF) | payer SELFPAY | LOC: SKLAB2 08:58 | DX: Z79.899 Other long term (current) drug therapy (principal) ==

== ENCOUNTER → 2019-03-06 | Outpatient (REF) ==
--- NOTE | 2019-03-06 11:28 | REP ---
CERVICAL SPINE, THREE VIEWS: HISTORY: C2-3 fracture. COMPARISON: CT 12/02/2018 and cervical spine radiographs 01/22/2019. The cervical spine is visualized from the C1 level inferior to the C5-6 level. There is a fracture of the posterior C2 vertebral body. This not well seen. There is a fracture of the C3 vertebral body with moderate height loss. There is anterior displacement of the anterior C3 fracture fragment. These findings are unchanged compared to the previous studies. The C2 pedicle fractures are not seen in the present radiographs. The C3-4 through C5-6 intervertebral discs are decreased in height consistent with disc degeneration. Osteophytes are present on C4-6. IMPRESSION: There are fractures of the C2 and C3 vertebral bodies unchanged compared to the previous studies. Electronically Signed by Temo Vargas MD 03/06/2019 11:34 A
== END ==
LOC: SKLAB2 09:41
DX: S12.100D Unspecified displaced fracture of second cervical vertebra, subsequent encounter for fracture with routine healing (principal); S12.200D Unspecified displaced fracture of third cervical vertebra, subsequent encounter for fracture with routine healing; X58.XXXA Exposure to other specified factors, initial encounter; Y92.89 Other specified places as the place of occurrence of the external cause; Y93.89 Activity, other specified; Y99.8 Other external cause status

== ENCOUNTER → 2019-03-14 | Outpatient (REF) | payer MEDICARE ==
[2019-03-14 12:06] LABS: HEMATOCRIT 31.9 % (36.0-47.0); MEAN CORPUSCULAR HGB CONC 31.3 g/dl (32.0-36.5); MEAN CORPUSCULAR VOLUME 92.5 fl (80.0-96.0); PLATELET COUNT, AUTOMATED 179 10^3/uL (150-450); RED BLOOD COUNT 3.45 10^6/uL (4.00-5.40); WHITE BLOOD COUNT 5.4 10^3/uL (4.0-10.0)
[2019-03-14 18:57] LABS: VITAMIN B12 LEVEL 528 PG/ML (247-911)
== END ==
LOC: SKLAB2 11:05
DX: D64.9 Anemia, unspecified (principal); E03.9 Hypothyroidism, unspecified; F03.90 Unspecified dementia, unspecified severity, without behavioral disturbance, psychotic disturbance, mood disturbance, and anxiety

== ENCOUNTER → 2019-04-22 | Outpatient (REF) | payer MEDICARE | LOC: SKLAB2 07:00 | DX: E07.9 Disorder of thyroid, unspecified (principal) ==

== ENCOUNTER → 2019-04-29 | Outpatient (REF) | payer MEDICARE ==
[2019-04-29 07:24] LABS: HEMATOCRIT 31.2 % (36.0-47.0); HEMOGLOBIN 9.7 g/dl (12.0-15.5); MEAN CORPUSCULAR HEMOGLOBIN 29.2 pg (27.0-33.0); MEAN CORPUSCULAR HGB CONC 31.1 g/dl (32.0-36.5); PLATELET COUNT, AUTOMATED 219 10^3/uL (150-450); RED BLOOD COUNT 3.32 10^6/uL (4.00-5.40); WHITE BLOOD COUNT 5.4 10^3/uL (4.0-10.0)
== END ==
LOC: SKLAB2 07:00
DX: D64.9 Anemia, unspecified (principal)

== ENCOUNTER → 2019-05-27 | Outpatient (REF) | payer MEDICARE ==
[2019-05-27 08:09] LABS: THYROID STIMULATING HORMONE 2.09 uIU/ML (0.358-3.740); VALPROIC ACID (DEPAKOTE) 13.4 UG/ML (50.0-100.0)
== END ==
LOC: SKLAB2 07:00
DX: E03.9 Hypothyroidism, unspecified (principal); Z79.899 Other long term (current) drug therapy

== ENCOUNTER → 2019-07-29 | Outpatient (REF) | payer MEDICARE ==
[~2019-07-29] MED LIST changes: +ACET-897 PO; +CALC1TAB30 PO; +CVS13CRE TOP; +DEPA1TAB PO; +DULC10SU2 PR; +ENEMENE PR; +ENSU1LIQ36 PO; +FLUO10CA15 PO; +MOM30SS PO; +SYNT88TA2 PO
[2019-07-29 08:00] LABS: HEMATOCRIT 33.9 % (36.0-47.0); HEMOGLOBIN 10.9 g/dl (12.0-15.5); MEAN CORPUSCULAR HEMOGLOBIN 28.8 pg (27.0-33.0); MEAN CORPUSCULAR HGB CONC 32.2 g/dl (32.0-36.5); MEAN CORPUSCULAR VOLUME 89.4 fl (80.0-96.0); PLATELET COUNT, AUTOMATED 242 10^3/uL (150-450); RED BLOOD COUNT 3.79 10^6/uL (4.00-5.40); WHITE BLOOD COUNT 6.5 10^3/uL (4.0-10.0)
[2019-07-29 08:22] LABS: ALBUMIN 3.9 GM/DL (3.2-5.2); ALT/SGPT 13 U/L (12-78); BILIRUBIN,TOTAL 0.3 MG/DL (0.2-1.0); BLOOD UREA NITROGEN 35 MG/DL (7-18); CALCIUM LEVEL 9.2 MG/DL (8.8-10.2); CARBON DIOXIDE LEVEL 29 MEQ/L (21-32); CHLORIDE LEVEL 103 MEQ/L (98-107); CREATININE FOR GFR 0.75 MG/DL (0.55-1.30); GLOMERULAR FILTRATION RATE > 60.0 (>32); GLUCOSE, FASTING 84 MG/DL (70-100); IRON (FE) 73 UG/DL (50-170); POTASSIUM SERUM 3.9 MEQ/L (3.5-5.1); SODIUM LEVEL 140 MEQ/L (136-145); TOTAL PROTEIN 6.9 GM/DL (6.4-8.2)
== END ==
LOC: SKLAB2 07:00
DX: D64.9 Anemia, unspecified (principal); F03.90 Unspecified dementia, unspecified severity, without behavioral disturbance, psychotic disturbance, mood disturbance, and anxiety

== ENCOUNTER → 2019-07-30 | Outpatient (REF) | payer MEDICARE ==
[~2019-07-30] MED LIST changes: -ACET-897 PO; -CALC1TAB30 PO; -CVS13CRE TOP; -DEPA1TAB PO; -DULC10SU2 PR; -ENEMENE PR; -ENSU1LIQ36 PO; -FLUO10CA15 PO; -MOM30SS PO; -SYNT88TA2 PO
--- NOTE | 2019-07-30 14:20 | REP ---
RIGHT TIB/FIB SERIES: Three views. HISTORY: Pain. Decreased mobility. FINDINGS: AP and lateral views of the right tib/fib proximal and distal shows diffuse osteopenia. There is chondrocalcinosis. No fracture or subluxation is seen. IMPRESSION: No fracture noted. Electronically Signed by Isaias Viveros MD 07/30/2019 04:56 P
--- NOTE | 2019-07-30 15:27 | REP ---
Right hip: Two views. History: Pain, reduced mobility. Findings: There is advanced osteoarthritis right hip. Joint space narrowing sclerosis and osteophyte formation are evident. These findings are unchanged from January 01, 2019 prior radiographs. There is no evidence of fracture. Some diffuse osteopenia. No bony destructive lesion is seen. Impression: Advanced osteoarthritis right hip. No acute bony abnormality. Electronically Signed by Isaias Viveros MD 07/30/2019 03:17 P
--- NOTE | 2019-07-30 16:35 | REP ---
Right femur: Four views. History: Pain. Reduced mobility. Findings: Four views right femur demonstrate a severe osteoarthritis right hip with joint space narrowing reactive sclerosis and subcortical cyst formation. Spur formation is seen. There is mild diffuse osteopenia. There are osteoarthritic changes at the knee as well. No fracture or other acute bony abnormality is seen. Electronically Signed by Isaias Viveros MD 07/30/2019 04:58 P
== END ==
LOC: SKLAB2 13:01
PROVIDERS: ATTEND Nurse Practitioner Family
DX: M25.551 Pain in right hip (principal); M79.604 Pain in right leg; M16.11 Unilateral primary osteoarthritis, right hip; M11.261 Other chondrocalcinosis, right knee; M76.21 Iliac crest spur, right hip

== ENCOUNTER → 2019-09-02 | Outpatient (REF) | payer MEDICARE | LOC: SKLAB2 07:00 | PROVIDERS: ATTEND Internal Medicine | DX: E03.9 Hypothyroidism, unspecified (principal); Z51.81 Encounter for therapeutic drug level monitoring ==

== ENCOUNTER 2019-09-15 23:58 | Inpatient (IN) | payer MEDICARE, MEDICAID ==
[~2019-09-15] VITALS: Ht 160 cm; Wt 55.3 kg
[2019-09-16] MEDS ORDERED: NS 500 ML IV ONE (00:30)
[2019-09-16 00:33] LABS: BASO % 0.1 % (0.0-1.0); EOS % 0.1 % (0.0-3.0); HEMOGLOBIN 12.2 g/dl (12.0-15.5); LYMPH % 7.3 % (24.0-44.0); MEAN CORPUSCULAR HEMOGLOBIN 28.8 pg (27.0-33.0); MEAN CORPUSCULAR HGB CONC 31.3 g/dl (32.0-36.5); MEAN CORPUSCULAR VOLUME 92.2 fl (80.0-96.0); MONO # 1.2 10^3/uL (0.0-0.8); NEUTROPHILS # 11.1 10^3/uL (1.5-8.5); NEUTROPHILS % 81.7 % (36.0-66.0); PLATELET COUNT, AUTOMATED 392 10^3/uL (150-450); RED BLOOD COUNT 4.23 10^6/uL (4.00-5.40); WHITE BLOOD COUNT 13.6 10^3/uL (4.0-10.0)
[2019-09-16] MEDS ORDERED: FLUO10CA8 PO (00:35)
[2019-09-16] MEDS ORDERED: DEPA1TAB PO (00:35)
[2019-09-16] MEDS ORDERED: DULC10SU2 PR (00:35)
[2019-09-16] MEDS ORDERED: SYNT88TA2 PO (00:35)
[2019-09-16] MEDS ORDERED: MOM30SS PO (00:35)
[2019-09-16] MEDS ORDERED: ACET1TAB55 PO (00:35)
[2019-09-16] MEDS ORDERED: ACET-897 PO (00:35)
[2019-09-16] MEDS ORDERED: ENEMENE PR (00:35)
[2019-09-16] MEDS ORDERED: RISATAB3 PO (00:35)
[2019-09-16] MEDS ORDERED: ENSU1LIQ36 PO (00:35)
[2019-09-16] MEDS ORDERED: CALC1TAB30 PO (00:35)
[2019-09-16] MEDS ORDERED: CVS13CRE TOP (00:37)
[2019-09-16 00:53] LABS: APPEARANCE, URINE HAZY (CLEAR); BACTERIA, URINE AUTO 2+ (NEGATIVE); BILIRUBIN, URINE AUTO NEGATIVE (NEGATIVE); BLOOD, URINE BLOOD NEGATIVE (NEGATIVE); COLOR, URINE YELLOW (YELLOW); GLUCOSE, URINE (UA) AUTO NEGATIVE (NEGATIVE); KETONE, URINE AUTO NEGATIVE (NEGATIVE); LEUKOCYTE ESTERASE, URINE AUTO 1+ (NEGATIVE); MUCUS, URINE SMALL (NEGATIVE); NITRITE, URINE AUTO POSITIVE (NEGATIVE); PROTEIN, URINE AUTO 2+ mg/dL (NEGATIVE); RBC, URINE AUTO 13 /HPF (0-3); SPECIFIC GRAVITY URINE AUTO 1.019 (1.002-1.035); SQUAMOUS EPITHELIAL CELL UR AU 0 /HPF (0-6); UROBILINOGEN, URINE AUTO 0.2 mg/dL (0.0-2.0); WBC, URINE AUTO 9 /HPF (0-3)
[2019-09-16 00:59] LABS: ALBUMIN 4.3 GM/DL (3.2-5.2); BILIRUBIN,DIRECT 0.2 MG/DL (0.0-0.2); BILIRUBIN,TOTAL 0.3 MG/DL (0.2-1.0); CALCIUM LEVEL 9.3 MG/DL (8.8-10.2); CREATININE FOR GFR 1.26 MG/DL (0.55-1.30); GLOMERULAR FILTRATION RATE 42.9 (>32); POTASSIUM SERUM 3.9 MEQ/L (3.5-5.1); TOTAL PROTEIN 8.1 GM/DL (6.4-8.2)
[2019-09-16] MEDS ORDERED: FOSFOMYCIN TROMETHAMINE 3 GM POWDER PACKET (MONUROL) PO ONE (01:15)
[2019-09-16] MEDS ORDERED: cefTRIAXone SOD 1 GM in D5W MINI-BAG PLUS 50 ML IV ONE (01:15)
[2019-09-16] MEDS ORDERED: OLANZapine 5 MG TAB PO ONE (01:15)
[2019-09-16] MEDS ORDERED: ONDANSETRON 4 MG ORAL DISINTEGRATING TAB (Q0162 PER 1MG) As Ordered ONE (02:04)
[2019-09-16] MEDS ORDERED: OLANZapine INTRAMUSCULAR 10 MG VIAL (S0166) As Ordered ONE (02:20)
[2019-09-16] MEDS ORDERED: OLANZapine INTRAMUSCULAR 10 MG VIAL (S0166) IM ONE (02:30)
[2019-09-16] MEDS ORDERED: BELLADONNA 16.2mg/OPIUM 30mg 1 EA SUPP PR ONE (02:30)
[2019-09-16] MEDS ORDERED: ISOVUE-370 76% 100ML VIAL (Q9967) As Ordered ONE (03:21)
[2019-09-16] MEDS ORDERED: GLYCERIN ADULT SUPP PR ONE (04:15)
--- NOTE | 2019-09-16 04:15 | REPVR ---
PROCEDURE INFORMATION: Exam: CT Abdomen And Pelvis With Contrast Exam date and time: 09/16/2019 3:32 AM Clinical history: 84 years old, female; Abdominal pain TECHNIQUE: Imaging protocol: Computed tomography of the abdomen and pelvis with intravenous contrast. Radiation optimization: All CT scans at this facility use at least one of these dose optimization techniques: automated exposure control; mA and/or kV adjustment per patient size (includes targeted exams where dose is matched to clinical indication); or iterative reconstruction. Contrast material: ISO 370; Contrast volume: 100 ml; Contrast route: IV; COMPARISON: CT Pelvis with contrast 01/01/2019 2:05 PM FINDINGS: Pleural space: Small left pleural effusion with basilar atelectasis. Mediastinum: There is a large hiatal hernia. Liver: Small cysts are noted in the liver. No solid liver masses. Gallbladder and bile ducts: Small layering calculi in gallbladder. Gallbladder is distended with mild mucosal enhancement and pericholecystic fluid. Pancreas: Normal. No ductal dilation. Spleen: Normal. No splenomegaly. Adrenals: Mild adrenal hyperplasia. Kidneys and ureters: Normal. No hydronephrosis. Stomach and bowel: There is mild colonic diverticulosis without evidence of diverticulitis. Moderate amount of fecal material in the rectum which is distended measuring 7.6 cm. The small bowel is unremarkable. Appendix: No evidence of appendicitis. Intraperitoneal space: Unremarkable. No free air. No significant fluid collection. Vasculature: Unremarkable. No abdominal aortic aneurysm. Lymph nodes: Unremarkable. No enlarged lymph nodes. Bladder: Unremarkable as visualized. Reproductive: Unremarkable as visualized. Bones/joints: There are advanced degenerative changes in the spine and pelvis with severe osteoporosis of the right hip. Soft tissues: Unremarkable. IMPRESSION: 1. Gallbladder wall thickening with pericholecystic fluid and intraluminal calculi suggesting acute cholecystitis. No biliary duct dilation. 2. Possible rectal fecal impaction. No bowel obstruction. 3. Colonic diverticulosis without evidence of diverticulitis. 4. Large hiatal hernia. 5. Small left pleural effusion. COMMENT: Consistent with the [employer]'s Incidental Findings Committee Report (J Am Franco Radiol 2010): Unless the patient's specific circumstances suggest otherwise, any liver lesion 0.5 cm or less, any cystic kidney lesion less than 1.0 cm, and/or any adrenal lesion 1.0 cm or less not otherwise characterized in this report as possessing suspicious or indeterminate imaging features is/are highly likely to be benign and do not require follow-up imaging or biopsy. Electronically signed by: Cb Hernandez On 09/16/2019 04:14:53 AM
[2019-09-16] MEDS ORDERED: NS 1,000 ML IV SCH (04:45)
--- NOTE | 2019-09-16 04:45 | HPEPDOC ---
[facility] Medical History & Physical Date of Admission Sep 16, 2019 Date of Service: Sep 16, 2019 Primary Care Physician: Jr Joshua Collins Attending Physician: MARICRUZ GALEANA MD History and Physical TIME OF SERVICE: 4:51 AM CHIEF COMPLAINT: Lethargy HISTORY OF PRESENT ILLNESS: This is an 84-year-old female who was sent from [facility] for evaluation of lethargy. She has dementia and was not able to contribute to the history. Per discussion with she mentioned that she had abdominal pain; she received rectal belladonna, olanzapine, fosfomycin IV fluids and ceftriaxone. REVIEW OF SYSTEMS: Unable to obtain because patient is currently asleep and has dementia PAST MEDICAL/ SURGICAL HISTORY: Per chart review Dementia Hypothyroidism Chronic anemia. Osteoporosis Hiatal hernia History of Falls History of cervical spine fracture History of hip fracture. History of recurrent UTIs SOCIAL HISTORY: Lives at [facility] FAMILY HISTORY: Unobtainable ALLERGIES: Please see below. HOME MEDICATIONS: Please see below. PHYSICAL EXAMINATION: VITAL SIGNS: Please see below. GENERAL APPEARANCE: Appears chronically ill/is asleep HEENT: Normocephalic, atraumatic CARDIOVASCULAR: Regular rate and rhythm. No murmurs, rubs or gallops LUNGS: Clear to auscultation bilaterally on room air ABDOMEN: Positive bowel sounds. She is not grimacing with palpation of the abdomen MUSCULOSKELETAL: There is no lower extremity edema INTEGUMENT: She does have generalized pallor, but does not appear flushed LABORATORY DATA: See below. IMAGING: CT abdomen and pelvis " IMPRESSION: 1. Gallbladder wall thickening with pericholecystic fluid and intraluminal calculi suggesting acute cholecystitis. No biliary duct dilation. 2. Possible rectal fecal impaction. No bowel obstruction. 3. Colonic diverticulosis without evidence of diverticulitis. 4. Large hiatal hernia. 5. Small left pleural effusion. " MICROBIOLOGY: Please see below. ASSESSMENT: Ms. Alaniz is an 84 old female with a past medical history of dementia, hypothyroidism, chronic anemia, and osteoporosis who will be admitted for management of sepsis secondary to a UTI & acute cholecystitis. PLAN: 1. Sepsis. SIRS criteria include tachycardia, leukocytosis UA and report from CT of the abdomen reviewed and showed findings consistent with a UTI and acute cholecystitis She also has nondiabetic hyperglycemia. She received IV fluids and antibiotics in the ED Qsofa score = 1 Plan: Admit to general medical floor/telemetry/follow-up lactic acid/continue with IV fluids and ceftriaxone/follow up blood cultures and urine cultures 2. Acute cholecystitis. In addition to the CT findings AST is elevated Dr. Lei will call Dr. Marin Plan: Nothing by mouth with IV fluids/general surgery consult/trend LFTs / ofrimev and morphine for pain 3. UTI The lethargy may have been secondary to the UTI Plan: Continue ceftriaxone/follow up urine culture 4.Hypothyroidism Plan: Hold home meds while nothing by mouth 5. Dementia Plan: Hold home meds while nothing by mouth DVT prophylaxis with SCDs. Disposition pending clinical course/will consult services for assistance securing a bed for the patient to return to [facility] keep Vital Signs Vital Signs Date Time Temp Pulse Resp B/P (MAP) Pulse Ox O2 Delivery O2 Flow Rate FiO2 09/16/19 04:43 98.5 92 16 129/66 (87) 95 09/15/19 23:58 Room Air Laboratory Data Labs 24H Laboratory Tests 2 09/16/19 00:20: Immature Granulocyte % (Auto) 1.8, Neutrophils (%) (Auto) 81.7H, Lymphocytes (%) (Auto) 7.3L, Monocytes (%) (Auto) 9.0H, Eosinophils (%) (Auto) 0.1, Basophils (%) (Auto) 0.1, Neutrophils # (Auto) 11.1H, Lymphocytes # (Auto) 1.0L, Monocytes # (Auto) 1.2H, Eosinophils # (Auto) 0.0, Basophils # (Auto) 0.0, Nucleated Red Blood Cells % (auto) 0.0, Anion Gap 10, Glomerular Filtration Rate 42.9, Calcium Level 9.3, Total Bilirubin 0.3, Direct Bilirubin 0.2, Aspartate Amino Transf (AST/SGOT) 50H, Alanine Aminotransferase (ALT/SGPT) 41, Alkaline Phosphatase 81, Total Protein 8.1, Albumin 4.3, Albumin/Globulin Ratio 1.13, Lipase 292 09/16/19 00:43: Urine Color YELLOW, Urine Appearance HAZY, Urine pH 7.0, Urine Specific [place] 1.019, Urine Protein 2+H, Urine Glucose (Auto)(UA) NEGATIVE, Urine Ketones (Auto) NEGATIVE, Urine Blood NEGATIVE, Urine Nitrite POSITIVE, Urine Bilirubin NEGATIVE, Urine Urobilinogen 0.2, Urine Leukocyte Esterase (Auto) 1+H, Urine WBC (Auto) 9H, Urine RBC (Auto) 13H, Urine Hyaline Casts (Auto) 0, Urine Bacteria (Auto) 2+H, Urine Squamous Epithelial Cells 0, Urine Mucus (Auto) SMALL, Urine Sperm (Auto) CBC/BMP Laboratory Tests 09/16/19 00:20 Microbiology Microbiology 09/16/19 Urine Culture, Received Pending Home Medications Scheduled Acetaminophen (Tylenol Extra Strength) 500 Mg Tablet, 500 MG PO TID Calcium Carbonate/Vitamin D3 (Calcium 500-Vit D3 200 Caplet) 1 Each Tablet, 1 TAB PO BID Divalproex Sodium (Depakote) 125 Mg Tablet.dr, 125 MG PO QHS Fluoxetine Hcl (Fluoxetine HCl) 10 Mg Capsule, 30 MG PO DAILY L.acidoph/L.bulg/B.bif/S.therm (Angela-Bid Caplet) 1 Each Tablet, 1 TAB PO TID Lactose-Reduced Food (Ensure Enlive) 237 Ml Liquid, 237 ML PO BID Levothyroxine Sodium (Synthroid) 88 Mcg Tablet, 88 MCG PO DAILY Zinc Oxide (Diaper Rash) 113 Gm Cream..g., 1 APLCT TOP TID APPLY TO SACRUM AND PERINEUM Scheduled PRN Acetaminophen (Acetaminophen) 325 Mg Tablet, 650 MG PO Q4H PRN for PAIN / FEVER Bisacodyl (Dulcolax) 10 Mg Supp.rect, 10 MG AR DAILY PRN for CONSTIPATION Milk Of Magnesia (Milk of Magnesia) 2,400 Mg/10 Ml Oral.susp, 2,400 MG PO DAILY PRN for CONSTIPATION Sodium Phosphate,[place]-Dibasic (Enema) 133 Ml Enema, 1 MARIANA AR DAILY PRN for CONSTIPATION Allergies Coded Allergies: No Known Allergies (Unverified , 12/02/18) A-FIB/CHADSVASC A-FIB History Current/History of A-Fib/PAF?: No Current PO Anticoag Therapy: No MARICRUZ GALEANA MD Sep 16, 2019 04:45
[2019-09-16] MEDS ORDERED: MORPHINE 4 MG/ML 1ML VIAL/SYRINGE (J2270) IV PRN (05:15)
[2019-09-16] MEDS ORDERED: ACETAMINOPHEN *IV* 1,000 MG in IV 1 EA IV ONE (05:15)
[2019-09-16 06:00] VITALS: BP 121/78
--- NOTE | 2019-09-16 09:39 | REP ---
Clinical: Abdominal pain. Technique: Real time garcia scale ultrasound examination using curved array transducer. Findings: The gallbladder is distended/hydropic and measures 10.8 cm in length and 5.1 cm diameter with multiple small gallstones. No wall thickening or pericholecystic fluid is appreciated. No sonographic Hodges's sign was elicited during examination. The common bile duct is upper limits of normal and measures 7.6 mm diameter. The liver is heterogeneous with multiple scattered cystic lesions measuring up to 1.3 cm. The pancreas is incompletely evaluated although and 8 mm hypoechoic nodule versus complex cyst is identified at the head of the pancreas. Right kidney is normal in reniform shape without hydronephrosis and measures 9.8 x 4.7 x 4.5 cm. No ascites. Impression: 1. Distended gallbladder with small gallstones. In conjunction with findings on CT, early acute cholecystitis and possible small obstructing CBD stone cannot be excluded. 2. Hepatic cysts. 3. 8 mm hypoechoic lesion in the head of the pancreas. Electronically Signed by Kermit Krishnamurthy MD 09/16/2019 09:31 A
--- NOTE | 2019-09-16 11:46 | CR ---
DATE OF CONSULTATION: 09/16/2019 REASON FOR CONSULTATION: Abdominal pain. HISTORY OF PRESENT ILLNESS: The patient is an 84-year-old female who is sent over to the hospital from [facility] due to weakness and lethargy. She has a history of dementia and was unable to help them with her history. She is unsure where she is or why she is here. In the emergency room, she did receive some antibiotics for urinary tract infection (UTI), and she was admitted to hospitalist service due to the UTI and also for possible cholecystitis that was identified on her CT scan. At this time, she is awake and alert. She denies any abdominal pains of any kind. She has no complaints whatsoever. She is unable to answer any other questions for me. The rest of the history was obtained from the chart. PAST MEDICAL HISTORY: Dementia, hypothyroidism, anemia, osteoporosis, hiatal hernia. PAST SURGICAL HISTORY: Unknown. SOCIAL HISTORY: No drugs, alcohol, tobacco usage. FAMILY HISTORY: Noncontributory. ALLERGIES: None. MEDICATIONS: Please see medical record. REVIEW OF SYSTEMS: Unable to obtain due to dementia. PHYSICAL EXAMINATION: GENERAL: Awake and alert. VITAL SIGNS: Temperature 97.8, pulse 95, respirations 17, blood pressure 121/78, pulse ox 98% room air. HEENT: Pupils equal, round and react to light and accommodation. Heart: S1, S2. Regular rate and rhythm. Lungs: Clear auscultation bilaterally. Abdomen: Soft, nontender, nondistended. Extremities: No clubbing, cyanosis or edema. LABORATORY DATA: White count 13.6, hemoglobin 12.2, platelets 392. Bilirubin of 0.3, AST 50, ALT 41 alkaline phosphatase 81. ALT 41, lipase 292. IMAGING STUDIES: CT abdomen, pelvis showed gallbladder wall thickening with pericholecystic fluid, intraluminal calculi suggesting acute cholecystitis. No biliary duct dilatation. Possible rectal fecal impaction. No bowel obstruction. Large hiatal hernia and a small left pleural effusion. She also had an ultrasound done, which shows that the gallbladder is distended with multiple small stones but there is no thickening or pericholecystic fluid appreciated. No sonographic Hodges sign. ASSESSMENT/PLAN The patient is an 84-year-old female currently being treated for UTI. She does have a distended gallbladder; however, she is not showing any signs of acute cholecystitis at this time. She has no symptoms either. Recommendation is to continue with regular diet. We will monitor her over the next day or two. If the white count improves and her pain does not return with a diet then there is no indication for any surgery at this time.
--- NOTE | 2019-09-16 11:48 | DS.PDOC ---
Discharge Summary General Date of Admission Sep 16, 2019 at 04:37 Date of Discharge 09/16/2019 Primary Care Physician: Jr Joshua Collins Attending Physician: MAYA STOUT MD Discharge Summary PROCEDURES PERFORMED DURING STAY: None. ADMITTING DIAGNOSES: 1. Acute cholecystitis. 2. UTI 3. Hypothyroidism. 4. Dementia DISCHARGE DIAGNOSES: 1. Acute cholecystitis. 2. Hypothyroidism. 3. Dementia COMPLICATIONS/CHIEF COMPLAINT: UTI. HISTORY OF PRESENT ILLNESS: 84-year-old female with a history of dementia who presented to the emergency room with reported lethargy and complaint of abdominal pain. However, on admission, the patient was unable to contribute to the history and denied any complaints. During evaluation in the emergency room, patient was found to have a UA with 1+ leukocyte esterase and 9 WBCs. She was also found to have questionable acute cholecystitis on CT abdomen. It was also found to have elevated white blood cell count at 13.6. Lactic acid was not found to be elevated. She was found to have a mildly elevated AST at 50, all other aileen er function tests are within normal limits. HOSPITAL COURSE: Patient was admitted to the hospital for further workup and evaluation. She was started on antibiotics with IV ceftriaxone and IV fluids. She was mildly tachycardic, which improved. Ultrasound of the right upper quadrant revealed possible early acute cholecystitis with questionable common bile duct stone. Patient denied any abdominal pain when examined by the day team. Surgery consult had been placed for acute cholecystitis and patient was seen by Dr. Marin who agreed that no surgical intervention was necessary at this time. Additionally, the patient denied any urinary tract infection symptoms including dysuria, urinary frequency, and urinary urgency, so antibiotics were discontinued for asymptomatic UTI. On the day of discharge, the patient appears to be stable and safe for discharge. DISCHARGE MEDICATIONS: Please see below. ALLERGIES: Please see below. PHYSICAL EXAMINATION ON DISCHARGE: VITAL SIGNS: Please see below. GENERAL: Alert, comfortable, in no acute distress HEENT: Normocephalic, atraumatic, PERRLA, EOMI, moist mucous membranes NECK: Supple, trachea midline, no lymphadenopathy, no JVD CARDIOVASCULAR: Regular rate and rhythm, normal S1 and S2. No murmurs, rubs, or gallops RESPIRATORY: Clear to auscultation bilaterally with equal air entry bilaterally. No wheezing, rhonchi, or rales. ABDOMEN: Soft, nontender, nondistended, bowel sounds present, no masses or hepatosplenomegaly appreciated EXTREMITIES: No cyanosis or edema. Pulses 2+/4 in bilateral upper and lower extremities SKIN: [place], warm, dry NEUROLOGIC: Alert and oriented [address], she is not oriented to time. Cranial nerves 2-12 grossly intact. No focal deficits appreciated PSYCHIATRIC: Mood and affect appropriate LABORATORY DATA: Please see below. IMAGING: (As interpreted by radiologist) -Abdomen/pelvis CT 09/16: 1. Gallbladder wall thickening with pericholecystic fluid and intraluminal calculi suggesting acute cholecystitis. No biliary duct dilation. 2. Possible rectal fecal impaction. No bowel obstruction. 3. Colonic diverticulosis without evidence of diverticulitis. 4. Large hiatal hernia. 5. Small left pleural effusion. -Liver ultrasound 09/16: 1. Distended gallbladder with small gallstones. In conjunction with findings on CT, early acute cholecystitis and possible small obstructing CBD stone cannot be excluded. 2. Hepatic cysts. 3. 8 mm hypoechoic lesion in the head of the pancreas. PROGNOSIS: Fair ACTIVITY: As tolerated. DIET: As tolerated DISCHARGE PLAN: Return to [facility] DISCHARGE INSTRUCTIONS: 1. Follow-up with your PCP in 7-10 days 2. If your symptoms return or your condition worsens, please call your PCP or return to the ED for further evaluation. ITEMS TO FOLLOWUP ON ON OUTPATIENT: 1. Acute cholecystitis. 2. Small left pleural effusion seen on imaging. DISCHARGE CONDITION: Stable. TIME SPENT ON DISCHARGE: Greater than 35 minutes. I saw and evaluated the patient. Discussed with resident and medical students and agree with resident's findings and plan as documented in the resident's note. Vital Signs/I&Os Vital Signs Date Time Temp Pulse Resp B/P (MAP) Pulse Ox O2 Delivery O2 Flow Rate FiO2 09/16/19 06:00 97.8 95 17 121/78 (92) 98 Room Air Laboratory Data Labs 24H Laboratory Tests 2 09/16/19 00:20: Immature Granulocyte % (Auto) 1.8, Neutrophils (%) (Auto) 81.7H, Lymphocytes (%) (Auto) 7.3L, Monocytes (%) (Auto) 9.0H, Eosinophils (%) (Auto) 0.1, Basophils (%) (Auto) 0.1, Neutrophils # (Auto) 11.1H, Lymphocytes # (Auto) 1.0L, Monocytes # (Auto) 1.2H, Eosinophils # (Auto) 0.0, Basophils # (Auto) 0.0, Nucleated Red Blood Cells % (auto) 0.0, Anion Gap 10, Glomerular Filtration Rate 42.9, Calcium Level 9.3, Total Bilirubin 0.3, Direct Bilirubin 0.2, Aspartate Amino Transf (AST/SGOT) 50H, Alanine Aminotransferase (ALT/SGPT) 41, Alkaline Phosphatase 81, Total Protein 8.1, Albumin 4.3, Albumin/Globulin Ratio 1.13, Lipase 292 09/16/19 00:43: Urine Color YELLOW, Urine Appearance HAZY, Urine pH 7.0, Urine Specific [place] 1.019, Urine Protein 2+H, Urine Glucose (Auto)(UA) NEGATIVE, Urine Ketones (Auto) NEGATIVE, Urine Blood NEGATIVE, Urine Nitrite POSITIVE, Urine Bilirubin NEGATIVE, Urine Urobilinogen 0.2, Urine Leukocyte Esterase (Auto) 1+H, Urine WBC (Auto) 9H, Urine RBC (Auto) 13H, Urine Hyaline Casts (Auto) 0, Urine Bacteria (Auto) 2+H, Urine Squamous Epithelial Cells 0, Urine Mucus (Auto) SMALL, Urine Sperm (Auto) 09/16/19 09:19: Lactic Acid Level 2.0 CBC/BMP Laboratory Tests 09/16/19 00:20 Microbiology Microbiology 09/16/19 Blood Culture, Received Pending 09/16/19 Urine Culture, Received Pending Discharge Medications Scheduled Acetaminophen (Tylenol Extra Strength) 500 Mg Tablet, 500 MG PO TID, (Reported) Calcium Carbonate/Vitamin D3 (Calcium 500-Vit D3 200 Caplet) 1 Each Tablet, 1 TAB PO BID, (Reported) Divalproex Sodium (Depakote) 125 Mg Tablet.dr, 125 MG PO QHS, (Reported) Fluoxetine Hcl (Fluoxetine HCl) 10 Mg Capsule, 30 MG PO DAILY, (Reported) L.acidoph/L.bulg/B.bif/S.therm (Angela-Bid Caplet) 1 Each Tablet, 1 TAB PO TID, (Reported) Lactose-Reduced Food (Ensure Enlive) 237 Ml Liquid, 237 ML PO BID, (Reported) Levothyroxine Sodium (Synthroid) 88 Mcg Tablet, 88 MCG PO DAILY, (Reported) Zinc Oxide (Diaper Rash) 113 Gm Cream..g., 1 APLCT TOP TID, (Reported) APPLY TO SACRUM AND PERINEUM Scheduled PRN Acetaminophen (Acetaminophen) 325 Mg Tablet, 650 MG PO Q4H PRN for PAIN / FEVER, (Reported) Bisacodyl (Dulcolax) 10 Mg Supp.rect, 10 MG HI DAILY PRN for CONSTIPATION, (Reported) Milk Of Magnesia (Milk of Magnesia) 2,400 Mg/10 Ml Oral.susp, 2,400 MG PO DAILY PRN for CONSTIPATION, (Reported) Sodium Phosphate,[place]-Dibasic (Enema) 133 Ml Enema, 1 MARIANA HI DAILY PRN for CONSTIPATION, (Reported) Allergies Coded Allergies: No Known Allergies (Unverified , 12/02/18) JOSETTE CASAS PGY-1 Sep 16, 2019 11:48 MAYA STOUT MD Sep 17, 2019 08:11
[2019-09-17] MEDS ORDERED: cefTRIAXone SOD 1 GM in D5W MINI-BAG PLUS 50 ML IV SCH (09:00)
== END 2019-09-16 11:33 | DRG 872 ==
LOC: M ED 23:58 → M ED INP 09-16 04:37 → M MSPAV 09-16 05:42
PROVIDERS: ADMIT Internal Medicine; ATTEND Internal Medicine
DX: A41.9 Sepsis, unspecified organism (principal); N39.0 Urinary tract infection, site not specified; K81.0 Acute cholecystitis; E03.9 Hypothyroidism, unspecified; F03.90 Unspecified dementia, unspecified severity, without behavioral disturbance, psychotic disturbance, mood disturbance, and anxiety; Z79.899 Other long term (current) drug therapy; K44.9 Diaphragmatic hernia without obstruction or gangrene; M81.0 Age-related osteoporosis without current pathological fracture; R29.6 Repeated falls; D64.9 Anemia, unspecified; R73.9 Hyperglycemia, unspecified; K57.30 Diverticulosis of large intestine without perforation or abscess without bleeding

== ENCOUNTER → 2019-09-19 | Outpatient (REF) | payer MEDICARE, MEDICAID ==
[~2019-09-19] MED LIST changes: +ACET-897 PO; +CALC1TAB30 PO; +CVS13CRE TOP; +DEPA1TAB PO; +DULC10SU2 PR; +ENEMENE PR; +ENSU1LIQ36 PO; +FLUO10CA8 PO; +MOM30SS PO; +SYNT88TA2 PO
[2019-09-19 13:52] LABS: APPEARANCE, URINE CLEAR (CLEAR); BACTERIA, URINE AUTO NEGATIVE (NEGATIVE); BILIRUBIN, URINE AUTO NEGATIVE (NEGATIVE); BLOOD, URINE BLOOD NEGATIVE (NEGATIVE); COLOR, URINE YELLOW (YELLOW); GLUCOSE, URINE (UA) AUTO NEGATIVE (NEGATIVE); KETONE, URINE AUTO TRACE mg/dL (NEGATIVE); LEUKOCYTE ESTERASE, URINE AUTO NEGATIVE (NEGATIVE); NITRITE, URINE AUTO NEGATIVE (NEGATIVE); PROTEIN, URINE AUTO NEGATIVE (NEGATIVE); RBC, URINE AUTO 4 /HPF (0-3); SPECIFIC GRAVITY URINE AUTO 1.015 (1.002-1.035); SQUAMOUS EPITHELIAL CELL UR AU 0 /HPF (0-6); UROBILINOGEN, URINE AUTO 0.2 mg/dL (0.0-2.0); WBC, URINE AUTO 0 /HPF (0-3)
[2019-09-19 14:40] LABS: HEMATOCRIT 36.5 % (36.0-47.0); HEMOGLOBIN 11.7 g/dl (12.0-15.5); MEAN CORPUSCULAR HGB CONC 32.1 g/dl (32.0-36.5); MEAN CORPUSCULAR VOLUME 90.3 fl (80.0-96.0); PLATELET COUNT, AUTOMATED 439 10^3/uL (150-450); RED BLOOD COUNT 4.04 10^6/uL (4.00-5.40); WHITE BLOOD COUNT 11.2 10^3/uL (4.0-10.0)
[2019-09-19 15:04] LABS: BLOOD UREA NITROGEN 28 MG/DL (7-18); CALCIUM LEVEL 9.6 MG/DL (8.8-10.2); CARBON DIOXIDE LEVEL 27 MEQ/L (21-32); CHLORIDE LEVEL 106 MEQ/L (98-107); CREATININE FOR GFR 0.77 MG/DL (0.55-1.30); GLOMERULAR FILTRATION RATE > 60.0 (>32); GLUCOSE, FASTING 156 MG/DL (70-100); SODIUM LEVEL 140 MEQ/L (136-145)
== END ==
LOC: SKLAB2 13:12
PROVIDERS: ATTEND Internal Medicine
DX: R10.9 Unspecified abdominal pain (principal); R11.0 Nausea

== ENCOUNTER → 2019-09-20 | Outpatient (CLI) | payer MEDICARE, MEDICAID ==
--- NOTE | 2019-09-20 11:13 | REP ---
Clinical: Abdominal pain with nausea and vomiting. Technique: Axial noncontrast images from the lung bases to the pubic symphysis with coronal and sagittal re-formations. Comparison: 09/16/2019. Findings: Lung bases demonstrate small left pleural effusion with bibasilar atelectasis. Large hiatal hernia remains essentially stable. Liver demonstrates stable cysts. The spleen, pancreas, bilateral adrenal glands with hyperplasia and kidneys with chronic medical renal disease including few small hypodensities suggesting cysts remain stable. Mildly distended gallbladder with small gallstones again noted. The enteric system demonstrates moderate fecal stasis with presumed constipation and fecal impaction at the rectum which may be slightly improved from prior examination. Sigmoid diverticula noted without acute diverticulitis. Pelvis demonstrates normal bladder and age-appropriate uterus/adnexa. No ascites. No free air. No adenopathy. Atherosclerotic changes of the aorta without aneurysm. Musculoskeletal structures demonstrate degenerative changes without focal osseous abnormality. Impression: 1. Distended gallbladder with small gallstones similar to prior examination. No associated pericholecystic fluid or inflammatory stranding is appreciated by CT evaluation. 2. Moderate fecal stasis/constipation and mild fecal impaction at the rectum which appears slightly improved. 3. Further chronic nonacute findings as described above. Electronically Signed by Kermit Krishnamurthy MD 09/20/2019 11:04 A
== END ==
LOC: M RAD 10:38
PROVIDERS: ATTEND Nurse Practitioner Family
DX: J90 Pleural effusion, not elsewhere classified (principal); J98.11 Atelectasis; K44.9 Diaphragmatic hernia without obstruction or gangrene; K80.20 Calculus of gallbladder without cholecystitis without obstruction; K59.00 Constipation, unspecified; R11.2 Nausea with vomiting, unspecified; R10.9 Unspecified abdominal pain

== ENCOUNTER → 2019-09-20 | Outpatient (REF) | payer MEDICARE, MEDICAID ==
[2019-09-20 10:32] LABS: HEMATOCRIT 37.7 % (36.0-47.0); MEAN CORPUSCULAR HEMOGLOBIN 28.6 pg (27.0-33.0); MEAN CORPUSCULAR HGB CONC 31.8 g/dl (32.0-36.5); MEAN CORPUSCULAR VOLUME 89.8 fl (80.0-96.0); PLATELET COUNT, AUTOMATED 514 10^3/uL (150-450); WHITE BLOOD COUNT 13.7 10^3/uL (4.0-10.0)
[2019-09-20 10:50] LABS: BLOOD UREA NITROGEN 36 MG/DL (7-18); CALCIUM LEVEL 9.5 MG/DL (8.8-10.2); CARBON DIOXIDE LEVEL 27 MEQ/L (21-32); CHLORIDE LEVEL 102 MEQ/L (98-107); CREATININE FOR GFR 0.82 MG/DL (0.55-1.30); GLOMERULAR FILTRATION RATE > 60.0 (>32); GLUCOSE, FASTING 148 MG/DL (70-100); POTASSIUM SERUM 4.1 MEQ/L (3.5-5.1); SODIUM LEVEL 138 MEQ/L (136-145)
== END ==
LOC: SKLAB2 10:08
PROVIDERS: ATTEND Internal Medicine
DX: R11.2 Nausea with vomiting, unspecified (principal); R10.9 Unspecified abdominal pain

== ENCOUNTER → 2019-09-21 | Outpatient (REF) | payer MEDICARE, MEDICAID ==
[2019-09-21 07:37] LABS: BLOOD UREA NITROGEN 34 MG/DL (7-18); CALCIUM LEVEL 9.3 MG/DL (8.8-10.2); CARBON DIOXIDE LEVEL 25 MEQ/L (21-32); CHLORIDE LEVEL 102 MEQ/L (98-107); CREATININE FOR GFR 0.81 MG/DL (0.55-1.30); GLOMERULAR FILTRATION RATE > 60.0 (>32); GLUCOSE, FASTING 144 MG/DL (70-100); POTASSIUM SERUM 3.3 MEQ/L (3.5-5.1); SODIUM LEVEL 137 MEQ/L (136-145)
== END ==
LOC: SKLAB2 08:00
PROVIDERS: ATTEND Internal Medicine
DX: E86.0 Dehydration (principal)

== ENCOUNTER → 2019-09-23 | Outpatient (REF) | payer MEDICARE, MEDICAID ==
[2019-09-23 09:57] LABS: INFLUENZA A AMPLIFICATION NEGATIVE (NEGATIVE); INFLUENZA B AMPLIFICATION NEGATIVE (NEGATIVE)
[2019-09-23 12:02] LABS: BLOOD UREA NITROGEN 29 MG/DL (7-18); CALCIUM LEVEL 9.3 MG/DL (8.8-10.2); CARBON DIOXIDE LEVEL 29 MEQ/L (21-32); CHLORIDE LEVEL 104 MEQ/L (98-107); CREATININE FOR GFR 0.76 MG/DL (0.55-1.30); GLOMERULAR FILTRATION RATE > 60.0 (>32); GLUCOSE, FASTING 100 MG/DL (70-100); POTASSIUM SERUM 4.2 MEQ/L (3.5-5.1); SODIUM LEVEL 140 MEQ/L (136-145)
== END ==
LOC: SKLAB2 07:16
PROVIDERS: ATTEND Internal Medicine
DX: N39.0 Urinary tract infection, site not specified (principal)

== ENCOUNTER → 2019-10-21 | Outpatient (REF) | payer MEDICARE, MEDICAID ==
[2019-10-21 10:57] LABS: HEMATOCRIT 33.2 % (36.0-47.0); HEMOGLOBIN 10.5 g/dl (12.0-15.5); MEAN CORPUSCULAR HGB CONC 31.6 g/dl (32.0-36.5); MEAN CORPUSCULAR VOLUME 91.7 fl (80.0-96.0); PLATELET COUNT, AUTOMATED 304 10^3/uL (150-450); RED BLOOD COUNT 3.62 10^6/uL (4.00-5.40); WHITE BLOOD COUNT 7.2 10^3/uL (4.0-10.0)
[2019-10-21 11:16] LABS: BLOOD UREA NITROGEN 24 MG/DL (7-18); CALCIUM LEVEL 9.2 MG/DL (8.8-10.2); CARBON DIOXIDE LEVEL 31 MEQ/L (21-32); CHLORIDE LEVEL 106 MEQ/L (98-107); CREATININE FOR GFR 0.91 MG/DL (0.55-1.30); GLOMERULAR FILTRATION RATE > 60.0 (>32); GLUCOSE, FASTING 106 MG/DL (70-100); POTASSIUM SERUM 4.8 MEQ/L (3.5-5.1); SODIUM LEVEL 142 MEQ/L (136-145)
== END ==
LOC: SKLAB2 07:13
PROVIDERS: ATTEND Internal Medicine
DX: E87.6 Hypokalemia (principal)

== ENCOUNTER → 2019-10-28 | Outpatient (REF) | payer MEDICARE, MEDICAID ==
[~2019-10-28] MED LIST changes: +FLUO10CA15 PO; -FLUO10CA8 PO
[2019-10-28 08:03] LABS: HEMATOCRIT 33.5 % (36.0-47.0); HEMOGLOBIN 10.5 g/dl (12.0-15.5); MEAN CORPUSCULAR HEMOGLOBIN 28.7 pg (27.0-33.0); MEAN CORPUSCULAR HGB CONC 31.3 g/dl (32.0-36.5); MEAN CORPUSCULAR VOLUME 91.5 fl (80.0-96.0); PLATELET COUNT, AUTOMATED 280 10^3/uL (150-450); RED BLOOD COUNT 3.66 10^6/uL (4.00-5.40); WHITE BLOOD COUNT 5.4 10^3/uL (4.0-10.0)
== END ==
LOC: SKLAB2 07:00
PROVIDERS: ATTEND Internal Medicine
DX: D64.9 Anemia, unspecified (principal)

== ENCOUNTER → 2019-11-05 | Outpatient (REF) | payer MEDICARE, MEDICAID ==
[2019-11-05 10:45] LABS: HEMATOCRIT 37.9 % (36.0-47.0); HEMOGLOBIN 11.5 g/dl (12.0-15.5); MEAN CORPUSCULAR HEMOGLOBIN 28.1 pg (27.0-33.0); MEAN CORPUSCULAR HGB CONC 30.3 g/dl (32.0-36.5); MEAN CORPUSCULAR VOLUME 92.7 fl (80.0-96.0); PLATELET COUNT, AUTOMATED 223 10^3/uL (150-450); RED BLOOD COUNT 4.09 10^6/uL (4.00-5.40); WHITE BLOOD COUNT 4.8 10^3/uL (4.0-10.0)
[2019-11-05 11:11] LABS: BLOOD UREA NITROGEN 23 MG/DL (7-18); CALCIUM LEVEL 9.1 MG/DL (8.8-10.2); CARBON DIOXIDE LEVEL 32 MEQ/L (21-32); CHLORIDE LEVEL 103 MEQ/L (98-107); CREATININE FOR GFR 0.86 MG/DL (0.55-1.30); GLOMERULAR FILTRATION RATE > 60.0 (>32); GLUCOSE, FASTING 90 MG/DL (70-100); POTASSIUM SERUM 4.3 MEQ/L (3.5-5.1); SODIUM LEVEL 141 MEQ/L (136-145)
== END ==
LOC: SKLAB2 10:12
PROVIDERS: ATTEND Internal Medicine
DX: K92.2 Gastrointestinal hemorrhage, unspecified (principal)

== ENCOUNTER → 2019-12-02 | Outpatient (REF) | payer MEDICARE, MEDICAID ==
[2019-12-02 08:51] LABS: THYROID STIMULATING HORMONE 0.836 uIU/ML (0.358-3.740); VALPROIC ACID (DEPAKOTE) 9.5 UG/ML (50.0-100.0)
== END ==
LOC: SKLAB2 07:30
PROVIDERS: ATTEND Internal Medicine
DX: Z51.81 Encounter for therapeutic drug level monitoring (principal); Z79.899 Other long term (current) drug therapy; E03.9 Hypothyroidism, unspecified

== ENCOUNTER → 2020-01-27 | Outpatient (REF) | payer MEDICARE, MEDICAID ==
[2020-01-27 08:03] LABS: HEMATOCRIT 34.3 % (36.0-47.0); HEMOGLOBIN 11.1 g/dl (12.0-15.5); MEAN CORPUSCULAR HEMOGLOBIN 27.8 pg (27.0-33.0); MEAN CORPUSCULAR HGB CONC 32.4 g/dl (32.0-36.5); PLATELET COUNT, AUTOMATED 291 10^3/uL (150-450); RED BLOOD COUNT 3.99 10^6/uL (4.00-5.40); WHITE BLOOD COUNT 9.6 10^3/uL (4.0-10.0)
[2020-01-27 08:28] LABS: ALBUMIN 4.1 GM/DL (3.2-5.2); ALT/SGPT 15 U/L (12-78); BILIRUBIN,TOTAL 0.4 MG/DL (0.2-1.0); BLOOD UREA NITROGEN 24 MG/DL (7-18); CALCIUM LEVEL 9.6 MG/DL (8.8-10.2); CARBON DIOXIDE LEVEL 28 MEQ/L (21-32); CHLORIDE LEVEL 107 MEQ/L (98-107); CREATININE FOR GFR 0.77 MG/DL (0.55-1.30); GLOMERULAR FILTRATION RATE > 60.0 (>32); GLUCOSE, FASTING 84 MG/DL (70-100); IRON (FE) 51 UG/DL (50-170); SODIUM LEVEL 141 MEQ/L (136-145); TOTAL PROTEIN 7.2 GM/DL (6.4-8.2)
== END ==
LOC: SKLAB2 07:00
PROVIDERS: ATTEND Internal Medicine
DX: D64.9 Anemia, unspecified (principal); F03.90 Unspecified dementia, unspecified severity, without behavioral disturbance, psychotic disturbance, mood disturbance, and anxiety

== ENCOUNTER → 2020-03-03 | Outpatient (REF) | payer MEDICARE, MEDICAID ==
[2020-03-03 08:30] LABS: THYROID STIMULATING HORMONE 0.634 uIU/ML (0.358-3.740); VALPROIC ACID (DEPAKOTE) < 3.0 UG/ML (50.0-100.0)
== END ==
LOC: SKLAB2 07:00
PROVIDERS: ATTEND Internal Medicine
DX: E03.9 Hypothyroidism, unspecified (principal); Z51.81 Encounter for therapeutic drug level monitoring; Z79.899 Other long term (current) drug therapy

== ENCOUNTER → 2020-04-02 | Outpatient (REF) | payer MEDICARE, MEDICAID ==
[2020-04-02 03:27] LABS: HEMATOCRIT 30.3 % (36.0-47.0); HEMOGLOBIN 9.4 g/dl (12.0-15.5); MEAN CORPUSCULAR HEMOGLOBIN 25.3 pg (27.0-33.0); MEAN CORPUSCULAR VOLUME 81.7 fl (80.0-96.0); PLATELET COUNT, AUTOMATED 496 10^3/uL (150-450); RED BLOOD COUNT 3.71 10^6/uL (4.00-5.40); WHITE BLOOD COUNT 18.7 10^3/uL (4.0-10.0)
[2020-04-02 04:08] LABS: ALBUMIN 3.3 GM/DL (3.2-5.2); ALT/SGPT 11 U/L (12-78); BILIRUBIN,TOTAL 0.3 MG/DL (0.2-1.0); BLOOD UREA NITROGEN 21 MG/DL (7-18); CALCIUM LEVEL 8.7 MG/DL (8.8-10.2); CARBON DIOXIDE LEVEL 28 MEQ/L (21-32); CHLORIDE LEVEL 102 MEQ/L (98-107); CREATININE FOR GFR 0.78 MG/DL (0.55-1.30); GLOMERULAR FILTRATION RATE > 60.0 (>32); GLUCOSE, FASTING 118 MG/DL (70-100); POTASSIUM SERUM 4.3 MEQ/L (3.5-5.1); SODIUM LEVEL 136 MEQ/L (136-145); TOTAL PROTEIN 7.1 GM/DL (6.4-8.2)
[2020-04-02 10:16] LABS: C REACTIVE PROTEIN QUANTITATIV 9.97 MG/DL (0.00-0.30); URIC ACID 5.9 MG/DL (2.6-6.0)
[2020-04-02 10:38] LABS: ERYTHROCYTE SEDIMENTATION RATE 60 mm/hr (0-30)
== END ==
LOC: SKLAB2 02:38
PROVIDERS: ATTEND Internal Medicine
DX: R50.9 Fever, unspecified (principal)

== ENCOUNTER → 2020-04-03 | Outpatient (REF) | payer MEDICARE, MEDICAID ==
[2020-04-03 08:38] LABS: BASO % 0.2 % (0.0-1.0); EOS % 0.1 % (0.0-3.0); HEMATOCRIT 32.3 % (36.0-47.0); HEMOGLOBIN 9.8 g/dl (12.0-15.5); LYMPH % 18.9 % (24.0-44.0); MEAN CORPUSCULAR HEMOGLOBIN 24.9 pg (27.0-33.0); MEAN CORPUSCULAR HGB CONC 30.3 g/dl (32.0-36.5); MONO # 4.3 10^3/uL (0.0-0.8); MONO % 27.2 % (0.0-5.0); NEUTROPHILS # 8.4 10^3/uL (1.5-8.5); NEUTROPHILS % 52.5 % (36.0-66.0); PLATELET COUNT, AUTOMATED 610 10^3/uL (150-450); RED BLOOD COUNT 3.94 10^6/uL (4.00-5.40); WHITE BLOOD COUNT 15.9 10^3/uL (4.0-10.0)
== END ==
LOC: SKLAB2 07:00
PROVIDERS: ATTEND Internal Medicine
DX: M10.9 Gout, unspecified (principal)

== ENCOUNTER → 2020-04-04 | Outpatient (REF) | payer MEDICARE, MEDICAID ==
[2020-04-04 07:50] LABS: HEMATOCRIT 27.6 % (36.0-47.0); HEMOGLOBIN 8.5 g/dl (12.0-15.5); MEAN CORPUSCULAR HEMOGLOBIN 25.1 pg (27.0-33.0); MEAN CORPUSCULAR HGB CONC 30.8 g/dl (32.0-36.5); MEAN CORPUSCULAR VOLUME 81.4 fl (80.0-96.0); PLATELET COUNT, AUTOMATED 671 10^3/uL (150-450); RED BLOOD COUNT 3.39 10^6/uL (4.00-5.40); WHITE BLOOD COUNT 16.3 10^3/uL (4.0-10.0)
[2020-04-04 08:24] LABS: ERYTHROCYTE SEDIMENTATION RATE 56 mm/hr (0-30)
== END ==
LOC: SKLAB2 07:00
PROVIDERS: ATTEND Internal Medicine
DX: M06.4 Inflammatory polyarthropathy (principal)

== ENCOUNTER → 2020-04-05 | Outpatient (REF) | payer MEDICARE, MEDICAID ==
[2020-04-05 07:10] LABS: HEMATOCRIT 28.1 % (36.0-47.0); HEMOGLOBIN 8.6 g/dl (12.0-15.5); MEAN CORPUSCULAR HGB CONC 30.6 g/dl (32.0-36.5); MEAN CORPUSCULAR VOLUME 81.7 fl (80.0-96.0); RED BLOOD COUNT 3.44 10^6/uL (4.00-5.40); WHITE BLOOD COUNT 14.7 10^3/uL (4.0-10.0)
[2020-04-05 07:15] LABS: PLATELET COUNT, AUTOMATED 830 10^3/uL (150-450)
[2020-04-05 07:51] LABS: ERYTHROCYTE SEDIMENTATION RATE 51 mm/hr (0-30)
== END ==
LOC: SKLAB2 07:00
PROVIDERS: ATTEND Internal Medicine
DX: M06.4 Inflammatory polyarthropathy (principal)

== ENCOUNTER → 2020-04-06 | Outpatient (REF) | payer MEDICARE, MEDICAID ==
[2020-04-06 07:40] LABS: HEMATOCRIT 27.5 % (36.0-47.0); HEMOGLOBIN 8.3 g/dl (12.0-15.5); MEAN CORPUSCULAR HEMOGLOBIN 24.4 pg (27.0-33.0); MEAN CORPUSCULAR HGB CONC 30.2 g/dl (32.0-36.5); MEAN CORPUSCULAR VOLUME 80.9 fl (80.0-96.0); PLATELET COUNT, AUTOMATED 959 10^3/uL (150-450); WHITE BLOOD COUNT 14.7 10^3/uL (4.0-10.0)
[2020-04-06 08:06] LABS: ERYTHROCYTE SEDIMENTATION RATE 50 mm/hr (0-30)
== END ==
LOC: SKLAB2 07:00
PROVIDERS: ATTEND Internal Medicine
DX: M06.4 Inflammatory polyarthropathy (principal)

== ENCOUNTER → 2020-04-14 | Outpatient (REF) | payer MEDICARE, MEDICAID | LOC: SKLAB2 07:00 | PROVIDERS: ATTEND Internal Medicine | DX: M06.4 Inflammatory polyarthropathy (principal) ==

== ENCOUNTER → 2020-04-21 | Outpatient (REF) | payer MEDICARE, MEDICAID | LOC: SKLAB2 08:17 | PROVIDERS: ATTEND Internal Medicine | DX: M06.4 Inflammatory polyarthropathy (principal) ==

== ENCOUNTER → 2020-04-28 | Outpatient (REF) | payer MEDICARE, MEDICAID ==
[2020-04-28 09:15] LABS: HEMATOCRIT 27.5 % (36.0-47.0); HEMOGLOBIN 8.2 g/dl (12.0-15.5); MEAN CORPUSCULAR HEMOGLOBIN 23.4 pg (27.0-33.0); MEAN CORPUSCULAR HGB CONC 29.8 g/dl (32.0-36.5); MEAN CORPUSCULAR VOLUME 78.6 fl (80.0-96.0); PLATELET COUNT, AUTOMATED 763 10^3/uL (150-450); WHITE BLOOD COUNT 8.9 10^3/uL (4.0-10.0)
[2020-04-28 09:18] LABS: C REACTIVE PROTEIN QUANTITATIV 3.8 MG/DL (0.00-0.30)
[2020-04-28 09:37] LABS: ERYTHROCYTE SEDIMENTATION RATE 73 mm/hr (0-30)
== END ==
LOC: SKLAB2 07:30
PROVIDERS: ATTEND Internal Medicine
DX: D64.9 Anemia, unspecified (principal)

== ENCOUNTER → 2020-05-05 | Outpatient (REF) | payer MEDICARE, MEDICAID | LOC: SKLAB2 10:21 | PROVIDERS: ATTEND Internal Medicine | DX: M06.4 Inflammatory polyarthropathy (principal) ==

== ENCOUNTER → 2020-05-12 | Outpatient (REF) | payer MEDICARE, MEDICAID | LOC: SKLAB2 10:32 | PROVIDERS: ATTEND Internal Medicine | DX: M06.9 Rheumatoid arthritis, unspecified (principal) ==

== ENCOUNTER → 2020-05-26 | Outpatient (REF) | payer MEDICARE, MEDICAID | LOC: SKLAB2 07:00 | PROVIDERS: ATTEND Internal Medicine | DX: M06.4 Inflammatory polyarthropathy (principal) ==

== ENCOUNTER → 2020-06-02 | Outpatient (REF) | payer MEDICARE, MEDICAID | LOC: SKLAB2 07:00 | PROVIDERS: ATTEND Internal Medicine | DX: E03.9 Hypothyroidism, unspecified (principal) ==

== ENCOUNTER → 2020-07-09 | Outpatient (REF) | payer MEDICARE, MEDICAID ==
[~2020-07-09] MED LIST changes: -FLUO10CA15 PO; +FLUO10CA16 PO; +PANT40TA29 PO; -PANT40TA3 PO
[2020-07-09 13:09] LABS: HEMATOCRIT 28.1 % (36.0-47.0); MEAN CORPUSCULAR HEMOGLOBIN 21.4 pg (27.0-33.0); MEAN CORPUSCULAR HGB CONC 28.5 g/dl (32.0-36.5); MEAN CORPUSCULAR VOLUME 75.3 fl (80.0-96.0); PLATELET COUNT, AUTOMATED 569 10^3/uL (150-450); RED BLOOD COUNT 3.73 10^6/uL (4.00-5.40); WHITE BLOOD COUNT 7.8 10^3/uL (4.0-10.0)
[2020-07-09 13:29] LABS: IRON (FE) 20 UG/DL (50-170); RHEUMATOID FACTOR QUANT < 10.0 IU/ML (<15.0); TOTAL IRON BINDING CAPACITY 249 UG/DL (250-450)
[2020-07-09 13:33] LABS: ERYTHROCYTE SEDIMENTATION RATE 43 mm/hr (0-30)
[2020-07-10 14:10] LABS: ANTINUCLEAR ANTIBODIES DIRECT Negative (Negative)
== END ==
LOC: SKLAB2 09:58
PROVIDERS: ATTEND Internal Medicine
DX: M06.4 Inflammatory polyarthropathy (principal)

== ENCOUNTER → 2020-08-04 | Outpatient (REF) | payer MEDICARE, MEDICAID ==
[2020-08-04 08:51] LABS: ALBUMIN 3.6 GM/DL (3.2-5.2); ALT/SGPT 13 U/L (12-78); BILIRUBIN,TOTAL 0.2 MG/DL (0.2-1.0); BLOOD UREA NITROGEN 19 MG/DL (7-18); CALCIUM LEVEL 8.8 MG/DL (8.8-10.2); CARBON DIOXIDE LEVEL 28 MEQ/L (21-32); CHLORIDE LEVEL 106 MEQ/L (98-107); CREATININE FOR GFR 0.61 MG/DL (0.55-1.30); GLOMERULAR FILTRATION RATE > 60.0 (>32); GLUCOSE, FASTING 77 MG/DL (70-100); POTASSIUM SERUM 4.1 MEQ/L (3.5-5.1); SODIUM LEVEL 140 MEQ/L (136-145); TOTAL PROTEIN 7.1 GM/DL (6.4-8.2)
== END ==
LOC: SKLAB2 07:00
PROVIDERS: ATTEND Internal Medicine
DX: F03.90 Unspecified dementia, unspecified severity, without behavioral disturbance, psychotic disturbance, mood disturbance, and anxiety (principal)

== ENCOUNTER → 2020-09-01 | Outpatient (REF) | payer MEDICARE, MEDICAID | LOC: SKLAB2 08:00 | PROVIDERS: ATTEND Internal Medicine | DX: E03.9 Hypothyroidism, unspecified (principal) ==

== ENCOUNTER → 2020-09-29 | Outpatient (REF) | payer MEDICARE, MEDICAID ==
[2020-09-29 09:48] LABS: HEMATOCRIT 33.6 % (36.0-47.0); HEMOGLOBIN 9.7 g/dl (12.0-15.5); MEAN CORPUSCULAR HEMOGLOBIN 24.6 pg (27.0-33.0); MEAN CORPUSCULAR HGB CONC 28.9 g/dl (32.0-36.5); MEAN CORPUSCULAR VOLUME 85.1 fl (80.0-96.0); PLATELET COUNT, AUTOMATED 338 10^3/uL (150-450); RED BLOOD COUNT 3.95 10^6/uL (4.00-5.40); WHITE BLOOD COUNT 8.8 10^3/uL (4.0-10.0)
== END ==
LOC: SKLAB2 08:30
PROVIDERS: ATTEND Internal Medicine
DX: D64.9 Anemia, unspecified (principal)

== ENCOUNTER → 2020-10-01 | Outpatient (REF) | payer MEDICAID, MEDICARE | LOC: SKLAB2 12:27 | PROVIDERS: ATTEND Internal Medicine | DX: Z20.828 Contact with and (suspected) exposure to other viral communicable diseases (principal) ==

== ENCOUNTER → 2020-10-07 | Outpatient (REF) | payer MEDICARE, MEDICAID ==
[~2020-10-07] MED LIST changes: +FERR324T2 PO; +FLUO20CA20 PO; +PRED1TABL PO; +SENN-23 PO
== END ==
LOC: SKLAB2 10-06 11:16 → EDSTATUS 10-28 16:41
PROVIDERS: ATTEND Internal Medicine
DX: Z20.828 Contact with and (suspected) exposure to other viral communicable diseases (principal)

== ENCOUNTER → 2020-10-21 | Outpatient (REF) | payer MEDICARE, MEDICAID | LOC: SKLAB2 08:00 | PROVIDERS: ATTEND Internal Medicine | DX: Z20.828 Contact with and (suspected) exposure to other viral communicable diseases (principal) ==

== ENCOUNTER 2020-10-25 12:54 | Inpatient (IN) | payer MEDICARE, MEDICAID ==
[2020-10-25] VITALS (11 sets, daily range): BP systolic 120–140; BP diastolic 66–89
[2020-10-25] MEDS: predniSONE 1 MG TAB PO SCH (09:00)
[~2020-10-25 12:54] MED LIST changes: -FERR324T2 PO; -FLUO20CA20 PO; -PRED1TABL PO; -SENN-23 PO
[2020-10-25] MEDS ORDERED: NS 500 ML IV ONE (13:15)
[2020-10-25 13:20] LABS: BASO % 0.1 % (0.0-1.0); EOS % 0.2 % (0.0-3.0); HEMATOCRIT 21.5 % (36.0-47.0); LYMPH # 1.5 10^3/uL (1.5-5.0); MEAN CORPUSCULAR HEMOGLOBIN 26.7 pg (27.0-33.0); MEAN CORPUSCULAR HGB CONC 29.8 g/dl (32.0-36.5); MEAN CORPUSCULAR VOLUME 89.6 fl (80.0-96.0); MONO # 4.2 10^3/uL (0.0-0.8); MONO % 27.1 % (0.0-5.0); NEUTROPHILS # 9.4 10^3/uL (1.5-8.5); PLATELET COUNT, AUTOMATED 371 10^3/uL (150-450); WHITE BLOOD COUNT 15.3 10^3/uL (4.0-10.0)
[2020-10-25 13:33] LABS: HEMOGLOBIN 6.4 g/dl (12.0-15.5)
[2020-10-25 13:36] LABS: INR 1.38; PROTHROMBIN TIME 17.3 SECONDS (12.5-14.3)
[2020-10-25 13:37] LABS: PARTIAL THROMBOPLASTIN TIME 32.6 SECONDS (24.2-38.5)
[2020-10-25] MEDS ORDERED: PANTOPRAZOLE 40MG VIAL (C9113 PER 1) IV ONE (13:45)
--- NOTE | 2020-10-25 13:50 | REP ---
INDICATION: CHEST PAIN. COMPARISON: Comparison chest x-ray 14 December 2018.. TECHNIQUE: Sitting AP portable chest x-ray. FINDINGS: Monitoring electrodes are noted. The patient is rotated slightly to the left. There is a large hiatal hernia behind the heart. Heart size is borderline. No infiltrate is seen in the lung burgos. Pleural angles are sharp. There is diffuse osteopenia. IMPRESSION: Large hiatal hernia. Otherwise no active disease. <Electronically signed by Nato Viveros > 10/25/20 [id number]
[2020-10-25 13:57] LABS: ALBUMIN 3.5 GM/DL (3.2-5.2); ALT/SGPT 10 U/L (12-78); BILIRUBIN,DIRECT < 0.1 MG/DL (0.0-0.2); BILIRUBIN,TOTAL 0.1 MG/DL (0.2-1.0); BLOOD UREA NITROGEN 60 MG/DL (7-18); CALCIUM LEVEL 9.1 MG/DL (8.8-10.2); CARBON DIOXIDE LEVEL 26 MEQ/L (21-32); CHLORIDE LEVEL 106 MEQ/L (98-107); CK-MB VALUE MASS 1.7 NG/ML (<3.6); CPK CREATINE PHOSPHOKINASE 38 U/L (26-192); CREATININE FOR GFR 0.73 MG/DL (0.55-1.30); FREE T4 1.07 NG/DL (0.76-1.46); GLOMERULAR FILTRATION RATE > 60.0 (>32); GLUCOSE, FASTING 125 MG/DL (70-100); LIPASE 298 U/L (73-393); MAGNESIUM LEVEL 1.9 MG/DL (1.8-2.4); MB/CK RELATIVE INDEX 4.47 (< OR =4); PHOSPHORUS LEVEL 3.4 MG/DL (2.5-4.9); POTASSIUM SERUM 4.1 MEQ/L (3.5-5.1); SODIUM LEVEL 139 MEQ/L (136-145); TOTAL PROTEIN 6.6 GM/DL (6.4-8.2); TROPONIN I < 0.02 NG/ML (< 0.10)
[2020-10-25 14:11] LABS: VALPROIC ACID (DEPAKOTE) < 3.0 UG/ML (50.0-100.0)
[2020-10-25] MEDS ORDERED: ACETAMINOPHEN TAB 650MG DOSE (2X325MG) PO PRN (14:45)
--- NOTE | 2020-10-25 14:46 | HPEPDOC ---
General Date of Admission 10/25/20 Date of Service: Oct 25, 2020 Chief Complaint The patient is a 85-year-old female admitted with a reason for visit of elevated heart rate. Source: Patient Exam Limitations: Dementia Timing/Duration: 4-6 hours Severity: Moderate History of Present Illness Patient is 85 years old female with past medical history of dementia, hypothyroidism, osteoporosis, presented to the hospital with tachycardia. Patient was found to have tachycardia in the morning in [facility] and she was sent to ER. In ER patient was found to have sinus tachycardia, hemoglobin 6.4, leukocytosis 15.3, troponin negative, patient afebrile. According to [facility] stuff, patient had black bowel movement. Chest x-ray didn't show any acute infiltrate. Home Medications Scheduled Acetaminophen (Tylenol Extra Strength) 500 Mg Tablet, 500 MG PO TID, (Reported) Calcium Carbonate/Vitamin D3 (Calcium 500-Vit D3 200 Caplet) 1 Each Tablet, 1 TAB PO BID, (Reported) Divalproex Sodium (Depakote) 125 Mg Tablet.dr, 125 MG PO QHS, (Reported) Fluoxetine Hcl (Fluoxetine HCl) 10 Mg Capsule, 30 MG PO DAILY, (Reported) L.acidoph/L.bulg/B.bif/S.therm (Angela-Bid Caplet) 1 Each Tablet, 1 TAB PO TID, (Reported) Lactose-Reduced Food (Ensure Enlive) 237 Ml Liquid, 237 ML PO BID, (Reported) Levothyroxine Sodium (Synthroid) 88 Mcg Tablet, 88 MCG PO DAILY, (Reported) Zinc Oxide (Diaper Rash) 113 Gm Cream..g., 1 APLCT TOP TID, (Reported) APPLY TO SACRUM AND PERINEUM Scheduled PRN Acetaminophen (Acetaminophen) 325 Mg Tablet, 650 MG PO Q4H PRN for PAIN / FEVER, (Reported) Bisacodyl (Dulcolax) 10 Mg Supp.rect, 10 MG [place] DAILY PRN for CONSTIPATION, (Repo rted) Milk Of Magnesia (Milk of Magnesia) 2,400 Mg/10 Ml Oral.susp, 2,400 MG PO DAILY PRN for CONSTIPATION, (Reported) Sodium Phosphate,Lassen-Dibasic (Enema) 133 Ml Enema, 1 MARIANA [place] DAILY PRN for CONSTIPATION, (Reported) Allergies Coded Allergies: No Known Allergies (Unverified , 12/02/18) Past Medical History Medical History Dementia Hypothyroidism Chronic anemia. Osteoporosis Hiatal hernia History of Falls History of cervical spine fracture History of hip fracture. History of recurrent UTIs Surgical History History of Falls History of cervical spine fracture History of hip fracture. History of recurrent UTIs Family History Unobtainable Social History * Smoker: Denies Alcohol: Denies Drugs: denies A-FIB/CHADSVASC A-FIB History Current/History of A-Fib/PAF?: No Current PO Anticoag Therapy: No Review of Systems Constitutional: Denies: Chills, Fever Eyes: Denies: Pain ENT: Denies: Head Aches Skin: Denies: Rash, Lesions Pulmonary: Denies: Dyspnea Cardiovascular: Denies: Chest Pain Gastrointestinal: Denies: Nausea Genitourinary: Denies: Dysuria Hematologic: Denies: Bruising Endocrine: Denies: Polydipsia Musculoskeletal: Denies: Neck Pain Neurological: Denies: Weakness Psych: Reports: Mood Normal Physical Examination General Exam: Positive: Alert, Cooperative Eye Exam: Positive: PERRLA ENT Exam: Positive: Atraumatic Neck Exam: Positive: Supple; Negative: JVD Chest Exam: Positive: Clear to auscultation Heart Exam: Positive: Tachycardic Telemetry: Positive: No significant arrhythmia Abdomen Exam: Positive: Normal bowel sounds Extremity Exam: Negative: Clubbing Skin Exam: Positive: Nl turgor and temperature Neuro Exam: Positive: Normal Speech, Cranial Nerves 3-12 NL Psych Exam: Positive: Mental status NL Vital Signs Vital Signs Date Time Temp Pulse Resp B/P (MAP) Pulse Ox O2 Delivery O2 Flow Rate FiO2 10/25/20 13:06 97.9 118 22 145/74 (97) 97 Room Air Laboratory Data Labs 24H Laboratory Tests 2 10/25/20 13:10: Immature Granulocyte % (Auto) 1.6, Neutrophils (%) (Auto) 61.0, Lymphocytes (%) (Auto) 10.0L, Monocytes (%) (Auto) 27.1H, Eosinophils (%) (Auto) 0.2, Basophils (%) (Auto) 0.1, Neutrophils # (Auto) 9.4H, Lymphocytes # (Auto) 1.5, Monocytes # (Auto) 4.2H, Eosinophils # (Auto) 0.0, Basophils # (Auto) 0.0, Nucleated Red Blood Cells % (auto) 0.0, Prothrombin Time 17.3H, Prothromb Time International Ratio 1.38, Activated Partial Thromboplast Time 32.6, Anion Gap 7L, Glomerular Filtration Rate > 60.0, Calcium Level 9.1, Phosphorus Level 3.4, Magnesium Level 1.9, Total Bilirubin 0.1L, Direct Bilirubin < 0.1, Aspartate Amino Transf (AST/SGOT) 9, Alanine Aminotransferase (ALT/SGPT) 10L, Alkaline Phosphatase 57, Total Creatine Kinase 38, Creatine Kinase MB 1.7, Creatine Kinase MB Relative Index 4.47H, Troponin I < 0.02, Total Protein 6.6, Albumin 3.5, Albumin/Globulin Ratio 1.1L, Lipase 298, Thyroid Stimulating Hormone (TSH) 0.160L, Free Thyroxine 1.07, Valproic Acid (Depakene) Level < 3.0L CBC/BMP Laboratory Tests 10/25/20 13:10 Assessment/Plan Patient is 85 years old female with past medical history of dementia, hypothyroidism, osteoporosis, presented to the hospital with tachycardia. Patient was found to have tachycardia in the morning in [facility] and she was sent to ER. In ER patient was found to have sinus tachycardia, hemoglobin 6.4, leukocytosis 15.3, troponin negative, patient afebrile. According to [facility] stuff, patient had black bowel movement. Chest x-ray didn't show any acute infiltrate. Problems (1) Acute anemia Status: Acute Problem Text: Acute blood loss anemia secondary to GI bleed 2U of blood ordered PPI Appreciate/agree with GI consult H&H every 6 hours (2) GI bleeding Status: Acute Problem Text: See above (3) Hypothyroidism Status: Chronic Problem Text: Continue Synthroid Plan / VTE VTE Prophylaxis Ordered?: No VTE Exclusion Pharmacological: Active Bleeding CHENCHO HUMPHRIES DO Oct 25, 2020 14:46
[2020-10-25] MEDS ORDERED: SENN-23 PO (15:32)
[2020-10-25] MEDS ORDERED: PRED1TABL PO (15:32)
[2020-10-25] MEDS ORDERED: FERR324T2 PO (15:32)
[2020-10-25] MEDS ORDERED: FLUO20CA20 PO (15:32)
[2020-10-25] MEDS ORDERED: BISACODYL 10 MG SUPP PR PRN (16:45)
[2020-10-25] MEDS ORDERED: FLEET ENEMA PR PRN (16:45)
[2020-10-25] MEDS: NS 1,000 ML IV SCH (18:41)
--- NOTE | 2020-10-25 19:35 | ECGEPIP ---
[facility] - ED Test Date: 2020-10-25 Pat Name: ROBERTH WALSH Department: Room: [place] [address] Gender: Female Bonsai Tender: ODIN : 1935 Requested By: TIP Lopez Order Number: [id number] Reading MD: Hitesh Martinez Measurements Intervals [employer] Rate: 121 P: 78 HI: 179 QRS: 69 QRSD: 82 T: 70 QT: 304 QTc: 432 Interpretive Statements SINUS TACHYCARDIA NONSPECIFIC ST & T-WAVE ABNORMALITY ABNORMAL RHYTHM ECG INTERPRETATION BASED ON A DEFAULT AGE OF 40 YEARS DELAYED R WAVE PROGRESSION CW 12/02/[address] T WAVE CHANGES Electronically Signed on 10-25-2020 19:35:12 EST by Hitesh Martinez
[2020-10-25] MEDS: PANTOPRAZOLE 40MG VIAL (C9113 PER 1) IV SCH (20:09)
[2020-10-25] MEDS: SENOKOT S TAB PO SCH (20:15)
[2020-10-26] VITALS: BP 124/68
[2020-10-26] MEDS: NS 1,000 ML IV SCH ×2 (00:03→08:34)
[2020-10-26 00:15] LABS: HEMOGLOBIN 8.8 g/dl (12.0-15.5)
[2020-10-26] MEDS: LEVOTHYROXINE 88MCG TABLET (0.088 MG) PO SCH (05:32)
[2020-10-26 05:58] LABS: HEMATOCRIT 28.8 % (36.0-47.0); HEMOGLOBIN 8.7 g/dl (12.0-15.5); MEAN CORPUSCULAR HEMOGLOBIN 27.8 pg (27.0-33.0); MEAN CORPUSCULAR HGB CONC 30.2 g/dl (32.0-36.5); PLATELET COUNT, AUTOMATED 276 10^3/uL (150-450); RED BLOOD COUNT 3.13 10^6/uL (4.00-5.40); WHITE BLOOD COUNT 10.1 10^3/uL (4.0-10.0)
[2020-10-26 06:00] VITALS: BP 144/78
[2020-10-26 06:28] LABS: ALT/SGPT 9 U/L (12-78); BILIRUBIN,TOTAL 0.5 MG/DL (0.2-1.0); BLOOD UREA NITROGEN 41 MG/DL (7-18); CALCIUM LEVEL 7.7 MG/DL (8.8-10.2); CARBON DIOXIDE LEVEL 24 MEQ/L (21-32); CHLORIDE LEVEL 113 MEQ/L (98-107); CREATININE FOR GFR 0.65 MG/DL (0.55-1.30); GLOMERULAR FILTRATION RATE > 60.0 (>32); GLUCOSE, FASTING 94 MG/DL (70-100); MAGNESIUM LEVEL 1.7 MG/DL (1.8-2.4); POTASSIUM SERUM 3.9 MEQ/L (3.5-5.1); SODIUM LEVEL 143 MEQ/L (136-145); TOTAL PROTEIN 6.1 GM/DL (6.4-8.2)
[2020-10-26 08:12] LABS: HEMATOCRIT 27.5 % (36.0-47.0); HEMOGLOBIN 8.6 g/dl (12.0-15.5)
[2020-10-26] MEDS: PANTOPRAZOLE 40MG VIAL (C9113 PER 1) IV SCH ×2 (08:27→20:17)
[2020-10-26] MEDS: SENOKOT S TAB PO SCH ×2 (08:27→20:17)
[2020-10-26] MEDS: predniSONE 1 MG TAB PO SCH (08:27)
[2020-10-26] MEDS: FLUoxetine 20 MG CAP PO SCH (08:28)
[2020-10-26 14:00] VITALS: BP 137/69
--- NOTE | 2020-10-26 16:08 | IPNPDOC ---
Text Note Date of Service The patient was seen on 10/26/20. NOTE Subjective: No any acute events overnight. Patient denies fever, chills, nausea, vomiting, diarrhea or dysuria Objective: GENERAL APPEARANCE: Elderly frail female HEENT: no scleral icterus, no JVD, EOMI CARDIOVASCULAR: S1S2 LUNGS: CTA ABDOMEN: soft & not tender w palpitation MUSCULOSKELETAL: no cyanosis, no swelling INTEGUMENT: no generalized pallor NEUROLOGICAL: cranial nerve function from 2-12 intact intact, follows commands, speech not dysarthric Assessment/Plan Patient is 85 years old female with past medical history of dementia, hypothyroidism, osteoporosis, presented to the hospital with tachycardia. Patient was found to have tachycardia in the morning in [facility] and she was sent to ER. In ER patient was found to have sinus tachycardia, hemoglobin 6.4, leukocytosis 15.3, troponin negative, patient afebrile. According to [facility] stuff, patient had black bowel movement. Chest x-ray didn't show any acute infiltrate. Problems (1) Acute anemia Acute blood loss anemia secondary to GI bleed Patient received 2U of blood. Hemoglobin stable PPI Appreciate/agree with GI consult H&H every 6 hours (2) GI bleeding See above (3) Hypothyroidism Continue Synthroid Deconditioning PT/OT VS,Fishbone, I+O VS, Fishbone, I+O Laboratory Tests 10/25/20 23:58 10/26/20 05:36 10/26/20 07:54 Vital Signs Date Time Temp Pulse Resp B/P (MAP) Pulse Ox O2 Delivery O2 Flow Rate FiO2 10/26/20 14:00 97.3 89 16 137/69 (91) 97 Room Air I&O- Last 24 Hours up to 6 AM 10/26/20 06:00 Intake Total 2020 ml Output Total 0 ml Balance 2020 ml CHENCHO HUMPHRIES DO Oct 26, 2020 16:08
[2020-10-26 16:12] LABS: HEMATOCRIT 28.1 % (36.0-47.0); HEMOGLOBIN 8.5 g/dl (12.0-15.5)
[2020-10-26] MEDS ORDERED: MOM 30ML SUSPENSION UDC PO ONE (20:15)
[2020-10-26 22:00] VITALS: BP 115/60
[2020-10-26] MEDS: LACTULOSE 20 GM/30 ML SYRUP UD PO SCH (22:09)
[2020-10-27 00:07] LABS: HEMATOCRIT 29.6 % (36.0-47.0); HEMOGLOBIN 9.5 g/dl (12.0-15.5)
[2020-10-27] MEDS: LACTULOSE 20 GM/30 ML SYRUP UD PO SCH ×4 (02:48→21:35)
[2020-10-27] MEDS: LEVOTHYROXINE 88MCG TABLET (0.088 MG) PO SCH (05:37)
[2020-10-27 06:00] VITALS: BP 139/79
[2020-10-27] MEDS ORDERED: MOM 30ML SUSPENSION UDC PO ONE (08:00)
[2020-10-27] MEDS: SENOKOT S TAB PO SCH ×2 (08:09→21:35)
[2020-10-27] MEDS: PANTOPRAZOLE 40MG VIAL (C9113 PER 1) IV SCH ×2 (08:09→21:35)
[2020-10-27] MEDS: FLUoxetine 20 MG CAP PO SCH (08:09)
[2020-10-27] MEDS: predniSONE 1 MG TAB PO SCH (08:09)
[2020-10-27 08:29] LABS: HEMATOCRIT 32.5 % (36.0-47.0); HEMOGLOBIN 9.7 g/dl (12.0-15.5); MEAN CORPUSCULAR HEMOGLOBIN 27.8 pg (27.0-33.0); MEAN CORPUSCULAR HGB CONC 29.8 g/dl (32.0-36.5); MEAN CORPUSCULAR VOLUME 93.1 fl (80.0-96.0); PLATELET COUNT, AUTOMATED 318 10^3/uL (150-450); RED BLOOD COUNT 3.49 10^6/uL (4.00-5.40); WHITE BLOOD COUNT 11.2 10^3/uL (4.0-10.0)
[2020-10-27 09:07] LABS: BLOOD UREA NITROGEN 22 MG/DL (7-18); CALCIUM LEVEL 8.5 MG/DL (8.8-10.2); CARBON DIOXIDE LEVEL 23 MEQ/L (21-32); CHLORIDE LEVEL 113 MEQ/L (98-107); CREATININE FOR GFR 0.84 MG/DL (0.55-1.30); GLOMERULAR FILTRATION RATE > 60.0 (>32); GLUCOSE, FASTING 129 MG/DL (70-100); MAGNESIUM LEVEL 1.9 MG/DL (1.8-2.4); POTASSIUM SERUM 3.8 MEQ/L (3.5-5.1); SODIUM LEVEL 144 MEQ/L (136-145)
[2020-10-27] MEDS: ONDANSETRON 4 MG ORAL DISINTEGRATING TAB PO PRN (10:05)
[2020-10-27 14:00] VITALS: BP_SYST 142; BP_SYST 148; BP_SYST 158; BP_DIAS 79; BP_DIAS 89
--- NOTE | 2020-10-27 14:42 | IPNPDOC ---
Text Note Date of Service The patient was seen on 10/27/20. NOTE Subjective: No any acute events overnight. Patient complains of abdominal dis comfort and liquid stool Objective: GENERAL APPEARANCE: Elderly frail female HEENT: no scleral icterus, no JVD, EOMI CARDIOVASCULAR: S1S2 LUNGS: CTA ABDOMEN: soft & not tender w palpitation MUSCULOSKELETAL: no cyanosis, no swelling INTEGUMENT: no generalized pallor NEUROLOGICAL: cranial nerve function from 2-12 intact intact, follows commands, speech not dysarthric Assessment/Plan Patient is 85 years old female with past medical history of dementia, hypothyroidism, osteoporosis, presented to the hospital with tachycardia. Patient was found to have tachycardia in the morning in [facility] keep and she was sent to ER. In ER patient was found to have sinus tachycardia, hemoglobin 6.4, leukocytosis 15.3, troponin negative, patient afebrile. According to [facility] stuff, patient had black bowel movement. Chest x-ray didn't show any acute infiltrate. Problems (1) Acute anemia Acute blood loss anemia secondary to GI bleed Patient received 2U of blood. Hemoglobin stable Continue PPI Clear liquid diet Colonoscopy and EGD planned on 10/29/20 (2) GI bleeding See above (3) Hypothyroidism Continue Synthroid Deconditioning PT/OT VS,Fishbone, I+O VS, Fishbone, I+O Laboratory Tests 10/26/20 15:42 10/26/20 23:48 10/27/20 08:11 Vital Signs Date Time Temp Pulse Resp B/P (MAP) Pulse Ox O2 Delivery O2 Flow Rate FiO2 10/27/20 06:00 97.6 111 20 139/79 (99) 98 10/26/20 14:00 Room Air I&O- Last 24 Hours up to 6 AM 10/27/20 06:00 Intake Total 690 ml Balance 690 ml CHENCHO HUMPHRIES DO Oct 27, 2020 14:42
[2020-10-27 22:00] VITALS: BP 134/84
[2020-10-28] MEDS: LACTULOSE 20 GM/30 ML SYRUP UD PO SCH ×4 (03:21→21:18)
[2020-10-28] MEDS: LEVOTHYROXINE 88MCG TABLET (0.088 MG) PO SCH (05:35)
[2020-10-28 06:00] VITALS: BP 147/78
[2020-10-28 06:28] LABS: HEMATOCRIT 30.6 % (36.0-47.0); HEMOGLOBIN 9.3 g/dl (12.0-15.5); MEAN CORPUSCULAR HEMOGLOBIN 28.9 pg (27.0-33.0); MEAN CORPUSCULAR HGB CONC 30.4 g/dl (32.0-36.5); PLATELET COUNT, AUTOMATED 302 10^3/uL (150-450); RED BLOOD COUNT 3.22 10^6/uL (4.00-5.40); WHITE BLOOD COUNT 10.2 10^3/uL (4.0-10.0)
[2020-10-28 07:03] LABS: BLOOD UREA NITROGEN 12 MG/DL (7-18); CARBON DIOXIDE LEVEL 24 MEQ/L (21-32); CHLORIDE LEVEL 113 MEQ/L (98-107); CREATININE FOR GFR 0.83 MG/DL (0.55-1.30); GLOMERULAR FILTRATION RATE > 60.0 (>32); GLUCOSE, FASTING 105 MG/DL (70-100); MAGNESIUM LEVEL 1.9 MG/DL (1.8-2.4); POTASSIUM SERUM 2.9 MEQ/L (3.5-5.1); SODIUM LEVEL 143 MEQ/L (136-145)
[2020-10-28] MEDS ORDERED: POTASSIUM CHLORIDE 10 MEQ SR TABLET PO ONE (07:30)
[2020-10-28] MEDS ORDERED: MOM 30ML SUSPENSION UDC PO ONE (08:00)
[2020-10-28] MEDS ORDERED: KCL 10MEQ/100ML SWI (KRUN) 10 MEQ in IV 1 EA IV ONE (08:00)
[2020-10-28] MEDS: SENOKOT S TAB PO SCH ×2 (08:53→21:18)
[2020-10-28] MEDS: PANTOPRAZOLE 40MG VIAL (C9113 PER 1) IV SCH ×2 (08:53→21:18)
[2020-10-28] MEDS: FLUoxetine 20 MG CAP PO SCH (08:54)
[2020-10-28] MEDS: predniSONE 1 MG TAB PO SCH (08:55)
[2020-10-28 14:00] VITALS: BP 146/76
--- NOTE | 2020-10-28 15:27 | IPNPDOC ---
Text Note Date of Service The patient was seen on 10/28/20. NOTE Subjective: No any acute events overnight. Patient denied fever, chills, nausea, vomiting, diarrhea or dysuria Objective: GENERAL APPEARANCE: Elderly frail female HEENT: no scleral icterus, no JVD, EOMI CARDIOVASCULAR: S1S2 LUNGS: CTA ABDOMEN: soft & not tender w palpitation MUSCULOSKELETAL: no cyanosis, no swelling INTEGUMENT: no generalized pallor NEUROLOGICAL: cranial nerve function from 2-12 intact intact, follows commands, speech not dysarthric Assessment/Plan Patient is 85 years old female with past medical history of dementia, hypothyroidism, osteoporosis, presented to the hospital with tachycardia. Patient was found to have tachycardia in the morning in [facility] and she was sent to ER. In ER patient was found to have sinus tachycardia, hemoglobin 6.4, leukocytosis 15.3, troponin negative, patient afebrile. According to [facility] stuff, patient had black bowel movement. Chest x-ray didn't show any acute infiltrate. Problems (1) Acute anemia Acute blood loss anemia secondary to GI bleed Patient received 2U of blood. Hemoglobin stable Continue PPI Colonoscopy and EGD planned on 10/29/20 (2) GI bleeding See above (3) Hypothyroidism Continue Synthroid Hypokalemia Replaced Deconditioning PT/OT VS,Fishbone, I+O VS, Fishbone, I+O Laboratory Tests 10/28/20 06:17 Vital Signs Date Time Temp Pulse Resp B/P (MAP) Pulse Ox O2 Delivery O2 Flow Rate FiO2 10/28/20 14:00 98.0 93 16 146/76 (99) 97 Room Air I&O- Last 24 Hours up to 6 AM 10/28/20 06:00 Intake Total 1020 ml Balance 1020 ml CHENCHO HUMPHRIES DO Oct 28, 2020 15:27
[2020-10-28] MEDS: ONDANSETRON 4 MG ORAL DISINTEGRATING TAB PO PRN (21:58)
[2020-10-28 22:00] VITALS: BP 146/88
[2020-10-29] MEDS: LACTULOSE 20 GM/30 ML SYRUP UD PO SCH ×3 (02:46→14:33)
[2020-10-29] MEDS: LEVOTHYROXINE 88MCG TABLET (0.088 MG) PO SCH (05:56)
[2020-10-29 06:00] VITALS: BP 130/81
[2020-10-29 06:14] LABS: HEMOGLOBIN 9.8 g/dl (12.0-15.5); MEAN CORPUSCULAR HEMOGLOBIN 28.9 pg (27.0-33.0); MEAN CORPUSCULAR HGB CONC 30.6 g/dl (32.0-36.5); MEAN CORPUSCULAR VOLUME 94.4 fl (80.0-96.0); PLATELET COUNT, AUTOMATED 353 10^3/uL (150-450); RED BLOOD COUNT 3.39 10^6/uL (4.00-5.40)
[2020-10-29 06:48] LABS: BLOOD UREA NITROGEN 8 MG/DL (7-18); CALCIUM LEVEL 8.1 MG/DL (8.8-10.2); CARBON DIOXIDE LEVEL 22 MEQ/L (21-32); CHLORIDE LEVEL 118 MEQ/L (98-107); GLOMERULAR FILTRATION RATE > 60.0 (>32); GLUCOSE, FASTING 122 MG/DL (70-100); MAGNESIUM LEVEL 2.3 MG/DL (1.8-2.4); POTASSIUM SERUM 2.8 MEQ/L (3.5-5.1); SODIUM LEVEL 146 MEQ/L (136-145)
[2020-10-29] MEDS: POTASSIUM CHLORIDE 10 MEQ SR TABLET PO SCH ×2 (07:27→08:39)
[2020-10-29] MEDS: KCL 10MEQ/100ML SWI (KRUN) 10 MEQ in IV 1 EA IV SCH ×2 (07:27→08:38)
[2020-10-29] MEDS ORDERED: FLEET ENEMA PR ONE (08:00)
[2020-10-29] MEDS: predniSONE 1 MG TAB PO SCH (08:37)
[2020-10-29] MEDS: PANTOPRAZOLE 40MG VIAL (C9113 PER 1) IV SCH ×2 (08:38→21:47)
[2020-10-29] MEDS: SENOKOT S TAB PO SCH ×2 (08:38→21:47)
[2020-10-29] MEDS: FLUoxetine 20 MG CAP PO SCH (08:39)
[2020-10-29] MEDS ORDERED: POTASSIUM CHLORIDE 10 MEQ SR TABLET PO ONE (11:30)
[2020-10-29] MEDS ORDERED: KCL 10MEQ/100ML SWI (KRUN) 10 MEQ in IV 1 EA IV ONE (11:30)
[2020-10-29] MEDS ORDERED: PHENYLephrine HCL 500 MCG/5 ML (100MCG/ML) SYRINGE (J2370) As Ordered ONE ×2 (15:56→16:18)
[2020-10-29] MEDS ORDERED: propofoL 200 MG/20 ML VIAL As Ordered ONE (16:07)
--- NOTE | 2020-10-29 16:24 | ROOR ---
Patient Name: Yary Alaniz Procedure Date: 10/29/2020 3:35 PM Date of : 1935 Age: 85 Room: [facility] Gender: Female Note Status: Finalized Procedure: Colonoscopy Indications: Heme positive stool, Unexplained low TIBC anemia. Providers: Ernesto PORTER MD Referring MD: 2. Inpatient 2. Inpatient Requesting Provider: Medicines: Monitored Anesthesia Care Complications: No immediate complications. Procedure: Pre-Anesthesia Assessment: - The heart rate, respiratory rate, oxygen saturations, blood pressure, adequacy of pulmonary ventilation, and response to care were monitored throughout the procedure. The Colonoscope was introduced through the anus and advanced to 6 cm into the ileum. The colonoscopy was somewhat difficult due to unsatisfactory bowel prep and a tortuous colon. Successful completion of the procedure was aided by lavage. The patient tolerated the procedure well. The quality of the bowel preparation was fair. Findings: The perianal and digital rectal examinations were normal. The colon (entire examined portion) was significantly redundant. A diffuse area of moderate melanosis was found in the entire colon. A localized area of mildly nodular mucosa was found in the proximal ascending colon. Biopsies were taken with a cold forceps for histology. Multiple medium-mouthed diverticula were found in the sigmoid colon. Internal hemorrhoids were found during retroflexion. The hemorrhoids were moderate. The terminal ileum appeared normal. Impression: - Preparation of the colon was fair. - Redundant colon. - Melanosis in the colon. - Nodular mucosa in the proximal ascending colon. Biopsied. - Diverticulosis in the sigmoid colon. - Internal hemorrhoids. - The colon is otherwise normal. - The examined portion of the ileum was normal. (- No definite bleeding source found on this exam). Recommendation: - Perform an upper GI endoscopy today. Procedure Code(s): --- Professional --- 40765, Colonoscopy, flexible; with biopsy, single or multiple Diagnosis Code(s): --- Professional --- Q43.8, Other specified congenital malformations of intestine K57.30, Diverticulosis of large intestine without perforation or abscess without bleeding D50.9, Iron deficiency anemia, unspecified R19.5, Other fecal abnormalities K63.89, Other specified diseases of intestine K64.8, Other hemorrhoids CPT copyright 2019 [employer]. All rights reserved. The codes documented in this report are preliminary and upon sales representative business courses review may be revised to meet current compliance requirements. Ernesto Porter MD Ernesto PORTER MD 10/29/2020 4:24:23 PM Electronically signed by Ernesto PORTER MD Number of Addenda: 0 Note Initiated On: 10/29/2020 3:35 PM Estimated Blood Loss: Estimated blood loss: none.
--- NOTE | 2020-10-29 16:52 | ROOR ---
Patient Name: Yary Alaniz Procedure Date: 10/29/2020 4:21 PM Date of : 1935 Age: 85 Room: [facility] Gender: Female Note Status: Finalized Procedure: Upper GI endoscopy Indications: Low TIBC anemia VS Iron deficiency anemia. questionable melena and/or hematochezia, possible heme positive stool Providers: Ernesto PORTER MD Referring MD: 2. Inpatient 2. Inpatient Requesting Provider: Medicines: Monitored Anesthesia Care Complications: No immediate complications. Procedure: Pre-Anesthesia Assessment: - The heart rate, respiratory rate, oxygen saturations, blood pressure, adequacy of pulmonary ventilation, and response to care were monitored throughout the procedure. The Endoscope was introduced through the mouth, and advanced to the second part of duodenum. The upper GI endoscopy was accomplished without difficulty. The patient tolerated the procedure well. Findings: The examined esophagus was tortuous. A large hiatal hernia was present. The exam was otherwise without abnormality. Impression: - Tortuous esophagus. - Large hiatal hernia. - The examination was otherwise normal. - No specimens collected. Recommendation: - Pt does not need routine office follow up with me. - Return patient to [facility] for ongoing care. - Observe patient's clinical course. - Advance diet as tolerated. Procedure Code(s): --- Professional --- 63499, Esophagogastroduodenoscopy, flexible, transoral; diagnostic, including collection of specimen(s) by brushing or washing, when performed (separate procedure) Diagnosis Code(s): --- Professional --- Q39.9, Congenital malformation of esophagus, unspecified K44.9, Diaphragmatic hernia without obstruction or gangrene D62, Acute posthemorrhagic anemia D50.0, Iron deficiency anemia secondary to blood loss (chronic) CPT copyright 2019 [employer]. All rights reserved. The codes documented in this report are preliminary and upon genetic physician review may be revised to meet current compliance requirements. Ernesto Porter MD Ernesto PORTER MD 10/29/2020 4:51:39 PM Electronically signed by Ernesto PORTER MD Number of Addenda: 0 Note Initiated On: 10/29/2020 4:21 PM Estimated Blood Loss: Estimated blood loss: none.
--- NOTE | 2020-10-29 17:33 | IPNPDOC ---
Text Note Date of Service The patient was seen on 10/29/20. NOTE Subjective: No any acute events overnight. Patient denied fever, chills, nausea, vomiting, diarrhea or dysuria Objective: GENERAL APPEARANCE: Elderly frail female HEENT: no scleral icterus, no JVD, EOMI CARDIOVASCULAR: S1S2 LUNGS: CTA ABDOMEN: soft & not tender w palpitation MUSCULOSKELETAL: no cyanosis, no swelling INTEGUMENT: no generalized pallor NEUROLOGICAL: cranial nerve function from 2-12 intact intact, follows commands, speech not dysarthric Assessment/Plan Patient is 85 years old female with past medical history of dementia, hypothyroidism, osteoporosis, presented to the hospital with tachycardia. Patient was found to have tachycardia in the morning in [facility] and she was sent to ER. In ER patient was found to have sinus tachycardia, hemoglobin 6.4, leukocytosis 15.3, troponin negative, patient afebrile. According to [facility] stuff, patient had black bowel movement. Chest x-ray didn't show any acute infiltrate. Problems (1) Acute anemia Acute blood loss anemia secondary to GI bleed Patient received 2U of blood. Hemoglobin stable Continue PPI Colonoscopy and EGD planned was done today, findings Nodular mucosa in the proximal ascending colon. Biopsied. - Diverticulosis in the sigmoid colon. - Internal hemorrhoids. - The colon is otherwise normal. - The examined portion of the ileum was normal. - No definite bleeding source found on this exam). - Tortuous esophagus. - Large hiatal hernia. - The examination was otherwise normal. - No specimens collected. (2) GI bleeding Most likely bleeding was secondary to diverticulitis (3) Hypothyroidism Continue Synthroid Hypokalemia Replaced Diverticulosis See above Deconditioning PT/OT VS,Fishbone, I+O VS, Fishbone, I+O Laboratory Tests 10/29/20 06:00 10/29/20 11:39 Vital Signs Date Time Temp Pulse Resp B/P (MAP) Pulse Ox O2 Delivery O2 Flow Rate FiO2 10/29/20 16:56 96.8 62 18 140/68 (92) 100 Room Air I&O- Last 24 Hours up to 6 AM 10/29/20 06:00 Intake Total 1030 ml Balance 1030 ml CHENCHO HUMPHRIES DO Oct 29, 2020 17:33
[2020-10-29 22:00] VITALS: BP 122/69
[2020-10-30 06:00] VITALS: BP 127/67
[2020-10-30] MEDS: LEVOTHYROXINE 88MCG TABLET (0.088 MG) PO SCH (06:06)
[2020-10-30 06:18] LABS: HEMATOCRIT 31.4 % (36.0-47.0); MEAN CORPUSCULAR HEMOGLOBIN 27.8 pg (27.0-33.0); MEAN CORPUSCULAR HGB CONC 28.7 g/dl (32.0-36.5); MEAN CORPUSCULAR VOLUME 96.9 fl (80.0-96.0); PLATELET COUNT, AUTOMATED 328 10^3/uL (150-450); RED BLOOD COUNT 3.24 10^6/uL (4.00-5.40); WHITE BLOOD COUNT 8.7 10^3/uL (4.0-10.0)
[2020-10-30 06:51] LABS: BLOOD UREA NITROGEN 7 MG/DL (7-18); CALCIUM LEVEL 7.9 MG/DL (8.8-10.2); CARBON DIOXIDE LEVEL 22 MEQ/L (21-32); CHLORIDE LEVEL 118 MEQ/L (98-107); CREATININE FOR GFR 0.86 MG/DL (0.55-1.30); GLOMERULAR FILTRATION RATE > 60.0 (>32); GLUCOSE, FASTING 93 MG/DL (70-100); POTASSIUM SERUM 3.2 MEQ/L (3.5-5.1); SODIUM LEVEL 145 MEQ/L (136-145)
[2020-10-30] MEDS ORDERED: KCL 10MEQ/100ML SWI (KRUN) 10 MEQ in IV 1 EA IV ONE (08:30)
[2020-10-30] MEDS ORDERED: POTASSIUM CHLORIDE 10 MEQ SR TABLET PO SCH (09:00)
[2020-10-30] MEDS: SENOKOT S TAB PO SCH (09:29)
[2020-10-30] MEDS: FLUoxetine 20 MG CAP PO SCH (09:29)
[2020-10-30] MEDS: PANTOPRAZOLE 40MG VIAL (C9113 PER 1) IV SCH (09:29)
[2020-10-30] MEDS: predniSONE 1 MG TAB PO SCH (09:29)
--- NOTE | 2020-10-30 19:01 | DS.PDOC ---
Discharge Summary General Date of Admission Oct 25, 2020 at 14:33 Date of Discharge 10/30/20 Discharge Summary PROCEDURES PERFORMED DURING STAY: [None]. ADMITTING DIAGNOSES: Acute anemia GI bleeding Hypothyroidism Hypokalemia Diverticulosis Deconditioning DISCHARGE DIAGNOSES: Acute anemia GI bleeding Hypothyroidism Hypokalemia Diverticulosis Deconditioning COMPLICATIONS/CHIEF COMPLAINT: Acute Anemia. HISTORY OF PRESENT ILLNESS: Patient is 85 years old female with past medical history of dementia, hypothyroidism, osteoporosis, presented to the hospital with tachycardia. Patient was found to have tachycardia in the morning in [facility] and she was sent to ER. In ER patient was found to have sinus tachycardia, hemoglobin 6.4, leukocytosis 15.3, troponin negative, patient afebrile. According to [facility] stuff, patient had black bowel movement. Chest x-ray didn't show any acute infiltrate. HOSPITAL COURSE: During hospital stay following issue addressed (1) Acute anemia Acute blood loss anemia secondary to GI bleed Patient received 2U of blood. Hemoglobin stable Continue PPI Colonoscopy and EGD planned was done today, findings Nodular mucosa in the proximal ascending colon. Biopsied. - Diverticulosis in the sigmoid colon. - Internal hemorrhoids. - The colon is otherwise normal. - The examined portion of the ileum was normal. - No definite bleeding source found on this exam). - Tortuous esophagus. - Large hiatal hernia. - The examination was otherwise normal. - No specimens collected. (2) GI bleeding Most likely bleeding was secondary to diverticulosis (3) Hypothyroidism Continue Synthroid Hypokalemia Replaced Diverticulosis See above Deconditioning PT/OT DISCHARGE MEDICATIONS: Please see below. ALLERGIES: Please see below. PHYSICAL EXAMINATION ON DISCHARGE: VITAL SIGNS: Please see below. GENERAL APPEARANCE: Elderly frail female HEENT: no scleral icterus, no JVD, EOMI CARDIOVASCULAR: S1S2 LUNGS: CTA ABDOMEN: soft & not tender w palpitation MUSCULOSKELETAL: no cyanosis, no swelling INTEGUMENT: no generalized pallor NEUROLOGICAL: cranial nerve function from 2-12 intact intact, follows commands, speech not dysarthric LABORATORY DATA: Please see below. PROGNOSIS: Guarded ACTIVITY: [As tolerated]. DIET: Regular DISPOSITION: [facility]. ITEMS TO FOLLOWUP ON ON OUTPATIENT: Follow-up with PCP in the outpatient settings in 3-5 days DISCHARGE CONDITION: [Stable]. TIME SPENT ON DISCHARGE: Greater than 30 minutes. Vital Signs/I&Os Vital Signs Date Time Temp Pulse Resp B/P (MAP) Pulse Ox O2 Delivery O2 Flow Rate FiO2 10/30/20 06:00 97.6 56 18 127/67 (87) 96 Room Air I&O- Last 24 Hours up to 6 AM 10/30/20 06:00 Intake Total 540 ml Output Total 0 ml Balance 540 ml Laboratory Data Labs 24H Laboratory Tests 2 10/30/20 05:55: Nucleated Red Blood Cells % (auto) 0.0, Anion Gap 5L, Glomerular Filtration Rate > 60.0, Calcium Level 7.9L, Magnesium Level 2.0 CBC/BMP Laboratory Tests 10/30/20 05:55 Discharge Medications Scheduled Ferrous Sulfate (Ferrous Sulfate) 324 Mg Tablet.dr, 324 MG PO DAILY, (Reported) Fluoxetine Hcl (Fluoxetine HCl) 20 Mg Capsule, 20 MG PO DAILY, (Reported) Lactose-Reduced Food (Ensure Enlive) 237 Ml Liquid, 180 ML PO BID, (Reported) Levothyroxine Sodium (Synthroid) 88 Mcg Tablet, 88 MCG PO DAILY, (Reported) Prednisone (Prednisone) 1 Mg Tablet, 3 MG PO DAILY, (Reported) @ 1600 Sennosides/Docusate Sodium (Senna-S Tablet) 1 Each Tablet, 2 TAB PO BID, (Reported) Scheduled PRN Acetaminophen (Acetaminophen) 325 Mg Tablet, 650 MG PO Q4H PRN for PAIN / FEVER, (Reported) Bisacodyl (Dulcolax) 10 Mg Supp.rect, 10 MG [place] DAILY PRN for CONSTIPATION, (Reported) Milk Of Magnesia (Milk of Magnesia) 2,400 Mg/10 Ml Oral.susp, 2,400 MG PO DAILY PRN for CONSTIPATION, (Reported) Sodium Phosphate,Ida-Dibasic (Enema) 133 Ml Enema, 1 MARIANA [place] DAILY PRN for CONSTIPATION, (Reported) Allergies Coded Allergies: No Known Allergies (Unverified , 12/02/18) CHENCHO HUMPHRIES DO Oct 30, 2020 19:01
== END 2020-10-30 12:16 | DRG 378 ==
LOC: M ED 12:54 → EDBD 12:54 → M ED INP 14:33 → ENRESERV 14:58 → M MSPAV 17:04
PROVIDERS: ADMIT Internal Medicine; ATTEND Internal Medicine
PROC: 30233N1 Transfusion of Nonautologous Red Blood Cells into Peripheral Vein, Percutaneous Approach (ICD-10-PCS; 2020-10-25)
PROC: 0DJ08ZZ Inspection of Upper Intestinal Tract, Via Natural or Artificial Opening Endoscopic (ICD-10-PCS; 2020-10-29)
PROC: 0DBK8ZX Excision of Ascending Colon, Via Natural or Artificial Opening Endoscopic, Diagnostic (ICD-10-PCS; principal; 2020-10-29 14:05)
DX: K57.31 Diverticulosis of large intestine without perforation or abscess with bleeding (principal); Q39.9 Congenital malformation of esophagus, unspecified; D62 Acute posthemorrhagic anemia; R00.0 Tachycardia, unspecified; F03.90 Unspecified dementia, unspecified severity, without behavioral disturbance, psychotic disturbance, mood disturbance, and anxiety; E03.9 Hypothyroidism, unspecified; M81.0 Age-related osteoporosis without current pathological fracture; K63.89 Other specified diseases of intestine; K64.8 Other hemorrhoids; K44.9 Diaphragmatic hernia without obstruction or gangrene; E87.6 Hypokalemia; R29.6 Repeated falls; Z87.440 Personal history of urinary (tract) infections; Z20.828 Contact with and (suspected) exposure to other viral communicable diseases; Z79.899 Other long term (current) drug therapy

== ENCOUNTER → 2020-11-03 | Outpatient (REF) | payer MEDICAID, MEDICARE ==
[~2020-11-03] MED LIST changes: +FERR324T2 PO; +FERR325T16 PO; +FLUO20CA20 PO; -LISI-542 PO; +LISI-898 PO; +PRED1TABL PO; +SENN-23 PO; +SYNT75TA PO
[2020-11-03 10:45] LABS: BLOOD UREA NITROGEN 12 MG/DL (7-18); CALCIUM LEVEL 8.2 MG/DL (8.8-10.2); CARBON DIOXIDE LEVEL 27 MEQ/L (21-32); CHLORIDE LEVEL 107 MEQ/L (98-107); CREATININE FOR GFR 0.71 MG/DL (0.55-1.30); GLOMERULAR FILTRATION RATE > 60.0 (>32); GLUCOSE, FASTING 113 MG/DL (70-100); POTASSIUM SERUM 3.4 MEQ/L (3.5-5.1); SODIUM LEVEL 141 MEQ/L (136-145)
== END ==
LOC: SKLAB2 08:00
PROVIDERS: ATTEND Internal Medicine
DX: M19.90 Unspecified osteoarthritis, unspecified site (principal)

== ENCOUNTER → 2020-11-04 | Outpatient (REF) | payer MEDICARE, MEDICAID | LOC: SKLAB2 11:30 | PROVIDERS: ATTEND Internal Medicine | DX: Z20.828 Contact with and (suspected) exposure to other viral communicable diseases (principal) ==

== ENCOUNTER → 2020-11-10 | Outpatient (REF) | payer MEDICARE, MEDICAID ==
[~2020-11-10] MED LIST changes: -FERR325T16 PO; +LISI-542 PO; -LISI-898 PO; -SYNT75TA PO
== END ==
LOC: SKLAB2 07:00
PROVIDERS: ATTEND Internal Medicine
DX: M19.90 Unspecified osteoarthritis, unspecified site (principal)

== ENCOUNTER → 2020-11-11 | Outpatient (REF) | payer MEDICARE, MEDICAID | LOC: SKLAB2 07:53 | PROVIDERS: ATTEND Internal Medicine | DX: Z20.828 Contact with and (suspected) exposure to other viral communicable diseases (principal) ==

== ENCOUNTER → 2020-11-17 | Outpatient (REF) | payer MEDICARE, MEDICAID ==
[2020-11-17 08:14] LABS: BLOOD UREA NITROGEN 18 MG/DL (7-18); CALCIUM LEVEL 8.4 MG/DL (8.8-10.2); CARBON DIOXIDE LEVEL 27 MEQ/L (21-32); CHLORIDE LEVEL 106 MEQ/L (98-107); CREATININE FOR GFR 0.71 MG/DL (0.55-1.30); GLOMERULAR FILTRATION RATE > 60.0 (>32); GLUCOSE, FASTING 87 MG/DL (70-100); POTASSIUM SERUM 3.6 MEQ/L (3.5-5.1); SODIUM LEVEL 142 MEQ/L (136-145)
== END ==
LOC: SKLAB2 10:53
PROVIDERS: ATTEND Internal Medicine
DX: E87.6 Hypokalemia (principal)

== ENCOUNTER → 2020-11-18 | Outpatient (REF) | LOC: SKLAB2 10:51 | PROVIDERS: ATTEND Internal Medicine | DX: Z20.828 Contact with and (suspected) exposure to other viral communicable diseases (principal) ==

== ENCOUNTER → 2020-11-25 | Outpatient (REF) | LOC: SKLAB2 10:49 | PROVIDERS: ATTEND Internal Medicine | DX: Z11.52 Encounter for screening for COVID-19 (principal) ==

== ENCOUNTER → 2020-12-01 | Outpatient (REF) | payer MEDICARE, MEDICAID ==
[2020-12-01 11:41] LABS: C REACTIVE PROTEIN QUANTITATIV < 0.30 MG/DL (0.00-0.30)
== END ==
LOC: SKLAB2 11:08
PROVIDERS: ATTEND Internal Medicine
DX: E03.9 Hypothyroidism, unspecified (principal)

== ENCOUNTER → 2020-12-02 | Outpatient (REF) ==
[~2020-12-02] MED LIST changes: +FERR325T16 PO; +SYNT75TA PO
== END ==
LOC: SKLAB2 08:00 → EDSTATUS 15:40
PROVIDERS: ATTEND Internal Medicine
DX: Z20.822 Contact with and (suspected) exposure to COVID-19 (principal)

== ENCOUNTER → 2020-12-15 | Outpatient (REF) | payer MEDICARE, MEDICAID ==
[~2020-12-15] MED LIST changes: -LISI-542 PO; +LISI-898 PO
[2020-12-15 09:19] LABS: HEMATOCRIT 26.8 % (36.0-47.0); HEMOGLOBIN 7.8 g/dl (12.0-15.5); MEAN CORPUSCULAR HEMOGLOBIN 25.7 pg (27.0-33.0); MEAN CORPUSCULAR HGB CONC 29.1 g/dl (32.0-36.5); MEAN CORPUSCULAR VOLUME 88.2 fl (80.0-96.0); PLATELET COUNT, AUTOMATED 202 10^3/uL (150-450); RED BLOOD COUNT 3.04 10^6/uL (4.00-5.40); WHITE BLOOD COUNT 5.9 10^3/uL (4.0-10.0)
[2020-12-15 09:46] LABS: BLOOD UREA NITROGEN 17 MG/DL (7-18); CREATININE FOR GFR 0.69 MG/DL (0.55-1.30); GLUCOSE, FASTING 110 MG/DL (70-100)
[2020-12-15 09:47] LABS: CALCIUM LEVEL 8.9 MG/DL (8.8-10.2); CARBON DIOXIDE LEVEL 26 MEQ/L (21-32); CHLORIDE LEVEL 104 MEQ/L (98-107); GLOMERULAR FILTRATION RATE > 60.0 (>32); IRON (FE) 18 UG/DL (50-170); PERCENT SATURATION 5.4 % (13.2-45.0); POTASSIUM SERUM 3.9 MEQ/L (3.5-5.1); SODIUM LEVEL 141 MEQ/L (136-145); TOTAL IRON BINDING CAPACITY 334 UG/DL (250-450)
== END ==
LOC: SKLAB2 12:09
PROVIDERS: ATTEND Internal Medicine
DX: D50.9 Iron deficiency anemia, unspecified (principal)

== ENCOUNTER 2020-12-21 11:53 | Inpatient (IN) | payer MEDICARE, MEDICAID ==
[2020-12-21] VITALS (10 sets, daily range): BP systolic 108–135; BP diastolic 57–81
[~2020-12-21] VITALS: Ht 162.6 cm; Wt 49.5 kg
[~2020-12-21 11:53] MED LIST changes: -FERR325T16 PO; -SYNT75TA PO
--- OUTSIDE RECORDS SUMMARY | 2020-12-21 12:00 | CCD ---
Author Author [facility] Organization [facility] Address Unknown Phone Unavailable Support Name Relationship Address Phone ARIELA BERMUDEZ Next Of Kin [address] [place] [address] RE Next Of Kin Unknown Unavailable LEANNE WALSH Next Of Kin [address] [place] [address] UE Next Of Kin Unknown Unavailable DOMINIC [place] [address] Re-disclosure Warning The records that you are about to access may contain information from federally-assisted alcohol or drug abuse programs. If such information is present, then the following federally mandated warning applies: This information has been disclosed to you from records protected by federal confidentiality rules (42 CFR part 2). The federal rules prohibit you from making any further disclosure of this information unless further disclosure is expressly permitted by the written consent of the person to whom it pertains or as otherwise permitted by 42 CFR part 2. A general authorization for the release of medical or other information is NOT sufficient for this purpose. The Federal rules restrict any use of the information to criminally investigate or prosecute any alcohol or drug abuse patient.The records that you are about to access may contain highly sensitive health information, the redisclosure of which is protected by Article 27-F of the [facility] Public Health law. If you continue you may have access to information: Regarding HIV / AIDS; Provided by facilities licensed or operated by the [facility] Office of Mental Health; or Provided by the [facility] Office for People With Developmental Disabilities. If such information is present, then the following [facility] mandated warning applies: This information has been disclosed to you from confidential records which are protected by state law. State law prohibits you from making any further disclosure of this information without the specific written consent of the person to whom it pertains, or as otherwise permitted by law. Any unauthorized further disclosure in violation of state law may result in a fine or prison sentence or both. A general authorization for the release of medical or other information is NOT sufficient authorization for further disc losure. Encounters Encounter Providers Location Date Indications Data Source(s ) Outpatient 12/18/2019 01:35:00 PM EST [facility] Insurance Providers Payer name Policy type / Coverage type Policy ID Covered republican ID Covered republican's relationship to ortega Policy Ortega Plan Information EMEDNY [id number] SP [id number] MEDICARE [id number] SP [id number] SELF PAY MEDICARE [id number] SP [id number] D MEDICAID [id number] SP [id number] MEDICARE C [id number] S [id number] E92 MEDICAID M [id number] MEDICARE C [id number] S [id number] D MEDICAID M [id number] Self [id number] MEDICARE A [id number] Self [id number] E92 MEDICARE A [id number] Self [id number] D MEDICARE [id number] SP [id number] B MEDICARE [id number] SP [id number] B Results ID Date Data Source [id number] 12/16/2020 10:50:00 AM EST [facility] Name Value Range Interpretation Code Description Data Elena rce(s) Supporting Document(s) SARS coronavirus 2 RNA Not Detected [facility] This lab was ordered by [facility] and reported by [facility]. ID Date Data Source [id number] 12/09/2020 08:00:00 AM EST [facility] Name Value Range Interpretation Code Description Data Elena rce(s) Supporting Document(s) SARS coronavirus 2 RNA Not Detected [facility] This lab was ordered by [facility] and reported by [facility]. ID Date Data Source [id number] 12/02/2020 06:00:00 AM EST [facility] Name Value Range Interpretation Code Description Data Elena rce(s) Supporting Document(s) SARS coronavirus 2 RNA Not Detected [facility] This lab was ordered by [facility] and reported by [facility]. ID Date Data Source [id number] 11/25/2020 12:00:00 PM EST [facility] Name Value Range Interpretation Code Description Data Elena rce(s) Supporting Document(s) SARS coronavirus 2 RNA Not Detected [facility] This lab was ordered by [facility] and reported by [facility]. ID Date Data Source [id number] 11/18/2020 11:00:00 AM EST [facility] Name Value Range Interpretation Code Description Data Elena rce(s) Supporting Document(s) SARS coronavirus 2 RNA [facility] This lab was ordered by [facility] and reported by [facility]. ID Date Data Source [id number] 11/11/2020 11:00:00 AM EST [facility] Name Value Range Interpretation Code Description Data Elena rce(s) Supporting Document(s) SARS coronavirus 2 RNA [facility] This lab was ordered by [facility] and reported by [facility]. ID Date Data Source [id number] 11/04/2020 09:00:00 AM EST [facility] Name Value Range Interpretation Code Description Data Elena rce(s) Supporting Document(s) SARS coronavirus 2 RNA [facility] This lab was ordered by [facility] and reported by [facility]. ID Date Data Source [id number] 10/25/2020 02:18:00 PM EST [facility] Name Value Range Interpretation Code Description Data Elena rce(s) Supporting Document(s) SARS coronavirus 2 RNA [Presence] in Res piratory specimen by FRANKLYN with probe detection [facility] This lab was ordered by [facility] a nd reported by [facility]. ID Date Data Source [id number] 10/21/2020 10:00:00 AM EST [facility] Name Value Range Interpretation Code Description Data Elena rce(s) Supporting Document(s) SARS coronavirus 2 RNA [facility] This lab was ordered by [facility] and reported by [facility]. ID Date Data Source [id number] 10/14/2020 07:00:00 AM EST [facility] Name Value Range Interpretation Code Description Data Elena rce(s) Supporting Document(s) SARS coronavirus 2 RNA [facility] This lab was ordered by [facility] and reported by [facility]. ID Date Data Source [id number] 10/07/2020 10:30:00 AM EST [facility] Name Value Range Interpretation Code Description Data Elena rce(s) Supporting Document(s) SARS coronavirus 2 RNA [facility] This lab was ordered by [facility] and reported by [facility]. ID Date Data Source [id number] 10/01/2020 02:03:00 PM EST [facility] Name Value Range Interpretation Code Description Data Elena rce(s) Supporting Document(s) SARS coronavirus 2 RNA [facility] This lab was ordered by [facility] and reported by [facility]. Procedure
[2020-12-21] MEDS ORDERED: FERR325T16 PO (12:36)
--- OUTSIDE RECORDS SUMMARY | 2020-12-21 12:43 | CCD ---
Author Author [facility] Organization [facility] Address Unknown Phone Unavailable Support Name Relationship Address Phone ARIELA BERMUDEZ Next Of Kin [address] [place] [address] RE Next Of Kin Unknown Unavailable LEANNE WALSH Next Of Kin [address] [place] [address] UE Next Of Kin Unknown Unavailable DOMINIC [place] [address] Re-disclosure Warning The records that you are [...] is protected by Article 27-F of the [facility] Public Health law. If you continue you may have access to information: Regarding HIV / AIDS; Provided by facilities licensed or operated by the [facility] Office of Mental Health; or Provided by the [facility] Office for People With Developmental Disabilities. If such information is present, then the following [facility] mandated warning applies: This information has been [...] law may result in a fine or residential sentence or both. A general authorization for the release of medical or other information is NOT sufficient authorization for further disc losure. Encounters Encounter Providers Location Date Indications Data Source(s ) Outpatient 12/18/2019 01:35:00 PM EST [facility] Insurance Providers Payer name Policy type / Coverage type Policy ID Covered democrat ID Covered democrat's relationship to ortega Policy Ortega Plan Information EMEDNY [id number] SP [id number] MEDICARE [id number] SP [id number] E92 SELF PAY MEDICARE [id number] SP [id number] D MEDICAID [id number] SP [id number] MEDICARE C [id number] S [id number] E92 MEDICAID M [id number] S [id number] MEDICARE C [id number] S [id number] D MEDICAID M [id number] Self [id number] MEDICARE A [id number] Self [id number] E92 MEDICARE A [id number] Self [id number] D MEDICARE [id number] SP [id number] B MEDICARE [id number] SP [id number] B Results ID Date Data Source [id number] 12/16/2020 10:50:00 AM EST [facility] Name Value Range Interpretation Code Description Data Elena rce(s) Supporting Document(s) SARS coronavirus 2 RNA Not Detected [facility] This lab was ordered by [facility] and reported by [facility]. ID Date Data Source [id number] 12/09/2020 08:00:00 AM EST [facility] Name Value Range Interpretation Code Description Data Elena rce(s) Supporting Document(s) SARS coronavirus 2 RNA Not Detected [facility] This lab was ordered by [facility] and reported by [facility]. ID Date Data Source [id number] 12/02/2020 06:00:00 AM EST [facility] Name Value Range Interpretation Code Description Data Elena rce(s) Supporting Document(s) SARS coronavirus 2 RNA Not Detected [facility] This lab was ordered by [facility] and reported by [facility]. ID Date Data Source [id number] 11/25/2020 12:00:00 PM EST [facility] Name Value Range Interpretation Code Description Data Elena rce(s) Supporting Document(s) SARS coronavirus 2 RNA Not Detected [facility] This lab was ordered by [facility] and reported by [facility]. ID Date Data Source [id number] 11/18/2020 11:00:00 AM EST [facility] Name Value Range Interpretation Code Description Data Elena rce(s) Supporting Document(s) SARS coronavirus 2 RNA [facility] This lab was ordered by [facility] and reported by [facility]. ID Date Data Source [id number] 11/11/2020 11:00:00 AM EST [facility] Name Value Range Interpretation Code Description Data Elena rce(s) Supporting Document(s) SARS coronavirus 2 RNA [facility] This lab was ordered by [facility] and reported by [facility]. ID Date Data Source [id number] 11/04/2020 09:00:00 AM EST [facility] Name Value Range Interpretation Code Description Data Elena rce(s) Supporting Document(s) SARS coronavirus 2 RNA [facility] This lab was ordered by [facility] and reported by [facility]. ID Date Data Source [id number] 10/25/2020 02:18:00 PM EST [facility] Name Value Range Interpretation Code Description Data Elena rce(s) Supporting Document(s) SARS coronavirus 2 RNA [Presence] in Res piratory specimen by FRANKLYN with probe detection [facility] This lab was ordered by [facility] a nd reported by [facility]. ID Date Data Source [id number] 10/21/2020 10:00:00 AM EST [facility] Name Value Range Interpretation Code Description Data Elena rce(s) Supporting Document(s) SARS coronavirus 2 RNA [facility] This lab was ordered by [facility] and reported by [facility]. ID Date Data Source [id number] 10/14/2020 07:00:00 AM EST [facility] Name Value Range Interpretation Code Description Data Elena rce(s) Supporting Document(s) SARS coronavirus 2 RNA [facility] This lab was ordered by [facility] and reported by [facility]. ID Date Data Source [id number] 10/07/2020 10:30:00 AM EST [facility] Name Value Range Interpretation Code Description Data Elena rce(s) Supporting Document(s) SARS coronavirus 2 RNA [facility] This lab was ordered by [facility] and reported by [facility]. ID Date Data Source [id number] 10/01/2020 02:03:00 PM EST [facility] Name Value Range Interpretation Code Description Data Elena rce(s) Supporting Document(s) SARS coronavirus 2 RNA [facility] This lab was ordered by [facility] and reported by [facility]. Procedure
[2020-12-21 14:15] LABS: BASO % 0.2 % (0.0-1.0); EOS % 0.2 % (0.0-3.0); HEMATOCRIT 22.8 % (36.0-47.0); LYMPH # 1.2 10^3/uL (1.5-5.0); MEAN CORPUSCULAR HEMOGLOBIN 26.3 pg (27.0-33.0); MEAN CORPUSCULAR HGB CONC 28.9 g/dl (32.0-36.5); MEAN CORPUSCULAR VOLUME 90.8 fl (80.0-96.0); MONO # 1.8 10^3/uL (0.0-0.8); MONO % 33.9 % (0.0-5.0); NEUTROPHILS # 2.2 10^3/uL (1.5-8.5); PLATELET COUNT, AUTOMATED 282 10^3/uL (150-450); RED BLOOD COUNT 2.51 10^6/uL (4.00-5.40); WHITE BLOOD COUNT 5.3 10^3/uL (4.0-10.0)
[2020-12-21 14:16] LABS: INR 1.32; PROTHROMBIN TIME 16.7 SECONDS (12.5-14.3)
[2020-12-21 14:17] LABS: PARTIAL THROMBOPLASTIN TIME 37.9 SECONDS (24.2-38.5)
[2020-12-21 14:30] LABS: HEMOGLOBIN 6.6 g/dl (12.0-15.5)
[2020-12-21 14:44] LABS: ALBUMIN 3.6 GM/DL (3.2-5.2); ALT/SGPT 11 U/L (12-78); BILIRUBIN,DIRECT < 0.1 MG/DL (0.0-0.2); BILIRUBIN,TOTAL 0.1 MG/DL (0.2-1.0); BLOOD UREA NITROGEN 19 MG/DL (7-18); CALCIUM LEVEL 8.8 MG/DL (8.8-10.2); CARBON DIOXIDE LEVEL 29 MEQ/L (21-32); CHLORIDE LEVEL 107 MEQ/L (98-107); CREATININE FOR GFR 0.62 MG/DL (0.55-1.30); GLOMERULAR FILTRATION RATE > 60.0 (>32); GLUCOSE, FASTING 92 MG/DL (70-100); POTASSIUM SERUM 4.4 MEQ/L (3.5-5.1); SODIUM LEVEL 140 MEQ/L (136-145); TOTAL PROTEIN 6.5 GM/DL (6.4-8.2)
--- OUTSIDE RECORDS SUMMARY | 2020-12-21 15:14 | CCD ---
Author Author [facility] Organization [facility] Address Unknown Phone Unavailable Support Name Relationship Address Phone ARIELA BERMUDEZ Next Of Kin [address] [place] [address] RE Next Of Kin Unknown Unavailable LEANNE WALSH Next Of Kin [address] [place] [address] UE Next Of Kin Unknown Unavailable DOMINIC [place] [address] Re-disclosure Warning The records that you are [...] is protected by Article 27-F of the [facility] Public Health law. If you continue you may have access to information: Regarding HIV / AIDS; Provided by facilities licensed or operated by the [facility] Office of Mental Health; or Provided by the [facility] Office for People With Developmental Disabilities. If such information is present, then the following [facility] mandated warning applies: This information has [...] law may result in a fine or usp sentence or both. A general authorization for the release of medical or other information is NOT sufficient authorization for further disc losure. Encounters Encounter Providers Location Date Indications Data Source(s ) Outpatient 12/18/2019 01:35:00 PM EST [facility] Insurance Providers Payer name Policy type / Coverage type Policy ID Covered republican ID Covered republican's relationship to ortega Policy Ortega Plan Information EMEDNY [id number] SP [id number] MEDICARE [id number] SP [id number] E92 SELF PAY MEDICARE [id number] SP [id number] D MEDICAID [id number] SP [id number] MEDICARE C [id number] S [id number] E92 MEDICAID M [id number] S [id number] MEDICARE C [id number] S [id number] D MEDICAID M [id number] Self [id number] MEDICARE A [id number] Self [id number] E92 MEDICARE A [id number] Self [id number] D MEDICARE [id number] SP [id number] B MEDICARE [id number] SP [id number] B Results ID Date Data Source [id number] 12/16/2020 10:50:00 AM EST [facility] Name Value Range Interpretation Code Description Data Elena rce(s) Supporting Document(s) SARS coronavirus 2 RNA Not Detected [facility] This lab was ordered by [facility] and reported by [facility]. ID Date Data Source [id number] 12/09/2020 08:00:00 AM EST [facility] Name Value Range Interpretation Code Description Data Elena rce(s) Supporting Document(s) SARS coronavirus 2 RNA Not Detected [facility] This lab was ordered by [facility] and reported by [facility]. ID Date Data Source [id number] 12/02/2020 06:00:00 AM EST [facility] Name Value Range Interpretation Code Description Data Elena rce(s) Supporting Document(s) SARS coronavirus 2 RNA Not Detected [facility] This lab was ordered by [facility] and reported by [facility]. ID Date Data Source [id number] 11/25/2020 12:00:00 PM EST [facility] Name Value Range Interpretation Code Description Data Elena rce(s) Supporting Document(s) SARS coronavirus 2 RNA Not Detected [facility] This lab was ordered by [facility] and reported by [facility]. ID Date Data Source [id number] 11/18/2020 11:00:00 AM EST [facility] Name Value Range Interpretation Code Description Data Elena rce(s) Supporting Document(s) SARS coronavirus 2 RNA [facility] This lab was ordered by [facility] and reported by [facility]. ID Date Data Source [id number] 11/11/2020 11:00:00 AM EST [facility] Name Value Range Interpretation Code Description Data Elena rce(s) Supporting Document(s) SARS coronavirus 2 RNA [facility] This lab was ordered by [facility] and reported by [facility]. ID Date Data Source [id number] 11/04/2020 09:00:00 AM EST [facility] Name Value Range Interpretation Code Description Data Elena rce(s) Supporting Document(s) SARS coronavirus 2 RNA [facility] This lab was ordered by [facility] and reported by [facility]. ID Date Data Source [id number] 10/25/2020 02:18:00 PM EST [facility] Name Value Range Interpretation Code Description Data Elena rce(s) Supporting Document(s) SARS coronavirus 2 RNA [Presence] in Res piratory specimen by FRANKLYN with probe detection [facility] This lab was ordered by [facility] a nd reported by [facility]. ID Date Data Source [id number] 10/21/2020 10:00:00 AM EST [facility] Name Value Range Interpretation Code Description Data Elena rce(s) Supporting Document(s) SARS coronavirus 2 RNA [facility] This lab was ordered by [facility] and reported by [facility]. ID Date Data Source [id number] 10/14/2020 07:00:00 AM EST [facility] Name Value Range Interpretation Code Description Data Elena rce(s) Supporting Document(s) SARS coronavirus 2 RNA [facility] This lab was ordered by [facility] and reported by [facility]. ID Date Data Source [id number] 10/07/2020 10:30:00 AM EST [facility] Name Value Range Interpretation Code Description Data Elena rce(s) Supporting Document(s) SARS coronavirus 2 RNA [facility] This lab was ordered by [facility] and reported by [facility]. ID Date Data Source [id number] 10/01/2020 02:03:00 PM EST [facility] Name Value Range Interpretation Code Description Data Elena rce(s) Supporting Document(s) SARS coronavirus 2 RNA [facility] This lab was ordered by [facility] and reported by [facility]. Procedure
[2020-12-21] MEDS ORDERED: LORazepam 0.5 MG TAB PO ONE (15:15)
[2020-12-21] MEDS ORDERED: SYNT75TA PO (15:34)
--- NOTE | 2020-12-21 15:39 | HPEPDOC ---
[facility] Medical History & Physical Date of Admission Dec 21, 2020 Date of Service: Dec 21, 2020 Attending Physician: Rhea Solano MD History and Physical CHIEF COMPLAINT: Low H/H HISTORY OF PRESENT ILLNESS: Patient is an 85-year-old female with past medical history of GI bleed (recent admission in 10/25-09/2020), iron deficiency anemia, dementia, hypothyroidism, osteoporosis, history of falls who was sent to [facility] emergency room after having abnormal labs done. Patient's H&H showed 6.8/24.5. The patient had no acute complaints but has been looking more pale than normal, having some increased lethargy. There has been no documented bleeding by nursing staff at the detention. In the emergency room, H&H 6.6/22.8, temperature 100.3 Fahrenheit, heart rate and blood pressure were within normal limits. The patient refused guaiac testing. Patient has an updated MOLST form from 2019 stating Full Code, daughter was attempted to be called but was unable to get a hold of her both by myself and ER. Other labs were unremarkable. Patient was very upset in the ER, confused. She wanted to go back to the detention. She kept yelling at me during my evaluation, limiting my physical exam. She was ultimately admitted for acute on chronic NAIMA requiring transfusion. REVIEW OF SYSTEMS: Unable to obtain due to dementia. PAST MEDICAL HISTORY: Dementia Hypothyroidism chronic NAIMA Osteoporosis Hiatal hernia History of Falls History of cervical spine fracture History of hip fracture. History of recurrent UTIs Anxiety PAST SURGICAL HISTORY: Unable to obtain due to dementia FAMILY HISTORY: Unable to obtain due to dementia SOCIAL HISTORY: Unable to obtain due to dementia ALLERGIES: Please see below. HOME MEDICATIONS: Please see below. PHYSICAL EXAMINATION: CONSTITUTIONAL: pale female, thin, laying in bed would not answer questions of orientation for me. EYES: would not open eyes for evaluation HENT, MOUTH: Normocephalic, atraumatic, moist mucous membranes NECK: SUPPLE, no JVD, no lymphadenopathy, no carotid bruit CV: Regular rate and rhythm, S1S2 normal, no murmurs/rubs/gallops RESPIRATORY: Clear to auscultation bilaterally, no rales/rhonchi/wheezes GI: BS positive in 4 quadrants, soft, nontender, nondistended, no rebound or guarding, no organomegaly : Deferred MUSCULOSKELETAL: Normal ROM. No cyanosis, clubbing, swelling, joint deformity, extremity edema INTEGUMENTARY: Intact, no rashes, no lesions, no erythema NEUROLOGIC: Cranial Nerves II-XII are intact, no focal deficits PSYCHIATRIC:agitated mood LABORATORY DATA: Please see below IMAGING: CT abd/pelvis ordered. ASSESSMENT: 85-year-old female with past medical history of GI bleed (recent admission in 10/25-09/2020), iron deficiency anemia, dementia, hypothyroidism, osteoporosis, history of falls admitted for acute on chronic NAIMA requiring transfusion. PLAN: Acute on chronic NAIMA , r/o GI bleed -Gradual decline from 10/2020 of H/H -Currently 6.05/11, pale with increased weakness per reports -Had Upper GI/colonoscopy 10/29/[address] Porter- No definite bleeding source found on either -Was believed on prior admission that diverticulosis was cause of GI bleed per records -No s/s of recent bleeding currently, refused Guaiac testing in ER -F/u recent iron studies, occult blood, CBC Q12 H, CT abd/pelvis without contrast -CLD -Will be getting 2 U PRBC now, f/u post-transfusion CBC 2 hrs after last unit transfused -If iron low this stay, consider iron infusions prior to discharge. -If occult blood +, consider discussing with Dr. Porter or surgery to see if additional workup will be needed -C/w oral iron supplement for now -Monitor on tele. Dementia / anxiety -agitated, angry and yelling at me in the ER -Given ativan in ER -Was able to be redirected most times. -C/w redirection, home med Hypothyroidism -C/w synthroid Hx of recurrent UTI -Temp 100.3, borderline high -UA pending -CBC wnl, daily labs DVT px -SCD, teds while r/o GI bleed DISPOSITION: Admitted as acute inpatient. Plan is discharge back to [place] when medically improved. Again, daughter Kortney Castro was attempted to be called but unable to be reached. Vital Signs Vital Signs Date Time Temp Pulse Resp B/P (MAP) Pulse Ox O2 Delivery O2 Flow Rate FiO2 12/21/20 13:50 98.0 12/21/20 12:14 93 20 141/66 99 Room Air Laboratory Data Labs 24H Laboratory Tests 2 12/21/20 13:46: Immature Granulocyte % (Auto) 1.7, Neutrophils (%) (Auto) 41.0, Lymphocytes (%) (Auto) 23.0L, Monocytes (%) (Auto) 33.9H, Eosinophils (%) (Auto) 0.2, Basophils (%) (Auto) 0.2, Neutrophils # (Auto) 2.2, Lymphocytes # (Auto) 1.2L, Monocytes # (Auto) 1.8H, Eosinophils # (Auto) 0.0, Basophils # (Auto) 0.0, Nucleated Red Blood Cells % (auto) 0.0, Prothrombin Time 16.7H, Prothromb Time International Ratio 1.32, Activated Partial Thromboplast Time 37.9, Anion Gap 4L, Glomerular Filtration Rate > 60.0, Calcium Level 8.8, Total Bilirubin 0.1L, Direct Bili powers < 0.1, Aspartate Amino Transf (AST/SGOT) 13, Alanine Aminotransferase (ALT/SGPT) 11L, Alkaline Phosphatase 57, Total Protein 6.5, Albumin 3.6, Albumin/Globulin Ratio 1.2 CBC/BMP Laboratory Tests 12/21/20 13:46 Home Medications Scheduled Ferrous Gluconate (Ferrous Gluconate) 324 Mg Tablet, 324 MG PO DAILY Fluoxetine Hcl (Fluoxetine HCl) 20 Mg Capsule, 20 MG PO DAILY Lactose-Reduced Food (Ensure Enlive) 237 Ml Liquid, 180 ML PO BID Levothyroxine Sodium (Synthroid) 75 Mcg Tablet, 75 MCG PO DAILY Sennosides/Docusate Sodium (Senna-S Tablet) 1 Each Tablet, 2 TAB PO BID Scheduled PRN Acetaminophen (Acetaminophen) 325 Mg Tablet, 650 MG PO Q4H PRN for PAIN / FEVER Bisacodyl (Dulcolax) 10 Mg Supp.rect, 10 MG CA DAILY PRN for CONSTIPATION Milk Of Magnesia (Milk of Magnesia) 2,400 Mg/10 Ml Oral.susp, 2,400 MG PO DAILY PRN for CONSTIPATION Sodium Phosphate,Reeves-Dibasic (Enema) 133 Ml Enema, 1 MARIANA CA DAILY PRN for CONSTIPATION Allergies Coded Allergies: No Known Allergies (Unverified , 12/02/18) A-FIB/CHADSVASC A-FIB History Current/History of A-Fib/PAF?: No Current PO Anticoag Therapy: No Age/Risk Factor Scoring CHADSVASC: CHADSVASC Response (Comments) Value Age Risk Factor Age >/= 75 years old 2 Gender Risk Factor Female 1 Hx of CHF No 0 Hx of HTN No 0 Hx of Stroke/TIA/or VTE No 0 Hx of Diabetes No 0 Hx of Vascular Disease No 0 Total 3 Treatment Treatment ordered: NONE Other anticoagulant ordered: r/o GI bleed, CI Rhea Solano MD Dec 21, 2020 15:39
[2020-12-21] MEDS ORDERED: ACETAMINOPHEN TAB 650MG DOSE (2X325MG) PO PRN (16:00)
[2020-12-21] MEDS ORDERED: BISACODYL 10 MG SUPP PR PRN (16:00)
[2020-12-21 16:05] LABS: HEMATOCRIT 23.4 % (36.0-47.0); MEAN CORPUSCULAR HEMOGLOBIN 25.3 pg (27.0-33.0); MEAN CORPUSCULAR HGB CONC 28.2 g/dl (32.0-36.5); MEAN CORPUSCULAR VOLUME 89.7 fl (80.0-96.0); PLATELET COUNT, AUTOMATED 310 10^3/uL (150-450); RED BLOOD COUNT 2.61 10^6/uL (4.00-5.40); WHITE BLOOD COUNT 5.5 10^3/uL (4.0-10.0)
[2020-12-21 16:08] LABS: HEMOGLOBIN 6.6 g/dl (12.0-15.5)
[2020-12-21 16:31] LABS: FERRITIN 26 NG/ML (8-252); IRON (FE) 138 UG/DL (50-170); PERCENT SATURATION 44.2 % (13.2-45.0); TOTAL IRON BINDING CAPACITY 312 UG/DL (250-450)
--- NOTE | 2020-12-21 17:09 | REP ---
INDICATION: GI bleed COMPARISON: Comparison CT study abdomen pelvis September 20, 2019.. TECHNIQUE: Helical scanning is acquired in 4 mm axial images were reformatted. Coronal and sagittal MPR images were generated and reviewed. 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 On axial CT images there is discoid atelectasis or fibrosis in the right lung base. A hiatal hernia is noted. There is a small left pleural effusion and atelectatic changes are seen in the left lung base. Cardiomegaly is observed. No adrenal mass is seen. There are granulomatous calcifications in the spleen. The gallbladder is unremarkable. No abnormality is noted in the pancreas. The kidneys show no evidence of hydronephrosis or intrarenal calculus on either side. There is a moderate amount of formed stool in the left colon and to some degree in the cecum. The rectum however is markedly distended with formed stool filling the pelvis, 8.6 cm in transverse dimension by 8.6 cm anterior to posterior. There is some gas distention of more proximal colonic loops sigmoid and transverse segment. No small bowel abnormality. The uterus is displaced anteriorly but unremarkable. Bladder is compressed. No abdominal wall defect is seen. Vascular calcification is seen in the normal caliber aorta. normal appendix is seen. IMPRESSION: Rectal fecal impaction obstipation pattern with some dilation of the more proximal colonic loops. Small left pleural effusion, hiatal hernia, left lower lobe atelectatic changes. <Electronically signed by Nato Viveros > 12/21/20 [id number]
[2020-12-21 17:32] LABS: RSV AMPLIFICATION NEGATIVE (NEGATIVE)
[2020-12-21] MEDS: PANTOPRAZOLE 40MG TAB (PROTONIX) PO SCH (22:56)
[2020-12-21] MEDS: SENOKOT S TAB PO SCH (22:56)
[2020-12-22 00:15] VITALS: BP 126/81
[2020-12-22 01:00] VITALS: BP 145/72
[2020-12-22 02:00] VITALS: BP 136/68
[2020-12-22 02:57] LABS: HEMATOCRIT 34.2 % (36.0-47.0); MEAN CORPUSCULAR HEMOGLOBIN 26.8 pg (27.0-33.0); MEAN CORPUSCULAR HGB CONC 30.1 g/dl (32.0-36.5); MEAN CORPUSCULAR VOLUME 88.8 fl (80.0-96.0); PLATELET COUNT, AUTOMATED 267 10^3/uL (150-450); RED BLOOD COUNT 3.85 10^6/uL (4.00-5.40); WHITE BLOOD COUNT 6.5 10^3/uL (4.0-10.0)
[2020-12-22 03:00] LABS: HEMOGLOBIN 10.3 g/dl (12.0-15.5)
[2020-12-22 03:28] LABS: ALBUMIN 3.5 GM/DL (3.2-5.2); ALT/SGPT 13 U/L (12-78); BILIRUBIN,TOTAL 0.4 MG/DL (0.2-1.0); BLOOD UREA NITROGEN 15 MG/DL (7-18); CALCIUM LEVEL 8.4 MG/DL (8.8-10.2); CARBON DIOXIDE LEVEL 27 MEQ/L (21-32); CHLORIDE LEVEL 107 MEQ/L (98-107); GLOMERULAR FILTRATION RATE > 60.0 (>32); GLUCOSE, FASTING 84 MG/DL (70-100); SODIUM LEVEL 142 MEQ/L (136-145); TOTAL PROTEIN 6.4 GM/DL (6.4-8.2)
[2020-12-22] MEDS: LEVOTHYROXINE 75MCG TABLET (0.075MG) PO SCH (05:37)
[2020-12-22 06:00] VITALS: BP 126/80
[2020-12-22] MEDS: SENOKOT S TAB PO SCH ×2 (08:50→20:14)
[2020-12-22] MEDS: FERROUS GLUCONATE 324 MG TAB PO SCH (08:50)
[2020-12-22] MEDS: PANTOPRAZOLE 40MG TAB (PROTONIX) PO SCH ×2 (08:50→20:14)
[2020-12-22] MEDS: FLUoxetine 20 MG CAP PO SCH (08:50)
[2020-12-22 13:39] VITALS: BP 125/58
[2020-12-22 14:32] LABS: HEMATOCRIT 33.1 % (36.0-47.0); MEAN CORPUSCULAR HEMOGLOBIN 26.7 pg (27.0-33.0); MEAN CORPUSCULAR HGB CONC 30.2 g/dl (32.0-36.5); MEAN CORPUSCULAR VOLUME 88.5 fl (80.0-96.0); PLATELET COUNT, AUTOMATED 291 10^3/uL (150-450); RED BLOOD COUNT 3.74 10^6/uL (4.00-5.40); WHITE BLOOD COUNT 5.9 10^3/uL (4.0-10.0)
[2020-12-22 22:00] VITALS: BP 112/63
[2020-12-23 03:13] LABS: HEMATOCRIT 32.6 % (36.0-47.0); HEMOGLOBIN 9.8 g/dl (12.0-15.5); MEAN CORPUSCULAR HEMOGLOBIN 26.6 pg (27.0-33.0); MEAN CORPUSCULAR HGB CONC 30.1 g/dl (32.0-36.5); MEAN CORPUSCULAR VOLUME 88.6 fl (80.0-96.0); PLATELET COUNT, AUTOMATED 293 10^3/uL (150-450); RED BLOOD COUNT 3.68 10^6/uL (4.00-5.40); WHITE BLOOD COUNT 5.7 10^3/uL (4.0-10.0)
[2020-12-23 03:48] LABS: ALBUMIN 3.4 GM/DL (3.2-5.2); ALT/SGPT 10 U/L (12-78); BILIRUBIN,TOTAL 0.4 MG/DL (0.2-1.0); BLOOD UREA NITROGEN 14 MG/DL (7-18); CALCIUM LEVEL 8.4 MG/DL (8.8-10.2); CARBON DIOXIDE LEVEL 24 MEQ/L (21-32); CHLORIDE LEVEL 107 MEQ/L (98-107); CREATININE FOR GFR 0.69 MG/DL (0.55-1.30); GLOMERULAR FILTRATION RATE > 60.0 (>32); GLUCOSE, FASTING 76 MG/DL (70-100); SODIUM LEVEL 141 MEQ/L (136-145); TOTAL PROTEIN 6.3 GM/DL (6.4-8.2)
[2020-12-23] MEDS: LEVOTHYROXINE 75MCG TABLET (0.075MG) PO SCH (05:29)
[2020-12-23 06:00] VITALS: BP 114/63
[2020-12-23] MEDS: SENOKOT S TAB PO SCH (09:40)
[2020-12-23] MEDS: FLUoxetine 20 MG CAP PO SCH (09:41)
[2020-12-23] MEDS: PANTOPRAZOLE 40MG TAB (PROTONIX) PO SCH (09:41)
[2020-12-23] MEDS: FERROUS GLUCONATE 324 MG TAB PO SCH (09:41)
--- NOTE | 2020-12-23 10:28 | DSES ---
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 SECONDARY DIAGNOSES: 1. Dementia with behavioral disturbance. 2. Hypothyroidism. HISTORY: The patient was admitted with anemia with hemoglobin of 6.6. She had an upper and lower endoscopy on 10/30/2020, and no bleeding source was seen. Bradford to be diverticular in origin. HOSPITAL COURSE: She was admitted to the medical bed. She was transfused two units of packed red blood cells. Hemoglobin remained stable. Stool was positive for occult blood. We watched her for 24 hours to ensure a stable hemoglobin and it is 9.8 today. She had thorough upper and lower endoscopic evaluation approximately six weeks ago, so she is stable for discharge. DISCHARGE PHYSICAL EXAMINATION: GENERAL APPEARANCE: On the day of discharge, she is resting comfortably. She is alert, conversant, and quite cooperative. VITAL SIGNS: Stable. LUNGS: Clear. HEART: Regular rate and rhythm. ABDOMEN: Soft and nontender. LABORATORY DATA: CBC unremarkable. White count 5.9, hemoglobin 9.8, which is stable, and platelets 293,000. Iron studies were all within normal limits. Renal function normal. Creatinine 0.69. COVID test was negative. DISCHARGE DISPOSITION: Discharge back to [facility]. DISCHARGE ACTIVITY: As tolerated. DISCHARGE DIET: As tolerated. DISCHARGE FOLLOW-UP: Physician at [facility]. DISCHARGE INSTRUCTIONS: Would recommend a CBC every few weeks, she probably has a slow GI blood loss presumed to be diverticular, and might need periodic transfusions; but that should not require hospitalization. DISCHARGE MEDICATIONS: Unchanged. 1. Tylenol as needed. 2. Bowel care as needed. 3. Ferrous gluconate 324 mg daily. 4. Fluoxetine 20 mg daily. 5. Ensure Enlive b.i.d. 6. Levothyroxine 75 mcg daily. At the time of this dictation there are no pending labs. Outpatient monitoring of CBC frequent interval is advised with periodic outpatient transfusions as necessary.
[2020-12-23 14:20] VITALS: BP 130/90
== END 2020-12-23 12:50 | DRG 812 ==
LOC: M ED 11:53 → M ED INP 15:04 → M MSPAV 23:37
PROVIDERS: ADMIT Internal Medicine; ATTEND Family Medicine
PROC: 30233N1 Transfusion of Nonautologous Red Blood Cells into Peripheral Vein, Percutaneous Approach (ICD-10-PCS; principal; 2020-12-21)
DX: D62 Acute posthemorrhagic anemia (principal); F03.91 Unspecified dementia, unspecified severity, with behavioral disturbance; K92.2 Gastrointestinal hemorrhage, unspecified; E03.9 Hypothyroidism, unspecified; M81.0 Age-related osteoporosis without current pathological fracture; K44.9 Diaphragmatic hernia without obstruction or gangrene; F41.9 Anxiety disorder, unspecified; Z20.822 Contact with and (suspected) exposure to COVID-19

== ENCOUNTER → 2020-12-21 | Outpatient (REF) | payer MEDICARE, MEDICAID ==
[~2020-12-21] MED LIST changes: +LISI-542 PO; -LISI-898 PO
[2020-12-21 09:55] LABS: HEMATOCRIT 24.5 % (36.0-47.0); MEAN CORPUSCULAR HEMOGLOBIN 25.4 pg (27.0-33.0); MEAN CORPUSCULAR HGB CONC 27.8 g/dl (32.0-36.5); MEAN CORPUSCULAR VOLUME 91.4 fl (80.0-96.0); PLATELET COUNT, AUTOMATED 278 10^3/uL (150-450); RED BLOOD COUNT 2.68 10^6/uL (4.00-5.40); WHITE BLOOD COUNT 5.4 10^3/uL (4.0-10.0)
[2020-12-21 09:56] LABS: HEMOGLOBIN 6.8 g/dl (12.0-15.5)
== END ==
LOC: SKLAB2 08:57
PROVIDERS: ATTEND Internal Medicine
DX: D64.9 Anemia, unspecified (principal)

== ENCOUNTER → 2020-12-30 | Outpatient (REF) ==
[2020-12-29 09:43] LABS: HEMOGLOBIN 10.4 g/dl (12.0-15.5); MEAN CORPUSCULAR HEMOGLOBIN 26.5 pg (27.0-33.0); MEAN CORPUSCULAR HGB CONC 28.9 g/dl (32.0-36.5); MEAN CORPUSCULAR VOLUME 91.6 fl (80.0-96.0); PLATELET COUNT, AUTOMATED 222 10^3/uL (150-450); RED BLOOD COUNT 3.93 10^6/uL (4.00-5.40); WHITE BLOOD COUNT 5.2 10^3/uL (4.0-10.0)
[~2020-12-30] MED LIST changes: +FERR325T16 PO; -LISI-542 PO; +LISI-898 PO; +SYNT75TA PO
== END ==
LOC: SKLAB2 09:47
PROVIDERS: ATTEND Internal Medicine
DX: D64.9 Anemia, unspecified (principal)

== ENCOUNTER → 2020-12-30 | Outpatient (REF) | payer MEDICARE, MEDICAID | LOC: SKLAB2 09:46 | PROVIDERS: ATTEND Internal Medicine | DX: Z20.822 Contact with and (suspected) exposure to COVID-19 (principal) ==

== ENCOUNTER → 2020-12-30 | Outpatient (REF) | LOC: EDSTATUS 12-09 15:56 → SKLAB2 09:48 | PROVIDERS: ATTEND Internal Medicine | DX: Z20.822 Contact with and (suspected) exposure to COVID-19 (principal) ==

== ENCOUNTER → 2021-01-05 | Outpatient (REF) | payer MEDICARE, MEDICAID ==
[2021-01-05 11:04] LABS: HEMATOCRIT 36.9 % (36.0-47.0); HEMOGLOBIN 10.9 g/dl (12.0-15.5); MEAN CORPUSCULAR HGB CONC 29.5 g/dl (32.0-36.5); MEAN CORPUSCULAR VOLUME 91.3 fl (80.0-96.0); PLATELET COUNT, AUTOMATED 190 10^3/uL (150-450); RED BLOOD COUNT 4.04 10^6/uL (4.00-5.40); WHITE BLOOD COUNT 4.5 10^3/uL (4.0-10.0)
== END ==
LOC: SKLAB2 14:17
PROVIDERS: ATTEND Internal Medicine
DX: D64.9 Anemia, unspecified (principal)

== ENCOUNTER → 2021-01-06 | Outpatient (REF) | payer MEDICARE, MEDICAID | LOC: SKLAB2 07:43 | PROVIDERS: ATTEND Internal Medicine | DX: Z11.52 Encounter for screening for COVID-19 (principal) ==

== ENCOUNTER → 2021-01-12 | Outpatient (REF) | payer MEDICARE, MEDICAID ==
[2021-01-12 11:03] LABS: HEMATOCRIT 37.3 % (36.0-47.0); HEMOGLOBIN 10.8 g/dl (12.0-15.5); MEAN CORPUSCULAR HEMOGLOBIN 26.2 pg (27.0-33.0); MEAN CORPUSCULAR VOLUME 90.5 fl (80.0-96.0); PLATELET COUNT, AUTOMATED 158 10^3/uL (150-450); RED BLOOD COUNT 4.12 10^6/uL (4.00-5.40); WHITE BLOOD COUNT 4.1 10^3/uL (4.0-10.0)
== END ==
LOC: SKLAB2 01-11 08:29
PROVIDERS: ATTEND Internal Medicine
DX: D64.9 Anemia, unspecified (principal)

== ENCOUNTER → 2021-01-13 | Outpatient (REF) | payer MEDICARE, MEDICAID | LOC: SKLAB2 09:11 | PROVIDERS: ATTEND Internal Medicine | DX: Z20.822 Contact with and (suspected) exposure to COVID-19 (principal) ==

== ENCOUNTER → 2021-01-26 | Outpatient (REF) | payer MEDICARE, MEDICAID ==
[2021-01-26 08:06] LABS: ALBUMIN 3.4 GM/DL (3.2-5.2); ALT/SGPT 10 U/L (12-78); BILIRUBIN,TOTAL 0.3 MG/DL (0.2-1.0); BLOOD UREA NITROGEN 24 MG/DL (7-18); CARBON DIOXIDE LEVEL 31 MEQ/L (21-32); CHLORIDE LEVEL 105 MEQ/L (98-107); CREATININE FOR GFR 0.73 MG/DL (0.55-1.30); GLOMERULAR FILTRATION RATE > 60.0 (>32); GLUCOSE, FASTING 84 MG/DL (70-100); POTASSIUM SERUM 4.1 MEQ/L (3.5-5.1); SODIUM LEVEL 140 MEQ/L (136-145); TOTAL PROTEIN 6.8 GM/DL (6.4-8.2)
== END ==
LOC: SKLAB2 10:11
PROVIDERS: ATTEND Internal Medicine
DX: D64.9 Anemia, unspecified (principal)

== ENCOUNTER → 2021-01-27 | Outpatient (REF) | payer MEDICARE, MEDICAID | LOC: SKLAB2 08:00 | PROVIDERS: ATTEND Internal Medicine | DX: Z11.52 Encounter for screening for COVID-19 (principal) ==

== ENCOUNTER → 2021-01-29 | Outpatient (REF) | payer MEDICARE, MEDICAID | LOC: SKLAB2 08:00 | PROVIDERS: ATTEND Internal Medicine | DX: E87.6 Hypokalemia (principal) ==

== ENCOUNTER → 2021-02-03 | Outpatient (REF) | payer MEDICARE, MEDICAID | LOC: SKLAB2 13:27 | PROVIDERS: ATTEND Internal Medicine | DX: Z20.822 Contact with and (suspected) exposure to COVID-19 (principal) ==

== ENCOUNTER → 2021-02-09 | Outpatient (REF) | payer MEDICARE, MEDICAID ==
[2021-02-09 07:58] LABS: HEMOGLOBIN 10.8 g/dl (12.0-15.5); MEAN CORPUSCULAR HEMOGLOBIN 26.8 pg (27.0-33.0); MEAN CORPUSCULAR HGB CONC 30.9 g/dl (32.0-36.5); MEAN CORPUSCULAR VOLUME 86.8 fl (80.0-96.0); PLATELET COUNT, AUTOMATED 174 10^3/uL (150-450); RED BLOOD COUNT 4.03 10^6/uL (4.00-5.40); WHITE BLOOD COUNT 5.1 10^3/uL (4.0-10.0)
== END ==
LOC: SKLAB2 12:39
PROVIDERS: ATTEND Internal Medicine
DX: D64.9 Anemia, unspecified (principal)

== ENCOUNTER → 2021-02-19 | Outpatient (REF) | payer MEDICARE, MEDICAID ==
[2021-02-19 09:18] LABS: HEMOGLOBIN 11.2 g/dl (12.0-15.5); MEAN CORPUSCULAR HEMOGLOBIN 26.2 pg (27.0-33.0); MEAN CORPUSCULAR HGB CONC 30.3 g/dl (32.0-36.5); MEAN CORPUSCULAR VOLUME 86.4 fl (80.0-96.0); PLATELET COUNT, AUTOMATED 150 10^3/uL (150-450); RED BLOOD COUNT 4.28 10^6/uL (4.00-5.40)
[2021-02-19 09:42] LABS: ERYTHROCYTE SEDIMENTATION RATE 54 mm/hr (0-30)
[2021-02-19 09:47] LABS: BLOOD UREA NITROGEN 20 MG/DL (7-18); C REACTIVE PROTEIN QUANTITATIV 6.01 MG/DL (0.00-0.30); CALCIUM LEVEL 8.7 MG/DL (8.8-10.2); CARBON DIOXIDE LEVEL 29 MEQ/L (21-32); CHLORIDE LEVEL 107 MEQ/L (98-107); CREATININE FOR GFR 0.64 MG/DL (0.55-1.30); GLOMERULAR FILTRATION RATE > 60.0 (>32); GLUCOSE, FASTING 145 MG/DL (70-100); POTASSIUM SERUM 4.1 MEQ/L (3.5-5.1); SODIUM LEVEL 142 MEQ/L (136-145); URIC ACID 4.5 MG/DL (2.6-6.0)
== END ==
LOC: SKLAB2 08:27
PROVIDERS: ATTEND Internal Medicine
DX: M65.849 Other synovitis and tenosynovitis, unspecified hand (principal)

== ENCOUNTER → 2021-02-19 | Outpatient (REF) | payer MEDICARE, MEDICAID | LOC: SKLAB2 12:39 | PROVIDERS: ATTEND Internal Medicine | DX: Z20.822 Contact with and (suspected) exposure to COVID-19 (principal) ==

== ENCOUNTER → 2021-02-23 | Outpatient (REF) | payer MEDICARE, MEDICAID ==
[2021-02-23 08:40] LABS: HEMOGLOBIN 10.1 g/dl (12.0-15.5); MEAN CORPUSCULAR HGB CONC 30.6 g/dl (32.0-36.5); MEAN CORPUSCULAR VOLUME 84.8 fl (80.0-96.0); PLATELET COUNT, AUTOMATED 169 10^3/uL (150-450); RED BLOOD COUNT 3.89 10^6/uL (4.00-5.40); WHITE BLOOD COUNT 4.5 10^3/uL (4.0-10.0)
== END ==
LOC: SKLAB2 12:40
PROVIDERS: ATTEND Internal Medicine
DX: M19.031 Primary osteoarthritis, right wrist (principal); Z79.899 Other long term (current) drug therapy

== ENCOUNTER → 2021-03-02 | Outpatient (REF) | payer MEDICARE, MEDICAID ==
[~2021-03-02] MED LIST changes: +FERR324T21 PO; -FERR325T16 PO
[2021-03-02 09:42] LABS: ALBUMIN 3.5 GM/DL (3.2-5.2); ALT/SGPT 17 U/L (12-78); BILIRUBIN,TOTAL 0.2 MG/DL (0.2-1.0); BLOOD UREA NITROGEN 19 MG/DL (7-18); CALCIUM LEVEL 8.8 MG/DL (8.8-10.2); CARBON DIOXIDE LEVEL 28 MEQ/L (21-32); CHLORIDE LEVEL 109 MEQ/L (98-107); CREATININE FOR GFR 0.55 MG/DL (0.55-1.30); FERRITIN 42 NG/ML (8-252); GLOMERULAR FILTRATION RATE > 60.0 (>32); GLUCOSE, FASTING 84 MG/DL (70-100); IRON (FE) 40 UG/DL (50-170); PERCENT SATURATION 13.5 % (13.2-45.0); POTASSIUM SERUM 3.9 MEQ/L (3.5-5.1); SODIUM LEVEL 143 MEQ/L (136-145); THYROID STIMULATING HORMONE 0.792 uIU/ML (0.358-3.740); TOTAL IRON BINDING CAPACITY 297 UG/DL (250-450)
== END ==
LOC: SKLAB2 15:00
PROVIDERS: ATTEND Internal Medicine
DX: D64.9 Anemia, unspecified (principal)

== ENCOUNTER → 2021-03-30 | Outpatient (REF) | payer MEDICARE, MEDICAID ==
[2021-03-30 09:06] LABS: HEMATOCRIT 35.3 % (36.0-47.0); HEMOGLOBIN 10.5 g/dl (12.0-15.5); MEAN CORPUSCULAR HEMOGLOBIN 25.5 pg (27.0-33.0); MEAN CORPUSCULAR HGB CONC 29.7 g/dl (32.0-36.5); MEAN CORPUSCULAR VOLUME 85.9 fl (80.0-96.0); PLATELET COUNT, AUTOMATED 123 10^3/uL (150-450); RED BLOOD COUNT 4.11 10^6/uL (4.00-5.40); WHITE BLOOD COUNT 3.1 10^3/uL (4.0-10.0)
== END ==
LOC: SKLAB2 11:41
PROVIDERS: ATTEND Internal Medicine
DX: D64.9 Anemia, unspecified (principal)

== ENCOUNTER → 2021-04-27 | Outpatient (REF) | payer MEDICARE, MEDICAID ==
[2021-04-27 11:00] LABS: HEMATOCRIT 31.3 % (36.0-47.0); HEMOGLOBIN 9.5 g/dl (12.0-15.5); MEAN CORPUSCULAR HEMOGLOBIN 26.2 pg (27.0-33.0); MEAN CORPUSCULAR HGB CONC 30.4 g/dl (32.0-36.5); MEAN CORPUSCULAR VOLUME 86.5 fl (80.0-96.0); PLATELET COUNT, AUTOMATED 111 10^3/uL (150-450); RED BLOOD COUNT 3.62 10^6/uL (4.00-5.40); WHITE BLOOD COUNT 5.2 10^3/uL (4.0-10.0)
== END ==
LOC: SKLAB2 13:04
PROVIDERS: ATTEND Internal Medicine
DX: D64.9 Anemia, unspecified (principal)

== ENCOUNTER → 2021-06-01 | Outpatient (REF) | payer MEDICARE, MEDICAID ==
[2021-06-01 10:04] LABS: HEMATOCRIT 30.7 % (36.0-47.0); HEMOGLOBIN 9.4 g/dl (12.0-15.5); MEAN CORPUSCULAR HEMOGLOBIN 25.7 pg (27.0-33.0); MEAN CORPUSCULAR HGB CONC 30.6 g/dl (32.0-36.5); MEAN CORPUSCULAR VOLUME 83.9 fl (80.0-96.0); PLATELET COUNT, AUTOMATED 130 10^3/uL (150-450); RED BLOOD COUNT 3.66 10^6/uL (4.00-5.40); WHITE BLOOD COUNT 3.7 10^3/uL (4.0-10.0)
[2021-06-01 10:33] LABS: PERCENT SATURATION 11.4 % (13.2-45.0)
== END ==
LOC: SKLAB2 12:34
PROVIDERS: ATTEND Internal Medicine
DX: D64.9 Anemia, unspecified (principal)

== ENCOUNTER → 2021-07-13 | Outpatient (REF) | payer MEDICARE, MEDICAID ==
[2021-07-13 08:29] LABS: HEMATOCRIT 29.2 % (36.0-47.0); HEMOGLOBIN 8.7 g/dl (12.0-15.5); MEAN CORPUSCULAR HEMOGLOBIN 24.7 pg (27.0-33.0); MEAN CORPUSCULAR HGB CONC 29.8 g/dl (32.0-36.5); PLATELET COUNT, AUTOMATED 210 10^3/uL (150-450); RED BLOOD COUNT 3.52 10^6/uL (4.00-5.40); WHITE BLOOD COUNT 3.7 10^3/uL (4.0-10.0)
== END ==
LOC: SKLAB7 10:27
PROVIDERS: ATTEND Internal Medicine
DX: D64.9 Anemia, unspecified (principal)

== ENCOUNTER → 2021-08-05 | Outpatient (REF) | payer MEDICARE, MEDICAID ==
[2021-08-05 09:30] LABS: HEMATOCRIT 31.3 % (36.0-47.0); HEMOGLOBIN 9.2 g/dl (12.0-15.5); MEAN CORPUSCULAR HEMOGLOBIN 24.9 pg (27.0-33.0); MEAN CORPUSCULAR HGB CONC 29.4 g/dl (32.0-36.5); MEAN CORPUSCULAR VOLUME 84.6 fl (80.0-96.0); PLATELET COUNT, AUTOMATED 111 10^3/uL (150-450); WHITE BLOOD COUNT 2.8 10^3/uL (4.0-10.0)
== END ==
LOC: SKLAB7 07:00
PROVIDERS: ATTEND Internal Medicine
DX: D64.9 Anemia, unspecified (principal)

== ENCOUNTER → 2021-08-19 | Outpatient (REF) | payer MEDICARE, MEDICAID ==
[2021-08-19 10:16] LABS: EOS % 0.8 % (0.0-3.0); HEMOGLOBIN 9.2 g/dl (12.0-15.5); LYMPH % 38.1 % (24.0-44.0); MEAN CORPUSCULAR HGB CONC 29.7 g/dl (32.0-36.5); MEAN CORPUSCULAR VOLUME 84.2 fl (80.0-96.0); MONO # 0.3 10^3/uL (0.0-0.8); MONO % 12.3 % (2.0-8.0); NEUTROPHILS # 1.3 10^3/uL (1.5-8.5); NEUTROPHILS % 48.4 % (36.0-66.0); RED BLOOD COUNT 3.68 10^6/uL (4.00-5.40); WHITE BLOOD COUNT 2.6 10^3/uL (4.0-10.0)
[2021-08-19 10:49] LABS: PLATELET COUNT, AUTOMATED 96 10^3/uL (150-450)
== END ==
LOC: SKLAB7 07:09
PROVIDERS: ATTEND Internal Medicine
DX: D64.9 Anemia, unspecified (principal)

== ENCOUNTER → 2021-09-07 | Outpatient (REF) | payer MEDICARE, MEDICAID | LOC: SKLAB7 10:18 | PROVIDERS: ATTEND Internal Medicine | DX: Z20.822 Contact with and (suspected) exposure to COVID-19 (principal) ==

== ENCOUNTER → 2021-09-09 | Outpatient (REF) | payer MEDICARE, MEDICAID | LOC: SKLAB7 06:24 | PROVIDERS: ATTEND Internal Medicine | DX: Z20.822 Contact with and (suspected) exposure to COVID-19 (principal) ==

== ENCOUNTER → 2021-09-13 | Outpatient (REF) | payer MEDICARE, MEDICAID | LOC: SKLAB7 09:00 | PROVIDERS: ATTEND Internal Medicine | DX: Z20.822 Contact with and (suspected) exposure to COVID-19 (principal) ==

== ENCOUNTER → 2021-09-16 | Outpatient (REF) | payer MEDICARE, MEDICAID | LOC: SKLAB7 07:11 | PROVIDERS: ATTEND Internal Medicine | DX: Z20.822 Contact with and (suspected) exposure to COVID-19 (principal) ==

== ENCOUNTER → 2021-09-20 | Outpatient (REF) | payer MEDICARE, MEDICAID | LOC: SKLAB7 08:03 | PROVIDERS: ATTEND Internal Medicine | DX: Z20.822 Contact with and (suspected) exposure to COVID-19 (principal) ==

== ENCOUNTER → 2021-09-21 | Outpatient (REF) | payer MEDICARE, MEDICAID | LOC: SKLAB2 14:18 | PROVIDERS: ATTEND Internal Medicine | DX: U07.1 COVID-19 (principal) ==

== ENCOUNTER → 2021-09-22 | Outpatient (REF) | payer MEDICARE, MEDICAID ==
[2021-09-22 10:31] LABS: BLOOD UREA NITROGEN 26 MG/DL (7-18); CALCIUM LEVEL 8.6 MG/DL (8.8-10.2); CARBON DIOXIDE LEVEL 26 MEQ/L (21-32); CHLORIDE LEVEL 104 MEQ/L (98-107); CREATININE FOR GFR 0.64 MG/DL (0.55-1.30); GLOMERULAR FILTRATION RATE > 60.0 (>32); GLUCOSE, FASTING 80 MG/DL (70-100); POTASSIUM SERUM 3.8 MEQ/L (3.5-5.1); SODIUM LEVEL 138 MEQ/L (136-145)
[2021-09-22 11:07] LABS: ALBUMIN 3.4 GM/DL (3.2-5.2); ALT/SGPT 11 U/L (12-78); BILIRUBIN,TOTAL 0.3 MG/DL (0.2-1.0); TOTAL PROTEIN 7.4 GM/DL (6.4-8.2)
== END ==
LOC: SKLAB2 07:00
PROVIDERS: ATTEND Internal Medicine
DX: U07.1 COVID-19 (principal)

== ENCOUNTER → 2021-09-23 | Outpatient (REF) | payer MEDICARE, MEDICAID ==
[2021-09-23 13:22] LABS: HEMATOCRIT 29.6 % (36.0-47.0); MEAN CORPUSCULAR HEMOGLOBIN 25.6 pg (27.0-33.0); MEAN CORPUSCULAR HGB CONC 30.4 g/dl (32.0-36.5); MEAN CORPUSCULAR VOLUME 84.3 fl (80.0-96.0); RED BLOOD COUNT 3.51 10^6/uL (4.00-5.40); WHITE BLOOD COUNT 2.2 10^3/uL (4.0-10.0)
[2021-09-23 14:30] LABS: PLATELET COUNT, AUTOMATED 63 10^3/uL (150-450)
== END ==
LOC: SKLAB2 07:00
PROVIDERS: ATTEND Internal Medicine
DX: U07.1 COVID-19 (principal)

== ENCOUNTER → 2021-09-24 | Outpatient (REF) | payer MEDICARE, MEDICAID ==
[2021-09-24 11:42] LABS: HEMATOCRIT 28.4 % (36.0-47.0); HEMOGLOBIN 8.7 g/dl (12.0-15.5); MEAN CORPUSCULAR HEMOGLOBIN 25.7 pg (27.0-33.0); MEAN CORPUSCULAR HGB CONC 30.6 g/dl (32.0-36.5); MEAN CORPUSCULAR VOLUME 83.8 fl (80.0-96.0); RED BLOOD COUNT 3.39 10^6/uL (4.00-5.40); WHITE BLOOD COUNT 2.7 10^3/uL (4.0-10.0)
[2021-09-24 11:45] LABS: PLATELET COUNT, AUTOMATED 67 10^3/uL (150-450)
[2021-09-24 12:15] LABS: BLOOD UREA NITROGEN 22 MG/DL (7-18); CARBON DIOXIDE LEVEL 22 MEQ/L (21-32); CHLORIDE LEVEL 105 MEQ/L (98-107); CREATININE FOR GFR 0.64 MG/DL (0.55-1.30); GLOMERULAR FILTRATION RATE > 60.0 (>32); GLUCOSE, FASTING 88 MG/DL (70-100); POTASSIUM SERUM 3.5 MEQ/L (3.5-5.1); SODIUM LEVEL 138 MEQ/L (136-145)
== END ==
LOC: SKLAB2 08:22
PROVIDERS: ATTEND Internal Medicine
DX: U07.1 COVID-19 (principal); Z79.899 Other long term (current) drug therapy

== ENCOUNTER → 2021-09-27 | Outpatient (REF) | payer MEDICARE, MEDICAID ==
[2021-09-27 11:23] LABS: HEMATOCRIT 28.7 % (36.0-47.0); HEMOGLOBIN 8.7 g/dl (12.0-15.5); MEAN CORPUSCULAR HEMOGLOBIN 25.4 pg (27.0-33.0); MEAN CORPUSCULAR HGB CONC 30.3 g/dl (32.0-36.5); MEAN CORPUSCULAR VOLUME 83.9 fl (80.0-96.0); RED BLOOD COUNT 3.42 10^6/uL (4.00-5.40); WHITE BLOOD COUNT 3.7 10^3/uL (4.0-10.0)
[2021-09-27 11:25] LABS: PLATELET COUNT, AUTOMATED 85 10^3/uL (150-450)
[2021-09-27 12:13] LABS: BLOOD UREA NITROGEN 20 MG/DL (7-18); CALCIUM LEVEL 8.9 MG/DL (8.8-10.2); CARBON DIOXIDE LEVEL 24 MEQ/L (21-32); CHLORIDE LEVEL 109 MEQ/L (98-107); CREATININE FOR GFR 0.68 MG/DL (0.55-1.30); GLOMERULAR FILTRATION RATE > 60.0 (>32); GLUCOSE, FASTING 104 MG/DL (70-100); POTASSIUM SERUM 3.4 MEQ/L (3.5-5.1); SODIUM LEVEL 141 MEQ/L (136-145)
== END ==
LOC: SKLAB2 07:00
PROVIDERS: ATTEND Internal Medicine
DX: U07.1 COVID-19 (principal); Z79.899 Other long term (current) drug therapy

== ENCOUNTER → 2021-09-29 | Outpatient (REF) | payer MEDICARE, MEDICAID ==
[2021-09-29 08:56] LABS: HEMATOCRIT 29.2 % (36.0-47.0); HEMOGLOBIN 8.9 g/dl (12.0-15.5); MEAN CORPUSCULAR HEMOGLOBIN 25.7 pg (27.0-33.0); MEAN CORPUSCULAR HGB CONC 30.5 g/dl (32.0-36.5); MEAN CORPUSCULAR VOLUME 84.4 fl (80.0-96.0); PLATELET COUNT, AUTOMATED 110 10^3/uL (150-450); RED BLOOD COUNT 3.46 10^6/uL (4.00-5.40); WHITE BLOOD COUNT 4.1 10^3/uL (4.0-10.0)
[2021-09-29 09:06] LABS: BLOOD UREA NITROGEN 16 MG/DL (7-18); CARBON DIOXIDE LEVEL 28 MEQ/L (21-32); CHLORIDE LEVEL 108 MEQ/L (98-107); CREATININE FOR GFR 0.72 MG/DL (0.55-1.30); GLOMERULAR FILTRATION RATE > 60.0 (>32); GLUCOSE, FASTING 113 MG/DL (70-100); POTASSIUM SERUM 3.5 MEQ/L (3.5-5.1); SODIUM LEVEL 141 MEQ/L (136-145)
== END ==
LOC: SKLAB2 08:23
PROVIDERS: ATTEND Internal Medicine
DX: U07.1 COVID-19 (principal); Z79.899 Other long term (current) drug therapy

== ENCOUNTER → 2021-10-01 | Outpatient (REF) | payer MEDICARE, MEDICAID | LOC: SKLAB2 07:00 | PROVIDERS: ATTEND Internal Medicine | DX: U07.1 COVID-19 (principal); Z53.9 Procedure and treatment not carried out, unspecified reason ==

== ENCOUNTER → 2021-10-05 | Outpatient (REF) | payer MEDICARE, MEDICAID ==
[2021-10-05 12:45] LABS: HEMATOCRIT 26.8 % (36.0-47.0); HEMOGLOBIN 8.1 g/dl (12.0-15.5); MEAN CORPUSCULAR HEMOGLOBIN 25.8 pg (27.0-33.0); MEAN CORPUSCULAR HGB CONC 30.2 g/dl (32.0-36.5); MEAN CORPUSCULAR VOLUME 85.4 fl (80.0-96.0); PLATELET COUNT, AUTOMATED 120 10^3/uL (150-450); RED BLOOD COUNT 3.14 10^6/uL (4.00-5.40); WHITE BLOOD COUNT 3.9 10^3/uL (4.0-10.0)
== END ==
LOC: SKLAB7 09:00
PROVIDERS: ATTEND Internal Medicine
DX: D64.9 Anemia, unspecified (principal)

== ENCOUNTER → 2021-10-19 | Outpatient (REF) | payer MEDICARE, MEDICAID ==
[~2021-10-19] MED LIST changes: +FLUO-96 PO; -FLUO10CA16 PO; +FLUO10CA18 PO; -FLUO20CA20 PO; -LEVO500T3 PO; +LEVO500T4 PO; -LISI-898 PO; +LISI5TAB11 PO
[2021-10-19 11:31] LABS: HEMATOCRIT 27.2 % (36.0-47.0); HEMOGLOBIN 8.1 g/dl (12.0-15.5); MEAN CORPUSCULAR HEMOGLOBIN 26.1 pg (27.0-33.0); MEAN CORPUSCULAR HGB CONC 29.8 g/dl (32.0-36.5); MEAN CORPUSCULAR VOLUME 87.7 fl (80.0-96.0); PLATELET COUNT, AUTOMATED 116 10^3/uL (150-450); WHITE BLOOD COUNT 3.1 10^3/uL (4.0-10.0)
== END ==
LOC: SKLAB7 10:26
PROVIDERS: ATTEND Internal Medicine
DX: D64.9 Anemia, unspecified (principal)

== ENCOUNTER → 2021-11-02 | Outpatient (REF) | payer MEDICARE, MEDICAID ==
[~2021-11-02] MED LIST changes: -FLUO-96 PO; +FLUO10CA16 PO; -FLUO10CA18 PO; +FLUO20CA20 PO; +LEVO500T3 PO; -LEVO500T4 PO; +LISI-898 PO; -LISI5TAB11 PO
[2021-11-02 12:24] LABS: HEMATOCRIT 27.8 % (36.0-47.0); HEMOGLOBIN 8.3 g/dl (12.0-15.5); MEAN CORPUSCULAR HEMOGLOBIN 26.3 pg (27.0-33.0); MEAN CORPUSCULAR HGB CONC 29.9 g/dl (32.0-36.5); PLATELET COUNT, AUTOMATED 104 10^3/uL (150-450); RED BLOOD COUNT 3.16 10^6/uL (4.00-5.40); WHITE BLOOD COUNT 3.1 10^3/uL (4.0-10.0)
[2021-11-02 13:02] LABS: PERCENT SATURATION 29.9 % (13.2-45.0); THYROID STIMULATING HORMONE 1.35 uIU/ML (0.358-3.740)
== END ==
LOC: SKLAB7 07:00
PROVIDERS: ATTEND Internal Medicine
DX: D64.9 Anemia, unspecified (principal); E03.9 Hypothyroidism, unspecified

== ENCOUNTER → 2021-11-16 | Outpatient (REF) | payer MEDICARE, MEDICAID ==
[~2021-11-16] MED LIST changes: +FLUO-96 PO; -FLUO10CA16 PO; +FLUO10CA18 PO; -FLUO20CA20 PO; -LEVO500T3 PO; +LEVO500T4 PO; -LISI-898 PO; +LISI5TAB11 PO
[2021-11-16 09:44] LABS: HEMATOCRIT 28.5 % (36.0-47.0); HEMOGLOBIN 8.6 g/dl (12.0-15.5); MEAN CORPUSCULAR HEMOGLOBIN 26.2 pg (27.0-33.0); MEAN CORPUSCULAR HGB CONC 30.2 g/dl (32.0-36.5); MEAN CORPUSCULAR VOLUME 86.9 fl (80.0-96.0); PLATELET COUNT, AUTOMATED 112 10^3/uL (150-450); RED BLOOD COUNT 3.28 10^6/uL (4.00-5.40)
== END ==
LOC: SKLAB7 08:41
PROVIDERS: ATTEND Internal Medicine
DX: D64.9 Anemia, unspecified (principal)

== ENCOUNTER → 2021-11-30 | Outpatient (REF) | payer MEDICAID, MEDICARE ==
[2021-11-30 09:47] LABS: HEMATOCRIT 27.9 % (36.0-47.0); HEMOGLOBIN 8.2 g/dl (12.0-15.5); MEAN CORPUSCULAR HEMOGLOBIN 25.9 pg (27.0-33.0); MEAN CORPUSCULAR HGB CONC 29.4 g/dl (32.0-36.5); MEAN CORPUSCULAR VOLUME 88.3 fl (80.0-96.0); PLATELET COUNT, AUTOMATED 116 10^3/uL (150-450); RED BLOOD COUNT 3.16 10^6/uL (4.00-5.40); WHITE BLOOD COUNT 4.5 10^3/uL (4.0-10.0)
== END ==
LOC: SKLAB7 11-30 07:00
PROVIDERS: ATTEND Internal Medicine
DX: D64.9 Anemia, unspecified (principal)

== ENCOUNTER → 2021-12-14 | Outpatient (REF) | payer MEDICARE, MEDICAID ==
[2021-12-14 07:40] LABS: HEMATOCRIT 26.4 % (36.0-47.0); MEAN CORPUSCULAR HGB CONC 30.3 g/dl (32.0-36.5); MEAN CORPUSCULAR VOLUME 85.7 fl (80.0-96.0); PLATELET COUNT, AUTOMATED 134 10^3/uL (150-450); RED BLOOD COUNT 3.08 10^6/uL (4.00-5.40); WHITE BLOOD COUNT 3.9 10^3/uL (4.0-10.0)
== END ==
LOC: SKLAB7 07:00
PROVIDERS: ATTEND Internal Medicine
DX: D64.9 Anemia, unspecified (principal)

== ENCOUNTER → 2022-01-21 | Outpatient (REF) | payer MEDICARE, MEDICAID ==
[2022-01-21 11:50] LABS: HEMATOCRIT 23.1 % (36.0-47.0); MEAN CORPUSCULAR HEMOGLOBIN 24.9 pg (27.0-33.0); MEAN CORPUSCULAR HGB CONC 30.3 g/dl (32.0-36.5); MEAN CORPUSCULAR VOLUME 82.2 fl (80.0-96.0); PLATELET COUNT, AUTOMATED 168 10^3/uL (150-450); RED BLOOD COUNT 2.81 10^6/uL (4.00-5.40); WHITE BLOOD COUNT 13.5 10^3/uL (4.0-10.0)
== END ==
LOC: SKLAB7 10:26
PROVIDERS: ATTEND Internal Medicine
DX: D64.9 Anemia, unspecified (principal)

== ENCOUNTER → 2022-01-23 | Outpatient (REF) | payer MEDICARE, MEDICAID | LOC: SKLAB7 07:00 | PROVIDERS: ATTEND Internal Medicine | DX: D64.9 Anemia, unspecified (principal) ==

== ENCOUNTER 2022-01-24 10:13 | Outpatient (CLI) | payer MEDICARE, MEDICAID ==
[2022-01-24] VITALS (8 sets, daily range): BP systolic 117–135; BP diastolic 58–75
[~2022-01-24 10:13] MED LIST changes: +ACETAMINOPHEN TAB 650MG DOSE (2X325MG) PO SCH; +diphenhydrAMINE 25MG CAP PO SCH
[2022-01-24 15:22] LABS: HEMATOCRIT 29.4 % (36.0-47.0); HEMOGLOBIN 9.3 g/dl (12.0-15.5); MEAN CORPUSCULAR HEMOGLOBIN 26.1 pg (27.0-33.0); MEAN CORPUSCULAR HGB CONC 31.6 g/dl (32.0-36.5); MEAN CORPUSCULAR VOLUME 82.4 fl (80.0-96.0); PLATELET COUNT, AUTOMATED 220 10^3/uL (150-450); RED BLOOD COUNT 3.57 10^6/uL (4.00-5.40); WHITE BLOOD COUNT 9.5 10^3/uL (4.0-10.0)
== END 2022-01-24 15:30 | disposition home or self-care (01) ==
LOC: M INFU 10:13
PROVIDERS: ATTEND Nurse Practitioner Family
DX: D64.9 Anemia, unspecified (principal)
CPT/HCPCS: 36430; 36592; 85027; P9016

== ENCOUNTER → 2022-02-01 | Outpatient (REF) | payer MEDICARE, MEDICAID ==
[~2022-02-01] MED LIST changes: -ACETAMINOPHEN TAB 650MG DOSE (2X325MG) PO SCH; -diphenhydrAMINE 25MG CAP PO SCH
[2022-02-01 09:14] LABS: HEMATOCRIT 30.3 % (36.0-47.0); HEMOGLOBIN 9.2 g/dl (12.0-15.5); MEAN CORPUSCULAR HEMOGLOBIN 26.3 pg (27.0-33.0); MEAN CORPUSCULAR HGB CONC 30.4 g/dl (32.0-36.5); MEAN CORPUSCULAR VOLUME 86.6 fl (80.0-96.0); PLATELET COUNT, AUTOMATED 241 10^3/uL (150-450); WHITE BLOOD COUNT 6.3 10^3/uL (4.0-10.0)
== END ==
LOC: SKLAB7 07:00
PROVIDERS: ATTEND Internal Medicine
DX: D64.9 Anemia, unspecified (principal)

== ENCOUNTER → 2022-02-03 | Outpatient (REF) | payer MEDICARE, MEDICAID | LOC: SKLAB7 07:00 | PROVIDERS: ATTEND Internal Medicine | DX: D64.9 Anemia, unspecified (principal) ==

== ENCOUNTER → 2022-02-11 | Outpatient (REF) | payer MEDICARE, MEDICAID ==
[2022-02-11 08:26] LABS: HEMATOCRIT 27.7 % (36.0-47.0); HEMOGLOBIN 8.4 g/dl (12.0-15.5); MEAN CORPUSCULAR HEMOGLOBIN 25.7 pg (27.0-33.0); MEAN CORPUSCULAR HGB CONC 30.3 g/dl (32.0-36.5); MEAN CORPUSCULAR VOLUME 84.7 fl (80.0-96.0); PLATELET COUNT, AUTOMATED 114 10^3/uL (150-450); RED BLOOD COUNT 3.27 10^6/uL (4.00-5.40); WHITE BLOOD COUNT 4.7 10^3/uL (4.0-10.0)
== END ==
LOC: SKLAB7 07:00
PROVIDERS: ATTEND Internal Medicine
DX: R04.0 Epistaxis (principal); D64.9 Anemia, unspecified

== ENCOUNTER → 2022-02-24 | Outpatient (REF) | payer MEDICARE, MEDICAID | LOC: SKLAB7 16:39 | PROVIDERS: ATTEND Nurse Practitioner Family | DX: R19.5 Other fecal abnormalities (principal) ==

== ENCOUNTER → 2022-03-01 | Outpatient (REF) | payer MEDICARE, MEDICAID | LOC: SKLAB7 09:59 | PROVIDERS: ATTEND Internal Medicine | DX: D64.9 Anemia, unspecified (principal) ==

== ENCOUNTER 2022-03-03 14:35 | Emergency (ER) | payer MEDICARE, MEDICAID ==
[2022-03-03 16:08] LABS: HEMATOCRIT 25.1 % (36.0-47.0); HEMOGLOBIN 7.5 g/dl (12.0-15.5)
[2022-03-03 16:43] LABS: BLOOD UREA NITROGEN 14 MG/DL (7-18); CALCIUM LEVEL 8.6 MG/DL (8.8-10.2); CARBON DIOXIDE LEVEL 27 MEQ/L (21-32); CHLORIDE LEVEL 108 MEQ/L (98-107); CREATININE FOR GFR 0.84 MG/DL (0.55-1.30); GLOMERULAR FILTRATION RATE > 60.0 (>32); GLUCOSE, FASTING 100 MG/DL (70-100); POTASSIUM SERUM 4.3 MEQ/L (3.5-5.1); SODIUM LEVEL 141 MEQ/L (136-145)
[2022-03-03 16:45] VITALS: BP 102/57
== END 2022-03-03 17:32 | disposition home or self-care (01) ==
LOC: M ED 14:35 → EDBD 14:35 → M ED 17:32
DX: D64.9 Anemia, unspecified (principal); F03.90 Unspecified dementia, unspecified severity, without behavioral disturbance, psychotic disturbance, mood disturbance, and anxiety; Z79.899 Other long term (current) drug therapy

== ENCOUNTER → 2022-03-03 | Outpatient (REF) | payer MEDICARE, MEDICAID | LOC: SKLAB7 10:47 | PROVIDERS: ATTEND Internal Medicine | DX: D64.9 Anemia, unspecified (principal) ==

== ENCOUNTER → 2022-03-03 | Outpatient (REF) | payer MEDICARE, MEDICAID ==
[2022-03-03 11:54] LABS: MEAN CORPUSCULAR HEMOGLOBIN 25.9 pg (27.0-33.0); MEAN CORPUSCULAR VOLUME 86.5 fl (80.0-96.0); PLATELET COUNT, AUTOMATED 176 10^3/uL (150-450); RED BLOOD COUNT 2.66 10^6/uL (4.00-5.40); WHITE BLOOD COUNT 4.5 10^3/uL (4.0-10.0)
[2022-03-03 13:08] LABS: HEMOGLOBIN 6.9 g/dl (12.0-15.5)
== END ==
LOC: SKLAB7 07:00
PROVIDERS: ATTEND Internal Medicine
DX: D64.9 Anemia, unspecified (principal)

== ENCOUNTER → 2022-03-08 | Outpatient (REF) | payer MEDICARE, MEDICAID ==
[2022-03-08 12:02] LABS: HEMATOCRIT 23.7 % (36.0-47.0); MEAN CORPUSCULAR HGB CONC 29.5 g/dl (32.0-36.5); MEAN CORPUSCULAR VOLUME 88.1 fl (80.0-96.0); PLATELET COUNT, AUTOMATED 155 10^3/uL (150-450); RED BLOOD COUNT 2.69 10^6/uL (4.00-5.40); WHITE BLOOD COUNT 4.6 10^3/uL (4.0-10.0)
== END ==
LOC: SKLAB7 10:54
PROVIDERS: ATTEND Internal Medicine
DX: D64.9 Anemia, unspecified (principal)

== ENCOUNTER → 2022-03-15 | Outpatient (REF) | payer MEDICARE, MEDICAID ==
[2022-03-15 11:30] LABS: HEMATOCRIT 23.9 % (36.0-47.0); MEAN CORPUSCULAR HGB CONC 29.3 g/dl (32.0-36.5); MEAN CORPUSCULAR VOLUME 88.8 fl (80.0-96.0); PLATELET COUNT, AUTOMATED 138 10^3/uL (150-450); RED BLOOD COUNT 2.69 10^6/uL (4.00-5.40)
[2022-03-15 11:54] LABS: ATYPICAL LYMPH 1 % (0-5); GIANT PLATELETS 1+; LYMPHOCYTES 24 % (16-44); MONOCYTES 7 % (0-5); NEUTROPHILS 66 % (28-66)
[2022-03-15 11:56] LABS: MICROCYTOSIS 1+; OVALOCYTES 1+
[2022-03-15 11:58] LABS: PLATELET ESTIMATE DECREASED (NORMAL); TEAR DROP CELLS 1+
== END ==
LOC: SKLAB7 07:00
PROVIDERS: ATTEND Internal Medicine
DX: D64.9 Anemia, unspecified (principal)

== ENCOUNTER → 2022-03-29 | Outpatient (REF) | payer MEDICARE, MEDICAID ==
[2022-03-29 07:46] LABS: HEMATOCRIT 22.8 % (36.0-47.0); MEAN CORPUSCULAR HEMOGLOBIN 26.3 pg (27.0-33.0); MEAN CORPUSCULAR HGB CONC 29.8 g/dl (32.0-36.5); PLATELET COUNT, AUTOMATED 147 10^3/uL (150-450); RED BLOOD COUNT 2.59 10^6/uL (4.00-5.40); WHITE BLOOD COUNT 4.6 10^3/uL (4.0-10.0)
[2022-03-29 07:55] LABS: HEMOGLOBIN 6.8 g/dl (12.0-15.5)
== END ==
LOC: SKLAB7 07:00
PROVIDERS: ATTEND Internal Medicine
DX: D64.9 Anemia, unspecified (principal)

== ENCOUNTER 2022-03-30 10:18 | Outpatient (CLI) | payer MEDICARE, MEDICAID ==
[~2022-03-30] VITALS: Ht 162.6 cm; Wt 49.0 kg
[2022-03-30 10:20] VITALS: BP 119/55
[2022-03-30] MEDS ORDERED: diphenhydrAMINE 25MG CAP PO ONE (11:05)
[2022-03-30] MEDS ORDERED: ACETAMINOPHEN TAB 650MG DOSE (2X325MG) PO ONE (11:05)
[2022-03-30 11:30] VITALS: BP 102/57
[2022-03-30 12:40] VITALS: BP 107/65
[2022-03-30 13:15] VITALS: BP 113/56
[2022-03-30 14:25] VITALS: BP 127/66
== END 2022-03-30 14:40 | disposition home or self-care (01) ==
LOC: M INFU 10:18
PROVIDERS: ATTEND Nurse Practitioner Family
DX: D64.9 Anemia, unspecified (principal)
CPT/HCPCS: 36430; P9016

== ENCOUNTER → 2022-04-04 | Outpatient (REF) | payer MEDICARE, MEDICAID | LOC: SKLAB7 14:47 | PROVIDERS: ATTEND Nurse Practitioner Family | DX: D64.9 Anemia, unspecified (principal); Z53.9 Procedure and treatment not carried out, unspecified reason ==

== ENCOUNTER → 2022-04-05 | Outpatient (REF) | payer MEDICARE, MEDICAID ==
[2022-04-05 08:19] LABS: HEMOGLOBIN 9.3 g/dl (12.0-15.5); MEAN CORPUSCULAR HEMOGLOBIN 27.7 pg (27.0-33.0); MEAN CORPUSCULAR VOLUME 92.3 fl (80.0-96.0); PLATELET COUNT, AUTOMATED 150 10^3/uL (150-450); RED BLOOD COUNT 3.36 10^6/uL (4.00-5.40); WHITE BLOOD COUNT 4.3 10^3/uL (4.0-10.0)
[2022-04-05 08:54] LABS: ALBUMIN 3.1 GM/DL (3.2-5.2); ALT/SGPT 9 U/L (12-78); BILIRUBIN,TOTAL 0.3 MG/DL (0.2-1.0); BLOOD UREA NITROGEN 22 MG/DL (7-18); CALCIUM LEVEL 8.9 MG/DL (8.8-10.2); CARBON DIOXIDE LEVEL 24 MEQ/L (21-32); CHLORIDE LEVEL 111 MEQ/L (98-107); CREATININE FOR GFR 0.91 MG/DL (0.55-1.30); GLOMERULAR FILTRATION RATE > 60.0 (>32); GLUCOSE, FASTING 113 MG/DL (70-100); POTASSIUM SERUM 4.2 MEQ/L (3.5-5.1); SODIUM LEVEL 143 MEQ/L (136-145); TOTAL PROTEIN 7.3 GM/DL (6.4-8.2)
== END ==
LOC: SKLAB7 07:00
PROVIDERS: ATTEND Internal Medicine
DX: D64.9 Anemia, unspecified (principal)

== ENCOUNTER → 2022-05-05 | Outpatient (REF) | payer MEDICARE, MEDICAID ==
[2022-05-05 09:52] LABS: HEMATOCRIT 24.4 % (36.0-47.0); HEMOGLOBIN 7.7 g/dl (12.0-15.5); MEAN CORPUSCULAR HGB CONC 31.6 g/dl (32.0-36.5); MEAN CORPUSCULAR VOLUME 85.6 fl (80.0-96.0); PLATELET COUNT, AUTOMATED 187 10^3/uL (150-450); RED BLOOD COUNT 2.85 10^6/uL (4.00-5.40); WHITE BLOOD COUNT 8.4 10^3/uL (4.0-10.0)
[2022-05-05 10:30] LABS: PERCENT SATURATION 21.4 % (13.2-45.0); THYROID STIMULATING HORMONE 0.324 uIU/ML (0.358-3.740)
== END ==
LOC: SKLAB7 14:42
PROVIDERS: ATTEND Internal Medicine
DX: D64.9 Anemia, unspecified (principal)

== ENCOUNTER → 2022-06-09 | Outpatient (REF) | payer MEDICARE, MEDICAID ==
[2022-06-09 09:52] LABS: HEMATOCRIT 25.7 % (36.0-47.0); HEMOGLOBIN 7.9 g/dl (12.0-15.5); MEAN CORPUSCULAR HEMOGLOBIN 26.8 pg (27.0-33.0); MEAN CORPUSCULAR HGB CONC 30.7 g/dl (32.0-36.5); MEAN CORPUSCULAR VOLUME 87.1 fl (80.0-96.0); PLATELET COUNT, AUTOMATED 156 10^3/uL (150-450); RED BLOOD COUNT 2.95 10^6/uL (4.00-5.40); WHITE BLOOD COUNT 9.1 10^3/uL (4.0-10.0)
== END ==
LOC: SKLAB7 09:18
PROVIDERS: ATTEND Nurse Practitioner Family
DX: D64.9 Anemia, unspecified (principal)

== ENCOUNTER 2022-06-11 10:48 | Inpatient (IN) | payer MEDICARE, MEDICAID ==
[~2022-06-11 10:48] MED LIST changes: -BISA10SU27 PR; -COLA100C5 PO; -ENOX30IN3 SC; -FERR32TA PO; -FLEEENE12 PR; -GUAI100L6 PO; -LEVO1TAB38 PO; -LEVO1TAB39 PO; +LEVO500T4 PO; -LEVO75TA4 PO; -MILKSUS7 PO; -PROC25SU24 PR; -PROM1SUP2 PR; -SENN-80 PO; -SODIGEL TOP
[2022-06-11 11:54] LABS: BASO % 0.4 % (0.0-1.0); EOS % 0.2 % (0.0-3.0); HEMOGLOBIN 8.2 g/dl (12.0-15.5); LYMPH # 1.4 10^3/uL (1.5-5.0); LYMPH % 14.8 % (24.0-44.0); MEAN CORPUSCULAR HEMOGLOBIN 26.7 pg (27.0-33.0); MEAN CORPUSCULAR HGB CONC 31.5 g/dl (32.0-36.5); MEAN CORPUSCULAR VOLUME 84.7 fl (80.0-96.0); MONO % 10.5 % (2.0-8.0); NEUTROPHILS # 6.9 10^3/uL (1.5-8.5); NEUTROPHILS % 71.8 % (36.0-66.0); PLATELET COUNT, AUTOMATED 174 10^3/uL (150-450); RED BLOOD COUNT 3.07 10^6/uL (4.00-5.40); WHITE BLOOD COUNT 9.6 10^3/uL (4.0-10.0)
[2022-06-11 12:53] LABS: CALCIUM LEVEL 7.2 MG/DL (8.8-10.2); CREATININE FOR GFR 1.6 MG/DL (0.55-1.30); GLOMERULAR FILTRATION RATE 32.4 (>32); MAGNESIUM LEVEL 0.8 MG/DL (1.8-2.4); POTASSIUM SERUM 2.6 MEQ/L (3.5-5.1)
[2022-06-11] MEDS ORDERED: KCL 10MEQ/100ML SWI (KRUN) 10 MEQ in IV 1 EA IV ONE ×2 (12:55→20:30)
[2022-06-11] MEDS ORDERED: MAG SULF 1GM/100ML (MAG RUN) 1 GM in IV 1 EA IV ONE (12:55)
[2022-06-11] MEDS ORDERED: POTASSIUM CHLORIDE 10MEQ SR TABLET PO ONE (12:55)
[2022-06-11] MEDS ORDERED: MAGNESIUM OXIDE 400MG TAB (MAG-OX) PO ONE (12:55)
[2022-06-11] MEDS ORDERED: POTASSIUM CHLORIDE 10% LIQ 20 MEQ/15 ML UDC PO ONE ×3 (13:30→20:30)
[2022-06-11] MEDS ORDERED: NS 500 ML IV ONE (14:20)
[2022-06-11] MEDS ORDERED: FLUO10CA18 PO (14:22)
[2022-06-11] MEDS ORDERED: GUAI100L6 PO (14:41)
[2022-06-11] MEDS ORDERED: ACET1TAB55 PO (14:41)
[2022-06-11] MEDS ORDERED: MILKSUS7 PO (14:41)
[2022-06-11] MEDS ORDERED: SODIGEL TOP (14:41)
[2022-06-11] MEDS ORDERED: PANT40TA29 PO (14:41)
[2022-06-11] MEDS ORDERED: BISA10SU27 PR (14:41)
[2022-06-11] MEDS ORDERED: FERR324T21 PO (14:41)
[2022-06-11] MEDS ORDERED: PROC25SU24 PR (14:41)
[2022-06-11] MEDS ORDERED: LEVO75TA4 PO (14:41)
[2022-06-11] MEDS ORDERED: ENOX30IN3 SC (14:41)
[2022-06-11] MEDS ORDERED: SENN-80 PO (14:41)
[2022-06-11] MEDS ORDERED: PROM1SUP2 PR (14:41)
[2022-06-11] MEDS ORDERED: FLEEENE12 PR (14:41)
[2022-06-11] MEDS ORDERED: HOME MED LIST COMPLETE! XX SCH (14:45)
[2022-06-11 16:38] LABS: CREATININE FOR GFR 1.63 MG/DL (0.55-1.30); GLOMERULAR FILTRATION RATE 31.7 (>32); MAGNESIUM LEVEL 1.2 MG/DL (1.8-2.4); POTASSIUM SERUM 2.6 MEQ/L (3.5-5.1)
[2022-06-11] MEDS ORDERED: NS 0.45% 1,000 ML IV SCH (17:00)
[2022-06-11] MEDS ORDERED: ACETAMINOPHEN TAB 650MG DOSE (2X325MG) PO PRN (17:40)
[2022-06-11 17:58] VITALS: BP 94/53
[2022-06-11] MEDS: MAG SULF 1GM/100ML (MAG RUN) 1 GM in IV 1 EA IV SCH ×4 (18:15→22:53)
[2022-06-11 20:00] VITALS: BP 101/49
[2022-06-11] MEDS ORDERED: KCL 10MEQ/100ML SWI (KRUN) 10 MEQ in IV 1 EA IV SCH (21:00)
[2022-06-11] MEDS: LR 1,000 ML IV SCH (21:17)
[2022-06-11] MEDS: HEPARIN SOD (PORCINE) 5000UNITS/ML 1ML VIAL/SYRINGE SQ SCH (21:18)
[2022-06-11] MEDS: KCL 10MEQ/100ML SWI (KRUN) 10 MEQ in IV 1 EA IV SCH ×3 (21:18→23:32)
[2022-06-12] MEDS: KCL 10MEQ/100ML SWI (KRUN) 10 MEQ in IV 1 EA IV SCH ×3 (00:20→02:00)
[2022-06-12 02:13] LABS: CALCIUM LEVEL 7.5 MG/DL (8.8-10.2); CREATININE FOR GFR 1.4 MG/DL (0.55-1.30); GLOMERULAR FILTRATION RATE 37.8 (>32); MAGNESIUM LEVEL 2.9 MG/DL (1.8-2.4); POTASSIUM SERUM 4.7 MEQ/L (3.5-5.1)
[2022-06-12 04:00] VITALS: BP 112/56
[2022-06-12] MEDS: HEPARIN SOD (PORCINE) 5000UNITS/ML 1ML VIAL/SYRINGE SQ SCH ×3 (06:01→22:32)
[2022-06-12] MEDS: LEVOTHYROXINE 75MCG TABLET (0.075MG) PO SCH (06:01)
[2022-06-12] MEDS: LR 1,000 ML IV SCH ×3 (06:30→20:49)
[2022-06-12 07:08] LABS: BASO % 0.4 % (0.0-1.0); EOS % 0.3 % (0.0-3.0); HEMATOCRIT 24.4 % (36.0-47.0); HEMOGLOBIN 7.9 g/dl (12.0-15.5); LYMPH # 1.6 10^3/uL (1.5-5.0); LYMPH % 15.3 % (24.0-44.0); MEAN CORPUSCULAR HEMOGLOBIN 28.3 pg (27.0-33.0); MEAN CORPUSCULAR HGB CONC 32.4 g/dl (32.0-36.5); MEAN CORPUSCULAR VOLUME 87.5 fl (80.0-96.0); MONO # 1.4 10^3/uL (0.0-0.8); MONO % 14.2 % (2.0-8.0); NEUTROPHILS # 6.9 10^3/uL (1.5-8.5); NEUTROPHILS % 67.8 % (36.0-66.0); PLATELET COUNT, AUTOMATED 148 10^3/uL (150-450); RED BLOOD COUNT 2.79 10^6/uL (4.00-5.40); WHITE BLOOD COUNT 10.2 10^3/uL (4.0-10.0)
[2022-06-12 07:27] LABS: ALBUMIN 3.1 GM/DL (3.2-5.2); BILIRUBIN,TOTAL 0.4 MG/DL (0.2-1.0); CALCIUM LEVEL 7.6 MG/DL (8.8-10.2); CREATININE FOR GFR 1.33 MG/DL (0.55-1.30); GLOMERULAR FILTRATION RATE 40.1 (>32); MAGNESIUM LEVEL 2.5 MG/DL (1.8-2.4); POTASSIUM SERUM 4.8 MEQ/L (3.5-5.1); TOTAL PROTEIN 7.9 GM/DL (6.4-8.2)
[2022-06-12] MEDS: FLUoxetine 10 MG CAP PO SCH (08:12)
[2022-06-12] MEDS: PANTOPRAZOLE 40MG TAB (PROTONIX) PO SCH (08:12)
[2022-06-12] MEDS: FERROUS GLUCONATE 324 MG TAB PO SCH (08:12)
[2022-06-12 12:00] VITALS: BP 119/58
[2022-06-12 20:00] VITALS: BP 106/67
[2022-06-13 04:55] VITALS: BP 100/53
[2022-06-13] MEDS: HEPARIN SOD (PORCINE) 5000UNITS/ML 1ML VIAL/SYRINGE SQ SCH ×3 (04:59→21:01)
[2022-06-13] MEDS: LEVOTHYROXINE 75MCG TABLET (0.075MG) PO SCH (04:59)
[2022-06-13 07:41] LABS: BASO % 0.2 % (0.0-1.0); HEMATOCRIT 23.3 % (36.0-47.0); HEMOGLOBIN 7.2 g/dl (12.0-15.5); LYMPH # 1.3 10^3/uL (1.5-5.0); LYMPH % 13.1 % (24.0-44.0); MEAN CORPUSCULAR HEMOGLOBIN 27.1 pg (27.0-33.0); MEAN CORPUSCULAR HGB CONC 30.9 g/dl (32.0-36.5); MEAN CORPUSCULAR VOLUME 87.6 fl (80.0-96.0); MONO # 1.2 10^3/uL (0.0-0.8); MONO % 12.2 % (2.0-8.0); NEUTROPHILS % 72.7 % (36.0-66.0); PLATELET COUNT, AUTOMATED 158 10^3/uL (150-450); RED BLOOD COUNT 2.66 10^6/uL (4.00-5.40); WHITE BLOOD COUNT 9.6 10^3/uL (4.0-10.0)
[2022-06-13] MEDS ORDERED: NS 0.45% 1,000 ML IV SCH (07:50)
[2022-06-13] MEDS ORDERED: CALCIUM GLUCONATE 1,000 MG in D5W MINI-BAG PLUS 100 ML IV ONE (08:00)
[2022-06-13 08:19] LABS: BILIRUBIN,TOTAL 0.5 MG/DL (0.2-1.0); CALCIUM LEVEL 8.1 MG/DL (8.8-10.2); GLOMERULAR FILTRATION RATE 55.7 (>32); MAGNESIUM LEVEL 1.9 MG/DL (1.8-2.4); POTASSIUM SERUM 4.1 MEQ/L (3.5-5.1); TOTAL PROTEIN 6.9 GM/DL (6.4-8.2)
[2022-06-13] MEDS: FERROUS GLUCONATE 324 MG TAB PO SCH (08:36)
[2022-06-13] MEDS: PANTOPRAZOLE 40MG TAB (PROTONIX) PO SCH (08:36)
[2022-06-13 12:00] VITALS: BP 127/75
[2022-06-13] MEDS ORDERED: BISACODYL 10 MG SUPP PR PRN (17:10)
[2022-06-13] MEDS ORDERED: MOM 30ML SUSPENSION UDC PO PRN (17:10)
[2022-06-13] MEDS ORDERED: PROCHLORPERAZINE 25 MG SUPP PR PRN (17:10)
[2022-06-13 19:31] LABS: PERCENT SATURATION 26.2 % (13.2-45.0)
[2022-06-13 21:29] VITALS: BP 112/58
[2022-06-14] VITALS (11 sets, daily range): BP systolic 96–111; BP diastolic 51–56
[2022-06-14] MEDS: HEPARIN SOD (PORCINE) 5000UNITS/ML 1ML VIAL/SYRINGE SQ SCH ×3 (06:27→21:18)
[2022-06-14] MEDS: LEVOTHYROXINE 75MCG TABLET (0.075MG) PO SCH (06:27)
[2022-06-14 06:47] LABS: BASO % 0.1 % (0.0-1.0); EOS % 0.1 % (0.0-3.0); HEMATOCRIT 21.9 % (36.0-47.0); LYMPH # 1.4 10^3/uL (1.5-5.0); LYMPH % 9.2 % (24.0-44.0); MEAN CORPUSCULAR HEMOGLOBIN 27.8 pg (27.0-33.0); MEAN CORPUSCULAR HGB CONC 31.1 g/dl (32.0-36.5); MEAN CORPUSCULAR VOLUME 89.4 fl (80.0-96.0); MONO % 18.9 % (2.0-8.0); NEUTROPHILS # 10.9 10^3/uL (1.5-8.5); PLATELET COUNT, AUTOMATED 151 10^3/uL (150-450); RED BLOOD COUNT 2.45 10^6/uL (4.00-5.40); WHITE BLOOD COUNT 15.5 10^3/uL (4.0-10.0)
[2022-06-14 06:52] LABS: HEMOGLOBIN 6.8 g/dl (12.0-15.5); MONO # 2.9 10^3/uL (0.0-0.8)
[2022-06-14 07:30] LABS: CALCIUM LEVEL 8.3 MG/DL (8.8-10.2); CREATININE FOR GFR 1.11 MG/DL (0.55-1.30); GLOMERULAR FILTRATION RATE 49.4 (>32); POTASSIUM SERUM 3.4 MEQ/L (3.5-5.1)
[2022-06-14 07:31] LABS: ALBUMIN 2.8 GM/DL (3.2-5.2); BILIRUBIN,TOTAL 0.6 MG/DL (0.2-1.0); TOTAL PROTEIN 6.9 GM/DL (6.4-8.2)
[2022-06-14] MEDS ORDERED: POTASSIUM CHLORIDE 10MEQ SR TABLET PO ONE (08:00)
[2022-06-14] MEDS: PANTOPRAZOLE 40MG TAB (PROTONIX) PO SCH (08:57)
[2022-06-14] MEDS: FERROUS GLUCONATE 324 MG TAB PO SCH ×2 (08:57→21:17)
[2022-06-14] MEDS: FLUoxetine 10 MG CAP PO SCH (08:57)
[2022-06-14] MEDS: SENNA 8.6 MG TAB (SENOKOT) PO SCH (09:00)
[2022-06-14] MEDS: DOCUSATE SODIUM 100MG CAPSULE PO SCH ×3 (09:00→21:17)
[2022-06-14 18:46] LABS: HEMATOCRIT 32.5 % (36.0-47.0); HEMOGLOBIN 10.5 g/dl (12.0-15.5); MEAN CORPUSCULAR HEMOGLOBIN 28.5 pg (27.0-33.0); MEAN CORPUSCULAR HGB CONC 32.3 g/dl (32.0-36.5); MEAN CORPUSCULAR VOLUME 88.3 fl (80.0-96.0); PLATELET COUNT, AUTOMATED 142 10^3/uL (150-450); RED BLOOD COUNT 3.68 10^6/uL (4.00-5.40); WHITE BLOOD COUNT 13.2 10^3/uL (4.0-10.0)
[2022-06-15 04:27] VITALS: BP 100/60
[2022-06-15] MEDS: LEVOTHYROXINE 75MCG TABLET (0.075MG) PO SCH (05:53)
[2022-06-15] MEDS: HEPARIN SOD (PORCINE) 5000UNITS/ML 1ML VIAL/SYRINGE SQ SCH ×3 (05:58→20:01)
[2022-06-15 06:54] LABS: BASO % 0.2 % (0.0-1.0); HEMATOCRIT 30.8 % (36.0-47.0); HEMOGLOBIN 9.8 g/dl (12.0-15.5); LYMPH # 1.4 10^3/uL (1.5-5.0); LYMPH % 10.7 % (24.0-44.0); MEAN CORPUSCULAR HEMOGLOBIN 28.2 pg (27.0-33.0); MEAN CORPUSCULAR HGB CONC 31.8 g/dl (32.0-36.5); MEAN CORPUSCULAR VOLUME 88.5 fl (80.0-96.0); MONO # 1.6 10^3/uL (0.0-0.8); MONO % 11.9 % (2.0-8.0); NEUTROPHILS # 9.9 10^3/uL (1.5-8.5); NEUTROPHILS % 74.3 % (36.0-66.0); PLATELET COUNT, AUTOMATED 155 10^3/uL (150-450); RED BLOOD COUNT 3.48 10^6/uL (4.00-5.40); WHITE BLOOD COUNT 13.3 10^3/uL (4.0-10.0)
[2022-06-15 07:13] LABS: ALBUMIN 2.6 GM/DL (3.2-5.2); BILIRUBIN,TOTAL 0.7 MG/DL (0.2-1.0); CALCIUM LEVEL 8.5 MG/DL (8.8-10.2); CREATININE FOR GFR 1.08 MG/DL (0.55-1.30); TOTAL PROTEIN 6.9 GM/DL (6.4-8.2)
[2022-06-15] MEDS ORDERED: COLA100C5 PO (07:46)
[2022-06-15] MEDS ORDERED: FERR32TA PO (07:46)
[2022-06-15] MEDS: FERROUS GLUCONATE 324 MG TAB PO SCH ×2 (08:37→19:58)
[2022-06-15] MEDS: DOCUSATE SODIUM 100MG CAPSULE PO SCH ×2 (08:37→20:01)
[2022-06-15] MEDS: PANTOPRAZOLE 40MG TAB (PROTONIX) PO SCH (08:37)
[2022-06-15] MEDS: SENNA 8.6 MG TAB (SENOKOT) PO SCH (08:38)
[2022-06-15] MEDS ORDERED: IRON SUCROSE 200 MG in NS 100 ML IV ONE (10:00)
[2022-06-15] MEDS: cefTRIAXone SOD 1 GM in D5W MINI-BAG PLUS 50 ML IV SCH (11:43)
[2022-06-15 12:00] VITALS: BP 124/58
[2022-06-15 20:00] VITALS: BP 127/60
[2022-06-16 04:00] VITALS: BP 121/59
[2022-06-16] MEDS: HEPARIN SOD (PORCINE) 5000UNITS/ML 1ML VIAL/SYRINGE SQ SCH ×3 (05:39→20:01)
[2022-06-16] MEDS: LEVOTHYROXINE 75MCG TABLET (0.075MG) PO SCH (05:39)
[2022-06-16 06:55] LABS: BASO % 0.1 % (0.0-1.0); EOS % 0.1 % (0.0-3.0); HEMATOCRIT 36.8 % (36.0-47.0); HEMOGLOBIN 11.6 g/dl (12.0-15.5); LYMPH # 1.1 10^3/uL (1.5-5.0); MEAN CORPUSCULAR HEMOGLOBIN 28.7 pg (27.0-33.0); MEAN CORPUSCULAR HGB CONC 31.5 g/dl (32.0-36.5); MEAN CORPUSCULAR VOLUME 91.1 fl (80.0-96.0); MONO # 1.1 10^3/uL (0.0-0.8); MONO % 7.9 % (2.0-8.0); NEUTROPHILS # 10.9 10^3/uL (1.5-8.5); NEUTROPHILS % 80.4 % (36.0-66.0); PLATELET COUNT, AUTOMATED 142 10^3/uL (150-450); RED BLOOD COUNT 4.04 10^6/uL (4.00-5.40); WHITE BLOOD COUNT 13.6 10^3/uL (4.0-10.0)
[2022-06-16 07:46] LABS: ALBUMIN 2.8 GM/DL (3.2-5.2); BILIRUBIN,TOTAL 0.4 MG/DL (0.2-1.0); CALCIUM LEVEL 8.6 MG/DL (8.8-10.2); CREATININE FOR GFR 1.19 MG/DL (0.55-1.30); GLOMERULAR FILTRATION RATE 45.6 (>32); POTASSIUM SERUM 4.2 MEQ/L (3.5-5.1)
[2022-06-16] MEDS: DOCUSATE SODIUM 100MG CAPSULE PO SCH ×2 (09:00→20:01)
[2022-06-16] MEDS: SENNA 8.6 MG TAB (SENOKOT) PO SCH (09:00)
[2022-06-16] MEDS ORDERED: IRON SUCROSE 200 MG in NS 100 ML IV ONE (09:00)
[2022-06-16] MEDS: PANTOPRAZOLE 40MG TAB (PROTONIX) PO SCH (09:09)
[2022-06-16] MEDS: FERROUS GLUCONATE 324 MG TAB PO SCH ×2 (09:09→19:58)
[2022-06-16] MEDS: FLUoxetine 10 MG CAP PO SCH (09:09)
[2022-06-16 12:00] VITALS: BP 132/60
[2022-06-16] MEDS: cefTRIAXone SOD 1 GM in D5W MINI-BAG PLUS 50 ML IV SCH (12:55)
[2022-06-16 20:00] VITALS: BP 127/59
[2022-06-17 04:00] VITALS: BP 118/58
[2022-06-17] MEDS: HEPARIN SOD (PORCINE) 5000UNITS/ML 1ML VIAL/SYRINGE SQ SCH ×2 (05:36→14:00)
[2022-06-17] MEDS: LEVOTHYROXINE 75MCG TABLET (0.075MG) PO SCH (05:36)
[2022-06-17] MEDS ORDERED: LevoFLOXacin 250 MG TABLET PO SCH (06:00)
[2022-06-17] MEDS ORDERED: LEVO250T3 PO (07:21)
[2022-06-17 07:36] LABS: BASO % 0.2 % (0.0-1.0); EOS % 0.1 % (0.0-3.0); HEMATOCRIT 34.4 % (36.0-47.0); HEMOGLOBIN 10.7 g/dl (12.0-15.5); LYMPH # 1.2 10^3/uL (1.5-5.0); LYMPH % 8.9 % (24.0-44.0); MEAN CORPUSCULAR HEMOGLOBIN 28.1 pg (27.0-33.0); MEAN CORPUSCULAR HGB CONC 31.1 g/dl (32.0-36.5); MEAN CORPUSCULAR VOLUME 90.3 fl (80.0-96.0); MONO % 12.9 % (2.0-8.0); NEUTROPHILS # 10.3 10^3/uL (1.5-8.5); PLATELET COUNT, AUTOMATED 148 10^3/uL (150-450); RED BLOOD COUNT 3.81 10^6/uL (4.00-5.40); WHITE BLOOD COUNT 13.7 10^3/uL (4.0-10.0)
[2022-06-17 08:05] LABS: MONO # 1.8 10^3/uL (0.0-0.8)
[2022-06-17 08:18] LABS: ALBUMIN 2.6 GM/DL (3.2-5.2); BILIRUBIN,TOTAL 0.3 MG/DL (0.2-1.0); CALCIUM LEVEL 8.7 MG/DL (8.8-10.2); CREATININE FOR GFR 1.05 MG/DL (0.55-1.30); GLOMERULAR FILTRATION RATE 52.7 (>32); POTASSIUM SERUM 3.8 MEQ/L (3.5-5.1); TOTAL PROTEIN 6.6 GM/DL (6.4-8.2)
[2022-06-17] MEDS: FERROUS GLUCONATE 324 MG TAB PO SCH (08:48)
[2022-06-17] MEDS: PANTOPRAZOLE 40MG TAB (PROTONIX) PO SCH (08:48)
[2022-06-17] MEDS: DOCUSATE SODIUM 100MG CAPSULE PO SCH (08:49)
[2022-06-17] MEDS: SENNA 8.6 MG TAB (SENOKOT) PO SCH (08:49)
[2022-06-17 12:00] VITALS: BP 106/54
== END 2022-06-17 14:50 | DRG 812 ==
LOC: EDBD 10:48 → M ED 10:48 → M ED INP 15:28 → M 4MAIN 17:58
PROVIDERS: ADMIT Family Medicine; ATTEND Internal Medicine
PROC: 30233N1 Transfusion of Nonautologous Red Blood Cells into Peripheral Vein, Percutaneous Approach (ICD-10-PCS; principal; 2022-06-14)
DX: D50.9 Iron deficiency anemia, unspecified (principal); F03.91 Unspecified dementia, unspecified severity, with behavioral disturbance; N17.9 Acute kidney failure, unspecified; N39.0 Urinary tract infection, site not specified; E03.9 Hypothyroidism, unspecified; M81.0 Age-related osteoporosis without current pathological fracture; K44.9 Diaphragmatic hernia without obstruction or gangrene; F41.9 Anxiety disorder, unspecified; Z87.440 Personal history of urinary (tract) infections; E86.0 Dehydration; E87.6 Hypokalemia; E83.42 Hypomagnesemia; Z66 Do not resuscitate; Z79.899 Other long term (current) drug therapy; E83.51 Hypocalcemia; K59.00 Constipation, unspecified; K21.9 Gastro-esophageal reflux disease without esophagitis; B96.1 Klebsiella pneumoniae [K. pneumoniae] as the cause of diseases classified elsewhere; R62.7 Adult failure to thrive; Z79.890 Hormone replacement therapy

== ENCOUNTER → 2022-06-11 | Outpatient (REF) | payer MEDICARE, MEDICAID ==
[~2022-06-11] MED LIST changes: +BISA10SU27 PR; +COLA100C5 PO; +ENOX30IN3 SC; +FERR32TA PO; +FLEEENE12 PR; +GUAI100L6 PO; +LEVO1TAB38 PO; +LEVO1TAB39 PO; -LEVO500T4 PO; +LEVO75TA4 PO; +MILKSUS7 PO; +PROC25SU24 PR; +PROM1SUP2 PR; +SENN-80 PO; +SODIGEL TOP
[2022-06-11 08:46] LABS: HEMATOCRIT 25.3 % (36.0-47.0); HEMOGLOBIN 7.9 g/dl (12.0-15.5); MEAN CORPUSCULAR HEMOGLOBIN 26.8 pg (27.0-33.0); MEAN CORPUSCULAR HGB CONC 31.2 g/dl (32.0-36.5); MEAN CORPUSCULAR VOLUME 85.8 fl (80.0-96.0); PLATELET COUNT, AUTOMATED 165 10^3/uL (150-450); RED BLOOD COUNT 2.95 10^6/uL (4.00-5.40); WHITE BLOOD COUNT 9.8 10^3/uL (4.0-10.0)
[2022-06-11 09:16] LABS: ALBUMIN 3.6 GM/DL (3.2-5.2); BILIRUBIN,TOTAL 0.4 MG/DL (0.2-1.0); CALCIUM LEVEL 7.2 MG/DL (8.8-10.2); CREATININE FOR GFR 1.57 MG/DL (0.55-1.30); GLOMERULAR FILTRATION RATE 33.1 (>32); POTASSIUM SERUM 2.2 MEQ/L (3.5-5.1); TOTAL PROTEIN 7.8 GM/DL (6.4-8.2)
== END ==
LOC: SKLAB2 07:00
PROVIDERS: ATTEND Nurse Practitioner Family
DX: U07.1 COVID-19 (principal); Z79.899 Other long term (current) drug therapy

== ENCOUNTER → 2022-06-13 | Outpatient (REF) | payer MEDICARE, MEDICAID ==
[~2022-06-13] MED LIST changes: +BISA10SU27 PR; +COLA100C5 PO; +ENOX30IN3 SC; +FERR32TA PO; +FLEEENE12 PR; +GUAI100L6 PO; +LEVO75TA4 PO; +MILKSUS7 PO; +PROC25SU24 PR; +PROM1SUP2 PR; +SENN-80 PO; +SODIGEL TOP
== END ==
LOC: SKLAB2 07:00
PROVIDERS: ATTEND Nurse Practitioner Family
DX: U07.1 COVID-19 (principal); Z53.9 Procedure and treatment not carried out, unspecified reason

== ENCOUNTER → 2022-06-16 | Outpatient (REF) | payer MEDICARE, MEDICAID ==
[~2022-06-16] MED LIST changes: +LEVO250T3 PO
== END ==
LOC: SKLAB2 09:56
PROVIDERS: ATTEND Nurse Practitioner Family
DX: U07.1 COVID-19 (principal); Z53.9 Procedure and treatment not carried out, unspecified reason

== ENCOUNTER → 2022-06-20 | Outpatient (REF) | payer MEDICARE, MEDICAID | LOC: SKLAB2 09:50 | PROVIDERS: ATTEND Nurse Practitioner Family | DX: U07.1 COVID-19 (principal); Z53.9 Procedure and treatment not carried out, unspecified reason ==

== ENCOUNTER → 2022-06-23 | Outpatient (REF) | payer MEDICARE, MEDICAID ==
[~2022-06-23] MED LIST changes: +LEVO1TAB38 PO; +LEVO1TAB39 PO; -LEVO250T3 PO; -LEVO500T4 PO
[2022-06-23 10:24] LABS: HEMATOCRIT 29.8 % (36.0-47.0); HEMOGLOBIN 9.5 g/dl (12.0-15.5); MEAN CORPUSCULAR HEMOGLOBIN 28.8 pg (27.0-33.0); MEAN CORPUSCULAR HGB CONC 31.9 g/dl (32.0-36.5); MEAN CORPUSCULAR VOLUME 90.3 fl (80.0-96.0); PLATELET COUNT, AUTOMATED 153 10^3/uL (150-450); WHITE BLOOD COUNT 10.1 10^3/uL (4.0-10.0)
== END ==
LOC: SKLAB7 07:00
PROVIDERS: ATTEND Nurse Practitioner Family
DX: D64.9 Anemia, unspecified (principal)

== ENCOUNTER → 2022-06-30 | Outpatient (REF) | payer MEDICARE, MEDICAID ==
[2022-06-30 13:32] LABS: HEMATOCRIT 28.7 % (36.0-47.0); MEAN CORPUSCULAR HGB CONC 31.4 g/dl (32.0-36.5); MEAN CORPUSCULAR VOLUME 92.6 fl (80.0-96.0); PLATELET COUNT, AUTOMATED 119 10^3/uL (150-450); WHITE BLOOD COUNT 4.6 10^3/uL (4.0-10.0)
[2022-06-30 15:08] LABS: BLOOD UREA NITROGEN 24 MG/DL (7-18); CALCIUM LEVEL 7.9 MG/DL (8.8-10.2); CARBON DIOXIDE LEVEL 21 MEQ/L (21-32); CHLORIDE LEVEL 109 MEQ/L (98-107); FERRITIN 687 NG/ML (8-252); GLOMERULAR FILTRATION RATE > 60.0 (>32); GLUCOSE, FASTING 123 MG/DL (70-100); IRON (FE) 131 UG/DL (50-170); PERCENT SATURATION 85.6 % (13.2-45.0); POTASSIUM SERUM 2.7 MEQ/L (3.5-5.1); SODIUM LEVEL 141 MEQ/L (136-145); TOTAL IRON BINDING CAPACITY 153 UG/DL (250-450)
== END ==
LOC: SKLAB7 07:00
PROVIDERS: ATTEND Nurse Practitioner Family
DX: D64.9 Anemia, unspecified (principal)

== ENCOUNTER → 2022-07-01 | Outpatient (REF) | payer MEDICARE, MEDICAID ==
[2022-07-01 10:51] LABS: BLOOD UREA NITROGEN 24 MG/DL (7-18); CALCIUM LEVEL 8.3 MG/DL (8.8-10.2); CARBON DIOXIDE LEVEL 21 MEQ/L (21-32); CHLORIDE LEVEL 111 MEQ/L (98-107); CREATININE FOR GFR 0.86 MG/DL (0.55-1.30); GLOMERULAR FILTRATION RATE > 60.0 (>32); GLUCOSE, FASTING 89 MG/DL (70-100); POTASSIUM SERUM 3.5 MEQ/L (3.5-5.1); SODIUM LEVEL 141 MEQ/L (136-145)
== END ==
LOC: SKLAB7 07:00
PROVIDERS: ATTEND Nurse Practitioner Family
DX: E87.6 Hypokalemia (principal)

== ENCOUNTER → 2022-07-07 | Outpatient (REF) | payer MEDICARE, MEDICAID ==
[2022-07-07 08:43] LABS: HEMATOCRIT 27.9 % (36.0-47.0); HEMOGLOBIN 8.4 g/dl (12.0-15.5); MEAN CORPUSCULAR HEMOGLOBIN 27.9 pg (27.0-33.0); MEAN CORPUSCULAR HGB CONC 30.1 g/dl (32.0-36.5); MEAN CORPUSCULAR VOLUME 92.7 fl (80.0-96.0); RED BLOOD COUNT 3.01 10^6/uL (4.00-5.40)
[2022-07-07 10:12] LABS: PLATELET COUNT, AUTOMATED 86 10^3/uL (150-450)
== END ==
LOC: SKLAB7 07:00
PROVIDERS: ATTEND Nurse Practitioner Family
DX: D64.9 Anemia, unspecified (principal); E83.42 Hypomagnesemia